=== PATIENT | male | born 1955 | race Caucasian/White ===

== ENCOUNTER → 2024-01-11 11:54 | Outpatient (REF) | payer BC, SELFPAY | LOC: HWRAD 11:54 | PROVIDERS: ATTENDING PHYSICIAN Nurse Practitioner Family; FAMILY PHYSICIAN Internal Medicine | DX: Z87.891 Personal history of nicotine dependence (principal) | CPT/HCPCS: 71271 ==

== ENCOUNTER 2024-01-25 06:27 | Day surgery (SDC) | payer BC, SELFPAY ==
[2024-01-15 06:39] VITALS: BMI 33.8
[2024-01-15 09:01] LABS: Hematocrit 40.8 % (39.0-52.0); Hemoglobin 13.8 g/dL (13.0-18.0); Mean Corp Hgb Conc. 33.8 g/dL (33.0-37.0); Mean Corpuscular Hgb 32.1 pg (27.0-31.0); Mean Corpuscular Volume 94.9 fL (80.0-94.0); Mean Platelet Volume 9.6 fL (7.4-10.4); Platelet Count 156 10^3/uL (130-400); Red Cell Dist. Width 12.1 % (11.5-14.5); White Blood Cell Count 7.7 10^3/uL (4.8-10.8)
[2024-01-15 09:09] LABS: INR 1.01; PT 13.1 Sec (11.4-14.6)
[2024-01-15 09:10] LABS: APTT 28.1 Sec (23.4-35.0)
[2024-01-15 10:02] LABS: ALT (SGPT) 38 U/L (0-50); AST (SGOT) 29 U/L (17-59); Albumin 4.3 g/dl (3.5-5.0); Alkaline Phosphatase 70 U/L (38-126); Blood Urea Nitrogen 31 mg/dl (9-20); Calcium 9.3 mg/dl (8.4-10.2); Carbon Dioxide 23 mmol/L (22-30); Chloride 104 mmol/L (98-107); Estimated Creatinine Clearance 46 ml/min; Glucose 124 mg/dl (70-99); HDL Cholesterol 41 mg/dl; Potassium 4.5 mmol/L (3.5-5.1); Sodium 136 mmol/L (135-145); Total Bilirubin 0.5 mg/dl (0.2-1.3); Total Cholesterol 183 mg/dl (50-199); Total Protein 6.7 g/dl (6.3-8.2); eGFR 40.75
[2024-01-15 10:06] LABS: Triglyceride 424 mg/dl (10-149)
[2024-01-15 10:28] LABS: LDL Cholesterol, Direct 85 mg/dl
[2024-01-15 10:32] LABS: TSH 2.46 uIU/ml (0.47-4.68)
--- NOTE | 2024-01-18 08:54 | PTCARENOTE ---
Creatinine 1.8 and eGFR 40.75 collected on 01/15/24; Pool at 's office were notified.
[2024-01-25] VITALS (8 sets, daily range): BP systolic 125–145; BP diastolic 62–81; BMI 33.3
--- NOTE | 2024-01-25 11:17 | PTCARENOTE ---
ok with pt. going to SDS with sat decreasing to 88-89%, pt. denies SOB. deep breathing encouarged .
== END 2024-01-25 12:15 | disposition home or self-care (01) ==
LOC: GI 06:27
PROVIDERS: ATTENDING PHYSICIAN Internal Medicine Critical Care Medicine; FAMILY PHYSICIAN Internal Medicine
DX: C34.01 Malignant neoplasm of right main bronchus (principal); C77.1 Secondary and unspecified malignant neoplasm of intrathoracic lymph nodes; R91.8 Other nonspecific abnormal finding of lung field; R59.0 Localized enlarged lymph nodes; J96.10 Chronic respiratory failure, unspecified whether with hypoxia or hypercapnia; I42.9 Cardiomyopathy, unspecified; J44.9 Chronic obstructive pulmonary disease, unspecified; I10 Essential (primary) hypertension; Z87.891 Personal history of nicotine dependence
CPT/HCPCS: 31629; 31653; 31624; 31625; 31654; 31899; 88172; 88173; 88305; 36415; 71045; 80053; 80061; 83721; 84439; 84443; 85027; 85610; 85730; 87015; 87070; 87077; 87102; 87116; 87185; 87205; 88112; 88341; 88342

== ENCOUNTER 2024-01-29 07:51 | Emergency (ER) | payer BC, SELFPAY ==
[2024-01-29 07:57] VITALS: BP 127/69
[2024-01-29] MEDS: NORCO 5/325 1 TABLET PO (09:23)
--- NOTE | 2024-01-29 09:38 | ED.GENMED ---
History of Present Illness
General
Chief Complaint: Musculo-Skeletal Complaint
Source: patient
Exam Limitations: none
Time Seen by Provider: 01/29/24 08:49
Nursing documentation reviewed up to this point in time: agreed with
Travel History
Have you had any contact with someone who has COVID-19?: No
Do you have any symptoms of coronavirus? Fever > 100 degrees, chills, cough, shortness of breath, sore throat, loss of taste or smell, muscle aches, or headache?: No
History of Present Illness
History of Present Illness:
68 y/o M with h/o COPD, cardiomypathy, htn, hld
recent diagnosed Lung cancer last week, had bronchoscopy
unknown staging
here with painful posterior heel/achilles region x 2 days
says he did remember vaccuuming the day before it started but denies injury
has had pain, swelling, posterior tenderness to the back of the ankle/foot
no heel pain plantar
mild swelling foot
concerned for blood clot in setting of new cancer diagnosis
pain is worse with movement of the ankle but mostly worse with palpitaiton
no calf swelling
took tyenol without relief
Past History
Past History
ED Past Medical History: Cancer (lung cancer), CHF, HTN and Hypercholesterolemia
Social History
Tobacco: Smoker
Alcohol: Occasional
Drug: None
Personal:
Living: with family
Review of Systems
Review of Systems
Allergies reviewed?: Yes
All Other Systems: Not applicable
Phy Exam
Physical Exam
Physical Exam:
GENERAL: Alert , in no apparent distress
CARDIAC: Regular rate and rhythm .normal pulse dp
LUNGS: Clear breath sounds bilaterally, no acute respiratory distress, no wheezes/rales/rhonchi
ABDOMEN: Soft, without focal tenderness, no r/g, no cvat, normal bowel sounds
NEUROLOGICAL: Alert and oriented, no focal neuro deficits
SKIN: Warm and dry, skin intact.
slight redness posterior heel/achilles region with point tenderness, STS
MUSCULOSKELETAL: mild L foot swelling diffusely
tenderness to achilles posteriorly
no plantar fascia tendneress at insertion point on foot
achilles intact
PSYCH: Normal and appropriate interaction.
Course
Orders/Labs/Results
Orders:
Orders
01/29/24 08:00
CR Foot - Left Min 3 Views Urgent
Comment:
Reason For Exam: heel pain
01/29/24 09:16
Hydrocodone 5/APAP 325 [[place] 5/325] 1 tablet PO NOW STA
Venous Doppler Lwr Ext Left [US Periph Venous LOWER Ext LT] Urgent
Comment:
Reason For Exam: left foot swelling, dx lung cancer
Vital Signs
Initial and Last Documented VS:
Initial Vital Signs
Temp Pulse Resp BP Pulse Ox
97.8 F 82 18 127/69 94
01/29/24 07:57 01/29/24 07:57 01/29/24 07:57 01/29/24 07:57 01/29/24 07:57
Last Documented Vital Signs
Temp Pulse Resp BP Pulse Ox
97.8 F 82 18 127/69 94
01/29/24 07:57 01/29/24 07:57 01/29/24 07:57 01/29/24 07:57 01/29/24 07:57
MDM/Problems Addressed
Differential Diagnosis Includes:
plantar fasciitis, achilles tendinitis, dvt
MDM/Problems Addressed:
68 y/o M with newly diagnosed lung ca
here with atraumatic left posterior ankle/heel pain x 2 days
doesn't recall injury
no plantar heel pain
some soft tissue swelling and point tenderness to back of heel and achilles region with normal ford test
normal senstaion and strength
painful weight bearing
xray indep reviewed, appreciate the calcaneal spur
could be plantar fasciitis vs. achilles tendinitis
pt generally avoids NSAIDS
concerned about dvt due to recent cancer diagnosis
US neg
will d/c with round of steorids, tylenol, walking boot, walker
pt didn't tolerate boot with putting pressure on his heel
*Critical Care Note
Total Time (30-74mins, 75-104mins- exclusive of procedures): Not Applicable
ED Attending Note
-
Portions of this chart may have been created with voice recognition software.� Occasional wrong word or��sound alike� substitutions may have occurred due to the inherent limitations of voice recognition software.
Discharge Plan
Departure
Patient Disposition: Home (Routine Discharge)
Date of Disposition: 01/29/24
Time of Disposition: 11:08
Patient with high blood pressure during this ER visit?: No
Condition: Fair
Covid-19: Not Applicable
Discharge Problem:
Tendinitis
Instructions: Achilles Tendinopathy (DC), Heel Spurs (DC)
Prescriptions:
New
prednisone 50 mg tablet
50 mg PO DAILY Qty: 5 0RF
hydrocodone-acetaminophen 5-325 mg tablet
1 tab PO BID PRN (Reason: Pain) Qty: 7 0RF
No Action
albuterol sulfate 1 PUFF HFA aerosol inhaler
2 puff inhalation Q4HPRN PRN (Reason: sob)
Patient Comments:
patient stated he last took this greater than 2weeks ago
carvedilol [Coreg] 25 MG tablet
25 mg PO BID
trazodone 100 MG tablet
200 mg PO HS
pravastatin 20 MG tablet
20 mg PO HS
icosapent ethyl [Vascepa] 1 GM capsule
2 gm PO BID
guaifenesin [Mucus Relief ER] 600 MG tablet extended release 12hr
600 mg PO BID-TID
furosemide [Lasix] 40 MG tablet
40 mg PO DAILY Qty: 0 0RF
Rx Instructions:
Hold if systolic blood pressure <130 while taking Oxycodone
multivitamin Tablet
1 tab PO DAILY
Trelegy Ellipta 100-62.5-25 mcg Blister With Device
1 inh INHALATION DAILY
aspirin 81 mg Capsule
81 mg PO DAILY
lisinopril 10 MG tablet
10 mg PO DAILY
Rx Instructions:
Hold if systolic blood pressure <130 while on Oxycodone
Healthy Feet And Nerves
2 tab PO DAILY
Referrals:
Darrius Carter MD [Family Provider] -
Stand Alone Forms: Return to Work
Activity Restrictions/Additional Instructions:
YOUR XRAY SHOWS A HEEL SPUR WHICH CAN PREDISPOSE TO PLANTAR FASCIITIS, INFLAMMATION OF THE TISSUE THAT ATTACHES THE BACK OF THE ANKLE TO THE FOOT
YOU ALSO COULD HAVE INFAMMATION OF THE ACHILLES TENDON
USE YOUR WALKER WELL
FOLLOW UP WITH ORTHOPEDICS
TRY PREDNISONE 50 MG ONCE A DAY FOR 5 DAYS
TYLENOL 2 times a day NEEDED FOR PAIN WELL
AT NIGHT YOU CAN TRY VICODIN BEFORE BED TO HELP WITH PAIN AND SLEEP
RETURN FOR ANY CONCERNS LIKE REDNESS, WORSE SWELLING, NUMBNESS, WARMTH, INABILITY TO WALK OR ANY CONCERNS.
Interventions
Interventions:
*Risk Screen - Suicide Last Done: 01/29/24 07:54
*General Assessment Last Done: 01/29/24 07:54
*Neglect/Abuse Screening Last Done: 01/29/24 11:40
ED- Fall Risk Assessment Last Done: 01/29/24 11:40
*ED COVID-19 Vaccine History Last Done: 01/29/24 07:54
*Nursing Disposition Last Done: 01/29/24 11:43
ED-Musculoskeletal Assessment Last Done: 01/29/24 11:39
Discharge Date and Time
Discharge Date/Time: 01/29/24 11:44
Print Language: GREENLANDIC
== END 2024-01-29 11:44 | disposition home or self-care (01) ==
LOC: EMR 07:51
PROVIDERS: EMERGENCY PHYSICIAN Emergency Medicine; FAMILY PHYSICIAN Internal Medicine
DX: M76.62 Achilles tendinitis, left leg (principal); F17.200 Nicotine dependence, unspecified, uncomplicated; I11.0 Hypertensive heart disease with heart failure; I50.9 Heart failure, unspecified; E78.00 Pure hypercholesterolemia, unspecified
CPT/HCPCS: 99284; 73630; 93971

== ENCOUNTER → 2024-02-03 10:27 | Outpatient (REF) | payer BC, SELFPAY | LOC: PAVMRI 10:27 | PROVIDERS: ATTENDING PHYSICIAN Physician Assistant Surgical; FAMILY PHYSICIAN Internal Medicine | DX: M76.62 Achilles tendinitis, left leg (principal) | CPT/HCPCS: 73721 ==

== ENCOUNTER → 2024-02-10 08:41 | Outpatient (REF) | payer BC, SELFPAY | LOC: PET 08:41 | PROVIDERS: ATTENDING PHYSICIAN Nurse Practitioner Family | DX: C34.11 Malignant neoplasm of upper lobe, right bronchus or lung (principal) | CPT/HCPCS: 78815; A9552 ==

== ENCOUNTER → 2024-02-22 11:06 | Outpatient (REF) | payer BC, SELFPAY ==
[2024-02-22 12:49] LABS: % Basophils 0.7 % (0-2); % Eosinophils 1.9 % (0-6); % Immature Granulocytes 0.6 % (0-0.5); % Lymphocytes 15.8 % (20.5-51.1); % Monocytes 12.1 % (1.7-9.3); % Neutrophils 68.9 % (42.2-75.2); Absolute Basophils 0.1 10^3/uL (0-0.2); Absolute Eosinophils 0.2 10^3/uL (0-0.7); Absolute Immature Granulocytes 0.1 10^3/uL (0-0.05); Absolute Lymphocytes 1.6 10^3/uL (1.2-3.4); Absolute Monocytes 1.2 10^3/uL (0.1-0.6); Absolute Neutrophils 7.1 10^3/uL (1.4-6.5); Hematocrit 35.9 % (39.0-52.0); Hemoglobin 12.5 g/dL (13.0-18.0); Mean Corp Hgb Conc. 34.8 g/dL (33.0-37.0); Mean Corpuscular Hgb 32.1 pg (27.0-31.0); Mean Corpuscular Volume 92.1 fL (80.0-94.0); Mean Platelet Volume 8.7 fL (7.4-10.4); Nucleated Red Blood Cells % 0 % (-); Platelet Count 229 10^3/uL (130-400); Red Cell Dist. Width 12.1 % (11.5-14.5); White Blood Cell Count 10.2 10^3/uL (4.8-10.8)
[2024-02-22 13:19] LABS: ALT (SGPT) 22 U/L (0-50); AST (SGOT) 22 U/L (17-59); Albumin 4.3 g/dl (3.5-5.0); Alkaline Phosphatase 70 U/L (38-126); Blood Urea Nitrogen 29 mg/dl (9-20); Calcium 9.8 mg/dl (8.4-10.2); Carbon Dioxide 25 mmol/L (22-30); Chloride 103 mmol/L (98-107); Glucose 109 mg/dl (70-99); Potassium 5.6 mmol/L (3.5-5.1); Sodium 137 mmol/L (135-145); Total Bilirubin 0.7 mg/dl (0.2-1.3); eGFR 46.93
[2024-02-22 13:35] LABS: Free T4 0.63 ng/dl (0.78-2.19)
[2024-02-22 13:50] LABS: TSH 1.64 uIU/ml (0.47-4.68)
[2024-02-24 10:59] LABS: Total T3 (Sendout) 91 ng/dL (80-200)
== END ==
LOC: REG 11:06
PROVIDERS: ATTENDING PHYSICIAN Internal Medicine Hematology & Oncology; FAMILY PHYSICIAN Internal Medicine
DX: C34.31 Malignant neoplasm of lower lobe, right bronchus or lung (principal)
CPT/HCPCS: 36415; 80053; 84439; 84443; 84480; 85025

== ENCOUNTER → 2024-02-25 17:45 | Outpatient (REF) | payer BC, SELFPAY | LOC: MRI 3T 17:45 | PROVIDERS: ATTENDING PHYSICIAN Internal Medicine Hematology & Oncology; FAMILY PHYSICIAN Internal Medicine; REFERRING PHYSICIAN Internal Medicine Critical Care Medicine | DX: C34.31 Malignant neoplasm of lower lobe, right bronchus or lung (principal) | CPT/HCPCS: 70553; A9575 ==

== ENCOUNTER → 2024-02-29 09:20 | Outpatient (REF) | payer BC, SELFPAY ==
[2024-02-29 09:49] VITALS: BP 148/68; BP_SYST 78
[2024-02-29] MEDS: ANCEF 10 IV (10:06)
[2024-02-29 11:22] VITALS: BP 152/78; BP_SYST 84
[2024-02-29 11:37] VITALS: BP 143/78; BP_SYST 77
== END ==
LOC: RADI 09:20
PROVIDERS: ATTENDING PHYSICIAN Internal Medicine Hematology & Oncology; FAMILY PHYSICIAN Internal Medicine
DX: C34.31 Malignant neoplasm of lower lobe, right bronchus or lung (principal)
CPT/HCPCS: 36561; 76937; 77001; 99152; 99153; C1788

== ENCOUNTER 2024-03-02 12:57 | Outpatient (RCR) | payer BC, SELFPAY ==
[2024-02-25 15:35] VITALS: BP 143/60
[2024-02-25] MEDS: CYANOCOBALAMIN 1000 MCG IM (15:43)
[2024-03-01 08:19] LABS: % Immature Granulocytes 0.9 % (0-0.5); % Lymphocytes 6.8 % (20.5-51.1); % Monocytes 5.6 % (1.7-9.3); % Neutrophils 86.7 % (42.2-75.2); Absolute Immature Granulocytes 0.1 10^3/uL (0-0.05); Absolute Monocytes 0.8 10^3/uL (0.1-0.6); Absolute Neutrophils 12.2 10^3/uL (1.4-6.5); Hemoglobin 11.6 g/dL (13.0-18.0); Mean Corp Hgb Conc. 35.2 g/dL (33.0-37.0); Mean Corpuscular Hgb 32.7 pg (27.0-31.0); Mean Platelet Volume 8.3 fL (7.4-10.4); Platelet Count 196 10^3/uL (130-400); Red Blood Cell Count 3.55 10^6/uL (4.70-6.10); Red Cell Dist. Width 12.1 % (11.5-14.5)
[2024-03-01 08:27] VITALS: BP 146/61
[2024-03-01 09:05] LABS: ALT (SGPT) 20 U/L (0-50); AST (SGOT) 20 U/L (17-59); Albumin 4.4 g/dl (3.5-5.0); Alkaline Phosphatase 64 U/L (38-126); Blood Urea Nitrogen 22 mg/dl (9-20); Calcium 9.4 mg/dl (8.4-10.2); Carbon Dioxide 22 mmol/L (22-30); Chloride 105 mmol/L (98-107); Glucose 146 mg/dl (70-99); Sodium 139 mmol/L (135-145); Total Bilirubin 0.6 mg/dl (0.2-1.3); Total Protein 6.9 g/dl (6.3-8.2); eGFR > 60.00
[2024-03-01 09:33] LABS: TSH Reflex To Free T4 0.33 uIU/ml (0.47-4.68)
[2024-03-01 10:06] LABS: Free T4 0.73 ng/dl (0.78-2.19)
[2024-03-01] MEDS: OPDIVO 136 MG IV ×2 (10:18)
[2024-03-01] MEDS: YERVOY 69.7800000000000011 MG IV (11:17)
[2024-03-01] MEDS: EMEND 150 MG IV (12:04)
[2024-03-01] MEDS: ALOXI 5 MG IV (12:42)
[2024-03-01] MEDS: DECADRON 51 MG IV (12:42)
[2024-03-01] MEDS: ALIMTA/PEMETREXED 100 MG IV (13:29)
[2024-03-01] MEDS: PARAPLATIN 287.800000000000011 MG IV (13:47)
[2024-03-02 13:00] VITALS: BP 141/84
[2024-03-02] MEDS: NYVEPRIA 6 MG SC (13:31)
== END 2024-03-03 10:02 | disposition home or self-care (01) ==
LOC: OID 12:57
PROVIDERS: ATTENDING PHYSICIAN Internal Medicine Hematology & Oncology; FAMILY PHYSICIAN Internal Medicine
DX: C34.31 Malignant neoplasm of lower lobe, right bronchus or lung (principal)
CPT/HCPCS: 70553; 80053; 84439; 84443; 85025; 96367; 96372; 96375; 96411; 96413; 96417; A9575; J1453; J2469; J9045; J9228; J9299; J9305; Q5122

== ENCOUNTER 2024-04-05 09:27 | Outpatient (RCR) | payer BC, SELFPAY ==
[2024-03-08 10:23] LABS: % Basophils 0.2 % (0-2); % Eosinophils 1.1 % (0-6); % Immature Granulocytes 0.9 % (0-0.5); % Lymphocytes 10.2 % (20.5-51.1); % Monocytes 8.3 % (1.7-9.3); % Neutrophils 79.3 % (42.2-75.2); Absolute Eosinophils 0.1 10^3/uL (0-0.7); Absolute Immature Granulocytes 0.1 10^3/uL (0-0.05); Absolute Lymphocytes 1.1 10^3/uL (1.2-3.4); Absolute Monocytes 0.9 10^3/uL (0.1-0.6); Absolute Neutrophils 8.2 10^3/uL (1.4-6.5); Hematocrit 35.6 % (39.0-52.0); Hemoglobin 12.2 g/dL (13.0-18.0); Mean Corp Hgb Conc. 34.3 g/dL (33.0-37.0); Mean Corpuscular Hgb 32.4 pg (27.0-31.0); Mean Corpuscular Volume 94.4 fL (80.0-94.0); Mean Platelet Volume 8.1 fL (7.4-10.4); Platelet Count 102 10^3/uL (130-400); Red Blood Cell Count 3.77 10^6/uL (4.70-6.10); Red Cell Dist. Width 12.4 % (11.5-14.5); White Blood Cell Count 10.3 10^3/uL (4.8-10.8)
[2024-03-08 11:21] LABS: ALT (SGPT) 30 U/L (0-50); AST (SGOT) 32 U/L (17-59); Albumin 4.4 g/dl (3.5-5.0); Alkaline Phosphatase 93 U/L (38-126); Blood Urea Nitrogen 32 mg/dl (9-20); Calcium 9.3 mg/dl (8.4-10.2); Carbon Dioxide 25 mmol/L (22-30); Chloride 101 mmol/L (98-107); Glucose 107 mg/dl (70-99); Potassium 4.7 mmol/L (3.5-5.1); Sodium 137 mmol/L (135-145); Total Bilirubin 1.1 mg/dl (0.2-1.3); Total Protein 6.9 g/dl (6.3-8.2); eGFR 55.09
[2024-03-08 11:51] LABS: TSH 1.97 uIU/ml (0.47-4.68); TSH Reflex To Free T4 1.97 uIU/ml (0.47-4.68)
[2024-03-15 10:49] LABS: % Basophils 0.1 % (0-2); % Eosinophils 1.5 % (0-6); % Immature Granulocytes 17.3 % (0-0.5); % Lymphocytes 12.5 % (20.5-51.1); % Monocytes 11.8 % (1.7-9.3); % Neutrophils 56.8 % (42.2-75.2); Absolute Eosinophils 0.2 10^3/uL (0-0.7); Absolute Immature Granulocytes 2.4 10^3/uL (0-0.05); Absolute Lymphocytes 1.7 10^3/uL (1.2-3.4); Absolute Monocytes 1.6 10^3/uL (0.1-0.6); Absolute Neutrophils 7.8 10^3/uL (1.4-6.5); Hematocrit 29.8 % (39.0-52.0); Mean Corp Hgb Conc. 33.6 g/dL (33.0-37.0); Mean Corpuscular Hgb 31.7 pg (27.0-31.0); Mean Corpuscular Volume 94.6 fL (80.0-94.0); Mean Platelet Volume 8.4 fL (7.4-10.4); Platelet Count 215 10^3/uL (130-400); Red Blood Cell Count 3.15 10^6/uL (4.70-6.10); Red Cell Dist. Width 13.2 % (11.5-14.5); White Blood Cell Count 13.7 10^3/uL (4.8-10.8)
[2024-03-15 11:59] LABS: ALT (SGPT) 64 U/L (0-50); AST (SGOT) 43 U/L (17-59); Albumin 3.9 g/dl (3.5-5.0); Alkaline Phosphatase 82 U/L (38-126); Blood Urea Nitrogen 22 mg/dl (9-20); Calcium 9.5 mg/dl (8.4-10.2); Carbon Dioxide 23 mmol/L (22-30); Chloride 103 mmol/L (98-107); Glucose 99 mg/dl (70-99); Potassium 4.5 mmol/L (3.5-5.1); Sodium 137 mmol/L (135-145); Total Bilirubin 0.7 mg/dl (0.2-1.3); Total Protein 6.4 g/dl (6.3-8.2); eGFR 50.71
[2024-03-21 10:26] LABS: ALT (SGPT) 35 U/L (0-50); AST (SGOT) 29 U/L (17-59); Albumin 4.2 g/dl (3.5-5.0); Alkaline Phosphatase 91 U/L (38-126); Blood Urea Nitrogen 15 mg/dl (9-20); Calcium 10.1 mg/dl (8.4-10.2); Carbon Dioxide 25 mmol/L (22-30); Chloride 103 mmol/L (98-107); Glucose 123 mg/dl (70-99); Sodium 140 mmol/L (135-145); Total Bilirubin 0.6 mg/dl (0.2-1.3); Total Protein 7.1 g/dl (6.3-8.2); eGFR 50.71
[2024-03-21 10:48] LABS: TSH Reflex To Free T4 1.64 uIU/ml (0.47-4.68)
[2024-03-21 11:11] LABS: % Eosinophils 0.6 % (0-6); % Immature Granulocytes 4.3 % (0-0.5); % Lymphocytes 8.1 % (20.5-51.1); % Monocytes 6.2 % (1.7-9.3); % Neutrophils 79.8 % (42.2-75.2); Absolute Basophils 0.2 10^3/uL (0-0.2); Absolute Eosinophils 0.1 10^3/uL (0-0.7); Absolute Immature Granulocytes 0.8 10^3/uL (0-0.05); Absolute Lymphocytes 1.4 10^3/uL (1.2-3.4); Absolute Monocytes 1.1 10^3/uL (0.1-0.6); Absolute Neutrophils 13.8 10^3/uL (1.4-6.5); Hematocrit 31.3 % (39.0-52.0); Hemoglobin 10.6 g/dL (13.0-18.0); Mean Corp Hgb Conc. 33.9 g/dL (33.0-37.0); Mean Corpuscular Hgb 31.5 pg (27.0-31.0); Mean Corpuscular Volume 92.9 fL (80.0-94.0); Mean Platelet Volume 8.5 fL (7.4-10.4); Nucleated Red Blood Cells % 0.2 % (-); Platelet Count 460 10^3/uL (130-400); Red Blood Cell Count 3.37 10^6/uL (4.70-6.10); Red Cell Dist. Width 14.1 % (11.5-14.5); White Blood Cell Count 17.4 10^3/uL (4.8-10.8)
[2024-03-21 12:14] LABS: Uric Acid 9.3 mg/dl (3.5-8.5)
[2024-03-22] MEDS: OPDIVO 136 MG IV ×2 (09:01)
[2024-03-22] MEDS: EMEND 150 MG IV (09:46)
[2024-03-22 10:02] VITALS: BP 146/74; BMI 32.5
[2024-03-22] MEDS: ALOXI 5 MG IV (10:27)
[2024-03-22] MEDS: DECADRON 51 MG IV (10:29)
[2024-03-22] MEDS: ALIMTA/PEMETREXED 100 MG IV (11:06)
[2024-03-22] MEDS: PARAPLATIN 287.8 MG IV (11:20)
[2024-03-22 12:30] VITALS: BP 154/81
[2024-03-23 14:26] VITALS: BP 142/68
[2024-03-23] MEDS: NYVEPRIA 6 MG SC (14:35)
[2024-03-29 10:04] LABS: % Immature Granulocytes 0.7 % (0-0.5); % Lymphocytes 4.3 % (20.5-51.1); % Monocytes 5.9 % (1.7-9.3); % Neutrophils 89.1 % (42.2-75.2); Absolute Immature Granulocytes 0.1 10^3/uL (0-0.05); Absolute Lymphocytes 0.5 10^3/uL (1.2-3.4); Absolute Monocytes 0.7 10^3/uL (0.1-0.6); Absolute Neutrophils 10.3 10^3/uL (1.4-6.5); Hematocrit 29.6 % (39.0-52.0); Hemoglobin 9.9 g/dL (13.0-18.0); Mean Corp Hgb Conc. 33.4 g/dL (33.0-37.0); Mean Corpuscular Hgb 32.2 pg (27.0-31.0); Mean Corpuscular Volume 96.4 fL (80.0-94.0); Mean Platelet Volume 8.7 fL (7.4-10.4); Platelet Count 142 10^3/uL (130-400); Red Blood Cell Count 3.07 10^6/uL (4.70-6.10); Red Cell Dist. Width 13.8 % (11.5-14.5); White Blood Cell Count 11.6 10^3/uL (4.8-10.8)
[2024-04-05 09:57] LABS: % Basophils 0.1 % (0-2); % Eosinophils 0.1 % (0-6); % Immature Granulocytes 20.6 % (0-0.5); % Lymphocytes 8.6 % (20.5-51.1); % Monocytes 4.5 % (1.7-9.3); % Neutrophils 66.1 % (42.2-75.2); Absolute Immature Granulocytes 6.4 10^3/uL (0-0.05); Absolute Lymphocytes 2.7 10^3/uL (1.2-3.4); Absolute Monocytes 1.4 10^3/uL (0.1-0.6); Absolute Neutrophils 20.6 10^3/uL (1.4-6.5); Hematocrit 33.1 % (39.0-52.0); Hemoglobin 10.8 g/dL (13.0-18.0); Mean Corp Hgb Conc. 32.6 g/dL (33.0-37.0); Mean Corpuscular Hgb 32.6 pg (27.0-31.0); Mean Platelet Volume 9.1 fL (7.4-10.4); Platelet Count 75 10^3/uL (130-400); Red Blood Cell Count 3.31 10^6/uL (4.70-6.10); Red Cell Dist. Width 16.1 % (11.5-14.5); White Blood Cell Count 31.2 10^3/uL (4.8-10.8)
[2024-04-05 12:11] LABS: ALT (SGPT) 57 U/L (0-50); AST (SGOT) 38 U/L (17-59); Albumin 4.3 g/dl (3.5-5.0); Alkaline Phosphatase 136 U/L (38-126); Blood Urea Nitrogen 29 mg/dl (9-20); Calcium 9.7 mg/dl (8.4-10.2); Carbon Dioxide 25 mmol/L (22-30); Chloride 103 mmol/L (98-107); Estimated Creatinine Clearance 54 ml/min; Glucose 112 mg/dl (70-99); Potassium 4.7 mmol/L (3.5-5.1); Sodium 138 mmol/L (135-145); Total Bilirubin 0.4 mg/dl (0.2-1.3); Total Protein 6.5 g/dl (6.3-8.2); Uric Acid 8.7 mg/dl (3.5-8.5); eGFR 50.71
[2024-04-05 12:42] LABS: TSH Reflex To Free T4 1.89 uIU/ml (0.47-4.68)
== END 2024-04-06 14:53 | disposition home or self-care (01) ==
LOC: OID 09:27
PROVIDERS: ATTENDING PHYSICIAN Internal Medicine Hematology & Oncology; FAMILY PHYSICIAN Internal Medicine
DX: Z51.11 Encounter for antineoplastic chemotherapy (principal); C34.31 Malignant neoplasm of lower lobe, right bronchus or lung (principal); J45.909 Unspecified asthma, uncomplicated; Z87.891 Personal history of nicotine dependence
CPT/HCPCS: 36415; 71046; 80053; 84443; 84550; 85025; 96367; 96372; 96375; 96411; 96413; 96417; J1453; J2469; J9045; J9299; J9305; Q5122

== ENCOUNTER 2024-05-04 14:13 | Outpatient (RCR) | payer BC, SELFPAY ==
[2024-04-11 09:15] LABS: % Basophils 0.4 % (0-2); % Eosinophils 0.3 % (0-6); % Immature Granulocytes 1.8 % (0-0.5); % Lymphocytes 6.3 % (20.5-51.1); % Monocytes 6.8 % (1.7-9.3); % Neutrophils 84.4 % (42.2-75.2); ALT (SGPT) 32 U/L (0-50); AST (SGOT) 29 U/L (17-59); Absolute Basophils 0.1 10^3/uL (0-0.2); Absolute Eosinophils 0.1 10^3/uL (0-0.7); Absolute Immature Granulocytes 0.3 10^3/uL (0-0.05); Absolute Monocytes 1.1 10^3/uL (0.1-0.6); Absolute Neutrophils 13.5 10^3/uL (1.4-6.5); Albumin 4.1 g/dl (3.5-5.0); Alkaline Phosphatase 85 U/L (38-126); Blood Urea Nitrogen 26 mg/dl (9-20); Calcium 9.2 mg/dl (8.4-10.2); Carbon Dioxide 21 mmol/L (22-30); Chloride 104 mmol/L (98-107); Glucose 137 mg/dl (70-99); Hemoglobin 9.8 g/dL (13.0-18.0); Mean Corp Hgb Conc. 33.8 g/dL (33.0-37.0); Mean Corpuscular Hgb 32.8 pg (27.0-31.0); Mean Platelet Volume 9.3 fL (7.4-10.4); Nucleated Red Blood Cells % 0 % (-); Platelet Count 191 10^3/uL (130-400); Potassium 4.4 mmol/L (3.5-5.1); Red Blood Cell Count 2.99 10^6/uL (4.70-6.10); Red Cell Dist. Width 17.3 % (11.5-14.5); Sodium 136 mmol/L (135-145); Total Bilirubin 1.2 mg/dl (0.2-1.3); Total Protein 6.5 g/dl (6.3-8.2); eGFR 43.64
[2024-04-11 09:43] LABS: TSH Reflex To Free T4 1.36 uIU/ml (0.47-4.68)
[2024-04-12 09:15] VITALS: BP 145/84
[2024-04-12] MEDS: OPDIVO 136 MG IV ×2 (09:58)
[2024-04-12] MEDS: YERVOY 69.78 MG IV (10:34)
[2024-04-12] MEDS: EMEND 150 MG IV (11:25)
[2024-04-12] MEDS: ALOXI 5 MG IV (12:03)
[2024-04-12] MEDS: DECADRON 51 MG IV (12:04)
[2024-04-12] MEDS: ALIMTA/PEMETREXED 100 MG IV (12:51)
[2024-04-12] MEDS: PARAPLATIN 282.5 MG IV (13:26)
[2024-04-12 14:22] LABS: Uric Acid 7.2 mg/dl (3.5-8.5)
[2024-04-13 14:35] VITALS: BP 153/78
[2024-04-13] MEDS: NYVEPRIA 6 MG SC (15:35)
[2024-04-19 09:29] LABS: % Basophils 0.4 % (0-2); % Eosinophils 0.8 % (0-6); % Immature Granulocytes 0.7 % (0-0.5); % Lymphocytes 13.7 % (20.5-51.1); % Monocytes 7.4 % (1.7-9.3); Absolute Eosinophils 0.1 10^3/uL (0-0.7); Absolute Immature Granulocytes 0.1 10^3/uL (0-0.05); Absolute Lymphocytes 1.2 10^3/uL (1.2-3.4); Absolute Monocytes 0.6 10^3/uL (0.1-0.6); Absolute Neutrophils 6.6 10^3/uL (1.4-6.5); Hematocrit 30.2 % (39.0-52.0); Hemoglobin 10.1 g/dL (13.0-18.0); Mean Corp Hgb Conc. 33.4 g/dL (33.0-37.0); Mean Corpuscular Hgb 33.1 pg (27.0-31.0); Mean Platelet Volume 8.6 fL (7.4-10.4); Platelet Count 118 10^3/uL (130-400); Red Blood Cell Count 3.05 10^6/uL (4.70-6.10); Red Cell Dist. Width 16.3 % (11.5-14.5); White Blood Cell Count 8.5 10^3/uL (4.8-10.8)
[2024-04-19 10:32] LABS: ALT (SGPT) 62 U/L (0-50); AST (SGOT) 54 U/L (17-59); Albumin 4.2 g/dl (3.5-5.0); Alkaline Phosphatase 102 U/L (38-126); Blood Urea Nitrogen 26 mg/dl (9-20); Calcium 9.5 mg/dl (8.4-10.2); Carbon Dioxide 29 mmol/L (22-30); Chloride 101 mmol/L (98-107); Glucose 122 mg/dl (70-99); Potassium 4.6 mmol/L (3.5-5.1); Sodium 138 mmol/L (135-145); Total Bilirubin 1.1 mg/dl (0.2-1.3); Total Protein 6.5 g/dl (6.3-8.2); eGFR 55.09
[2024-04-19 11:40] LABS: TSH Reflex To Free T4 2.46 uIU/ml (0.47-4.68)
[2024-04-26 10:03] LABS: % Basophils 0.2 % (0-2); % Eosinophils 0.2 % (0-6); % Immature Granulocytes 12.9 % (0-0.5); % Lymphocytes 8.6 % (20.5-51.1); % Neutrophils 72.1 % (42.2-75.2); Absolute Immature Granulocytes 2.6 10^3/uL (0-0.05); Absolute Lymphocytes 1.8 10^3/uL (1.2-3.4); Absolute Monocytes 1.2 10^3/uL (0.1-0.6); Absolute Neutrophils 14.7 10^3/uL (1.4-6.5); Hematocrit 30.1 % (39.0-52.0); Hemoglobin 9.9 g/dL (13.0-18.0); Mean Corp Hgb Conc. 32.9 g/dL (33.0-37.0); Mean Corpuscular Hgb 33.7 pg (27.0-31.0); Mean Corpuscular Volume 102.4 fL (80.0-94.0); Mean Platelet Volume 8.9 fL (7.4-10.4); Platelet Count 117 10^3/uL (130-400); Red Blood Cell Count 2.94 10^6/uL (4.70-6.10); White Blood Cell Count 20.4 10^3/uL (4.8-10.8)
[2024-04-26 12:16] LABS: ALT (SGPT) 56 U/L (0-50); AST (SGOT) 42 U/L (17-59); Albumin 4.2 g/dl (3.5-5.0); Alkaline Phosphatase 108 U/L (38-126); Blood Urea Nitrogen 22 mg/dl (9-20); Calcium 9.6 mg/dl (8.4-10.2); Carbon Dioxide 26 mmol/L (22-30); Chloride 103 mmol/L (98-107); Glucose 129 mg/dl (70-99); Potassium 4.5 mmol/L (3.5-5.1); Sodium 138 mmol/L (135-145); Total Bilirubin 0.4 mg/dl (0.2-1.3); Total Protein 6.4 g/dl (6.3-8.2); Uric Acid 6.7 mg/dl (3.5-8.5); eGFR 55.09
[2024-04-26 12:31] LABS: NT-proBNP 279 pg/ml
[2024-05-02 08:02] VITALS: BP 145/82
[2024-05-02 08:17] LABS: % Basophils 0.7 % (0-2); % Eosinophils 0.2 % (0-6); % Immature Granulocytes 4.4 % (0-0.5); % Lymphocytes 10.4 % (20.5-51.1); % Monocytes 6.3 % (1.7-9.3); Absolute Basophils 0.1 10^3/uL (0-0.2); Absolute Immature Granulocytes 0.7 10^3/uL (0-0.05); Absolute Lymphocytes 1.7 10^3/uL (1.2-3.4); Absolute Neutrophils 12.9 10^3/uL (1.4-6.5); Hematocrit 30.3 % (39.0-52.0); Hemoglobin 10.3 g/dL (13.0-18.0); Mean Corpuscular Hgb 33.8 pg (27.0-31.0); Mean Corpuscular Volume 99.3 fL (80.0-94.0); Mean Platelet Volume 8.7 fL (7.4-10.4); Nucleated Red Blood Cells % 0 % (-); Platelet Count 259 10^3/uL (130-400); Red Blood Cell Count 3.05 10^6/uL (4.70-6.10); Red Cell Dist. Width 19.4 % (11.5-14.5); White Blood Cell Count 16.5 10^3/uL (4.8-10.8)
[2024-05-02 08:31] LABS: ALT (SGPT) 34 U/L (0-50); AST (SGOT) 30 U/L (17-59); Albumin 4.2 g/dl (3.5-5.0); Alkaline Phosphatase 95 U/L (38-126); Blood Urea Nitrogen 23 mg/dl (9-20); Calcium 9.8 mg/dl (8.4-10.2); Carbon Dioxide 27 mmol/L (22-30); Chloride 101 mmol/L (98-107); Glucose 143 mg/dl (70-99); Potassium 4.5 mmol/L (3.5-5.1); Sodium 140 mmol/L (135-145); Total Bilirubin 0.5 mg/dl (0.2-1.3); Total Protein 6.5 g/dl (6.3-8.2); eGFR 55.09
[2024-05-02 09:01] LABS: TSH Reflex To Free T4 2.33 uIU/ml (0.47-4.68)
[2024-05-03] MEDS: OPDIVO 136 MG IV ×2 (09:10)
[2024-05-03 09:20] VITALS: BP 170/82; BMI 33.1
[2024-05-03] MEDS: EMEND 150 MG IV (10:10)
[2024-05-03] MEDS: DECADRON 51 MG IV (10:51)
[2024-05-03] MEDS: ALOXI 5 MG IV (10:51)
[2024-05-03] MEDS: ALIMTA/PEMETREXED 100 MG IV (11:26)
[2024-05-03] MEDS: PARAPLATIN 290 MG IV (11:42)
[2024-05-03 13:00] VITALS: BP 162/73
[2024-05-03] MEDS: CYANOCOBALAMIN 1000 MCG IM (13:05)
[2024-05-04] MEDS: NYVEPRIA 6 MG SC (14:27)
[2024-05-04 15:54] VITALS: BP 174/83
== END 2024-05-05 10:18 | disposition home or self-care (01) ==
LOC: OID 14:13
PROVIDERS: Internal Medicine Cardiovascular Disease; ATTENDING PHYSICIAN Internal Medicine Hematology & Oncology; FAMILY PHYSICIAN Internal Medicine
DX: C34.31 Malignant neoplasm of lower lobe, right bronchus or lung (principal); J45.909 Unspecified asthma, uncomplicated; Z87.891 Personal history of nicotine dependence; Z51.11 Encounter for antineoplastic chemotherapy
CPT/HCPCS: 36415; 80053; 83880; 84443; 84550; 85025; 96367; 96372; 96375; 96411; 96413; 96417; J1453; J2469; J9045; J9228; J9299; J9305; Q5122

== ENCOUNTER → 2024-05-19 07:49 | Outpatient (REF) | payer BC, SELFPAY | LOC: PET 07:49 | PROVIDERS: ATTENDING PHYSICIAN Nurse Practitioner Adult Health | DX: C34.31 Malignant neoplasm of lower lobe, right bronchus or lung (principal) | CPT/HCPCS: 78815; A9552 ==

== ENCOUNTER → 2024-05-23 15:25 | Outpatient (REF) | payer BC, SELFPAY | LOC: RAD 15:25 | PROVIDERS: ATTENDING PHYSICIAN Internal Medicine Hematology & Oncology; FAMILY PHYSICIAN Internal Medicine; OTHER PHYSICIAN Internal Medicine Critical Care Medicine | DX: C34.31 Malignant neoplasm of lower lobe, right bronchus or lung (principal) | CPT/HCPCS: 93970 ==

== ENCOUNTER 2024-05-31 09:15 | Outpatient (RCR) | payer BC, SELFPAY ==
[2024-05-10 09:27] LABS: % Basophils 0.5 % (0-2); % Eosinophils 0.9 % (0-6); % Immature Granulocytes 0.9 % (0-0.5); % Lymphocytes 10.6 % (20.5-51.1); % Monocytes 8.6 % (1.7-9.3); % Neutrophils 78.5 % (42.2-75.2); Absolute Eosinophils 0.1 10^3/uL (0-0.7); Absolute Immature Granulocytes 0.1 10^3/uL (0-0.05); Absolute Lymphocytes 0.9 10^3/uL (1.2-3.4); Absolute Monocytes 0.7 10^3/uL (0.1-0.6); Absolute Neutrophils 6.8 10^3/uL (1.4-6.5); Hematocrit 28.3 % (39.0-52.0); Hemoglobin 9.5 g/dL (13.0-18.0); Mean Corp Hgb Conc. 33.6 g/dL (33.0-37.0); Mean Corpuscular Hgb 34.5 pg (27.0-31.0); Mean Corpuscular Volume 102.9 fL (80.0-94.0); Platelet Count 90 10^3/uL (130-400); Red Blood Cell Count 2.75 10^6/uL (4.70-6.10); Red Cell Dist. Width 17.6 % (11.5-14.5); White Blood Cell Count 8.6 10^3/uL (4.8-10.8)
[2024-05-17 09:26] LABS: % Basophils 0.2 % (0-2); % Eosinophils 0.4 % (0-6); % Immature Granulocytes 13.9 % (0-0.5); % Lymphocytes 8.8 % (20.5-51.1); % Monocytes 5.4 % (1.7-9.3); % Neutrophils 71.3 % (42.2-75.2); Absolute Eosinophils 0.1 10^3/uL (0-0.7); Absolute Immature Granulocytes 3.2 10^3/uL (0-0.05); Absolute Monocytes 1.2 10^3/uL (0.1-0.6); Absolute Neutrophils 16.3 10^3/uL (1.4-6.5); Hematocrit 30.8 % (39.0-52.0); Hemoglobin 10.3 g/dL (13.0-18.0); Mean Corp Hgb Conc. 33.4 g/dL (33.0-37.0); Mean Corpuscular Volume 104.8 fL (80.0-94.0); Mean Platelet Volume 9.6 fL (7.4-10.4); Platelet Count 103 10^3/uL (130-400); Red Blood Cell Count 2.94 10^6/uL (4.70-6.10); Red Cell Dist. Width 18.6 % (11.5-14.5); White Blood Cell Count 22.9 10^3/uL (4.8-10.8)
[2024-05-17 11:11] LABS: ALT (SGPT) 38 U/L (0-50); AST (SGOT) 37 U/L (17-59); Albumin 4.3 g/dl (3.5-5.0); Alkaline Phosphatase 126 U/L (38-126); Blood Urea Nitrogen 21 mg/dl (9-20); Carbon Dioxide 25 mmol/L (22-30); Chloride 102 mmol/L (98-107); Glucose 162 mg/dl (70-99); Potassium 4.4 mmol/L (3.5-5.1); Sodium 141 mmol/L (135-145); Total Bilirubin 0.5 mg/dl (0.2-1.3); Total Protein 6.6 g/dl (6.3-8.2); eGFR 50.71
[2024-05-23 14:39] LABS: % Basophils 0.6 % (0-2); % Eosinophils 1.3 % (0-6); % Immature Granulocytes 2.2 % (0-0.5); % Monocytes 8.6 % (1.7-9.3); % Neutrophils 73.3 % (42.2-75.2); Absolute Basophils 0.1 10^3/uL (0-0.2); Absolute Eosinophils 0.2 10^3/uL (0-0.7); Absolute Immature Granulocytes 0.3 10^3/uL (0-0.05); Absolute Lymphocytes 2.1 10^3/uL (1.2-3.4); Absolute Monocytes 1.3 10^3/uL (0.1-0.6); Hematocrit 31.1 % (39.0-52.0); Mean Corp Hgb Conc. 35.4 g/dL (33.0-37.0); Mean Corpuscular Hgb 35.4 pg (27.0-31.0); Nucleated Red Blood Cells % 0 % (-); Platelet Count 301 10^3/uL (130-400); Red Blood Cell Count 3.11 10^6/uL (4.70-6.10); Red Cell Dist. Width 17.9 % (11.5-14.5)
[2024-05-23 14:45] LABS: ALT (SGPT) 48 U/L (0-50); AST (SGOT) 50 U/L (17-59); Albumin 4.4 g/dl (3.5-5.0); Alkaline Phosphatase 88 U/L (38-126); Blood Urea Nitrogen 23 mg/dl (9-20); Carbon Dioxide 23 mmol/L (22-30); Chloride 101 mmol/L (98-107); Glucose 143 mg/dl (70-99); Potassium 4.5 mmol/L (3.5-5.1); Sodium 140 mmol/L (135-145); Total Bilirubin 0.5 mg/dl (0.2-1.3); Total Protein 6.8 g/dl (6.3-8.2); Uric Acid 7.4 mg/dl (3.5-8.5); eGFR 50.71
[2024-05-23 15:20] LABS: TSH Reflex To Free T4 2.42 uIU/ml (0.47-4.68)
[2024-05-24 09:15] VITALS: BP 160/83
[2024-05-24] MEDS: OPDIVO 136 MG IV ×2 (10:28)
[2024-05-24] MEDS: YERVOY 69.78 MG IV (11:02)
[2024-05-24] MEDS: EMEND 150 MG IV (11:51)
[2024-05-24] MEDS: ALOXI 5 MG IV (12:24)
[2024-05-24] MEDS: DECADRON 51 MG IV (12:25)
[2024-05-24] MEDS: ALIMTA/PEMETREXED 100 MG IV (12:59)
[2024-05-24] MEDS: PARAPLATIN 288.1 MG IV (13:19)
[2024-05-24] MEDS: XGEVA 120 MG SC (14:26)
[2024-05-24 14:45] VITALS: BP 152/80
[2024-05-25 14:37] VITALS: BP 147/72
[2024-05-25] MEDS: NYVEPRIA 6 MG SC (14:50)
[2024-05-31 09:25] LABS: % Basophils 0.5 % (0-2); % Eosinophils 2.3 % (0-6); % Immature Granulocytes 0.9 % (0-0.5); % Lymphocytes 18.7 % (20.5-51.1); % Monocytes 9.6 % (1.7-9.3); Absolute Eosinophils 0.1 10^3/uL (0-0.7); Absolute Lymphocytes 0.8 10^3/uL (1.2-3.4); Absolute Monocytes 0.4 10^3/uL (0.1-0.6); Absolute Neutrophils 2.9 10^3/uL (1.4-6.5); Hematocrit 28.6 % (39.0-52.0); Hemoglobin 9.8 g/dL (13.0-18.0); Mean Corp Hgb Conc. 34.3 g/dL (33.0-37.0); Mean Corpuscular Hgb 35.8 pg (27.0-31.0); Mean Corpuscular Volume 104.4 fL (80.0-94.0); Mean Platelet Volume 8.7 fL (7.4-10.4); Platelet Count 95 10^3/uL (130-400); Red Blood Cell Count 2.74 10^6/uL (4.70-6.10); Red Cell Dist. Width 16.2 % (11.5-14.5); White Blood Cell Count 4.3 10^3/uL (4.8-10.8)
[2024-05-31 10:36] LABS: ALT (SGPT) 33 U/L (0-50); AST (SGOT) 35 U/L (17-59); Albumin 4.1 g/dl (3.5-5.0); Alkaline Phosphatase 104 U/L (38-126); Blood Urea Nitrogen 24 mg/dl (9-20); Calcium 8.3 mg/dl (8.4-10.2); Carbon Dioxide 25 mmol/L (22-30); Chloride 103 mmol/L (98-107); Glucose 141 mg/dl (70-99); Potassium 4.6 mmol/L (3.5-5.1); Sodium 139 mmol/L (135-145); Total Bilirubin 0.8 mg/dl (0.2-1.3); Total Protein 6.1 g/dl (6.3-8.2); Uric Acid 6.3 mg/dl (3.5-8.5); eGFR > 60.00
[2024-05-31 11:05] LABS: TSH 3.04 uIU/ml (0.47-4.68); TSH Reflex To Free T4 3.04 uIU/ml (0.47-4.68)
== END 2024-06-02 13:30 | disposition home or self-care (01) ==
LOC: OID 09:15
PROVIDERS: ATTENDING PHYSICIAN Internal Medicine Hematology & Oncology; FAMILY PHYSICIAN Internal Medicine
DX: C34.31 Malignant neoplasm of lower lobe, right bronchus or lung (principal); J44.9 Chronic obstructive pulmonary disease, unspecified; Z51.11 Encounter for antineoplastic chemotherapy; Z87.891 Personal history of nicotine dependence; J45.909 Unspecified asthma, uncomplicated
CPT/HCPCS: 36415; 36591; 80053; 84443; 84550; 85025; 96366; 96367; 96372; 96375; 96401; 96411; 96413; 96415; J0897; J1453; J2469; J9045; J9228; J9299; J9305; Q5122

== ENCOUNTER → 2024-06-01 13:44 | Outpatient (REF) | payer BC, SELFPAY | LOC: RCS 13:44 | PROVIDERS: ATTENDING PHYSICIAN Internal Medicine Cardiovascular Disease; FAMILY PHYSICIAN Internal Medicine | DX: C34.90 Malignant neoplasm of unspecified part of unspecified bronchus or lung (principal); R06.00 Dyspnea, unspecified | CPT/HCPCS: 93306 ==

== ENCOUNTER → 2024-06-27 11:08 | Outpatient (REF) | payer BC, SELFPAY | LOC: RAD 11:08 | PROVIDERS: ATTENDING PHYSICIAN Internal Medicine; OTHER PHYSICIAN Internal Medicine Cardiovascular Disease; OTHER PHYSICIAN Internal Medicine Critical Care Medicine; REFERRING PHYSICIAN Internal Medicine Hematology & Oncology | DX: R51.9 Headache, unspecified (principal) | CPT/HCPCS: 70450 ==

== ENCOUNTER 2024-07-05 07:38 | Outpatient (RCR) | payer BC, SELFPAY ==
[2024-06-07 10:15] LABS: Hematocrit 27.9 % (39.0-52.0); Hemoglobin 9.4 g/dL (13.0-18.0); Mean Corp Hgb Conc. 33.7 g/dL (33.0-37.0); Mean Corpuscular Hgb 34.3 pg (27.0-31.0); Mean Corpuscular Volume 101.8 fL (80.0-94.0); Mean Platelet Volume 9.8 fL (7.4-10.4); Platelet Count 67 10^3/uL (130-400); Red Blood Cell Count 2.74 10^6/uL (4.70-6.10); Red Cell Dist. Width 17.3 % (11.5-14.5); White Blood Cell Count 22.7 10^3/uL (4.8-10.8)
[2024-06-07 10:49] LABS: Blood Urea Nitrogen 16 mg/dl (9-20); Calcium 9.6 mg/dl (8.4-10.2); Carbon Dioxide 25 mmol/L (22-30); Chloride 101 mmol/L (98-107); Glucose 130 mg/dl (70-99); Potassium 4.2 mmol/L (3.5-5.1); Sodium 140 mmol/L (135-145); Uric Acid 6.9 mg/dl (3.5-8.5); eGFR 46.93
[2024-06-07 11:23] LABS: Absolute Neutrophils -Man Diff 18.6 10^3/uL (1.4-6.5); Band Neutrophils 11 % (0-3); Eosinophils 1 % (0-6); Lymphocytes 8 % (20-51); Metamyelocytes 2 % (-); Monocytes 7 % (2-9); Segmented Neutrophils 71 % (42-75)
[2024-06-07 11:24] LABS: Platelets Checked Yes
[2024-06-07 11:25] LABS: Hypochromasia Slight; Polychromasia Slight; Total Cells Counted 100
[2024-06-07 11:36] LABS: Normal RBC Morphology No
[2024-06-13 11:18] LABS: % Basophils 0.5 % (0-2); % Eosinophils 1.2 % (0-6); % Immature Granulocytes 1.7 % (0-0.5); % Lymphocytes 8.2 % (20.5-51.1); % Monocytes 5.1 % (1.7-9.3); % Neutrophils 83.3 % (42.2-75.2); Absolute Basophils 0.1 10^3/uL (0-0.2); Absolute Eosinophils 0.2 10^3/uL (0-0.7); Absolute Immature Granulocytes 0.2 10^3/uL (0-0.05); Absolute Monocytes 0.6 10^3/uL (0.1-0.6); Absolute Neutrophils 10.5 10^3/uL (1.4-6.5); Hematocrit 27.2 % (39.0-52.0); Hemoglobin 9.2 g/dL (13.0-18.0); Mean Corp Hgb Conc. 33.8 g/dL (33.0-37.0); Mean Corpuscular Hgb 34.6 pg (27.0-31.0); Mean Corpuscular Volume 102.3 fL (80.0-94.0); Mean Platelet Volume 8.6 fL (7.4-10.4); Nucleated Red Blood Cells % 0.2 % (-); Platelet Count 268 10^3/uL (130-400); Red Blood Cell Count 2.66 10^6/uL (4.70-6.10); Red Cell Dist. Width 17.1 % (11.5-14.5); White Blood Cell Count 12.6 10^3/uL (4.8-10.8)
[2024-06-13 11:33] LABS: ALT (SGPT) 29 U/L (0-50); AST (SGOT) 35 U/L (17-59); Albumin 2.6 g/dl (3.5-5.0); Alkaline Phosphatase 94 U/L (38-126); Blood Urea Nitrogen 15 mg/dl (9-20); Calcium 9.1 mg/dl (8.4-10.2); Carbon Dioxide 24 mmol/L (22-30); Chloride 106 mmol/L (98-107); Glucose 145 mg/dl (70-99); Potassium 4.7 mmol/L (3.5-5.1); Sodium 143 mmol/L (135-145); Total Bilirubin 0.4 mg/dl (0.2-1.3); Total Protein 6.4 g/dl (6.3-8.2); Uric Acid 7.2 mg/dl (3.5-8.5); eGFR 46.93
[2024-06-13 11:49] LABS: Free T4 0.92 ng/dl (0.78-2.19)
[2024-06-13 12:03] LABS: TSH 1.48 uIU/ml (0.47-4.68)
[2024-06-14] MEDS: OPDIVO 136 MG IV ×2 (08:08)
[2024-06-14 08:16] VITALS: BP 148/76
[2024-06-14] MEDS: EMEND 150 MG IV (08:56)
[2024-06-14] MEDS: DECADRON 51 MG IV (09:38)
[2024-06-14] MEDS: ALOXI 5 MG IV (09:38)
[2024-06-14] MEDS: ALIMTA/PEMETREXED 100 MG IV (10:16)
[2024-06-14] MEDS: PARAPLATIN 286.3 MG IV (10:29)
[2024-06-15 14:00] VITALS: BP 156/82
[2024-06-15] MEDS: NYVEPRIA 6 MG SC (14:18)
[2024-06-21 11:15] LABS: % Basophils 0.1 % (0-2); % Eosinophils 0.4 % (0-6); % Immature Granulocytes 1.2 % (0-0.5); % Lymphocytes 11.5 % (20.5-51.1); % Monocytes 4.3 % (1.7-9.3); % Neutrophils 82.5 % (42.2-75.2); Absolute Immature Granulocytes 0.1 10^3/uL (0-0.05); Absolute Lymphocytes 0.8 10^3/uL (1.2-3.4); Absolute Monocytes 0.3 10^3/uL (0.1-0.6); Absolute Neutrophils 5.5 10^3/uL (1.4-6.5); Hematocrit 28.1 % (39.0-52.0); Hemoglobin 9.5 g/dL (13.0-18.0); Mean Corp Hgb Conc. 33.8 g/dL (33.0-37.0); Mean Corpuscular Hgb 35.4 pg (27.0-31.0); Mean Corpuscular Volume 104.9 fL (80.0-94.0); Mean Platelet Volume 8.3 fL (7.4-10.4); Platelet Count 99 10^3/uL (130-400); Red Blood Cell Count 2.68 10^6/uL (4.70-6.10); Red Cell Dist. Width 15.3 % (11.5-14.5); White Blood Cell Count 6.7 10^3/uL (4.8-10.8)
[2024-06-21 11:23] VITALS: BP 154/49
[2024-06-21 11:27] VITALS: BP 103/55
[2024-06-21] MEDS: XGEVA 120 MG SC (11:47)
[2024-06-21 12:15] LABS: ALT (SGPT) 38 U/L (0-50); AST (SGOT) 37 U/L (17-59); Albumin 4.5 g/dl (3.5-5.0); Alkaline Phosphatase 91 U/L (38-126); Blood Urea Nitrogen 31 mg/dl (9-20); Calcium 9.8 mg/dl (8.4-10.2); Carbon Dioxide 26 mmol/L (22-30); Chloride 99 mmol/L (98-107); Glucose 162 mg/dl (70-99); Potassium 4.8 mmol/L (3.5-5.1); Sodium 140 mmol/L (135-145); Total Bilirubin 1.2 mg/dl (0.2-1.3); Total Protein 6.8 g/dl (6.3-8.2); Uric Acid 6.5 mg/dl (3.5-8.5); eGFR 50.71
[2024-06-27 09:45] VITALS: BP 119/54
[2024-06-27 09:55] VITALS: BP 106/50
[2024-06-27 11:23] LABS: % Basophils 0.6 % (0-2); % Eosinophils 0.6 % (0-6); % Immature Granulocytes 7.4 % (0-0.5); % Lymphocytes 11.6 % (20.5-51.1); % Monocytes 11.3 % (1.7-9.3); % Neutrophils 68.5 % (42.2-75.2); Absolute Basophils 0.1 10^3/uL (0-0.2); Absolute Eosinophils 0.1 10^3/uL (0-0.7); Absolute Immature Granulocytes 0.8 10^3/uL (0-0.05); Absolute Lymphocytes 1.3 10^3/uL (1.2-3.4); Absolute Monocytes 1.2 10^3/uL (0.1-0.6); Absolute Neutrophils 7.4 10^3/uL (1.4-6.5); Hemoglobin 7.9 g/dL (13.0-18.0); Mean Corp Hgb Conc. 34.3 g/dL (33.0-37.0); Mean Corpuscular Hgb 35.9 pg (27.0-31.0); Mean Corpuscular Volume 104.5 fL (80.0-94.0); Nucleated Red Blood Cells % 0.7 % (-); Platelet Count 57 10^3/uL (130-400); Red Cell Dist. Width 15.2 % (11.5-14.5); White Blood Cell Count 10.8 10^3/uL (4.8-10.8)
[2024-06-27 11:45] LABS: Uric Acid 5.7 mg/dl (3.5-8.5)
[2024-06-27 11:47] LABS: ALT (SGPT) 31 U/L (0-50); AST (SGOT) 33 U/L (17-59); Albumin 4.1 g/dl (3.5-5.0); Alkaline Phosphatase 96 U/L (38-126); Blood Urea Nitrogen 14 mg/dl (9-20); Calcium 8.4 mg/dl (8.4-10.2); Carbon Dioxide 23 mmol/L (22-30); Chloride 100 mmol/L (98-107); Glucose 136 mg/dl (70-99); Potassium 4.1 mmol/L (3.5-5.1); Sodium 139 mmol/L (135-145); Total Bilirubin 0.8 mg/dl (0.2-1.3); Total Protein 6.4 g/dl (6.3-8.2); eGFR 46.93
[2024-06-27 11:59] LABS: TSH Reflex To Free T4 3.69 uIU/ml (0.47-4.68)
[2024-07-01 11:11] VITALS: BP 139/71
[2024-07-01 11:29] VITALS: BP 137/66
[2024-07-01 13:21] VITALS: BP 149/81
[2024-07-04 10:35] LABS: % Basophils 0.5 % (0-2); % Eosinophils 0.7 % (0-6); % Immature Granulocytes 2.3 % (0-0.5); % Lymphocytes 8.9 % (20.5-51.1); % Monocytes 8.8 % (1.7-9.3); % Neutrophils 78.8 % (42.2-75.2); Absolute Basophils 0.1 10^3/uL (0-0.2); Absolute Eosinophils 0.1 10^3/uL (0-0.7); Absolute Immature Granulocytes 0.4 10^3/uL (0-0.05); Absolute Lymphocytes 1.5 10^3/uL (1.2-3.4); Absolute Monocytes 1.5 10^3/uL (0.1-0.6); Absolute Neutrophils 13.2 10^3/uL (1.4-6.5); Hematocrit 27.4 % (39.0-52.0); Hemoglobin 9.3 g/dL (13.0-18.0); Mean Corp Hgb Conc. 33.9 g/dL (33.0-37.0); Mean Corpuscular Hgb 33.9 pg (27.0-31.0); Mean Platelet Volume 8.6 fL (7.4-10.4); Nucleated Red Blood Cells % 0 % (-); Platelet Count 351 10^3/uL (130-400); Red Blood Cell Count 2.74 10^6/uL (4.70-6.10); White Blood Cell Count 16.8 10^3/uL (4.8-10.8)
[2024-07-04 10:52] LABS: ALT (SGPT) 28 U/L (0-50); AST (SGOT) 36 U/L (17-59); Albumin 4.1 g/dl (3.5-5.0); Alkaline Phosphatase 76 U/L (38-126); Blood Urea Nitrogen 16 mg/dl (9-20); Calcium 10.5 mg/dl (8.4-10.2); Carbon Dioxide 25 mmol/L (22-30); Chloride 102 mmol/L (98-107); Glucose 117 mg/dl (70-99); Potassium 4.3 mmol/L (3.5-5.1); Sodium 142 mmol/L (135-145); Total Bilirubin 0.5 mg/dl (0.2-1.3); Total Protein 6.6 g/dl (6.3-8.2); Uric Acid 5.5 mg/dl (3.5-8.5); eGFR 55.09
[2024-07-04 22:39] LABS: TSH Reflex To Free T4 2.09 uIU/ml (0.47-4.68)
[2024-07-05] MEDS: OPDIVO 136 MG IV ×2 (08:25)
[2024-07-05 08:31] VITALS: BP 140/67
[2024-07-05] MEDS: YERVOY 69.78 MG IV (09:10)
== END 2024-07-06 08:53 | disposition home or self-care (01) ==
LOC: OID 07:38
PROVIDERS: ATTENDING PHYSICIAN Internal Medicine Hematology & Oncology; FAMILY PHYSICIAN Internal Medicine
DX: C34.31 Malignant neoplasm of lower lobe, right bronchus or lung (principal); J44.9 Chronic obstructive pulmonary disease, unspecified; Z87.891 Personal history of nicotine dependence; Z51.11 Encounter for antineoplastic chemotherapy; J45.909 Unspecified asthma, uncomplicated
CPT/HCPCS: 36415; 36430; 80048; 80053; 84439; 84443; 84550; 85025; 86850; 86900; 86901; 86920; 96367; 96372; 96375; 96411; 96413; 96417; J0897; J1453; J2469; J9045; J9228; J9299; J9305; P9016; Q5122

== ENCOUNTER 2024-07-26 08:21 | Outpatient (RCR) | payer BC, SELFPAY ==
[2024-07-12 10:45] LABS: % Basophils 0.7 % (0-2); % Eosinophils 1.5 % (0-6); % Immature Granulocytes 0.3 % (0-0.5); % Lymphocytes 15.9 % (20.5-51.1); % Neutrophils 68.6 % (42.2-75.2); Absolute Basophils 0.1 10^3/uL (0-0.2); Absolute Eosinophils 0.2 10^3/uL (0-0.7); Absolute Monocytes 1.6 10^3/uL (0.1-0.6); Absolute Neutrophils 8.4 10^3/uL (1.4-6.5); Hematocrit 30.1 % (39.0-52.0); Hemoglobin 9.9 g/dL (13.0-18.0); Mean Corp Hgb Conc. 32.9 g/dL (33.0-37.0); Mean Corpuscular Hgb 34.4 pg (27.0-31.0); Mean Corpuscular Volume 104.5 fL (80.0-94.0); Mean Platelet Volume 8.5 fL (7.4-10.4); Platelet Count 241 10^3/uL (130-400); Red Blood Cell Count 2.88 10^6/uL (4.70-6.10); Red Cell Dist. Width 16.1 % (11.5-14.5); White Blood Cell Count 12.2 10^3/uL (4.8-10.8)
[2024-07-25 09:59] LABS: % Basophils 0.8 % (0-2); % Eosinophils 4.2 % (0-6); % Immature Granulocytes 0.2 % (0-0.5); % Lymphocytes 14.8 % (20.5-51.1); % Monocytes 12.4 % (1.7-9.3); % Neutrophils 67.6 % (42.2-75.2); Absolute Basophils 0.1 10^3/uL (0-0.2); Absolute Eosinophils 0.4 10^3/uL (0-0.7); Absolute Lymphocytes 1.2 10^3/uL (1.2-3.4); Absolute Neutrophils 5.6 10^3/uL (1.4-6.5); Hematocrit 30.9 % (39.0-52.0); Hemoglobin 10.6 g/dL (13.0-18.0); Mean Corp Hgb Conc. 34.3 g/dL (33.0-37.0); Mean Corpuscular Hgb 35.1 pg (27.0-31.0); Mean Corpuscular Volume 102.3 fL (80.0-94.0); Mean Platelet Volume 8.8 fL (7.4-10.4); Nucleated Red Blood Cells % 0 % (-); Platelet Count 146 10^3/uL (130-400); Red Blood Cell Count 3.02 10^6/uL (4.70-6.10); Red Cell Dist. Width 14.6 % (11.5-14.5); White Blood Cell Count 8.3 10^3/uL (4.8-10.8)
[2024-07-25 10:09] LABS: ALT (SGPT) 38 U/L (0-50); AST (SGOT) 51 U/L (17-59); Albumin 4.3 g/dl (3.5-5.0); Alkaline Phosphatase 72 U/L (38-126); Blood Urea Nitrogen 23 mg/dl (9-20); Calcium 9.6 mg/dl (8.4-10.2); Carbon Dioxide 25 mmol/L (22-30); Chloride 102 mmol/L (98-107); Glucose 138 mg/dl (70-99); LDH 304 U/L (120-246); Potassium 4.3 mmol/L (3.5-5.1); Sodium 143 mmol/L (135-145); Total Bilirubin 0.7 mg/dl (0.2-1.3); Total Protein 6.9 g/dl (6.3-8.2); eGFR 43.37
[2024-07-25 10:45] LABS: TSH Reflex To Free T4 1.48 uIU/ml (0.47-4.68)
[2024-07-26] MEDS: OPDIVO 136 MG IV ×2 (08:54)
[2024-07-26] MEDS: XGEVA 120 MG SC (08:55)
[2024-07-26 09:10] VITALS: BP 153/85
== END 2024-08-06 23:59 | disposition home or self-care (01) ==
LOC: OID 08:21
PROVIDERS: ATTENDING PHYSICIAN Internal Medicine Hematology & Oncology; FAMILY PHYSICIAN Internal Medicine
DX: C34.31 Malignant neoplasm of lower lobe, right bronchus or lung (principal); Z51.11 Encounter for antineoplastic chemotherapy; J44.9 Chronic obstructive pulmonary disease, unspecified; Z87.891 Personal history of nicotine dependence; J45.909 Unspecified asthma, uncomplicated
CPT/HCPCS: 36415; 80053; 83615; 84443; 85025; 96372; 96413; J0897; J9299

== ENCOUNTER → 2024-08-03 09:41 | Outpatient (REF) | payer BC, SELFPAY | LOC: REG 09:41 | PROVIDERS: ATTENDING PHYSICIAN Internal Medicine Critical Care Medicine; OTHER PHYSICIAN Internal Medicine Cardiovascular Disease; REFERRING PHYSICIAN Internal Medicine Hematology & Oncology | DX: J42 Unspecified chronic bronchitis (principal) | CPT/HCPCS: 87070; 87205 ==

== ENCOUNTER → 2024-08-12 07:48 | Outpatient (REF) | payer BC, SELFPAY | LOC: PET 07:48 | PROVIDERS: ATTENDING PHYSICIAN Internal Medicine Hematology & Oncology | DX: C34.31 Malignant neoplasm of lower lobe, right bronchus or lung (principal) | CPT/HCPCS: 78815; A9552 ==

== ENCOUNTER → 2024-08-19 12:19 | Outpatient (REF) | payer BC, SELFPAY | LOC: RAD 12:19 | PROVIDERS: ATTENDING PHYSICIAN Internal Medicine Critical Care Medicine; FAMILY PHYSICIAN Internal Medicine | DX: J44.9 Chronic obstructive pulmonary disease, unspecified (principal) | CPT/HCPCS: 71046 ==

== ENCOUNTER 2024-09-06 08:42 | Outpatient (RCR) | payer BC, SELFPAY ==
[2024-08-15 10:05] LABS: ALT (SGPT) 46 U/L (0-50); AST (SGOT) 55 U/L (17-59); Albumin 4.3 g/dl (3.5-5.0); Alkaline Phosphatase 72 U/L (38-126); Blood Urea Nitrogen 19 mg/dl (9-20); Calcium 9.3 mg/dl (8.4-10.2); Carbon Dioxide 27 mmol/L (22-30); Chloride 105 mmol/L (98-107); Glucose 136 mg/dl (70-99); Potassium 4.1 mmol/L (3.5-5.1); Sodium 142 mmol/L (135-145); Total Bilirubin 0.6 mg/dl (0.2-1.3); Total Protein 6.7 g/dl (6.3-8.2); eGFR 43.37
[2024-08-15 10:09] LABS: % Basophils 0.7 % (0-2); % Eosinophils 2.6 % (0-6); % Immature Granulocytes 0.3 % (0-0.5); % Lymphocytes 17.3 % (20.5-51.1); % Monocytes 16.2 % (1.7-9.3); % Neutrophils 62.9 % (42.2-75.2); Absolute Basophils 0.1 10^3/uL (0-0.2); Absolute Eosinophils 0.2 10^3/uL (0-0.7); Absolute Lymphocytes 1.3 10^3/uL (1.2-3.4); Absolute Monocytes 1.2 10^3/uL (0.1-0.6); Absolute Neutrophils 4.6 10^3/uL (1.4-6.5); Hematocrit 32.9 % (39.0-52.0); Hemoglobin 10.9 g/dL (13.0-18.0); Mean Corp Hgb Conc. 33.1 g/dL (33.0-37.0); Mean Corpuscular Hgb 33.7 pg (27.0-31.0); Mean Corpuscular Volume 101.9 fL (80.0-94.0); Mean Platelet Volume 8.5 fL (7.4-10.4); Nucleated Red Blood Cells % 0 % (-); Platelet Count 158 10^3/uL (130-400); Red Blood Cell Count 3.23 10^6/uL (4.70-6.10); Red Cell Dist. Width 13.5 % (11.5-14.5); White Blood Cell Count 7.3 10^3/uL (4.8-10.8)
[2024-08-15 10:33] LABS: TSH Reflex To Free T4 2.73 uIU/ml (0.47-4.68)
[2024-08-16] MEDS: OPDIVO 136 MG IV ×2 (10:05)
[2024-08-16 10:17] VITALS: BP 147/82
[2024-08-16] MEDS: YERVOY 69.78 MG IV (10:53)
[2024-08-16 12:13] LABS: Cortisol, Random 10.8 ug/dl
[2024-09-05 09:23] LABS: % Basophils 0.7 % (0-2); % Eosinophils 3.6 % (0-6); % Immature Granulocytes 0.2 % (0-0.5); % Lymphocytes 25.2 % (20.5-51.1); % Monocytes 15.4 % (1.7-9.3); % Neutrophils 54.9 % (42.2-75.2); Absolute Eosinophils 0.2 10^3/uL (0-0.7); Absolute Lymphocytes 1.4 10^3/uL (1.2-3.4); Absolute Monocytes 0.9 10^3/uL (0.1-0.6); Absolute Neutrophils 3.1 10^3/uL (1.4-6.5); Hematocrit 33.5 % (39.0-52.0); Hemoglobin 11.5 g/dL (13.0-18.0); Mean Corp Hgb Conc. 34.3 g/dL (33.0-37.0); Mean Corpuscular Hgb 33.8 pg (27.0-31.0); Mean Corpuscular Volume 98.5 fL (80.0-94.0); Mean Platelet Volume 8.2 fL (7.4-10.4); Platelet Count 113 10^3/uL (130-400); Red Cell Dist. Width 13.3 % (11.5-14.5); White Blood Cell Count 5.6 10^3/uL (4.8-10.8)
[2024-09-05 10:45] LABS: ALT (SGPT) 48 U/L (0-50); AST (SGOT) 53 U/L (17-59); Albumin 4.2 g/dl (3.5-5.0); Alkaline Phosphatase 69 U/L (38-126); Blood Urea Nitrogen 14 mg/dl (9-20); Calcium 9.3 mg/dl (8.4-10.2); Carbon Dioxide 20 mmol/L (22-30); Chloride 106 mmol/L (98-107); Glucose 117 mg/dl (70-99); Potassium 4.3 mmol/L (3.5-5.1); Sodium 139 mmol/L (135-145); Total Bilirubin 0.5 mg/dl (0.2-1.3); Total Protein 6.3 g/dl (6.3-8.2); eGFR 54.75
[2024-09-05 10:50] LABS: TSH Reflex To Free T4 3.23 uIU/ml (0.47-4.68)
[2024-09-06] MEDS: OPDIVO 136 MG IV ×2 (09:15)
[2024-09-06] MEDS: XGEVA 120 MG SC (09:18)
== END 2024-09-06 23:59 | disposition home or self-care (01) ==
LOC: OID 08:42
PROVIDERS: ATTENDING PHYSICIAN Internal Medicine Hematology & Oncology; FAMILY PHYSICIAN Internal Medicine
DX: C34.31 Malignant neoplasm of lower lobe, right bronchus or lung (principal); C79.51 Secondary malignant neoplasm of bone; J44.9 Chronic obstructive pulmonary disease, unspecified; Z87.891 Personal history of nicotine dependence; Z51.11 Encounter for antineoplastic chemotherapy; J45.909 Unspecified asthma, uncomplicated
CPT/HCPCS: 36415; 80053; 82533; 84443; 85025; 96401; 96413; 96417; J0897; J9228; J9299

== ENCOUNTER 2024-09-27 09:57 | Outpatient (RCR) | payer BC, SELFPAY ==
[2024-09-26 10:06] LABS: % Basophils 0.6 % (0-2); % Eosinophils 5.5 % (0-6); % Immature Granulocytes 0.1 % (0-0.5); % Lymphocytes 26.1 % (20.5-51.1); % Neutrophils 53.7 % (42.2-75.2); Absolute Eosinophils 0.4 10^3/uL (0-0.7); Absolute Lymphocytes 1.9 10^3/uL (1.2-3.4); Absolute Neutrophils 3.9 10^3/uL (1.4-6.5); Hemoglobin 13.5 g/dL (13.0-18.0); Mean Corp Hgb Conc. 35.5 g/dL (33.0-37.0); Mean Corpuscular Hgb 33.4 pg (27.0-31.0); Mean Corpuscular Volume 94.1 fL (80.0-94.0); Mean Platelet Volume 8.4 fL (7.4-10.4); Platelet Count 162 10^3/uL (130-400); Red Blood Cell Count 4.04 10^6/uL (4.70-6.10); Red Cell Dist. Width 12.3 % (11.5-14.5); White Blood Cell Count 7.2 10^3/uL (4.8-10.8)
[2024-09-26 12:47] LABS: ALT (SGPT) 77 U/L (0-50); AST (SGOT) 78 U/L (17-59); Albumin 4.5 g/dl (3.5-5.0); Alkaline Phosphatase 76 U/L (38-126); Blood Urea Nitrogen 16 mg/dl (9-20); Calcium 9.3 mg/dl (8.4-10.2); Carbon Dioxide 22 mmol/L (22-30); Chloride 106 mmol/L (98-107); Glucose 109 mg/dl (70-99); Potassium 4.4 mmol/L (3.5-5.1); Sodium 139 mmol/L (135-145); Total Bilirubin 0.5 mg/dl (0.2-1.3); Total Protein 6.6 g/dl (6.3-8.2); Uric Acid 4.7 mg/dl (3.5-8.5)
[2024-09-26 13:00] LABS: Free T4 0.76 ng/dl (0.78-2.19)
[2024-09-26 13:13] LABS: TSH 4.26 uIU/ml (0.47-4.68); TSH Reflex To Free T4 4.26 uIU/ml (0.47-4.68)
[2024-09-27 10:05] VITALS: BP 147/77
[2024-09-27] MEDS: OPDIVO 136 MG IV ×2 (10:34)
[2024-09-27] MEDS: YERVOY 69.78 MG IV (11:20)
== END 2024-10-07 23:59 | disposition home or self-care (01) ==
LOC: OID 09:57
PROVIDERS: ATTENDING PHYSICIAN Internal Medicine Hematology & Oncology; FAMILY PHYSICIAN Internal Medicine
DX: C34.31 Malignant neoplasm of lower lobe, right bronchus or lung (principal); C79.51 Secondary malignant neoplasm of bone; J44.9 Chronic obstructive pulmonary disease, unspecified; J45.909 Unspecified asthma, uncomplicated; Z87.891 Personal history of nicotine dependence; Z51.11 Encounter for antineoplastic chemotherapy
CPT/HCPCS: 36415; 80053; 84439; 84443; 84550; 85025; 96413; 96417; J9228; J9299

== ENCOUNTER 2024-10-18 09:04 | Outpatient (RCR) | payer MEDICARE, OTHER, SELFPAY ==
[2024-10-17 08:37] LABS: % Basophils 0.7 % (0-2); % Eosinophils 6.3 % (0-6); % Immature Granulocytes 0.1 % (0-0.5); % Lymphocytes 23.1 % (20.5-51.1); % Monocytes 15.8 % (1.7-9.3); Absolute Basophils 0.1 10^3/uL (0-0.2); Absolute Eosinophils 0.4 10^3/uL (0-0.7); Absolute Lymphocytes 1.6 10^3/uL (1.2-3.4); Absolute Monocytes 1.1 10^3/uL (0.1-0.6); Absolute Neutrophils 3.8 10^3/uL (1.4-6.5); Hematocrit 39.8 % (39.0-52.0); Mean Corp Hgb Conc. 35.2 g/dL (33.0-37.0); Mean Corpuscular Hgb 33.2 pg (27.0-31.0); Mean Corpuscular Volume 94.3 fL (80.0-94.0); Mean Platelet Volume 8.5 fL (7.4-10.4); Platelet Count 145 10^3/uL (130-400); Red Blood Cell Count 4.22 10^6/uL (4.70-6.10); Red Cell Dist. Width 12.2 % (11.5-14.5)
[2024-10-17 09:14] LABS: ALT (SGPT) 82 U/L (0-50); AST (SGOT) 74 U/L (17-59); Albumin 4.1 g/dl (3.5-5.0); Alkaline Phosphatase 78 U/L (38-126); Blood Urea Nitrogen 19 mg/dl (9-20); Calcium 9.5 mg/dl (8.4-10.2); Carbon Dioxide 27 mmol/L (22-30); Chloride 105 mmol/L (98-107); Glucose 129 mg/dl (70-99); Potassium 4.8 mmol/L (3.5-5.1); Sodium 139 mmol/L (135-145); Total Bilirubin 0.4 mg/dl (0.2-1.3); Total Protein 6.6 g/dl (6.3-8.2); eGFR 43.37
[2024-10-17 09:46] LABS: TSH Reflex To Free T4 2.29 uIU/ml (0.47-4.68)
[2024-10-18 09:15] VITALS: BP 152/84
[2024-10-18] MEDS: OPDIVO 136 MG IV ×2 (09:43)
[2024-10-18] MEDS: XGEVA 120 MG SC (10:26)
== END 2024-11-03 15:51 | disposition home or self-care (01) ==
LOC: OID 09:04
PROVIDERS: ATTENDING PHYSICIAN Internal Medicine Hematology & Oncology; FAMILY PHYSICIAN Internal Medicine
DX: Z51.11 Encounter for antineoplastic chemotherapy (principal); C34.31 Malignant neoplasm of lower lobe, right bronchus or lung; Z87.891 Personal history of nicotine dependence; C79.51 Secondary malignant neoplasm of bone; J44.9 Chronic obstructive pulmonary disease, unspecified; J45.909 Unspecified asthma, uncomplicated
CPT/HCPCS: 36415; 80053; 84443; 85025; 96401; 96413; J0897; J9299

== ENCOUNTER → 2024-11-09 13:40 | Outpatient (REF) | payer MEDICARE, OTHER, SELFPAY ==
[2024-11-09 14:54] LABS: Urine Albumin 3+ (Neg - Trace); Urine Bilirubin Negative (Negative); Urine Character Clear (Clear); Urine Color Yellow; Urine Glucose Negative (Negative); Urine Ketone Negative (Negative); Urine Leukocyte Negative (Negative); Urine Nitrite Negative (Negative); Urine Occult Blood 1+ (Negative); Urine Specific Gravity 1.025 (<1.030); Urine Urobilinogen Negative (Neg - 1+)
[2024-11-09 15:11] LABS: Urine Granular Cast 0-2 /LPF (0)
[2024-11-09 15:12] LABS: Urine Mucus Many
[2024-11-09 15:13] LABS: Urine Amorphous Seen
[2024-11-09 15:15] LABS: Urine White Cell 0-2 /HPF (0-5)
== END ==
LOC: HWRAD 13:40
PROVIDERS: ATTENDING PHYSICIAN Internal Medicine Hematology & Oncology; FAMILY PHYSICIAN Internal Medicine; OTHER PHYSICIAN Nurse Practitioner Adult Health; REFERRING PHYSICIAN Internal Medicine Critical Care Medicine
DX: C34.31 Malignant neoplasm of lower lobe, right bronchus or lung (principal); I82.402 Acute embolism and thrombosis of unspecified deep veins of left lower extremity; N40.0 Benign prostatic hyperplasia without lower urinary tract symptoms
CPT/HCPCS: 72100; 81003; 81015; 87086

== ENCOUNTER → 2024-11-17 11:32 | Outpatient (REF) | payer MEDICARE, OTHER, SELFPAY | LOC: HWRAD 11:32 | PROVIDERS: ATTENDING PHYSICIAN Nurse Practitioner Adult Health; FAMILY PHYSICIAN Internal Medicine; OTHER PHYSICIAN Internal Medicine Critical Care Medicine; REFERRING PHYSICIAN Internal Medicine Cardiovascular Disease | DX: C34.31 Malignant neoplasm of lower lobe, right bronchus or lung (principal) | CPT/HCPCS: 74176 ==

== ENCOUNTER 2024-11-29 09:04 | Outpatient (RCR) | payer MEDICARE, OTHER, SELFPAY ==
[2024-11-07 10:02] LABS: % Basophils 0.6 % (0-2); % Eosinophils 7.2 % (0-6); % Immature Granulocytes 0.5 % (0-0.5); % Monocytes 12.6 % (1.7-9.3); % Neutrophils 59.1 % (42.2-75.2); Absolute Basophils 0.1 10^3/uL (0-0.2); Absolute Eosinophils 0.6 10^3/uL (0-0.7); Absolute Lymphocytes 1.6 10^3/uL (1.2-3.4); Absolute Neutrophils 4.8 10^3/uL (1.4-6.5); Hematocrit 40.3 % (39.0-52.0); Hemoglobin 14.3 g/dL (13.0-18.0); Mean Corp Hgb Conc. 35.5 g/dL (33.0-37.0); Mean Corpuscular Hgb 32.8 pg (27.0-31.0); Mean Corpuscular Volume 92.4 fL (80.0-94.0); Mean Platelet Volume 8.3 fL (7.4-10.4); Platelet Count 140 10^3/uL (130-400); Red Blood Cell Count 4.36 10^6/uL (4.70-6.10); Red Cell Dist. Width 12.4 % (11.5-14.5); White Blood Cell Count 8.2 10^3/uL (4.8-10.8)
[2024-11-07 11:17] LABS: ALT (SGPT) 104 U/L (0-50); AST (SGOT) 99 U/L (17-59); Albumin 4.1 g/dl (3.5-5.0); Alkaline Phosphatase 60 U/L (38-126); Blood Urea Nitrogen 17 mg/dl (9-20); Calcium 9.6 mg/dl (8.4-10.2); Carbon Dioxide 26 mmol/L (22-30); Chloride 104 mmol/L (98-107); Glucose 131 mg/dl (70-99); Potassium 4.9 mmol/L (3.5-5.1); Sodium 137 mmol/L (135-145); Total Bilirubin 0.7 mg/dl (0.2-1.3); Total Protein 6.5 g/dl (6.3-8.2)
[2024-11-07 11:51] LABS: TSH Reflex To Free T4 3.71 uIU/ml (0.47-4.68)
[2024-11-08 09:20] VITALS: BP 155/75
[2024-11-08] MEDS: OPDIVO 136 MG IV ×2 (10:07)
[2024-11-08] MEDS: YERVOY 69.78 MG IV (10:52)
[2024-11-08 11:45] VITALS: BP 155/74
--- NOTE | 2024-11-08 12:59 | PTCARENOTE ---
0930- [place] text sent to Howie Dang HYDROPULPER pat complying of right lower back pain. Pt states' feels like kidney pain' Pt denies burning with urination, blood in urine and is afebrile. Made HYDROPULPER aware of increasing liver enzymes. Pt denies taking
Tylenol or medications that include Tylenol.
[address] Nya Hotter from [facility] called patients while with patient receiving infusion to review labs and back pain. Reinforced limiting use of Tylenol. Pt given script to have x-ray of Lumbar Spine (AP & Lat) as follow up of
back pain.
[2024-11-15 10:37] LABS: % Eosinophils 7.4 % (0-6); % Immature Granulocytes 0.3 % (0-0.5); % Lymphocytes 20.9 % (20.5-51.1); % Monocytes 14.1 % (1.7-9.3); % Neutrophils 56.3 % (42.2-75.2); Absolute Basophils 0.1 10^3/uL (0-0.2); Absolute Eosinophils 0.5 10^3/uL (0-0.7); Absolute Lymphocytes 1.5 10^3/uL (1.2-3.4); Hematocrit 39.6 % (39.0-52.0); Hemoglobin 14.2 g/dL (13.0-18.0); Mean Corp Hgb Conc. 35.9 g/dL (33.0-37.0); Mean Corpuscular Hgb 32.9 pg (27.0-31.0); Mean Corpuscular Volume 91.7 fL (80.0-94.0); Mean Platelet Volume 8.2 fL (7.4-10.4); Platelet Count 138 10^3/uL (130-400); Red Blood Cell Count 4.32 10^6/uL (4.70-6.10); Red Cell Dist. Width 12.5 % (11.5-14.5); White Blood Cell Count 7.1 10^3/uL (4.8-10.8)
[2024-11-15 11:54] LABS: ALT (SGPT) 79 U/L (0-50); AST (SGOT) 61 U/L (17-59); Albumin 4.6 g/dl (3.5-5.0); Alkaline Phosphatase 59 U/L (38-126); Blood Urea Nitrogen 17 mg/dl (9-20); Carbon Dioxide 27 mmol/L (22-30); Chloride 100 mmol/L (98-107); Glucose 133 mg/dl (70-99); Potassium 5.1 mmol/L (3.5-5.1); Sodium 137 mmol/L (135-145); Total Bilirubin 1.1 mg/dl (0.2-1.3); Total Protein 6.6 g/dl (6.3-8.2)
[2024-11-15 12:05] LABS: TSH Reflex To Free T4 3.99 uIU/ml (0.47-4.68)
[2024-11-28 11:02] LABS: % Basophils 0.5 % (0-2); % Eosinophils 2.1 % (0-6); % Immature Granulocytes 0.8 % (0-0.5); % Lymphocytes 18.6 % (20.5-51.1); % Monocytes 19.7 % (1.7-9.3); % Neutrophils 58.3 % (42.2-75.2); Absolute Eosinophils 0.2 10^3/uL (0-0.7); Absolute Immature Granulocytes 0.1 10^3/uL (0-0.05); Absolute Lymphocytes 1.5 10^3/uL (1.2-3.4); Absolute Monocytes 1.6 10^3/uL (0.1-0.6); Absolute Neutrophils 4.8 10^3/uL (1.4-6.5); Hematocrit 41.2 % (39.0-52.0); Hemoglobin 14.4 g/dL (13.0-18.0); Mean Corpuscular Hgb 32.4 pg (27.0-31.0); Mean Corpuscular Volume 92.8 fL (80.0-94.0); Mean Platelet Volume 8.3 fL (7.4-10.4); Platelet Count 145 10^3/uL (130-400); Red Blood Cell Count 4.44 10^6/uL (4.70-6.10); Red Cell Dist. Width 12.7 % (11.5-14.5); White Blood Cell Count 8.2 10^3/uL (4.8-10.8)
[2024-11-28 12:44] LABS: ALT (SGPT) 66 U/L (0-50); AST (SGOT) 48 U/L (17-59); Albumin 4.5 g/dl (3.5-5.0); Alkaline Phosphatase 61 U/L (38-126); Blood Urea Nitrogen 27 mg/dl (9-20); Calcium 10.2 mg/dl (8.4-10.2); Carbon Dioxide 26 mmol/L (22-30); Chloride 103 mmol/L (98-107); Glucose 114 mg/dl (70-99); Potassium 4.6 mmol/L (3.5-5.1); Sodium 141 mmol/L (135-145); Total Bilirubin 0.8 mg/dl (0.2-1.3); Total Protein 6.6 g/dl (6.3-8.2)
[2024-11-28 12:58] LABS: TSH Reflex To Free T4 3.91 uIU/ml (0.47-4.68)
[2024-11-29] MEDS: OPDIVO 136 MG IV ×2 (09:33)
[2024-11-29 09:49] VITALS: BP 123/69
[2024-11-29] MEDS: XGEVA 120 MG SC (10:19)
== END 2024-12-05 23:59 | disposition home or self-care (01) ==
LOC: OID 09:04
PROVIDERS: ATTENDING PHYSICIAN Internal Medicine Hematology & Oncology; FAMILY PHYSICIAN Internal Medicine
DX: C34.31 Malignant neoplasm of lower lobe, right bronchus or lung (principal); Z51.11 Encounter for antineoplastic chemotherapy; Z87.891 Personal history of nicotine dependence; C79.51 Secondary malignant neoplasm of bone; J44.9 Chronic obstructive pulmonary disease, unspecified; J45.909 Unspecified asthma, uncomplicated
CPT/HCPCS: 36415; 80053; 84443; 85025; 96401; 96413; 96417; J0897; J9228; J9299

== ENCOUNTER 2024-12-03 18:12 | Inpatient (IN) | payer MEDICARE, OTHER, SELFPAY ==
[2024-12-03] VITALS (8 sets, daily range): BP systolic 76–141; BP diastolic 43–76; PULSE 117–127; BMI 30.4; BMI 32.4
--- NOTE | 2024-12-03 13:27 | EDRN ---
Pt attempting stool spec in BR at this time. IV VAT called to access R ACW port at this time for ordered blood work.
--- NOTE | 2024-12-03 13:55 | EDRN ---
Pt states he arrives for very bad diarrhea w/ lots of blood in it since Thursday as well as mucous. Pt is presently on immunotherapy for his lung cancer in lungs (? lower R), lymph nodes and ribs. Pt has lost 12 lbs since Thursday. Pt not sleeping as
moving bowels every 30 minutes. Pt also weak and tired w/ intermittent dizzy spells. Pt also having R lower back pain that he has had for about a month. Pt had a CT about 2 weeks ago for this and is to get MRI that was scheduled yesterday and had to
be canceled. Pt's oncologist thinking more musculo skeletal this lower back pain.
--- NOTE | 2024-12-03 14:18 | EDRN ---
IV VAT RN in room w/ pt at this time accessing R ACW port and drawing bloods for ordered labs.
[2024-12-03 14:46] LABS: Hematocrit 39.7 % (39.0-52.0); Hemoglobin 14.1 g/dL (13.0-18.0); Mean Corp Hgb Conc. 35.5 g/dL (33.0-37.0); Mean Corpuscular Hgb 32.2 pg (27.0-31.0); Mean Corpuscular Volume 90.6 fL (80.0-94.0); Mean Platelet Volume 8.9 fL (7.4-10.4); Platelet Count 137 10^3/uL (130-400); Red Blood Cell Count 4.38 10^6/uL (4.70-6.10); Red Cell Dist. Width 12.8 % (11.5-14.5); White Blood Cell Count 9.9 10^3/uL (4.8-10.8)
[2024-12-03 14:57] LABS: Lactic Acid 1.1 mmol/L (0.7-2.0)
[2024-12-03 15:03] LABS: Absolute Neutrophils -Man Diff 4.9 10^3/uL (1.4-6.5); Band Neutrophils 18 % (0-3); Eosinophils 5 % (0-6); Lymphocytes 18 % (20-51); Metamyelocytes 1 % (-); Monocytes 26 % (2-9); Segmented Neutrophils 32 % (42-75)
[2024-12-03 15:04] LABS: Normal RBC Morphology Yes; Platelets Checked Yes
[2024-12-03 15:05] LABS: Total Cells Counted 100
--- NOTE | 2024-12-03 15:18 | ED.GENMED ---
History of Present Illness
General
Chief Complaint: Abdominal Symptoms
Source: patient
Exam Limitations: none
Time Seen by Provider: 12/03/24 15:08
History of Present Illness
History of Present Illness:
See MDM
Past History
Past History
ED Past Medical History: Cancer (lung cancer), CHF, HTN and Hypercholesterolemia
Social History
Tobacco: Smoker
Alcohol: Occasional
Drug: None
Personal:
Living: with family
Phy Exam
Physical Exam
Physical Exam:
See MDM
Course
Orders/Labs/Results
Orders:
Orders
12/03/24 13:28
Electrocardiogram (*1) Urgent
Reason for Study: Chest Pain
Cardiac Monitoring- Treatment ONCE
12/03/24 13:29
EKG- Treatment ONCE
12/03/24 14:12
C DIFF [C difficile Antigen & Toxins] Urgent
RIZWAN Source: Feces/Stool
Specimen Description:
Date Specimen was Collected: 12/03/24
Time Specimen was Collected: 14:05
Stool Culture Urgent
RIZWAN Source: Feces/Stool
Specimen Description:
Date Specimen was Collected: 12/03/24
Time Specimen was Collected: 14:05
12/03/24 14:28
Type And Crossmatch [Type+Screen] Urgent
Complete Blood Count/With Diff Urgent
Comprehensive Metabolic Panel Urgent
Manual Differential Urgent
12/03/24 14:29
Lactic Acid Urgent
12/03/24 15:17
0.9% Sodium Chloride 1000 ml [Nss] 1,000 ml IV BOLUS
12/03/24 17:17
LevoFLOXacin 500 mg IVPB NOW LevoFLOXacin 500 MG/100 ML [Levaquin] 500 mg in 100 ml IV NOW
MetroNIDAZOLE IVPB 500 mg IVPB NOW MetroNIDAZOLE 500 MG/100 ML [Flagyl 500 mg] 100 ml IV NOW
Abnormal Lab Results
12/03/24
14:28
RBC 4.38 L 10^6/uL
(4.70-6.10)
MCH 32.2 H pg
(27.0-31.0)
Segmented Neutrophils 32 L %
(42-75)
Band Neutrophils 18 H %
(0-3)
Lymphocytes (Manual) 18 L %
(20-51)
Monocytes (Manual) 26 H %
(2-9)
BUN 36 H mg/dl
(9-20)
Creatinine 2.1 H mg/dL
(0.7-1.3)
Glucose 118 H mg/dl
(70-99)
Total Protein 6.0 L g/dl
(6.3-8.2)
12/03/24 14:28
12/03/24 14:28
Vital Signs
Initial and Last Documented VS:
Initial Vital Signs
Temp Pulse Resp BP Pulse Ox
98.3 F 90 18 105/76 93
12/03/24 13:12 12/03/24 13:12 12/03/24 13:12 12/03/24 13:12 12/03/24 13:12
Last Documented Vital Signs
Temp Pulse Resp BP Pulse Ox
98.3 F 94 18 116/65 90
12/03/24 13:12 12/03/24 15:15 12/03/24 15:27 12/03/24 15:00 12/03/24 15:15
MDM/Problems Addressed
Differential Diagnosis Includes:
HPI and MDM Narrative:
69-year-old male presenting for evaluation of 1 week of diarrhea. This has progressed to bloody diarrhea over the past 3 days. No sick contacts. No fevers. at bedside is concerned because he lost 12 pounds due to the persistent diarrhea.
He is on Eliquis. He has active lung cancer and currently on immunotherapy. He has been on immunotherapy for several months and has not had any side effects with it.
On exam, there is no significant abdominal tenderness. Will send for C. difficile and stool culture and obtain CT abdomen/pelvis.
Physical exam
General: Well appearing and non-toxic
HEENT: protecting airway. Dry mucous membranes
Neck: appears supple
CV: No evidence of cyanosis
Resp: No accessory muscle use
Abd: Non-distended. No significant tenderness
Extremities: No deformities
Neuro: alert
Psych: Normal affect
Skin: Intact
Problems Addressed including Acute and Chronic Conditions affecting care:
1. Bloody diarrhea
Acuity: acute
Prognosis: stable
Details: Will obtain CT looking for any evidence of colitis versus diverticulosis. Will obtain stool cultures
2. Dehydration
Acuity: acute
Prognosis: stable
Details: Will start IV fluids
Updates
Prior records show recent abdomen/pelvis CT a few weeks ago showing significant sigmoid diverticulosis. Given no significant abdominal pain, doubt diverticulitis. GFR is borderline whether or not he should get IV contrast. Will admit for IV
fluids and further workup
Given the bandemia, will start IV antibiotics
Differential Diagnosis (but not limited to): Colitis, diverticulosis
Testing considered: Urinalysis
Drug therapy (if applicable): OTC meds, please see d/c instruction regarding Rx drugs
Amount and/or Complexity of Data Reviewed
Clinical info obtained from: Patient
External data reviewed: N/A
Labs I independently reviewed (but not limited to): Hemoglobin stable, GFR low
Radiology: N/A
Pulse Ox: not hypoxic
EKG independently reviewed: N/A
Telegraph Operator: N/A
Critical Care: N/A
Risk of Complication:
Social Determinants of health: Good social support
Discussed with other providers: N/A
Escalation of Care includes Admit/Obs: After being observed in the Emergency Department, pt stable for discharge.
Occasional wrong word or 'sound a like' substitutions may have occurred due to the inherent limitations of voice recognition software. Read the chart carefully and recognize, using context, where substitutions have occurred.
*Critical Care Note
Total Time (30-74mins, 75-104mins- exclusive of procedures): Not Applicable
ED Attending Note
-
Portions of this chart may have been created with voice recognition software.� Occasional wrong word or��sound alike� substitutions may have occurred due to the inherent limitations of voice recognition software.
Discharge Plan
Departure
Patient Disposition: Admit
Date of Disposition: 12/03/24
Time of Disposition: 16:59
Admit to: Med/Surg
Presentation/result/management discussed w/ accepting MD/DO: Hospitalist
Discharge Problem:
Bloody diarrhea
Prescriptions:
No Action
albuterol sulfate 1 PUFF HFA aerosol inhaler
2 puff inhalation R Q4HPRN PRN (Reason: sob)
Patient Comments:
patient stated he last took this greater than 2weeks ago
carvedilol [Coreg] 25 MG tablet
25 mg PO BID
trazodone 100 MG tablet
200 mg PO HS
pravastatin 20 MG tablet
20 mg PO HS
icosapent ethyl [Vascepa] 1 GM capsule
2 gm PO BID
guaifenesin [Mucus Relief ER] 600 MG tablet extended release 12hr
600 mg PO BID
multivitamin Tablet
1 tab PO DAILY
Trelegy Ellipta 100-62.5-25 mcg Blister With Device
1 inh INHALATION R DAILY
Healthy Feet And Nerves
1 tab PO BID
Yervoy 50 mg/10 mL (5 mg/mL) Solution
98.9 mg IV Q6W
Opdivo 40 mg/4 mL Solution
360 mg IV Q3W
polyethylene glycol 3350 [Miralax] 17 gram Powder In Packet
17 g PO DAILYPRN PRN (Reason: constipation)
allopurinol 100 mg Tablet
200 mg PO DAILY
calcium carbonate [Calcium 600] 600 mg calcium (1,500 mg) Tablet
600 mg PO DAILY
Eliquis 5 mg Tablet
5 mg PO BID
Xgeva 120 mg/1.7 mL (70 mg/mL) Solution
120 mg SC Q6W
ZzzQuil 50 mg/30 mL Liquid
50 mg PO HSPRN PRN (Reason: sleep)
ipratropium-albuterol [DuoNeb] 0.5 mg-3 mg(2.5 mg base)/3 mL Solution For Nebulization
3 ml INHALATION R Q6HPRN PRN (Reason: sob)
loperamide 2 mg Tablet
2 mg PO BIDPRN PRN (Reason: diarrhea)
aspirin 81 mg Tablet,Delayed Release (Dr/Ec)
81 mg PO DAILY
benzonatate 100 mg Capsule
100 mg PO DAILY
Referrals:
Darrius Carter MD [Family Provider] -
Interventions
Interventions:
*Risk Screen - Suicide Last Done: 12/03/24 13:12
*General Assessment Last Done: 12/03/24 13:59
*Neglect/Abuse Screening Last Done: 12/03/24 13:12
*ED- Fall Risk Assessment Last Done: 12/03/24 13:59
*ED COVID-19 Vaccine History Last Done: 12/03/24 13:59
[facility]-[place]-Vycsbghwwp Assessment Last Done: 12/03/24 14:28
Discharge Date and Time
Print Language: IRANIAN
[2024-12-03 15:20] LABS: ALT (SGPT) 36 U/L (0-50); AST (SGOT) 25 U/L (17-59); Albumin 3.7 g/dl (3.5-5.0); Alkaline Phosphatase 53 U/L (38-126); Blood Urea Nitrogen 36 mg/dl (9-20); Calcium 9.5 mg/dl (8.4-10.2); Carbon Dioxide 24 mmol/L (22-30); Chloride 101 mmol/L (98-107); Estimated Creatinine Clearance 36 ml/min; Glucose 118 mg/dl (70-99); Sodium 136 mmol/L (135-145); Total Bilirubin 1.1 mg/dl (0.2-1.3); eGFR 33.66
[2024-12-03] MEDS: NSS 1000 IV ×2 (15:24→17:29)
--- NOTE | 2024-12-03 17:13 | HPS.HSE ---
Family Physician
-
Family Physician: Darrius Carter
Chief Complaint
-
Bloody diarrhea, weight loss
History of Present Illness
69 y/o M with PMHx:
Lung CA
COPD
HLD
Essential HTN
Migraine headaches
Chronic HFpEF
CKD3a
LLE DVT
who p/w 1 week of diarrhea. He has more recently had bloody diarrhea (over the past 3 days). He is lost over 10 pounds due to the diarrhea. Denies any fevers or sick contacts. Denies chest pain, shortness of breath, chills, diaphoresis, vomiting.
Currently on immunotherapy for lung cancer.
Medical History
Past Medical History
Past Medical History: Reports Other (Lung CA COPD HLD Essential HTN Migraine headaches Chronic HFpEF, CKD3a)
Past Surgical History: Reports Other (N/A)
Social History
Tobacco: Non-smoker
Alcohol: Occasional
Drug: None
Family History
Family History: Not pertinent
Allergies / Home Medications
Allergies reflects when Allergies were last updated in [facility].
Home Medications with original date entered in [facility]
Allergy/Medication List:
Allergies
Allergy/AdvReac Type Severity Reaction Status Date / Time
No Known Allergies Allergy Verified 12/03/24 13:11
Home Medications
albuterol sulfate 90 mcg/actuation aerosol inhaler 2 puff inhalation R Q4HPRN PRN sob 10/06/11
carvedilol 25 mg tablet (Coreg) 25 mg PO BID Heart disease/condition 02/23/19
trazodone 100 mg tablet 200 mg PO HS Mental Health/Anxiety 02/23/19
guaifenesin 600 mg tablet, extended release 12 hr (Mucus Relief ER) 600 mg PO BID 06/21/20
icosapent ethyl 1 gram capsule (Vascepa) 2 gm PO BID High cholesterol 06/21/20
pravastatin 20 mg tablet 20 mg PO HS Gastrointestinal issue 06/21/20
fluticasone fur. 100 mcg-umeclid 62.5 mcg-vilant 25 mcg inhalat.powder (Trelegy Ellipta) 1 inh inhalation R DAILY 01/14/24
multivitamin 1 tab PO DAILY 01/14/24
Healthy Feet And Nerves 1 tab PO BID 01/25/24
ipilimumab 50 mg/10 mL (5 mg/mL) intravenous solution (Yervoy) 98.9 mg IV Q6W 03/22/24
nivolumab 40 mg/4 mL intravenous solution (Opdivo) 360 mg IV Q3W 03/22/24
allopurinol 100 mg tablet 200 mg PO DAILY 04/12/24
polyethylene glycol 3350 17 gram oral powder packet (Miralax) 17 g PO DAILYPRN PRN constipation 04/12/24
apixaban 5 mg tablet (Eliquis) 5 mg PO BID 05/24/24
calcium carbonate (Calcium 600) 600 mg PO DAILY 05/24/24
denosumab 120 mg/1.7 mL (70 mg/mL) subcutaneous solution (Xgeva) 120 mg SC Q6W 06/21/24
diphenhydramine HCl 50 mg/30 mL oral liquid (ZzzQuil) 50 mg PO HSPRN PRN sleep 10/18/24
aspirin 81 mg tablet,delayed release 81 mg PO DAILY 12/03/24
benzonatate 100 mg capsule 100 mg PO DAILY 12/03/24
ipratropium 0.5 mg-albuterol 3 mg (2.5 mg base)/3 mL nebulization soln 3 ml inhalation R Q6HPRN PRN sob 12/03/24
loperamide 2 mg tablet 2 mg PO BIDPRN PRN diarrhea 12/03/24
Review of Systems
-
History Source: Patient
A 12 point ROS was completed and negative except as noted: Yes
Physical Exam
Vital Signs
Vital Signs
Temp Pulse Resp BP Pulse Ox
98.3 F 94 18 116/65 90
12/03/24 13:12 12/03/24 15:15 12/03/24 15:27 12/03/24 15:00 12/03/24 15:15
Physical Exam
General: Other (.)
Laboratory Results
-
12/03/24 14:28
12/03/24 14:28
Laboratory Results
Lactic Acid 1.1 mmol/L (0.7-2.0) 12/03/24 14:29
Total Bilirubin 1.1 mg/dl (0.2-1.3) 12/03/24 14:28
AST 25 U/L (17-59) 12/03/24 14:
ALT 36 U/L (0-50) 12/03/24 14:
Alkaline Phosphatase 53 U/L (38-126) 12/03/24 14:28
Impression/Plan
-
Gen: NAD, AAOx3.
Eyes: EOMI, PERRLA, no scleral icterus.
Neck: supple.
CV: RRR, +S1/S2, no m/r/g.
Resp: CTAB, no rales, wheezes, or rhonchi.
Abd: +BS, soft, NT, ND
Skin: No rashes.
Neuro: CN 2-12 intact, non-focal.
Psych: Normal mood and affect.
CT A/P 11/17/24:
1. No acute findings within the abdomen or pelvis. No evidence for hydronephrosis or objective uropathy. Linear calcification within the midpole of the right kidney measuring 7 mm favored to represent a vascular calcification. No definitive
nephroliths identified.
2. Interval improvement/resolution of pleural-based area of consolidation within the posterior left lower lobe which showed FDG body on prior PET scan. Partially imaged mass within the central right lower lobe/infrahilar region as well as several
satellite nodules within the right lower lobe. Questionable increase in size of a nodule within the medial right lower lobe measuring 16 mm.
3. No evidence for metastatic disease within the abdomen or pelvis.
4. Extensive sigmoid diverticulosis. Unremarkable appendix.
5. Heavily calcified, normal caliber abdominal aorta.
BRBPR/bloody diarrhea:
-GEORGINA on CKD3a due to volume loss from diarrhea
-Hematochezia exacerbated by Eliquis (takes for LLE DVT may 2024), hold Eliquis. Hb currently 14.
-with significant L-shift with bandemia
-IVFs (note most recent EF 52%)
-C diff NEG
-follow stool Cx
-empiric abx started in the ER, cont Levaquin/Flagyl
-NPO for now
Other problems:
Lung CA: see's Dr. Zaldivar, states lung CA is stage 4, on immunotherapy
COPD, not in acute exac: cont Trelegy equivalent
HLD: cont statin
Essential HTN: Cont Coreg
Migraine headaches
Chronic HFpEF: cont Coreg
CKD3a
DNR - confirmed with the pt in the ER, and PRESS OPERATOR MEAT witnessed
SCDs with hematochezia
[2024-12-03] MEDS: LEVAQUIN 100 IV (17:27)
[2024-12-03] MEDS: FLAGYL 500 MG 100 IV (18:31)
[2024-12-03 22:14] LABS: Hematocrit 35.3 % (39.0-52.0); Hemoglobin 12.7 g/dL (13.0-18.0)
[2024-12-03] MEDS: D5/0.45%NACL 1000 IV (22:31)
[2024-12-03] MEDS: COREG 25 MG PO (22:31)
[2024-12-03] MEDS: MUCINEX 600 MG PO (22:31)
[2024-12-03] MEDS: PRAVACHOL 20 MG PO (22:31)
[2024-12-03] MEDS: DESYREL 200 MG PO (22:32)
[2024-12-04] VITALS (11 sets, daily range): BP systolic 91–127; BP diastolic 49–68; PULSE 84–104; O2SAT 94; BMI 31.0
[2024-12-04 03:37] LABS: Hematocrit 33.1 % (39.0-52.0); Hemoglobin 11.9 g/dL (13.0-18.0); Mean Corpuscular Hgb 32.6 pg (27.0-31.0); Mean Corpuscular Volume 90.7 fL (80.0-94.0); Mean Platelet Volume 8.8 fL (7.4-10.4); Platelet Count 120 10^3/uL (130-400); Red Blood Cell Count 3.65 10^6/uL (4.70-6.10); White Blood Cell Count 7.5 10^3/uL (4.8-10.8)
[2024-12-04 04:36] LABS: Blood Urea Nitrogen 34 mg/dl (9-20); Calcium 7.7 mg/dl (8.4-10.2); Carbon Dioxide 19 mmol/L (22-30); Chloride 110 mmol/L (98-107); Estimated Creatinine Clearance 37 ml/min; Glucose 156 mg/dl (70-99); Potassium 3.5 mmol/L (3.5-5.1); Sodium 137 mmol/L (135-145); eGFR 33.66
[2024-12-04] MEDS: FLAGYL 500 MG 100 IV ×2 (06:29→17:53)
[2024-12-04] MEDS: D5/0.45%NACL 1000 IV (06:37)
[2024-12-04] MEDS: SPIRIVA RESPIMAT 2.5 MCG 2 PUFF INH (07:50)
[2024-12-04] MEDS: SYMBICORT 160/4.5 MCG INHALER 2 PUFF INH ×2 (07:50→18:13)
--- NOTE | 2024-12-04 08:15 | W.PN.HOSP.TC ---
Today's Communication/Plan
-
see bold
Assessment / Plan
Assessment / Plan
Gen: remains NAD, AAOx3.
Eyes: EOMI, PERRLA, no scleral icterus.
Neck: supple.
CV: remains RRR, +S1/S2, no m/r/g.
Resp: remains CTAB, no rales, wheezes, or rhonchi.
Abd: +BS, soft, NT, ND
Skin: No rashes.
Neuro: CN 2-12 intact, non-focal.
Psych: Normal mood and affect.
CT A/P 11/17/24:
1. No acute findings within the abdomen or pelvis. No evidence for hydronephrosis or objective uropathy. Linear calcification within the midpole of the right kidney measuring 7 mm favored to represent a vascular calcification. No definitive
nephroliths identified.
2. Interval improvement/resolution of pleural-based area of consolidation within the posterior left lower lobe which showed FDG body on prior PET scan. Partially imaged mass within the central right lower lobe/infrahilar region as well as several
satellite nodules within the right lower lobe. Questionable increase in size of a nodule within the medial right lower lobe measuring 16 mm.
3. No evidence for metastatic disease within the abdomen or pelvis.
4. Extensive sigmoid diverticulosis. Unremarkable appendix.
5. Heavily calcified, normal caliber abdominal aorta.
BRBPR/bloody diarrhea:
-likely due to infectious colitis (significant L-shift with bandemia)
-no imaging done on admission due to GEORGINA
-GEORGINA on CKD3a due to volume loss from diarrhea
-Hematochezia/acute blood loss anemia exacerbated by Eliquis (takes for LLE DVT may 2024), holding Eliquis.
-IVFs (note most recent EF 52%)
-C diff NEG
-follow stool Cx
-empiric abx started in the ER, cont Levaquin/Flagyl
-with non-AG met acidosis, and K 3.5, change IVFs to 1/2NS with 75meq NaHCO3 and 20meq KCl
-NPO for now, likely clears later today
Other problems:
Lung CA: see's Dr. Zaldivar, states lung CA is stage 4, on immunotherapy
COPD, not in acute exac: cont Trelegy equivalent
HLD: cont statin
Essential HTN: Cont Coreg
Migraine headaches
Chronic HFpEF: cont Coreg
DNR - confirmed with the pt in the ER, and ICER HAND witnessed
SCDs with hematochezia
Anticipated Discharge: 24 - 48 hours
Subjective/Interval History
-
Date of Service: December 04, 2024
Denies abdominal pain. Reports bloody diarrhea around midnight. None since.
Objective Data
-
Labs:
Laboratory Results
12/03/24 12/04/24 12/04/24
22:06 03:20 03:20
WBC 7.5
Hgb 12.7 L Cancelled 11.9 L
Hct 35.3 L Cancelled
Plt Count
Sodium
Potassium
Chloride
Carbon Dioxide
BUN
Creatinine
Glucose
Calcium
12/04/24 12/04/24 12/04/24
03:20 08:07 15:10
WBC
Hgb Pending Pending
Hct 33.1 L Pending Pending
Plt Count 120 L
Sodium 137
Potassium 3.5
Chloride 110 H
Carbon Dioxide 19 L
BUN 34 H
Creatinine 2.1 H
Glucose 156 H
Calcium 7.7 L D
Vital Signs:
Vital Signs
Temp Pulse Resp BP Pulse Ox
97.9 F 93 16 126/66 96
12/04/24 07:42 12/04/24 08:01 12/04/24 08:01 12/04/24 07:42 12/04/24 08:01
I&O
12/03/24 12/04/24 12/05/24
06:59 06:59 06:59
Intake Total 1125 / 1125
Balance 1125 / 1125
[2024-12-04 08:17] LABS: Hematocrit 32.9 % (39.0-52.0); Hemoglobin 11.8 g/dL (13.0-18.0)
[2024-12-04] MEDS: ZYLOPRIM 200 MG PO (09:01)
[2024-12-04] MEDS: MUCINEX 600 MG PO ×2 (09:01→21:18)
[2024-12-04] MEDS: COREG 25 MG PO ×2 (09:02→21:18)
[2024-12-04] MEDS: TESSALON PERLES 100 MG PO (09:02)
[2024-12-04] MEDS: SODIUM BICARBONATE 1085 MEQ IV ×4 (10:16→20:19)
--- NOTE | 2024-12-04 12:55 | CM ---
Patient with Hx lung CA currently on immunotherapy witih Dx BRBPR/bloody diarrhea likely due to infectious colitis. Room air. Receiving IVF w Bicarb, IV Abx. Per nurse assessment; weak gait/transferring. PT Eval pending.
Met with patient and ;
the patient resides with his in a 1 story house with 5 steps at entrance.
The patient was independent in ADLs and ambulation without using an assistive device.
The patient has no DME, prior VN or SNF.
PCP - Darrius Carter
Pharmacy - [facility] [address], [place]
Patient volunteers that he has stage 4 lung cancer, is seen at [facility], has completed chemo and is currently doing immunotherapy.
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
Plan follow up after seen by PT.
--- NOTE | 2024-12-04 13:23 | CM ---
Patient with Hx lung CA currently on immunotherapy witih Dx BRBPR/bloody diarrhea likely due to infectious colitis. Room air. Receiving IVF w Bicarb, IV Abx. Per nurse assessment; weak gait/transferring. PT Eval pending.
Met with patient and ;
the patient resides with his in a 1 story house with 5 steps at entrance.
The patient was independent in ADLs and ambulation without using an assistive device.
DME - home O2 4L prn
No prior VN or SNF.
PCP - Darrius Carter
Pharmacy - [facility] [address], [place]
Patient volunteers that he has stage 4 lung cancer, is seen at [facility], has completed chemo and is currently doing immunotherapy.
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
Plan follow up after seen by PT.
[2024-12-04 19:25] LABS: Hematocrit 30.8 % (39.0-52.0); Hemoglobin 11.1 g/dL (13.0-18.0)
[2024-12-04] MEDS: PRAVACHOL 20 MG PO (21:18)
[2024-12-04] MEDS: DESYREL 200 MG PO (21:18)
--- NOTE | 2024-12-05 04:25 | PTCARENOTE ---
Patient remained stable throughout shift, still multiple trips to the BR with diarrhea, stating blood had gone but now starting to come back again, he is tolerating liquids w/o difficulty. no pain no N/V call call with in reach.
[2024-12-05] MEDS: FLAGYL 500 MG 100 IV ×2 (05:13→16:54)
[2024-12-05] MEDS: SODIUM BICARBONATE 1085 MEQ IV ×4 (05:14→16:54)
[2024-12-05 06:00] VITALS: BMI 33.0
[2024-12-05 06:37] LABS: Hematocrit 30.8 % (39.0-52.0); Hemoglobin 10.9 g/dL (13.0-18.0); Mean Corp Hgb Conc. 35.4 g/dL (33.0-37.0); Mean Corpuscular Volume 90.3 fL (80.0-94.0); Platelet Count 121 10^3/uL (130-400); Red Blood Cell Count 3.41 10^6/uL (4.70-6.10); White Blood Cell Count 6.7 10^3/uL (4.8-10.8)
[2024-12-05 06:50] LABS: Blood Urea Nitrogen 32 mg/dl (9-20); Calcium 7.7 mg/dl (8.4-10.2); Carbon Dioxide 22 mmol/L (22-30); Chloride 104 mmol/L (98-107); Estimated Creatinine Clearance 53 ml/min; Glucose 86 mg/dl (70-99); Potassium 3.5 mmol/L (3.5-5.1); Sodium 136 mmol/L (135-145)
[2024-12-05] MEDS: SYMBICORT 160/4.5 MCG INHALER 2 PUFF INH ×2 (07:17→20:15)
[2024-12-05] MEDS: SPIRIVA RESPIMAT 2.5 MCG 2 PUFF INH (07:17)
[2024-12-05 07:20] LABS: Absolute Neutrophils -Man Diff 3.4 10^3/uL (1.4-6.5); Band Neutrophils 6 % (0-3); Eosinophils 5 % (0-6); Lymphocytes 28 % (20-51); Monocytes 15 % (2-9); Normal RBC Morphology Yes; Platelets Checked Yes; Segmented Neutrophils 46 % (42-75); Total Cells Counted 100
[2024-12-05 08:00] VITALS: BP 127/61
[2024-12-05] MEDS: COREG 25 MG PO ×2 (08:16→20:57)
[2024-12-05] MEDS: TESSALON PERLES 100 MG PO (08:17)
[2024-12-05] MEDS: ZYLOPRIM 200 MG PO (08:17)
[2024-12-05] MEDS: MUCINEX 600 MG PO ×2 (08:17→20:57)
[2024-12-05] MEDS: LEVAQUIN 150 IV (08:19)
--- NOTE | 2024-12-05 09:48 | W.PN.HOSP.TC ---
Today's Communication/Plan
-
See bold
Assessment / Plan
Assessment / Plan
Gen: continues to remain NAD, AAOx3.
Eyes: EOMI, PERRLA, no scleral icterus.
Neck: supple.
CV: continues to remain RRR, +S1/S2, no m/r/g.
Resp: continues to remain CTAB, no rales, wheezes, or rhonchi.
Abd: +BS, soft, NT, ND
Skin: No rashes.
Neuro: CN 2-12 intact, non-focal.
Psych: Normal mood and affect.
12/03/24 14:12 Feces/Stool Salmonella/Shigella Culture - Final
No Salmonella, Shigella, Aeromonas or Plesiomonas species
isolated.
12/03/24 14:12 Feces/Stool Campylobacter Culture - Final
No Campylobacter species isolated.
12/03/24 14:12 Feces/Stool Shiga Toxin Test - Final
No E. coli Shiga Toxin 1 or 2 detected.
12/03/24 14:12 Feces/Stool C. difficile GDH Antigen & Toxins - Final
Negative for toxigenic C.difficile
CT A/P 11/17/24:
1. No acute findings within the abdomen or pelvis. No evidence for hydronephrosis or objective uropathy. Linear calcification within the midpole of the right kidney measuring 7 mm favored to represent a vascular calcification. No definitive
nephroliths identified.
2. Interval improvement/resolution of pleural-based area of consolidation within the posterior left lower lobe which showed FDG body on prior PET scan. Partially imaged mass within the central right lower lobe/infrahilar region as well as several
satellite nodules within the right lower lobe. Questionable increase in size of a nodule within the medial right lower lobe measuring 16 mm.
3. No evidence for metastatic disease within the abdomen or pelvis.
4. Extensive sigmoid diverticulosis. Unremarkable appendix.
5. Heavily calcified, normal caliber abdominal aorta.
BRBPR/bloody diarrhea:
-likely due to infectious colitis (significant L-shift with bandemia, now improving)
-no imaging done on admission due to GEORGINA
-GEORGINA on CKD3a due to volume loss from diarrhea
-Hematochezia/acute blood loss anemia exacerbated by Eliquis (takes for LLE DVT may 2024), holding Eliquis.
-C diff/stool Cx NEG
-empiric abx started in the ER, cont Levaquin/Flagyl
-non-AG met acidosis now resolved after 1/2NS with 75meq NaHCO3 and 20meq KCl
-advanced to clears
-c/s GI with persistent bloody diarrhea
Other problems:
Lung CA: see's Dr. Zaldivar, states lung CA is stage 4, on immunotherapy
COPD, not in acute exac: cont Trelegy equivalent
HLD: cont statin
Essential HTN: Cont Coreg
Migraine headaches
Chronic HFpEF: cont Coreg
Patient's updated at bedside.
DNR - confirmed with the pt in the ER, and CIRCULAR TANK COOPER witnessed
SCDs with hematochezia
Anticipated Discharge: 24 - 48 hours
Subjective/Interval History
-
Date of Service: December 05, 2024
Still with bloody diarrhea.
Objective Data
-
Labs:
Laboratory Results
12/05/24
05:51
WBC 6.7
Hgb 10.9 L
Hct 30.8 L
Plt Count 121 L
Sodium 136
Potassium 3.5
Chloride 104
Carbon Dioxide 22
BUN 32 H
Creatinine 1.5 H
Glucose 86
Calcium 7.7 L
Vital Signs:
Vital Signs
Temp Pulse Resp BP Pulse Ox
97.9 F 93 18 127/61 97
12/05/24 08:00 12/05/24 08:00 12/05/24 08:00 12/05/24 08:00 12/05/24 08:00
I&O
12/04/24 12/05/24 12/06/24
06:59 06:59 06:59
Intake Total 1125 / 1125 2320 / 2320
Balance 1125 / 1125 2320 / 2320
--- NOTE | 2024-12-05 12:05 | CON.GI ---
Addendum entered and electronically signed by Sagar Orta MD 12/05/24 12:38:
Seen and examined, agree with nurse practitioner note. Patient is a 69-year-old male with past medical history as noted who presents with acute onset of bloody diarrhea. He had been on Eliquis for DVT, as well as combined immunotherapy since last
March for metastatic lung cancer. He had acute onset of profuse diarrhea, initially nonbloody then became bloody. Stool studies have been negative, though he still been having significant diarrhea. Bleeding has decreased after stopping Eliquis,
frequency was doing better though yesterday had recurrent frequent green stool with some specks of blood, with increased urgency. He denies any significant abdominal pain, fever. His last colonoscopy did have multiple polyps in 2009, though did
not follow-up for repeat colonoscopy after that. He current denies any shortness of breath. On exam he has no significant tenderness.
1. Diarrhea: Acute, still likely infectious, in the setting of combined immunotherapy and Eliquis, with bloody diarrhea. His bleeding has improved off of Eliquis, and while his diarrhea was starting to improve is now significant again. Immune
mediated colitis seems less likely given the acuity, though still not completely excluded, and given his symptoms including urgency, tenesmus and bloody diarrhea we will plan flexible sigmoidoscopy tomorrow to evaluate for immune mediated colitis.
Otherwise, we will continue supportive care for now.
Original Note:
Consultation
-
Date/Time Consultation Requested: 12/05/24 1130
Date/Time Consultation Performed: 12/05/24 1145
Requesting Provider: Dr. Wright
Performing Provider: Dr. Orta/CONCEPCION Golden
Reason for Consultation: bloody diarrhea
Medical History
Chief Complaint / HPI
Chief Complaint: bloody diarrhea
History of Present Illness:
69-year-old male with past medical history of metastatic lung CA currently on Opdivo and Yervoy, left lower extremity DVT on Eliquis (currently on hold), COPD, hyperlipidemia, hypertension, migraines, chronic heart failure, CKD, colon polyps
(colonoscopy 2009) who presents to the emergency room with 1 week history of profuse diarrhea, that progressed onto bloody diarrhea. Came to the hospital for the same. We are asked to evaluate for the same. The patient states that prior to his
onset of symptoms he had muscle spasms and was placed on a Medrol Dosepak. He does not recall eating anything spoiled, recent travel or antibiotics. No sick contacts. He states that he had acute onset of brown diarrhea multiple episodes either
every 1/2 hour or on the hour. Associated with urgency only. This progressed to bloody diarrhea. The patient came to the hospital on the afternoon 12/03/24 he was placed on Levaquin and Flagyl. Stool was negative for C. difficile, negative for
Salmonella, Shigella, Campylobacter and E. coli. He did have elevated bands, was recently on steroids. He was afebrile hemoglobin was 14.1 however his baseline is in the 9-11 range. Eliquis was held. He was started on clear liquid diet. His
stools are now brown/green. There is some small scant amount of blood seen as well. Patient denies any fevers, chills, nausea, vomiting, melena, dysphagia or odynophagia. No early satiety. He did lose approximately 10 pounds during this episode
of illness.
Past Medical History
Past Medical History: Other (Metastatic lung cancer left lower extremity DVT, COPD, hyperlipidemia, hypertension, migraines, chronic heart failure with preserved EF, CKD, colon polyps, third-degree castro on abdomen as a child)
Past Surgical History: Other (bronchoscopy)
Social History
Tobacco: Former Smoker
Alcohol: Occasional (Proximately 1 to 4 ounces alcohol a week)
Drug: None
Personal:
Living: With Family
Employment: Retired
Family History
Family History: Other (Brother with history of throat cancer, sister with history of liver cancer, no other family of gastrointestinal malignancies or IBD)
Allergies / Home Medications
Allergy/AdvReac Type Severity Reaction Status Date / Time
No Known Allergies Allergy Verified 12/03/24 13:11
�Medication �Instructions �Recorded
albuterol sulfate 90 mcg/actuation 2 puff inhalation R Q4HPRN PRN sob 10/06/11
aerosol inhaler
carvedilol 25 mg tablet (Coreg) 25 mg PO BID Heart 02/23/19
disease/condition
trazodone 100 mg tablet 200 mg PO HS Mental Health/Anxiety 02/23/19
guaifenesin 600 mg tablet, 600 mg PO BID 06/21/20
extended release 12 hr (Mucus
Relief ER)
icosapent ethyl 1 gram capsule 2 gm PO BID High cholesterol 06/21/20
(Vascepa)
pravastatin 20 mg tablet 20 mg PO HS Gastrointestinal issue 06/21/20
fluticasone fur. 100 mcg-umeclid 1 inh inhalation R DAILY 01/14/24
62.5 mcg-vilant 25 mcg
inhalat.powder (Trelegy Ellipta)
multivitamin 1 tab PO DAILY 01/14/24
Healthy Feet And Nerves 1 tab PO BID 01/25/24
ipilimumab 50 mg/10 mL (5 mg/mL) 98.9 mg IV Q6W 03/22/24
intravenous solution (Yervoy)
nivolumab 40 mg/4 mL intravenous 360 mg IV Q3W 03/22/24
solution (Opdivo)
allopurinol 100 mg tablet 200 mg PO DAILY 04/12/24
polyethylene glycol 3350 17 gram 17 g PO DAILYPRN PRN constipation 04/12/24
oral powder packet (Miralax)
apixaban 5 mg tablet (Eliquis) 5 mg PO BID 05/24/24
calcium carbonate (Calcium 600) 600 mg PO DAILY 05/24/24
denosumab 120 mg/1.7 mL (70 mg/mL) 120 mg SC Q6W 06/21/24
subcutaneous solution (Xgeva)
diphenhydramine HCl 50 mg/30 mL 50 mg PO HSPRN PRN sleep 10/18/24
oral liquid (ZzzQuil)
aspirin 81 mg tablet,delayed 81 mg PO DAILY 12/03/24
release
benzonatate 100 mg capsule 100 mg PO DAILY 12/03/24
ipratropium 0.5 mg-albuterol 3 mg 3 ml inhalation R Q6HPRN PRN sob 12/03/24
(2.5 mg base)/3 mL nebulization
soln
loperamide 2 mg tablet 2 mg PO BIDPRN PRN diarrhea 12/03/24
Review of Systems
-
All other systems: A 12 pt ROS was Negative except as stated above in HPI
Vital Signs
Temp Pulse Resp BP Pulse Ox
97.9 F 93 18 127/61 97
12/05/24 08:00 12/05/24 08:00 12/05/24 08:00 12/05/24 08:00 12/05/24 08:00
Physical Exam
Exam
General: No Apparent Distress
HEENT: Anicteric
Respiratory: Clear (anterior)
Cardiac: Regular Rhythm
GI: Soft, Non Tender, Non Distended, Normal Bowel Sounds and Other (Scar tissue to abdomen from prior third-degree castro)
Musculoskeletal: No Edema
Skin: Warm and Dry
Neuro: AO x 3
Psych: Calm
Results
WBC 6.7 10^3/uL (4.8-10.8) 12/05/24 05:51
Hgb 10.9 g/dL (13.0-18.0) L 12/05/24 05:51
Hct 30.8 % (39.0-52.0) L 12/05/24 05:51
MCV 90.3 fL (80.0-94.0) 12/05/24 05:51
Plt Count 121 10^3/uL (130-400) L 12/05/24 05:51
Sodium 136 mmol/L (135-145) 12/05/24 05:51
Potassium 3.5 mmol/L (3.5-5.1) 12/05/24 05:51
Chloride 104 mmol/L (98-107) 12/05/24 05:51
Carbon Dioxide 22 mmol/L (22-30) 12/05/24 05:51
BUN 32 mg/dl (9-20) H 12/05/24 05:51
Creatinine 1.5 mg/dL (0.7-1.3) H 12/05/24 05:51
Calcium 7.7 mg/dl (8.4-10.2) L 12/05/24 05:51
Total Bilirubin 1.1 mg/dl (0.2-1.3) 12/03/24 14:28
AST 25 U/L (17-59) 12/03/24 14:28
ALT 36 U/L (0-50) 12/03/24 14:28
Alkaline Phosphatase 53 U/L (38-126) 12/03/24 14:28
Diagnostic Image Results:
CT abdomen pelvis with IV contrast:
1. No acute findings within the abdomen or pelvis. No evidence for hydronephrosis or objective uropathy. Linear calcification within the midpole of the right kidney measuring 7 mm favored to represent a vascular calcification. No definitive
nephroliths identified.
2. Interval improvement/resolution of pleural-based area of consolidation within the posterior left lower lobe which showed FDG body on prior PET scan. Partially imaged mass within the central right lower lobe/infrahilar region as well as several
satellite nodules within the right lower lobe. Questionable increase in size of a nodule within the medial right lower lobe measuring 16 mm.
3. No evidence for metastatic disease within the abdomen or pelvis.
4. Extensive sigmoid diverticulosis. Unremarkable appendix.
5. Heavily calcified, normal caliber abdominal aorta.
6. Additional findings above.
Prior GI Procedures:
EGD: Never
Colonoscopy: 2009 (Dr. Dorman) - The examined portion of the ileum was normal.
- One 4 mm polyp in the proximal ascending colon.
Resected and retrieved.
- One 5 mm polyp in the proximal transverse colon.
Resected and retrieved.
- One 4 mm polyp in the mid transverse colon. Resected
and retrieved.
- One 6 mm polyp in the distal transverse colon.
Resected and retrieved.
- Two 3 to 6 mm polyps at 40 cm proximal to the anus.
Resected and retrieved.
- One 4 mm polyp at 25 cm proximal to the anus. Resected
and retrieved.
- Diverticulosis descending colon, transverse colon and
ascending colon.
- Diverticulosis sigmoid colon.
- Non-bleeding external hemorrhoids.
- Rectal exam revealed enlarged prostate
Assessment / Plan
-
69-year-old male with past medical history of metastatic lung CA currently on Opdivo and Yervoy, left lower extremity DVT on Eliquis (currently on hold), COPD, hyperlipidemia, hypertension, migraines, chronic heart failure, CKD, colon polyps
(colonoscopy 2009) who presents to the emergency room with 1 week history of profuse diarrhea, that progressed onto bloody diarrhea. Came to the hospital for the same. We are asked to evaluate for the same. The patient states that prior to his
onset of symptoms he had muscle spasms and was placed on a Medrol Dosepak. He does not recall eating anything spoiled, recent travel or antibiotics. No sick contacts. He states that he had acute onset of brown diarrhea multiple episodes either
every 1/2 hour or on the hour. Associated with urgency only. This progressed to bloody diarrhea.
Impression
Bloody diarrhea-> stool negative for C. difficile, Salmonella, Shigella, E. coli and Campylobacter
Chronic anemia, baseline between 9 and 11, hemoglobin currently stable
Metastatic Lung Ca on therapy (Yervoy and Opdivo)
Recent Medrol Dosepak use prior to onset of symptoms
Left lower extremity DVT on Eliquis, (held since admission 12/03/2024)
History of colon polyps (colonoscopy performed 2009 none since)
Plan:
-Check stool for ova parasite and norovirus
-On flex sig tomorrow with biopsies
-Trend labs
-The recommendations to be forthcoming
-
-
Thank you for consultation and allowing me to participate in the patient's care. Please call the aeronautical engineering professor GI physician during the after hours with any questions or concerns.
--- NOTE | 2024-12-05 13:37 | CM ---
Reviewed the chart notes and spoke with the patient at the bedside. Patient anticipates having a flexible sigmoidoscopy procedure tomorrow. CM continues to be available to patient/family and is monitoring medical plan for needs at discharge.
Plan: Discharge to home when medically stable. No needs identified at this time.
[2024-12-05 15:47] VITALS: BP 149/71
[2024-12-05] MEDS: DESYREL 200 MG PO (20:57)
[2024-12-05] MEDS: PRAVACHOL 20 MG PO (20:58)
[2024-12-05] MEDS: NON-FORMULARY ITEM 2 GM PO (20:58)
[2024-12-05 23:10] VITALS: BP 124/51
[2024-12-06] MEDS: FLAGYL 500 MG 100 IV ×2 (05:19→18:17)
[2024-12-06 05:28] VITALS: BMI 32.6
[2024-12-06 06:31] LABS: Hematocrit 33.2 % (39.0-52.0); Hemoglobin 11.8 g/dL (13.0-18.0); Mean Corp Hgb Conc. 35.5 g/dL (33.0-37.0); Mean Corpuscular Hgb 32.4 pg (27.0-31.0); Mean Corpuscular Volume 91.2 fL (80.0-94.0); Mean Platelet Volume 8.9 fL (7.4-10.4); Platelet Count 148 10^3/uL (130-400); Red Blood Cell Count 3.64 10^6/uL (4.70-6.10); Red Cell Dist. Width 13.1 % (11.5-14.5); White Blood Cell Count 7.6 10^3/uL (4.8-10.8)
[2024-12-06 06:47] LABS: Blood Urea Nitrogen 22 mg/dl (9-20); Calcium 7.6 mg/dl (8.4-10.2); Carbon Dioxide 25 mmol/L (22-30); Chloride 103 mmol/L (98-107); Estimated Creatinine Clearance 56 ml/min; Glucose 85 mg/dl (70-99); Potassium 3.4 mmol/L (3.5-5.1); Sodium 138 mmol/L (135-145); eGFR 54.75
[2024-12-06] MEDS: SPIRIVA RESPIMAT 2.5 MCG 2 PUFF INH (07:38)
[2024-12-06] MEDS: SYMBICORT 160/4.5 MCG INHALER 2 PUFF INH ×2 (07:38→19:30)
[2024-12-06 07:40] VITALS: BP 136/68
--- NOTE | 2024-12-06 07:46 | W.PN.HOSP.TC ---
Today's Communication/Plan
-
see bold
Assessment / Plan
Assessment / Plan
Gen: NAD, AAOx3.
Eyes: EOMI, PERRLA, no scleral icterus.
Neck: supple.
CV: RRR, +S1/S2, no m/r/g.
Resp: CTAB, no rales, wheezes, or rhonchi.
Abd: remains +BS, soft, NT, ND
Skin: No rashes.
Neuro: CN 2-12 intact, non-focal.
Psych: Normal mood and affect.
12/05/24 12:52 Feces/Stool - Final
Negative for Norovirus GI and GII.
12/05/24 12:52 Feces/Stool Cryptosporidium/Giardia - Final
Negative for Cryptosporidium and/or Giardia Lamblia
antigens.
12/03/24 14:12 Feces/Stool Salmonella/Shigella Culture - Final
No Salmonella, Shigella, Aeromonas or Plesiomonas species
isolated.
12/03/24 14:12 Feces/Stool Campylobacter Culture - Final
No Campylobacter species isolated.
12/03/24 14:12 Feces/Stool Shiga Toxin Test - Final
No E. coli Shiga Toxin 1 or 2 detected.
12/03/24 14:12 Feces/Stool C. difficile GDH Antigen & Toxins - Final
Negative for toxigenic C.difficile
CT A/P 11/17/24:
1. No acute findings within the abdomen or pelvis. No evidence for hydronephrosis or objective uropathy. Linear calcification within the midpole of the right kidney measuring 7 mm favored to represent a vascular calcification. No definitive
nephroliths identified.
2. Interval improvement/resolution of pleural-based area of consolidation within the posterior left lower lobe which showed FDG body on prior PET scan. Partially imaged mass within the central right lower lobe/infrahilar region as well as several
satellite nodules within the right lower lobe. Questionable increase in size of a nodule within the medial right lower lobe measuring 16 mm.
3. No evidence for metastatic disease within the abdomen or pelvis.
4. Extensive sigmoid diverticulosis. Unremarkable appendix.
5. Heavily calcified, normal caliber abdominal aorta.
BRBPR/bloody diarrhea:
-likely due to infectious colitis (significant L-shift with bandemia, now improving)
-no imaging done on admission due to GEORGINA
-GEORGINA on CKD3a due to volume loss from diarrhea
-Hematochezia/acute blood loss anemia exacerbated by Eliquis (takes for LLE DVT may 2024), holding Eliquis.
-C diff/stool Cx NEG
-empiric abx started in the ER, cont Levaquin/Flagyl
-non-AG met acidosis now resolved after 1/2NS with 75meq NaHCO3 and 20meq KCl, change IVFs to NS
-was advanced to clears
-GI following
-flex-sig today to assess for immune mediated colitis
Other problems:
Hypokalemia: IV K
Lung CA: see's Dr. Zaldivar, states lung CA is stage 4, on immunotherapy
COPD, not in acute exac: cont Trelegy equivalent
HLD: cont statin
Essential HTN: Cont Coreg
Migraine headaches
Chronic HFpEF: cont Coreg
DNR - confirmed with the pt in the ER, and ECONOMIST RESEARCH ASSISTANT witnessed
SCDs with hematochezia
Anticipated Discharge: > 48 hours
Subjective/Interval History
-
Date of Service: December 06, 2024
Patient states that since I saw him yesterday he has not had bloody diarrhea. Denies abdominal pain.
Objective Data
-
Labs:
Laboratory Results
12/06/24
05:20
WBC 7.6
Hgb 11.8 L
Hct 33.2 L
Plt Count 148 D
Sodium 138
Potassium 3.4 L
Chloride 103
Carbon Dioxide 25
BUN 22 H
Creatinine 1.4 H
Glucose 85
Calcium 7.6 L
Vital Signs:
Vital Signs
Temp Pulse Resp BP Pulse Ox
100.2 F 92 16 124/51 93
12/05/24 23:10 12/06/24 07:41 12/06/24 07:41 12/05/24 23:10 12/06/24 07:41
I&O
12/05/24 12/06/24 12/07/24
06:59 06:59 06:59
Intake Total 2320 / 2320 1300 / 1300
Balance 2320 / 2320 1300 / 1300
[2024-12-06] MEDS: COREG 25 MG PO ×2 (07:54→20:40)
[2024-12-06] MEDS: ZYLOPRIM 200 MG PO (07:54)
[2024-12-06] MEDS: NON-FORMULARY ITEM 2 GM PO ×2 (07:54→20:41)
[2024-12-06] MEDS: MUCINEX 600 MG PO ×2 (07:54→20:40)
[2024-12-06] MEDS: TESSALON PERLES 100 MG PO (07:55)
[2024-12-06] MEDS: KCL 270 MEQ IV (08:08)
[2024-12-06] MEDS: NSS 1000 IV (08:08)
[2024-12-06 11:38] LABS: Absolute Neutrophils -Man Diff 5.3 10^3/uL (1.4-6.5); Band Neutrophils 15 % (0-3); Eosinophils 3 % (0-6); Lymphocytes 12 % (20-51); Monocytes 14 % (2-9); Segmented Neutrophils 56 % (42-75)
[2024-12-06 11:39] LABS: Normal RBC Morphology Yes; Platelets Checked Yes; Total Cells Counted 100
[2024-12-06 12:35] VITALS: BP 148/72
[2024-12-06 12:45] VITALS: BP 141/76
[2024-12-06 12:54] VITALS: BP 148/74
--- NOTE | 2024-12-06 14:20 | CM ---
Reviewed the chart notes. Patient had colonoscopy today. Full liquid diet ordered. CM continues to be available to patient/family and is monitoring medical plan for needs at discharge.
Plan: Discharge to home when medically stable. No additional need identified at this time.
[2024-12-06 15:40] VITALS: BP 136/69
[2024-12-06] MEDS: LEVAQUIN 150 IV (16:19)
[2024-12-06] MEDS: DESYREL 200 MG PO (22:24)
[2024-12-06] MEDS: PRAVACHOL 20 MG PO (22:25)
[2024-12-06 23:45] VITALS: BP 134/69
[2024-12-07 00:45] VITALS: BP 137/69
[2024-12-07] MEDS: FLAGYL 500 MG 100 IV ×2 (05:18→17:19)
[2024-12-07 05:38] LABS: Hematocrit 31.5 % (39.0-52.0); Hemoglobin 11.3 g/dL (13.0-18.0); Mean Corp Hgb Conc. 35.9 g/dL (33.0-37.0); Mean Corpuscular Hgb 32.7 pg (27.0-31.0); Mean Platelet Volume 8.6 fL (7.4-10.4); Platelet Count 145 10^3/uL (130-400); Red Blood Cell Count 3.46 10^6/uL (4.70-6.10); White Blood Cell Count 6.7 10^3/uL (4.8-10.8)
[2024-12-07 06:00] VITALS: BMI 32.6
[2024-12-07 06:00] LABS: Blood Urea Nitrogen 17 mg/dl (9-20); Calcium 7.6 mg/dl (8.4-10.2); Carbon Dioxide 23 mmol/L (22-30); Chloride 106 mmol/L (98-107); Estimated Creatinine Clearance 66 ml/min; Glucose 97 mg/dl (70-99); Potassium 3.2 mmol/L (3.5-5.1); Sodium 139 mmol/L (135-145); eGFR > 60.00
[2024-12-07 07:40] VITALS: BP 146/68
[2024-12-07] MEDS: SYMBICORT 160/4.5 MCG INHALER 2 PUFF INH ×2 (07:44→19:36)
[2024-12-07] MEDS: SPIRIVA RESPIMAT 2.5 MCG 2 PUFF INH (07:44)
--- NOTE | 2024-12-07 08:13 | W.PN.GI.CBS2 ---
Today's Communication / Plan
-
Start steroids and monitor for clinical improvement. F/u path
Assessment / Plan
-
69-year-old male with past medical history of metastatic lung CA currently on Opdivo and Yervoy, left lower extremity DVT on Eliquis, COPD, hyperlipidemia, hypertension, migraines, chronic heart failure, CKD, colon polyps (colonoscopy 2009) admitted
with acute bloody diarrhea. Given the severity of symptoms without improvement, colonoscopy performed on 12/06/24 with concerns for immune-mediated colitis and possible enteritis. Infectious stool studies negative.
Findings of endoscopic evaluation due appear mild, however, based on symptoms, he meets criteria for initiation of steroids. Given no improvement, recommend starting steroids-- 1mg/kg and monitor for symptomatic improvement while we await pathology
results. If confirmed on pathology, recommend heme/onc consultation. I reached out to Dr. Zaldivar to notify him of findings on colonoscopy.
Subjective
Subjective
Date of Service: December 07, 2024
Patient seen in follow-up this morning. He underwent colonoscopy yesterday with findings of colitis and also possible ileitis, biopsies taken. Etiology likely immune-mediated colitis, although, atypical presentation, given he has been on
immunotherapy since last March. He initially told me he was having 2-3 episodes of bloody diarrhea over a 24 hour period, however, on repeat evaluation today, he states that was incorrect, he has been having approximately 1-2 episodes per hour. He
does not feel he has had any improvement since arrival.
Objective
Data Reviewed
Laboratory Data:
Laboratory Results
12/07/24 04:48
12/07/24 04:48
Laboratory Results
Total Bilirubin 1.1 mg/dl (0.2-1.3) 12/03/24 14:28
AST 25 U/L (17-59) 12/03/24 14:28
ALT 36 U/L (0-50) 12/03/24 14:28
Alkaline Phosphatase 53 U/L (38-126) 12/03/24 14:28
Vital Signs and I&O:
Vital Signs
Temp Pulse Resp BP Pulse Ox
97.8 F 89 16 146/68 97
12/07/24 07:40 12/07/24 07:47 12/07/24 07:47 12/07/24 07:40 12/07/24 07:47
I&O
12/06/24 12/07/24 12/08/24
06:59 06:59 06:59
Intake Total 1300 / 1300 1140 / 1140
Balance 1300 / 1300 1140 / 1140
Physical Exam
Physical Exam
HEENT: Anicteric and Moist mucous membranes
GI: Soft, Non Distended, Non Tender and Normal Bowel Sounds
[2024-12-07] MEDS: PEPCID 40 MG PO (09:17)
[2024-12-07] MEDS: SOLU-MEDROL PF 40 MG IV ×2 (09:17→22:08)
[2024-12-07] MEDS: MUCINEX 600 MG PO ×2 (09:17→22:08)
[2024-12-07] MEDS: TESSALON PERLES 100 MG PO (09:18)
[2024-12-07] MEDS: NON-FORMULARY ITEM 2 GM PO ×2 (09:18→22:10)
[2024-12-07] MEDS: COREG 25 MG PO ×2 (09:18→22:08)
[2024-12-07] MEDS: ZYLOPRIM 200 MG PO (09:18)
[2024-12-07] MEDS: NSS 1000 IV (09:21)
--- NOTE | 2024-12-07 09:42 | W.PN.HOSP.TC ---
Today's Communication/Plan
-
see plan
Assessment / Plan
Assessment / Plan
Gen: NAD, AAOx3.
Eyes: EOMI, PERRLA, no scleral icterus.
Neck: supple.
CV: remains RRR, +S1/S2, no m/r/g.
Resp: CTAB anteriorly, no rales, wheezes, or rhonchi.
Abd: continues to remain +BS, soft, NT, ND
Skin: No rashes.
Neuro: CN 2-12 intact, non-focal.
Psych: Normal mood and affect.
12/05/24 12:52 Feces/Stool - Final
Negative for Norovirus GI and GII.
12/05/24 12:52 Feces/Stool Cryptosporidium/Giardia - Final
Negative for Cryptosporidium and/or Giardia Lamblia
antigens.
12/03/24 14:12 Feces/Stool Salmonella/Shigella Culture - Final
No Salmonella, Shigella, Aeromonas or Plesiomonas species
isolated.
12/03/24 14:12 Feces/Stool Campylobacter Culture - Final
No Campylobacter species isolated.
12/03/24 14:12 Feces/Stool Shiga Toxin Test - Final
No E. coli Shiga Toxin 1 or 2 detected.
12/03/24 14:12 Feces/Stool C. difficile GDH Antigen & Toxins - Final
Negative for toxigenic C.difficile
CT A/P 11/17/24:
1. No acute findings within the abdomen or pelvis. No evidence for hydronephrosis or objective uropathy. Linear calcification within the midpole of the right kidney measuring 7 mm favored to represent a vascular calcification. No definitive
nephroliths identified.
2. Interval improvement/resolution of pleural-based area of consolidation within the posterior left lower lobe which showed FDG body on prior PET scan. Partially imaged mass within the central right lower lobe/infrahilar region as well as several
satellite nodules within the right lower lobe. Questionable increase in size of a nodule within the medial right lower lobe measuring 16 mm.
3. No evidence for metastatic disease within the abdomen or pelvis.
4. Extensive sigmoid diverticulosis. Unremarkable appendix.
5. Heavily calcified, normal caliber abdominal aorta.
Colonoscopy 12/06/24: Decreased mucosa vascular pattern in the terminal ileum. Biopsied. Diffuse mild mucosal changes were found in the entire examined colon secondary to colitis. Biopsied. Diverticulosis in the sigmoid colon.
BRBPR/bloody diarrhea:
-likely due to infectious colitis and immune mediated colitis (significant L-shift with bandemia)
-no imaging done on admission due to GEORGINA
-GEORGINA on CKD3a due to volume loss from diarrhea, improving with IVFs
-Hematochezia/acute blood loss anemia exacerbated by Eliquis (takes for LLE DVT may 2024), holding Eliquis.
-C diff/stool Cx NEG
-empiric abx started in the ER, cont Levaquin/Flagyl. c/s ID.
-non-AG met acidosis now resolved after 1/2NS with 75meq NaHCO3 and 20meq KCl, IVFs changed to NS, cont
-was advanced to clears
-GI following
-colonoscopy above, findings concerning for immune mediated colitis. Follow path.
-cont solumedrol
Other problems:
Hypokalemia: IV K, check Mg
Lung CA: see's Dr. Zaldivar, states lung CA is stage 4, on immunotherapy
COPD, not in acute exac: cont Trelegy equivalent
HLD: cont statin
Essential HTN: Cont Coreg
Migraine headaches
Chronic HFpEF: cont Coreg
DNR - confirmed with the pt in the ER, and C[employer] CR[employer] witnessed
SCDs with hematochezia
Anticipated Discharge: 24 - 48 hours
Subjective/Interval History
-
Date of Service: December 07, 2024
Denies hematochezia since I rounded on the pt yesterday.
Objective Data
-
Labs:
Laboratory Results
12/07/24
04:48
WBC 6.7
Hgb 11.3 L
Hct 31.5 L
Plt Count 145
Sodium 139
Potassium 3.2 L
Chloride 106
Carbon Dioxide 23
BUN 17
Creatinine 1.2
Glucose 97
Calcium 7.6 L
Vital Signs:
Vital Signs
Temp Pulse Resp BP Pulse Ox
97.8 F 89 16 146/68 97
12/07/24 07:40 12/07/24 09:18 12/07/24 07:47 12/07/24 09:18 12/07/24 07:47
I&O
12/06/24 12/07/24 12/08/24
06:59 06:59 06:59
Intake Total 1300 / 1300 1140 / 1140
Balance 1300 / 1300 1140 / 1140
[2024-12-07] MEDS: KCL 40 MEQ PO (10:10)
[2024-12-07] MEDS: KCL 270 MEQ IV (10:11)
[2024-12-07] MEDS: IMODIUM 2 MG PO ×2 (13:31→22:12)
--- NOTE | 2024-12-07 14:24 | CM ---
Reviewed the chart notes. Continues on full liquid diet. CM continues to be available to patient/family and is monitoring medical plan for needs at discharge.
Plan: Discharge to home when medically stable. No additional need identified at this time.
[2024-12-07] MEDS: LEVAQUIN 150 IV (15:04)
[2024-12-07 15:35] VITALS: BP 108/58
--- NOTE | 2024-12-07 16:08 | PTCARENOTE ---
Patient continuing with frequent loose/liquid diarrhea, denies any abd pain and is tolerating a full liquid diet, states he is hungry and inquiring on diet advancement. This RN communicated with MD and GI, PRN PO immodium ordered per MD and
administered by this RN - see MAR. Patient states partial relief after administration. Per GI, continue full liquid diet until f/u in AM. Patient and spouse made aware.
--- NOTE | 2024-12-07 17:40 | CON.ID ---
Consultation
-
Date/Time Consultation Requested: 12/07/2024 0948
Date/Time Consultation Performed: 12/07/2024 1720
Requesting Provider: Dr. Wright
Performing Provider: Dr. Khan
Reason for Consultation: Colitis; infection versus autoimmune
Chief Complaint / Past History
History of Present Illness
Gaudencio Avila is a 69-year-old man being evaluated at the request of Dr. Wright in regards to bloody diarrhea. History is obtained from chart review, along with patient interview.
Patient has an underlying history of lung cancer diagnosed in January 2024. After diagnosis he was initially on chemotherapy, up to 2 to 3 months ago. Currently he remains on Opdivo administered every 3 weeks and Yervoy administered every 6 weeks.
Additionally, he is on Xgeva, also administered every 6 weeks. His most recent admission was last Thursday. According to the patient's who was at the bedside this past Thursday he had developed several episodes of loose stool, which were not
uncommon. On Thursday he did receive his infusion, and late in the day and into the next day he had an increase in overall diarrhea. Stooling was occurring every 30 to 60 minutes and noted to be watery. Initially there was no blood but he
developed this approximately 3 days prior to admission. He has not had any fevers or chills. He has had a proximately 12 pound weight loss since the initiation of diarrhea. He denied any abdominal pain. No history of sick contacts. No history
of travel. He denies tendency to eat out at restaurants quite frequently, though.
Past History
Additional Past Medical History:
Lungs CA; on Opdivo and Yervoy
COPD
Dyslipidemia
HTN
Migraines
CHF
CKD 3A
Additional Past Surgical History:
Right ACW Port-A-Cath (02/2024)
Right TKR
STSG to the abdomen (as a child secondary to castro)
Allergy History:
No Known Allergies Allergy (Verified 12/03/24 13:11)
Medications Reviewed: Yes
Current Antibiotics:
Levofloxacin (day #5)
Flagyl (day #5)
Social History
Tobacco: Non-Smoker
Alcohol: Occasional
Drug: None
Personal:
Living: With Family
Employment: Retired
Family History
Family History: Not Pertinent
Review of Systems
Vital Signs
Temp Pulse Resp BP Pulse Ox
97.7 F 92 16 108/58 94
12/07/24 15:35 12/07/24 15:35 12/07/24 15:35 12/07/24 15:35 12/07/24 15:35
Physical Exam
Physical Exam
Constitutional: No Acute Distress, Comfortable and Non-toxic
Head: Normocephalic
Eyes: Pupils Equal, Pupils Round, No Conjunctival Hemorrhage and Sclera Anicteric
Oral: No Thrush and No Ulcers
Cardiovascular: S1/S2; Negative S3/S4
Pulmonary: Clear and Non Labored
Gastrointestinal: Soft, Non Tender and Non Distended
Skin: Warm and Dry; Negative Rash or Jaundice
Neurological: Awake and Alert
Psychological: Calm
Lab / Diagnostic Study Results
12/07/24 04:48
12/07/24 04:48
Total Counted 100 12/06/24 05:20
Abs Neuts (Manual) 5.3 10^3/uL (1.4-6.5) 12/06/24 05:20
Segmented Neutrophils 56 % (42-75) 12/06/24 05:20
Band Neutrophils 15 % (0-3) H D 12/06/24 05:20
Lymphocytes (Manual) 12 % (20-51) L 12/06/24 05:20
Eosinophils (Manual) 3 % (0-6) 12/06/24 05:20
Lactic Acid 1.1 mmol/L (0.7-2.0) 12/03/24 14:29
Microbiology Results
Micro:
12/05/24 12:52 - Final
Feces/Stool Negative for Norovirus GI and GII.
12/05/24 12:52 Cryptosporidium/Giardia - Final
Feces/Stool Negative for Cryptosporidium and/or Giardia Lamblia
antigens.
12/03/24 14:12 Salmonella/Shigella Culture - Final
Feces/Stool No Salmonella, Shigella, Aeromonas or Plesiomonas species
isolated.
Campylobacter Culture - Final
No Campylobacter species isolated.
Shiga Toxin Test - Final
No E. coli Shiga Toxin 1 or 2 detected.
12/03/24 14:12 C. difficile GDH Antigen & Toxins - Final
Feces/Stool Negative for toxigenic C.difficile
11/17/2024 CT abdomen/pelvis without contrast: No acute findings within the abdomen or pelvis. No evidence for hydronephrosis or obstructive uropathy. There is interval improvement/resolution of pleural based area of consolidation within the
posterior left lower lobe. Please see full dictation for additional detail.
Assessment / Plan
Bloody diarrhea
Weight loss
Suspected inflammatory colitis
Lungs CA; on Opdivo and Yervoy
COPD
Dyslipidemia
HTN
Migraines
CHF
CKD 3A
Recommendations:
Extensive infectious workup of the stool has not revealed any infectious process.
The patient is currently status post colonoscopy, with biopsies obtained. Findings at the time of colonoscopy suggested diffuse mild mucosal changes throughout the colon.
At present, would discontinue further antibiotics and await biopsies (CMV remains a possibility).
Monitor stool frequency and consistency now that the patient is on steroids.
Further recommendations as additional data is returned.
Will continue to follow along with you.
[2024-12-07] MEDS: NSS IV (19:37)
[2024-12-07] MEDS: PRAVACHOL 20 MG PO (22:07)
[2024-12-07] MEDS: DESYREL 200 MG PO (22:08)
[2024-12-07 23:30] VITALS: BP 137/69
[2024-12-08 05:31] LABS: Hematocrit 29.7 % (39.0-52.0); Hemoglobin 10.8 g/dL (13.0-18.0); Mean Corp Hgb Conc. 36.4 g/dL (33.0-37.0); Mean Corpuscular Hgb 33.2 pg (27.0-31.0); Mean Corpuscular Volume 91.4 fL (80.0-94.0); Mean Platelet Volume 8.8 fL (7.4-10.4); Platelet Count 121 10^3/uL (130-400); Red Blood Cell Count 3.25 10^6/uL (4.70-6.10); Red Cell Dist. Width 13.1 % (11.5-14.5); White Blood Cell Count 4.2 10^3/uL (4.8-10.8)
[2024-12-08 05:46] LABS: Blood Urea Nitrogen 18 mg/dl (9-20); Calcium 7.6 mg/dl (8.4-10.2); Carbon Dioxide 20 mmol/L (22-30); Chloride 109 mmol/L (98-107); Estimated Creatinine Clearance 66 ml/min; Glucose 249 mg/dl (70-99); Sodium 138 mmol/L (135-145); eGFR > 60.00
[2024-12-08 05:49] VITALS: BMI 32.9
[2024-12-08] MEDS: SYMBICORT 160/4.5 MCG INHALER 2 PUFF INH ×2 (07:22→19:43)
[2024-12-08] MEDS: SPIRIVA RESPIMAT 2.5 MCG 2 PUFF INH (07:22)
--- NOTE | 2024-12-08 08:34 | W.PN.HOSP.TC ---
Today's Communication/Plan
-
See bold
Assessment / Plan
Assessment / Plan
Gen: remains NAD, AAOx3.
Eyes: EOMI, PERRLA, no scleral icterus.
Neck: supple.
CV: continues to remain RRR, +S1/S2, no m/r/g.
Resp: remains CTAB anteriorly, no rales, wheezes, or rhonchi.
Abd: +BS, soft, NT, ND
Skin: No rashes.
Neuro: CN 2-12 intact, non-focal.
Psych: Normal mood and affect.
12/05/24 12:52 Feces/Stool - Final
Negative for Norovirus GI and GII.
12/05/24 12:52 Feces/Stool Cryptosporidium/Giardia - Final
Negative for Cryptosporidium and/or Giardia Lamblia
antigens.
12/03/24 14:12 Feces/Stool Salmonella/Shigella Culture - Final
No Salmonella, Shigella, Aeromonas or Plesiomonas species
isolated.
12/03/24 14:12 Feces/Stool Campylobacter Culture - Final
No Campylobacter species isolated.
12/03/24 14:12 Feces/Stool Shiga Toxin Test - Final
No E. coli Shiga Toxin 1 or 2 detected.
12/03/24 14:12 Feces/Stool C. difficile GDH Antigen & Toxins - Final
Negative for toxigenic C.difficile
CT A/P 11/17/24:
1. No acute findings within the abdomen or pelvis. No evidence for hydronephrosis or objective uropathy. Linear calcification within the midpole of the right kidney measuring 7 mm favored to represent a vascular calcification. No definitive
nephroliths identified.
2. Interval improvement/resolution of pleural-based area of consolidation within the posterior left lower lobe which showed FDG body on prior PET scan. Partially imaged mass within the central right lower lobe/infrahilar region as well as several
satellite nodules within the right lower lobe. Questionable increase in size of a nodule within the medial right lower lobe measuring 16 mm.
3. No evidence for metastatic disease within the abdomen or pelvis.
4. Extensive sigmoid diverticulosis. Unremarkable appendix.
5. Heavily calcified, normal caliber abdominal aorta.
Colonoscopy 12/06/24: Decreased mucosa vascular pattern in the terminal ileum. Biopsied. Diffuse mild mucosal changes were found in the entire examined colon secondary to colitis. Biopsied. Diverticulosis in the sigmoid colon.
BRBPR/bloody diarrhea:
-likely due to immune mediated colitis
-pt had significant L-shift with bandemia on admission and was on Levaquin/Flagyl which was started on admission. Infectious workup negative as above (Cx data NEG as above). Patient was seen in consultation by infectious disease and antibiotics
are not indicated at this time. Levaquin/Flagyl were stopped on 12/07/24.
-no imaging done on admission due to GEORGINA
-GEORGINA on CKD3a due to volume loss from diarrhea, resolved with IVFs
-Hematochezia/acute blood loss anemia was exacerbated by Eliquis (takes for LLE DVT may 2024), Eliquis remains.
-non-AG met acidosis now resolved after 1/2NS with 75meq NaHCO3 and 20meq KCl, IVFs were changed to NS, now off IVFs
-now advanced to full liquids and tolerating diet. Advance to LR diet now.
-GI following
-colonoscopy above, findings concerning for immune mediated colitis. Path showed active ileitis in the terminal ileum, active colitis with crypt abscess formation in the cecum, ascending colon, transverse colon, descending colon, and sigmoid colon,
and active proctitis in the rectum.
-cont solumedrol started 12/07/24
Other problems:
Hypokalemia, resolved
Lung CA: see's Dr. Zaldivar, states lung CA is stage 4, on immunotherapy. ONC following.
COPD, not in acute exac: cont Trelegy equivalent
HLD: cont statin
Essential HTN: Cont Coreg
Migraine headaches
Chronic HFpEF: cont Coreg
Patient's updated at bedside.
DNR - confirmed with the pt in the ER, and [employer]PERATOR witnessed
SCDs with hematochezia
Total time spent on today's encounter was 50 minutes which included time spent in counseling the patient/family regarding diagnosis and treatment plan as listed above, goals of care, and symptom management. Case was discussed with nursing staff,
specialists, and care coordinators/case management. All labs and imaging personally reviewed by me. Remainder the time spent in detailed review of previous records, lab data, imaging, and other medical provider documentation.
Anticipated Discharge: 24 - 48 hours
Subjective/Interval History
-
Date of Service: December 08, 2024
Patient denies melena or hematochezia. Denies abdominal pain.
Objective Data
-
Labs:
Laboratory Results
12/08/24
04:55
WBC 4.2 L
Hgb 10.8 L
Hct 29.7 L
Plt Count 121 L
Sodium 138
Potassium 4.0
Chloride 109 H
Carbon Dioxide 20 L
BUN 18
Creatinine 1.2
Glucose 249 H
Calcium 7.6 L
Vital Signs:
Vital Signs
Temp Pulse Resp BP Pulse Ox
98.0 F 85 14 137/69 94
12/07/24 23:30 12/08/24 07:25 12/08/24 07:25 12/07/24 23:30 12/08/24 07:25
I&O
12/07/24 12/08/24 12/09/24
06:59 06:59 06:59
Intake Total 1140 / 1140 1560 / 1560
Balance 1140 / 1140 1560 / 1560
[2024-12-08 09:02] VITALS: BP 149/76
[2024-12-08] MEDS: COREG 25 MG PO ×2 (09:08→21:04)
[2024-12-08] MEDS: PEPCID 40 MG PO (09:08)
[2024-12-08] MEDS: TESSALON PERLES 100 MG PO (09:08)
[2024-12-08] MEDS: ZYLOPRIM 200 MG PO (09:10)
[2024-12-08] MEDS: MUCINEX 600 MG PO ×2 (09:10→21:04)
[2024-12-08] MEDS: NON-FORMULARY ITEM 2 GM PO ×2 (09:11→21:04)
[2024-12-08] MEDS: SOLU-MEDROL PF 40 MG IV ×3 (09:11→21:06)
--- NOTE | 2024-12-08 09:15 | W.PN.GI.CBS2 ---
Today's Communication / Plan
-
Continue IV Steroids. Oncology Consulted. Advance diet later today
Assessment / Plan
-
69-year-old male with past medical history of metastatic lung CA currently on Opdivo and Yervoy, left lower extremity DVT on Eliquis, COPD, hyperlipidemia, hypertension, migraines, chronic heart failure, CKD, colon polyps (colonoscopy 2009) admitted
with acute bloody diarrhea. Infectious stool studies negative. He underwent colonoscopy on 12/06 with mild pancolitis and mild ileitis seen, pathology showed active ileitis and active colitis throughout the colon, no findings of chronicity seen.
CT A/P 11/17/24:
1. No acute findings within the abdomen or pelvis. No evidence for hydronephrosis or objective uropathy. Linear calcification within the midpole of the right kidney measuring 7 mm favored to represent a vascular calcification. No definitive
nephroliths identified.
2. Interval improvement/resolution of pleural-based area of consolidation within the posterior left lower lobe which showed FDG body on prior PET scan. Partially imaged mass within the central right lower lobe/infrahilar region as well as several
satellite nodules within the right lower lobe. Questionable increase in size of a nodule within the medial right lower lobe measuring 16 mm.
3. No evidence for metastatic disease within the abdomen or pelvis.
4. Extensive sigmoid diverticulosis. Unremarkable appendix.
5. Heavily calcified, normal caliber abdominal aorta.
Colonoscopy 12/06/24: Decreased mucosa vascular pattern in the terminal ileum. Biopsied. Diffuse mild mucosal changes were found in the entire examined colon secondary to colitis. Biopsied. Diverticulosis in the sigmoid colon.
Pathology: CMV negative
-Terminal ileum: marked active ileitis
-Cecum: Active colitis with crypt abscess formation. Definitive features of chronicity are not seen.
-Ascending colon: Active colitis with crypt abscess formation. Definitive features of chronicity are not seen.
-Transverse colon: Active colitis with crypt abscess formation. Definitive features of chronicity are not seen.
-Descending colon:Active colitis. Definitive features of chronicity are not seen.
-Sigmoid colon:Active colitis. Definitive features of chronicity are not seen.
-Rectum: Active proctitis. Definitive features of chronicity are not seen
A/P: Pancolitis, ileitis 2/2 Immune-mediated colitis vs early IBD less likely
-weight-based steroids started on 12/07-- his weight is between 2 doses, started on 80 mg; add famotidine for cytoprotection
-okay to use loperamide prn
-Given the severity of symptoms without improvement, colonoscopy performed on 12/06/24 with concerns for immune-mediated colitis and possible enteritis. Infectious stool studies negative.
-currently on full liquid diet, recommend advancing to low residue/low lactose diet later today
-Oncology consulted
-will obtain prebiologic labs in case he does not respond to steroids
Subjective
Subjective
Date of Service: December 08, 2024
Patient seen in follow-up. Path resulted showing acute colitis and acute ileitis, no chronicity present. Patient contiues to have frequent diarrhea, no abdominal pain. He does note some improvement after steroids were started yesterday, he reports
longer duration of symptom free periods, but still fairly frequent.
Objective
Data Reviewed
Laboratory Data:
Laboratory Results
12/08/24 04:55
12/08/24 04:55
Laboratory Results
Magnesium 2.0 mg/dl (1.6-2.3) 12/07/24 04:48
Total Bilirubin 1.1 mg/dl (0.2-1.3) 12/03/24 14:28
AST 25 U/L (17-59) 12/03/24 14:28
ALT 36 U/L (0-50) 12/03/24 14:28
Alkaline Phosphatase 53 U/L (38-126) 12/03/24 14:28
Vital Signs and I&O:
Vital Signs
Temp Pulse Resp BP Pulse Ox
97.6 F 84 16 149/76 94
12/08/24 09:02 12/08/24 09:02 12/08/24 09:02 12/08/24 09:02 12/08/24 09:02
I&O
12/07/24 12/08/24 12/09/24
06:59 06:59 06:59
Intake Total 1140 / 1140 1560 / 1560
Balance 1140 / 1140 1560 / 1560
Physical Exam
Physical Exam
HEENT: Anicteric and Moist mucous membranes
GI: Soft, Non Distended, Non Tender and Normal Bowel Sounds
[2024-12-08] MEDS: NSS 1000 IV (09:23)
--- NOTE | 2024-12-08 11:48 | CON.ONC ---
Impression
Impression
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
on Opdivo/Yervy, last dose 11/29
on bone ppx with xgeva, last dose 11/29
Plan
Plan
steroids for supsected immune mediated colitis per GI, will need to taper outpatient
OP follow up with Dr. Zaldivar upon discharge to determine if treatment will need to be changed based on toxicity of immunotherapy
Patient History
History of Present Illness
69yo M with IV lung cancer on immunotherapy presented 12/03/2024 with bloody diarrhea. He reports diarrhea onset was 3 days prior to admission and associated with a 10lb weight loss. He denies fever, chills, or sick contacts. His CT abdomen/pelvis
showed no acute findings within the abdomen or pelvis. No evidence for hydronephrosis or obstructive uropathy. There is interval improvement/resolution of pleural based area of consolidation within the posterior left lower lobe. His colonoscopy
revealed diffuse mild mucosal changes in the entire examined colon secondary to colitis. Infectious work up is negative and therefore antibiotics were discontinued.
In brief, he was diagnosed with NSCLC January 2024 which was has been on treatment with carbo, Alimta, Opdivo and Yervoy and now on Opdivo/Yervoy with good tolerance until now. His most recent restaging shows good response to therapy.
Clinically, he continues to move his bowels every 1-2 hours. His bowel movements are no longer bloody. He denies any nausea, vomiting, or abdominal pain.
Past-Medical/Surgical History
PMH COPD, OCA, HTN, migraine, cardiomyopathy, restrictive lung disease, obesity, CKD, LLE DVT
PSH biopsy
Social former smoker, denies ETOH or recreational drugs. Retired, lives with
Patient Medication
�Medication �Instructions �Recorded �Confirmed �Last Taken �Type
albuterol sulfate 90 mcg/actuation 2 puff inhalation R Q4HPRN PRN sob 10/06/11 12/03/24 07/04/24 History
aerosol inhaler
carvedilol 25 mg tablet (Coreg) 25 mg PO BID Heart 02/23/19 12/03/24 12/03/24 History
disease/condition
trazodone 100 mg tablet 200 mg PO HS Mental Health/Anxiety 02/23/19 12/03/24 12/02/24 History
guaifenesin 600 mg tablet, 600 mg PO BID 06/21/20 12/03/24 12/03/24 History
extended release 12 hr (Mucus
Relief ER)
icosapent ethyl 1 gram capsule 2 gm PO BID High cholesterol 06/21/20 12/03/24 12/03/24 History
(Vascepa)
pravastatin 20 mg tablet 20 mg PO HS Gastrointestinal issue 06/21/20 12/03/24 12/02/24 History
fluticasone fur. 100 mcg-umeclid 1 inh inhalation R DAILY 01/14/24 12/03/24 12/03/24 History
62.5 mcg-vilant 25 mcg
inhalat.powder (Trelegy Ellipta)
multivitamin 1 tab PO DAILY 01/14/24 12/03/24 12/03/24 History
Healthy Feet And Nerves 1 tab PO BID 01/25/24 12/03/24 12/03/24 History
ipilimumab 50 mg/10 mL (5 mg/mL) 98.9 mg IV Q6W 03/22/24 12/03/24 11/08/24 History
intravenous solution (Yervoy)
nivolumab 40 mg/4 mL intravenous 360 mg IV Q3W 03/22/24 12/03/24 11/29/24 History
solution (Opdivo)
allopurinol 100 mg tablet 200 mg PO DAILY 04/12/24 12/03/24 12/03/24 History
polyethylene glycol 3350 17 gram 17 g PO DAILYPRN PRN constipation 04/12/24 12/03/24 11/26/24 History
oral powder packet (Miralax)
apixaban 5 mg tablet (Eliquis) 5 mg PO BID 05/24/24 12/03/24 12/03/24 History
calcium carbonate (Calcium 600) 600 mg PO DAILY 05/24/24 12/03/24 12/03/24 History
denosumab 120 mg/1.7 mL (70 mg/mL) 120 mg SC Q6W 06/21/24 12/03/24 11/29/24 History
subcutaneous solution (Xgeva)
diphenhydramine HCl 50 mg/30 mL 50 mg PO HSPRN PRN sleep 10/18/24 12/03/24 12/01/24 History
oral liquid (ZzzQuil)
aspirin 81 mg tablet,delayed 81 mg PO DAILY 12/03/24 12/03/24 12/03/24 History
release
benzonatate 100 mg capsule 100 mg PO DAILY 12/03/24 12/03/24 12/03/24 History
ipratropium 0.5 mg-albuterol 3 mg 3 ml inhalation R Q6HPRN PRN sob 12/03/24 12/03/24 11/26/24 History
(2.5 mg base)/3 mL nebulization
soln
loperamide 2 mg tablet 2 mg PO BIDPRN PRN diarrhea 12/03/24 12/03/24 12/02/24 History
Active Medications
Generic Name Dose Route Start Last Admin
Trade Name Freq PRN Reason Stop Dose Admin
Albuterol/Ipratropium 3 ml 12/03/24 21:10
Ipratropium 0.5/Albuterol 3 Mg (3 Ml Ampul) INH
R Q6HPRN PRN
sob
Protocol
Allopurinol 200 mg 12/04/24 08:00 12/08/24 09:10
Allopurinol 100 Mg Tablet PO 01/01/25 07:59 200 mg
DAILY AMAURI Administration
Benzonatate 100 mg 12/04/24 08:00 12/08/24 09:08
Benzonatate 100 Mg Capsule PO 01/01/25 07:59 100 mg
DAILY AMAURI Administration
Budesonide/Formoterol Fumarate 2 puff 12/04/24 08:00 12/08/24 07:22
Symbicort Inhaler 160/4.5 INH 01/01/25 07:59 2 puff
R BID AMAURI Administration
Carvedilol 25 mg 12/03/24 21:10 12/08/24 09:08
Carvedilol 25 Mg Tablet PO 12/31/24 21:09 25 mg
BID AMAURI Administration
Diphenhydramine HCl 50 mg 12/03/24 21:10
Diphenhydramine Elixir (25 Mg/10 Ml) Cup PO
HSPRN PRN
sleep
Famotidine 40 mg 12/07/24 09:00 12/08/24 09:08
Famotidine 40 Mg Tablet PO 01/04/25 08:59 40 mg
DAILY AMAURI Administration
Famotidine 20 mg 12/08/24 22:00
Famotidine 20 Mg/2 Ml Vial IV 01/05/25 21:59
HS AMAURI
Guaifenesin 600 mg 12/03/24 21:10 12/08/24 09:10
Guaifenesin 600 Mg Extended Release Tablet PO 12/31/24 21:09 600 mg
BID AMAURI Administration
Heparin Sodium (Porcine) 500 unit 12/06/24 04:00 12/06/24 11:21
Heparin Flush Pf (100 Unit/Ml) 5 Ml Syringe IV 01/03/25 03:59 500 unit
PER PROTOCOL AMAURI Administration
Sodium Chloride 1,000 mls @ 60 mls/hr 12/06/24 08:00 12/08/24 09:23
Nss IV 1,000 mls
.[id number] AMAURI Administration
Loperamide HCl 2 mg 12/07/24 13:07 12/07/24 22:12
Loperamide 2 Mg Capsule PO 01/04/25 13:06 2 mg
Q6HPRN PRN Administration
DIARRHEA
Methylprednisolone Sodium Succinate 40 mg 12/07/24 08:00 12/08/24 09:11
Methylprednisolone Pf 40 Mg/Ml Vial IV 01/04/25 07:59 40 mg
Q12H AMAURI Administration
Icosapent Ethyl [ 0 gm 12/05/24 20:00 12/08/24 09:11
Vascepa] 1 Gm PO 01/02/25 19:59 2 gm
Capsule Take 2 Gms ( BID AMAURI Administration
2 X 1 Gm) Po Bid
Pravastatin Sodium 20 mg 12/03/24 22:00 12/07/24 22:07
Pravastatin 20 Mg Tablet PO 12/31/24 21:59 20 mg
HS AMAURI Administration
Sodium Chloride 0 flush 12/03/24 22:00
Sodium Chloride 0.9% (Flush) Syringe IV 12/31/24 21:59
PER PROTOCOL AMAURI
Sodium Chloride 8 ml 12/08/24 22:00
Nss 8 Ml Qhs IV 01/05/25 21:59
HS AMAURI
Tiotropium [place] 2 puff 12/04/24 08:00 12/08/24 07:22
Tiotropium (Spiriva Respimat) 2.5 Mcg Inhaler INH 01/01/25 07:59 2 puff
R DAILY AMAURI Administration
Trazodone HCl 200 mg 12/03/24 22:00 12/07/24 22:08
Trazodone 100 Mg Tablet PO 12/31/24 21:59 200 mg
HS AMAURI Administration
Review of Systems
-
ROS is notable for HPI, otherwise negative
Physical Exam
-
General: Well Developed and No Apparent Distress
HEENT: Moist Mucous Membranes; Negative Jaundice
Cardiology: Normal Sinus Rhythm
Pulmonary: Clear
GI: Soft
Extremities: Pulses Present and Edema (trace ankle edema)
Neurology: Non Focal
Skin: Warm
Psych: Calm
Labs
Lab Results
WBC 4.2 10^3/uL (4.8-10.8) L 12/08/24 04:55
RBC 3.25 10^6/uL (4.70-6.10) L 12/08/24 04:55
Hgb 10.8 g/dL (13.0-18.0) L 12/08/24 04:55
Hct 29.7 % (39.0-52.0) L 12/08/24 04:55
MCV 91.4 fL (80.0-94.0) 12/08/24 04:55
MCH 33.2 pg (27.0-31.0) H 12/08/24 04:55
MCHC 36.4 g/dL (33.0-37.0) 12/08/24 04:55
RDW 13.1 % (11.5-14.5) 12/08/24 04:55
Plt Count 121 10^3/uL (130-400) L 12/08/24 04:55
MPV 8.8 fL (7.4-10.4) 12/08/24 04:55
Creatinine 1.2 mg/dL (0.7-1.3) 12/08/24 04:55
Vital Signs
Vital Signs
Temp Pulse Resp BP Pulse Ox
97.6 F 84 16 149/76 94
12/08/24 09:02 12/08/24 09:08 12/08/24 09:02 12/08/24 09:08 12/08/24 11:23
--- NOTE | 2024-12-08 11:48 | CM ---
Reviewed the chart notes and spoke with the patient at the bedside. Per notes, currently on full liquid diet, recommend advancing to low residue/low lactose diet later today. CM continues to be available to patient/family and is monitoring medical
plan for needs at discharge.
Plan: Discharge to home when medically stable. No anticipated needs identified at this time.
[2024-12-08 12:11] LABS: IgA < 50 mg/dl (70-400)
[2024-12-08 12:37] LABS: Folate > 20.0 ng/ml (2.76-20); Vitamin B12 > 1000 pg/ml (239-931)
[2024-12-08 15:20] VITALS: BP 145/68
--- NOTE | 2024-12-08 15:26 | PTCARENOTE ---
received verbal order to discontinue IV fluids. order in place. plan of care ongoing.
[2024-12-08 15:34] VITALS: BP 145/68; PULSE 85; O2SAT 93
[2024-12-08 19:22] LABS: Hepatitis B Surface Antigen Negative (Negative)
[2024-12-08 19:41] LABS: Hepatitis B Core Ab, Total Negative (Negative); Hepatitis B Surface Antibody Negative; Hepatitis C Antibody Negative (Negative)
[2024-12-08] MEDS: DESYREL 200 MG PO (21:04)
[2024-12-08] MEDS: PRAVACHOL 20 MG PO (21:04)
[2024-12-08] MEDS: PEPCID 20 MG IV (21:05)
[2024-12-08] MEDS: NSS (PRESERVATIVE FREE) 8 ML IV (21:06)
[2024-12-08] MEDS: IMODIUM 2 MG PO (21:12)
[2024-12-08 23:34] VITALS: BP 165/91
[2024-12-09 05:46] LABS: Hemoglobin 10.7 g/dL (13.0-18.0); Mean Corp Hgb Conc. 35.7 g/dL (33.0-37.0); Mean Corpuscular Hgb 32.9 pg (27.0-31.0); Mean Corpuscular Volume 92.3 fL (80.0-94.0); Mean Platelet Volume 8.5 fL (7.4-10.4); Platelet Count 153 10^3/uL (130-400); Red Blood Cell Count 3.25 10^6/uL (4.70-6.10); Red Cell Dist. Width 13.3 % (11.5-14.5); White Blood Cell Count 6.2 10^3/uL (4.8-10.8)
[2024-12-09 05:57] VITALS: BMI 33.0
[2024-12-09 06:04] LABS: Blood Urea Nitrogen 24 mg/dl (9-20); Calcium 8.1 mg/dl (8.4-10.2); Carbon Dioxide 19 mmol/L (22-30); Chloride 110 mmol/L (98-107); Estimated Creatinine Clearance 72 ml/min; Glucose 217 mg/dl (70-99); Potassium 4.2 mmol/L (3.5-5.1); Sodium 140 mmol/L (135-145); eGFR > 60.00
[2024-12-09] MEDS: SPIRIVA RESPIMAT 2.5 MCG 2 PUFF INH (07:29)
[2024-12-09] MEDS: SYMBICORT 160/4.5 MCG INHALER 2 PUFF INH ×2 (07:29→20:00)
[2024-12-09 07:45] VITALS: BP 148/77
[2024-12-09] MEDS: MUCINEX 600 MG PO ×2 (08:08→20:24)
[2024-12-09] MEDS: ZYLOPRIM 200 MG PO (08:08)
[2024-12-09] MEDS: TESSALON PERLES 100 MG PO (08:08)
[2024-12-09] MEDS: COREG 25 MG PO ×2 (08:08→20:23)
[2024-12-09] MEDS: SOLU-MEDROL PF 40 MG IV ×3 (08:09→20:24)
[2024-12-09] MEDS: PEPCID 40 MG PO (08:09)
[2024-12-09] MEDS: NON-FORMULARY ITEM 2 GM PO ×2 (08:10→20:23)
--- NOTE | 2024-12-09 08:21 | W.PN.ONC2 ---
Today's Communication / Plan
-
.
Impression
Impression
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
on Opdivo/Yervy, last dose 11/29
on bone ppx with xgeva, last dose 11/29
immune medicated colitis -steroids started 12/07
Plan
Plan
steroids for suspected immune mediated colitis, currently receiving methylpred 40mg q12 (equivalent to approximately prednisone 100mg daily) if no improvement with steroids then will need to consider infliximab
no bloody stool in 2 days and Hgb stable, consider resumption of anticoagulation, at least dvt ppx since high risk VTE with malignancy and hx VTE discussed with primary service
OP follow up with Dr. Zaldivar upon discharge to determine if treatment will need to be changed based on toxicity of immunotherapy
Subjective/Objective
Subjective
diarrhea frequency and consistency improved
on methylprednisone and using Imodium prn
Vital Signs:
Vital Signs
Temp Pulse Resp BP Pulse Ox
97.7 F 73 17 148/77 94
12/09/24 07:45 12/09/24 08:08 12/09/24 07:45 12/09/24 08:08 12/09/24 07:45
Lab Results:
Laboratory Data
WBC 6.2 10^3/uL (4.8-10.8) 12/09/24 05:20
Hgb 10.7 g/dL (13.0-18.0) L 12/09/24 05:20
Plt Count 153 10^3/uL (130-400) D 12/09/24 05:20
eGFR > 60.00 12/09/24 05:20
--- NOTE | 2024-12-09 08:42 | W.PN.GI.CBS2 ---
Today's Communication / Plan
-
IV steroids today, anticipate transition to PO steroids tomorrow
Assessment / Plan
-
69-year-old male with past medical history of metastatic lung CA currently on Opdivo and Yervoy, left lower extremity DVT on Eliquis, COPD, hyperlipidemia, hypertension, migraines, chronic heart failure, CKD, colon polyps (colonoscopy 2009) admitted
with acute bloody diarrhea. Infectious stool studies negative. He underwent colonoscopy on 12/06 with mild pancolitis and mild ileitis seen, pathology showed active ileitis and active colitis throughout the colon, no findings of chronicity seen.
CT A/P 11/17/24:
1. No acute findings within the abdomen or pelvis. No evidence for hydronephrosis or objective uropathy. Linear calcification within the midpole of the right kidney measuring 7 mm favored to represent a vascular calcification. No definitive
nephroliths identified.
2. Interval improvement/resolution of pleural-based area of consolidation within the posterior left lower lobe which showed FDG body on prior PET scan. Partially imaged mass within the central right lower lobe/infrahilar region as well as several
satellite nodules within the right lower lobe. Questionable increase in size of a nodule within the medial right lower lobe measuring 16 mm.
3. No evidence for metastatic disease within the abdomen or pelvis.
4. Extensive sigmoid diverticulosis. Unremarkable appendix.
5. Heavily calcified, normal caliber abdominal aorta.
Colonoscopy 12/06/24: Decreased mucosa vascular pattern in the terminal ileum. Biopsied. Diffuse mild mucosal changes were found in the entire examined colon secondary to colitis. Biopsied. Diverticulosis in the sigmoid colon.
Pathology: CMV negative
-Terminal ileum: marked active ileitis
-Cecum: Active colitis with crypt abscess formation. Definitive features of chronicity are not seen.
-Ascending colon: Active colitis with crypt abscess formation. Definitive features of chronicity are not seen.
-Transverse colon: Active colitis with crypt abscess formation. Definitive features of chronicity are not seen.
-Descending colon:Active colitis. Definitive features of chronicity are not seen.
-Sigmoid colon:Active colitis. Definitive features of chronicity are not seen.
-Rectum: Active proctitis. Definitive features of chronicity are not seen
A/P: Pancolitis, ileitis 2/2 Immune-mediated (PD-L1 associated) colitis vs early IBD less likely
-weight-based steroids started on 12/07-- his weight is between 2 doses, started on 80 mg, given an extra dose of 40mg on 12/08; add famotidine for cytoprotection
-recommend 120mg dose today, if continues to improve, will attempt to transition to PO steroids tomorrow
-okay to use loperamide prn
-tolerating low residue diet
-seen by Dr. Zaldivar yesterday, will follow-up as outpatient to determine if treatment will need to be changed based on toxicity to immunotherapy
-hepatitis serologies, quant TB pending in the event he fails to respond to steroids/unable to transition to PO
Subjective
Subjective
Date of Service: December 09, 2024
Significant improvement in symptoms over the last 24 hours, about 50% reduction in frequency of bowel movements, starting to become more formed. I did give him an extra dose of 40mg methylpred yesterday as with his weight, he is between 2 doses. He
is tolerating a diet without issue.
Objective
Data Reviewed
Laboratory Data:
Laboratory Results
12/09/24 05:20
12/09/24 05:20
Laboratory Results
Magnesium 2.0 mg/dl (1.6-2.3) 12/07/24 04:48
Total Bilirubin 1.1 mg/dl (0.2-1.3) 12/03/24 14:28
AST 25 U/L (17-59) 12/03/24 14:28
ALT 36 U/L (0-50) 12/03/24 14:28
Alkaline Phosphatase 53 U/L (38-126) 12/03/24 14:28
Vital Signs and I&O:
Vital Signs
Temp Pulse Resp BP Pulse Ox
97.7 F 73 17 148/77 94
12/09/24 07:45 12/09/24 08:08 12/09/24 07:45 12/09/24 08:08 12/09/24 07:45
I&O
12/08/24 12/09/24 12/10/24
06:59 06:59 06:59
Intake Total 1560 / 1560 1560 / 1560
Balance 1560 / 1560 1560 / 1560
Physical Exam
Physical Exam
HEENT: Anicteric and Moist mucous membranes
GI: Soft, Non Distended, Non Tender and Normal Bowel Sounds
--- NOTE | 2024-12-09 10:04 | W.PN.ID1 ---
Date of Service
Date of Service: December 09, 2024
Today's Communication
Sign off.
Assessment / Plan
Bloody diarrhea
Weight loss
Suspected inflammatory colitis
Lungs CA; on Opdivo and Yervoy
COPD
Dyslipidemia
HTN
Migraines
CHF
CKD 3A
Recommendations:
Extensive infectious workup of the stool has not revealed any infectious process.
CMV not seen on biopsy.
Patient has been started on steroids, with some improvement in stool consistency.
No identified infectious process at present.
Little more to offer from a Infectious Diseases standpoint.
Will see again at your request.
Chief Complaint
-: Other (Diarrhea)
Subjective / Review of Systems
Patient seen and examined. Reports improvement in stooling.
Review of Systems: No Fever, No Chills and No Abdominal Pain
Vital Signs / Physical Exam
Vital Signs
Vital Signs
Temp Pulse Resp BP Pulse Ox
97.7 F 73 17 148/77 94
12/09/24 07:45 12/09/24 08:08 12/09/24 07:45 12/09/24 08:08 12/09/24 07:45
Physical Exam
Constitutional: No Acute Distress, Comfortable and Non-toxic
Eyes: Sclera Anicteric
Pulmonary: Non Labored
Gastrointestinal: Non Distended
Neurological: Awake and Alert
Psychological: Calm
Objective Data
Lab Data
Lab Results
12/09/24 05:20
12/09/24 05:20
Estimated Creat Clear 72 ml/min 12/09/24 05:20
Lactic Acid 1.1 mmol/L (0.7-2.0) 12/03/24 14:29
Total Bilirubin 1.1 mg/dl (0.2-1.3) 12/03/24 14:28
AST 25 U/L (17-59) 12/03/24 14:28
ALT 36 U/L (0-50) 12/03/24 14:28
Alkaline Phosphatase 53 U/L (38-126) 12/03/24 14:28
C-Reactive Protein 28.70 mg/L (0.0-10.00) H 12/08/24 10:57
Most recent labs reviewed.
Micro Results:
12/05/24 12:52 - Final
Feces/Stool Negative for Norovirus GI and GII.
12/05/24 12:52 Cryptosporidium/Giardia - Final
Feces/Stool Negative for Cryptosporidium and/or Giardia Lamblia
antigens.
12/03/24 14:12 Salmonella/Shigella Culture - Final
Feces/Stool No Salmonella, Shigella, Aeromonas or Plesiomonas species
isolated.
Campylobacter Culture - Final
No Campylobacter species isolated.
Shiga Toxin Test - Final
No E. coli Shiga Toxin 1 or 2 detected.
12/03/24 14:12 C. difficile GDH Antigen & Toxins - Final
Feces/Stool Negative for toxigenic C.difficile
Imaging:
11/17/2024 CT abdomen/pelvis without contrast: No acute findings within the abdomen or pelvis. No evidence for hydronephrosis or obstructive uropathy. There is interval improvement/resolution of pleural based area of consolidation within the
posterior left lower lobe. Please see full dictation for additional detail.
Pathology:
12/06/2024 Colon Biopsies : No evidence of CMV seen.
--- NOTE | 2024-12-09 10:05 | W.PN.HOSP.TC ---
Today's Communication/Plan
-
see plan
Assessment / Plan
Assessment / Plan
Gen: remains NAD, AAOx3.
Eyes: EOMI, PERRLA, no scleral icterus.
Neck: supple.
CV: continues to remain RRR, +S1/S2, no m/r/g.
Resp: remains CTAB anteriorly, no rales, wheezes, or rhonchi.
Abd: +BS, soft, NT, ND
Skin: No rashes.
Neuro: CN 2-12 intact, non-focal.
Psych: Normal mood and affect.
12/05/24 12:52 Feces/Stool - Final
Negative for Norovirus GI and GII.
12/05/24 12:52 Feces/Stool Cryptosporidium/Giardia - Final
Negative for Cryptosporidium and/or Giardia Lamblia
antigens.
12/03/24 14:12 Feces/Stool Salmonella/Shigella Culture - Final
No Salmonella, Shigella, Aeromonas or Plesiomonas species
isolated.
12/03/24 14:12 Feces/Stool Campylobacter Culture - Final
No Campylobacter species isolated.
12/03/24 14:12 Feces/Stool Shiga Toxin Test - Final
No E. coli Shiga Toxin 1 or 2 detected.
12/03/24 14:12 Feces/Stool C. difficile GDH Antigen & Toxins - Final
Negative for toxigenic C.difficile
CT A/P 11/17/24:
1. No acute findings within the abdomen or pelvis. No evidence for hydronephrosis or objective uropathy. Linear calcification within the midpole of the right kidney measuring 7 mm favored to represent a vascular calcification. No definitive
nephroliths identified.
2. Interval improvement/resolution of pleural-based area of consolidation within the posterior left lower lobe which showed FDG body on prior PET scan. Partially imaged mass within the central right lower lobe/infrahilar region as well as several
satellite nodules within the right lower lobe. Questionable increase in size of a nodule within the medial right lower lobe measuring 16 mm.
3. No evidence for metastatic disease within the abdomen or pelvis.
4. Extensive sigmoid diverticulosis. Unremarkable appendix.
5. Heavily calcified, normal caliber abdominal aorta.
Colonoscopy 12/06/24: Decreased mucosa vascular pattern in the terminal ileum. Biopsied. Diffuse mild mucosal changes were found in the entire examined colon secondary to colitis. Biopsied. Diverticulosis in the sigmoid colon.
BRBPR/bloody diarrhea:
-likely due to immune mediated colitis
-pt had significant L-shift with bandemia on admission and was on Levaquin/Flagyl which was started on admission. Infectious workup negative as above (Cx data NEG as above). Patient was seen in consultation by infectious disease and antibiotics
are not indicated at this time. Levaquin/Flagyl were stopped on 12/07/24.
-no imaging done on admission due to GEORGINA
-GEORGINA on CKD3a due to volume loss from diarrhea, resolved with IVFs
-Hematochezia/acute blood loss anemia was exacerbated by Eliquis (takes for LLE DVT may 2024), Eliquis remains.
-non-AG met acidosis now resolved after 1/2NS with 75meq NaHCO3 and 20meq KCl, IVFs were changed to NS, now off IVFs
-Advanced to LR diet now.
-GI/ONC following
-colonoscopy above, findings concerning for immune mediated colitis. Path showed active ileitis in the terminal ileum, active colitis with crypt abscess formation in the cecum, ascending colon, transverse colon, descending colon, and sigmoid colon,
and active proctitis in the rectum.
-cont solumedrol started 12/07/24, likely transition to PO steroids tomorrow
Other problems:
Hypokalemia, resolved
Lung CA: see's Dr. Zaldivar, states lung CA is stage 4, on immunotherapy. ONC following.
COPD, not in acute exac: cont Trelegy equivalent
HLD: cont statin
Essential HTN: Cont Coreg
Migraine headaches
Chronic HFpEF: cont Coreg
Patient's updated at bedside.
DNR - confirmed with the pt in the ER, and [employer] OFFICER witnessed
SCDs, start Lovenox
Anticipated Discharge: Within 24 hours
Subjective/Interval History
-
Date of Service: December 09, 2024
Denies abdominal pain, melena, hematochezia.
Objective Data
-
Labs:
Laboratory Results
12/09/24
05:20
WBC 6.2
Hgb 10.7 L
Hct 30.0 L
Plt Count 153 D
Sodium 140
Potassium 4.2
Chloride 110 H
Carbon Dioxide 19 L
BUN 24 H
Creatinine 1.1
Glucose 217 H
Calcium 8.1 L
Vital Signs:
Vital Signs
Temp Pulse Resp BP Pulse Ox
97.7 F 73 17 148/77 94
12/09/24 07:45 12/09/24 08:08 12/09/24 07:45 12/09/24 08:08 12/09/24 07:45
I&O
12/08/24 12/09/24 12/10/24
06:59 06:59 06:59
Intake Total 1560 / 1560 1560 / 1560
Balance 1560 / 1560 1560 / 1560
[2024-12-09] MEDS: LOVENOX 40 MG SC (10:32)
--- NOTE | 2024-12-09 11:33 | CM ---
Addendum entered by Nan Alcantara RN 12/09/24 16:16:
IMM reviewed.
Original Note:
Reviewed the chart notes. Patient on low residue diet. CM continues to be available to patient/family and is monitoring medical plan for needs at discharge.
Plan: Discharge to home when medically stable. No needs identified at this time.
--- NOTE | 2024-12-09 14:25 | PTOTSP ---
The patient is independent with ambulation and mobility and denies concerns regarding mobility upon return home. No further PT needs at this time, will sign off.
[2024-12-09 15:35] VITALS: BP 150/83
[2024-12-09 20:22] VITALS: BP 148/72
[2024-12-09] MEDS: PRAVACHOL 20 MG PO (21:06)
[2024-12-09] MEDS: PEPCID 20 MG IV (21:06)
[2024-12-09] MEDS: NSS (PRESERVATIVE FREE) 8 ML IV (21:09)
[2024-12-09] MEDS: DESYREL 200 MG PO (21:10)
[2024-12-09 23:40] VITALS: BP 157/76
[2024-12-10 05:28] LABS: Hemoglobin 10.9 g/dL (13.0-18.0); Mean Corp Hgb Conc. 35.2 g/dL (33.0-37.0); Mean Corpuscular Hgb 32.3 pg (27.0-31.0); Mean Platelet Volume 8.3 fL (7.4-10.4); Platelet Count 152 10^3/uL (130-400); Red Blood Cell Count 3.37 10^6/uL (4.70-6.10); Red Cell Dist. Width 13.5 % (11.5-14.5); White Blood Cell Count 6.3 10^3/uL (4.8-10.8)
[2024-12-10 05:36] VITALS: BMI 32.9
[2024-12-10 05:55] LABS: Blood Urea Nitrogen 29 mg/dl (9-20); Calcium 8.4 mg/dl (8.4-10.2); Carbon Dioxide 21 mmol/L (22-30); Chloride 110 mmol/L (98-107); Estimated Creatinine Clearance 61 ml/min; Glucose 169 mg/dl (70-99); Potassium 4.4 mmol/L (3.5-5.1); Sodium 141 mmol/L (135-145); eGFR 59.84
[2024-12-10 07:40] VITALS: BP 159/75
[2024-12-10] MEDS: SPIRIVA RESPIMAT 2.5 MCG 2 PUFF INH (07:51)
[2024-12-10] MEDS: SOLU-MEDROL PF 40 MG IV ×3 (07:51→20:28)
[2024-12-10] MEDS: SYMBICORT 160/4.5 MCG INHALER 2 PUFF INH ×2 (07:52→20:25)
[2024-12-10] MEDS: ZYLOPRIM 200 MG PO (07:53)
[2024-12-10] MEDS: MUCINEX 600 MG PO ×2 (07:53→20:27)
[2024-12-10] MEDS: COREG 25 MG PO ×2 (07:53→20:26)
[2024-12-10] MEDS: TESSALON PERLES 100 MG PO (07:55)
[2024-12-10] MEDS: NON-FORMULARY ITEM 2 GM PO ×2 (07:55→20:27)
[2024-12-10] MEDS: PEPCID 40 MG PO (07:55)
--- NOTE | 2024-12-10 08:40 | W.PN.HOSP.TC ---
Today's Communication/Plan
-
see plan
Assessment / Plan
Assessment / Plan
Gen: NAD, AAOx3.
Eyes: EOMI, PERRLA, no scleral icterus.
Neck: supple.
CV: RRR, +S1/S2, no m/r/g.
Resp: CTAB anteriorly, no rales, wheezes, or rhonchi.
Abd: +BS, soft, NT, ND
Skin: No rashes.
Neuro: CN 2-12 intact, non-focal.
Psych: Normal mood and affect.
12/05/24 12:52 Feces/Stool - Final
Negative for Norovirus GI and GII.
12/05/24 12:52 Feces/Stool Cryptosporidium/Giardia - Final
Negative for Cryptosporidium and/or Giardia Lamblia
antigens.
12/03/24 14:12 Feces/Stool Salmonella/Shigella Culture - Final
No Salmonella, Shigella, Aeromonas or Plesiomonas species
isolated.
12/03/24 14:12 Feces/Stool Campylobacter Culture - Final
No Campylobacter species isolated.
12/03/24 14:12 Feces/Stool Shiga Toxin Test - Final
No E. coli Shiga Toxin 1 or 2 detected.
12/03/24 14:12 Feces/Stool C. difficile GDH Antigen & Toxins - Final
Negative for toxigenic C.difficile
CT A/P 11/17/24:
1. No acute findings within the abdomen or pelvis. No evidence for hydronephrosis or objective uropathy. Linear calcification within the midpole of the right kidney measuring 7 mm favored to represent a vascular calcification. No definitive
nephroliths identified.
2. Interval improvement/resolution of pleural-based area of consolidation within the posterior left lower lobe which showed FDG body on prior PET scan. Partially imaged mass within the central right lower lobe/infrahilar region as well as several
satellite nodules within the right lower lobe. Questionable increase in size of a nodule within the medial right lower lobe measuring 16 mm.
3. No evidence for metastatic disease within the abdomen or pelvis.
4. Extensive sigmoid diverticulosis. Unremarkable appendix.
5. Heavily calcified, normal caliber abdominal aorta.
Colonoscopy 12/06/24: Decreased mucosa vascular pattern in the terminal ileum. Biopsied. Diffuse mild mucosal changes were found in the entire examined colon secondary to colitis. Biopsied. Diverticulosis in the sigmoid colon.
BRBPR/bloody diarrhea:
-likely due to immune mediated colitis
-pt had significant L-shift with bandemia on admission and was on Levaquin/Flagyl which was started on admission. Infectious workup negative as above (Cx data NEG as above). Patient was seen in consultation by infectious disease and antibiotics
are not indicated at this time. Levaquin/Flagyl were stopped on 12/07/24.
-no imaging done on admission due to GEORGINA
-GEORGINA on CKD3a due to volume loss from diarrhea, resolved with IVFs
-Hematochezia/acute blood loss anemia was exacerbated by Eliquis (takes for LLE DVT may 2024), Eliquis remains on hold. With recurrent GI bleeding IVC filter will be considered. This was discussed with Dr. Zaldivar.
-non-AG met acidosis now resolved after 1/2NS with 75meq NaHCO3 and 20meq KCl, IVFs were changed to NS, now off IVFs
-Advanced to LR diet
-GI/ONC following
-colonoscopy above, findings concerning for immune mediated colitis. Path showed active ileitis in the terminal ileum, active colitis with crypt abscess formation in the cecum, ascending colon, transverse colon, descending colon, and sigmoid colon,
and active proctitis in the rectum.
-cont solumedrol started 12/07/24, likely transition to PO steroids soon
Other problems:
Hypokalemia, resolved
Lung CA: see's Dr. Zaldivar, states lung CA is stage 4, on immunotherapy. ONC following.
COPD, not in acute exac: cont Trelegy equivalent
HLD: cont statin
Essential HTN: Cont Coreg
Migraine headaches
Chronic HFpEF: cont Coreg
Patient's updated at bedside.
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
SCDs, stop Lovenox with blood in the stool
Anticipated Discharge: 24 - 48 hours
Subjective/Interval History
-
Date of Service: December 10, 2024
Patient reports blood in the stool since I saw him yesterday. No other new complaints.
Objective Data
-
Labs:
Laboratory Results
12/10/24
05:10
WBC 6.3
Hgb 10.9 L
Hct 31.0 L
Plt Count 152
Sodium 141
Potassium 4.4
Chloride 110 H
Carbon Dioxide 21 L
BUN 29 H
Creatinine 1.3
Glucose 169 H
Calcium 8.4
Vital Signs:
Vital Signs
Temp Pulse Resp BP Pulse Ox
97.5 F 65 16 159/75 95
12/10/24 07:40 12/10/24 08:01 12/10/24 08:01 12/10/24 07:53 12/10/24 08:01
I&O
12/09/24 12/10/24 12/11/24
06:59 06:59 06:59
Intake Total 1560 / 1560 660 / 660
Balance 1560 / 1560 660 / 660
--- NOTE | 2024-12-10 09:08 | W.PN.GI.CBS2 ---
Today's Communication / Plan
-
Continue IV steroids; Quant TB pending, if no significant improvement, will need to proceed with inpatient infliximab
Assessment / Plan
-
69-year-old male with past medical history of metastatic lung CA currently on Opdivo and Yervoy, left lower extremity DVT on Eliquis, COPD, hyperlipidemia, hypertension, migraines, chronic heart failure, CKD, colon polyps (colonoscopy 2009) admitted
with acute bloody diarrhea. Infectious stool studies negative. He underwent colonoscopy on 12/06 with mild pancolitis and mild ileitis seen, pathology showed active ileitis and active colitis throughout the colon, no findings of chronicity seen.
CT A/P 11/17/24:
1. No acute findings within the abdomen or pelvis. No evidence for hydronephrosis or objective uropathy. Linear calcification within the midpole of the right kidney measuring 7 mm favored to represent a vascular calcification. No definitive
nephroliths identified.
2. Interval improvement/resolution of pleural-based area of consolidation within the posterior left lower lobe which showed FDG body on prior PET scan. Partially imaged mass within the central right lower lobe/infrahilar region as well as several
satellite nodules within the right lower lobe. Questionable increase in size of a nodule within the medial right lower lobe measuring 16 mm.
3. No evidence for metastatic disease within the abdomen or pelvis.
4. Extensive sigmoid diverticulosis. Unremarkable appendix.
5. Heavily calcified, normal caliber abdominal aorta.
Colonoscopy 12/06/24: Decreased mucosa vascular pattern in the terminal ileum. Biopsied. Diffuse mild mucosal changes were found in the entire examined colon secondary to colitis. Biopsied. Diverticulosis in the sigmoid colon.
Pathology: CMV negative
-Terminal ileum: marked active ileitis
-Cecum: Active colitis with crypt abscess formation. Definitive features of chronicity are not seen.
-Ascending colon: Active colitis with crypt abscess formation. Definitive features of chronicity are not seen.
-Transverse colon: Active colitis with crypt abscess formation. Definitive features of chronicity are not seen.
-Descending colon:Active colitis. Definitive features of chronicity are not seen.
-Sigmoid colon:Active colitis. Definitive features of chronicity are not seen.
-Rectum: Active proctitis. Definitive features of chronicity are not seen
A/P: Pancolitis, ileitis 2/2 Immune-mediated (PD-L1 associated) colitis vs early IBD less likely
-weight-based steroids started on 12/07-- his weight is between 2 doses, started on 80 mg; then 120mg 12/08 and 12/09. I do not feel he has had enough improvement to transition to PO steroids. I recommend giving one more day of high dose steroids, if he
is unable to decrease his frequency to 5 or less episodes in 24 hours and see improvement in bloody output, will need to move forward with inpatient infliximab
-Hepatitis serologies negative; Quant TB pending*needs to return negative prior to giving infliximab infusion
-recommend 120mg dose today, if continues to improve, will attempt to transition to PO steroids tomorrow
-okay to use loperamide prn
-tolerating low residue diet
-seen by Dr. Zaldivar, will follow-up as outpatient to determine if treatment will need to be changed based on toxicity to immunotherapy
Subjective
Subjective
Date of Service: December 10, 2024
Patient seen in follow-up, no real change from yesterday. He had been seeing more formed stool, now bloody diarrhea again though he was just restarted on anticoagulation, approx 6-7 episodes in last 24 hours. Denies any abdominal pain.
Objective
Data Reviewed
Laboratory Data:
Laboratory Results
12/10/24 05:10
12/10/24 05:10
Laboratory Results
Magnesium 2.0 mg/dl (1.6-2.3) 12/07/24 04:48
Total Bilirubin 1.1 mg/dl (0.2-1.3) 12/03/24 14:28
AST 25 U/L (17-59) 12/03/24 14:28
ALT 36 U/L (0-50) 12/03/24 14:28
Alkaline Phosphatase 53 U/L (38-126) 12/03/24 14:28
Vital Signs and I&O:
Vital Signs
Temp Pulse Resp BP Pulse Ox
97.5 F 65 16 159/75 95
12/10/24 07:40 12/10/24 08:01 12/10/24 08:01 12/10/24 07:53 12/10/24 08:01
I&O
12/09/24 12/10/24 12/11/24
06:59 06:59 06:59
Intake Total 1560 / 1560 660 / 660
Balance 1560 / 1560 660 / 660
Physical Exam
Physical Exam
HEENT: Anicteric and Moist mucous membranes
GI: Soft, Non Distended, Non Tender and Normal Bowel Sounds
--- NOTE | 2024-12-10 10:39 | W.PN.ONC ---
Today's Communication / Plan
-
Appears to be responding to prednisone as stool frequency is subsiding
GI bleeding bleeding recurred and may continue during recovery phase from colitis
Thrombosis risk remains high underlying malignancy, tendency and stasis
Agree with temporary IVC filter procedure reviewed with patient and his
Monitor his CBC
Impression
Impression
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
Immune associated colitis
History of left lower extremity DVT 05/31
Progressive GI bleeding on apixaban
Subjective/Objective
Subjective/Objective
Significant improvement in the frequency of stool. Unfortunately, heme positive On anticoagulation for previous malignancy associated thrombosis.
Vital Signs:
Vital Signs
Temp Pulse Resp BP Pulse Ox
97.5 F 65 16 159/75 95
12/10/24 07:40 12/10/24 08:01 12/10/24 08:01 12/10/24 07:53 12/10/24 09:39
Physical exam unchanged
Lab Results:
Laboratory Data
WBC 6.3 10^3/uL (4.8-10.8) 12/10/24 05:10
Hgb 10.9 g/dL (13.0-18.0) L 12/10/24 05:10
Plt Count 152 10^3/uL (130-400) 12/10/24 05:10
eGFR 59.84 12/10/24 05:10
[2024-12-10 15:40] VITALS: BP 158/76
[2024-12-10 20:22] VITALS: BP 162/72
[2024-12-10] MEDS: IMODIUM 2 MG PO (20:29)
[2024-12-10 20:41] LABS: Quantiferon Mitogen minus NIL 1.68 IU/mL; Quantiferon NIL 0.02 IU/mL; Quantiferon Plus TB2 minus NIL 0.01 IU/mL (<=0.34); Quantiferon TB Gold Plus Negative (Negative)
[2024-12-10] MEDS: DESYREL 200 MG PO (21:30)
[2024-12-10] MEDS: PRAVACHOL 20 MG PO (21:31)
[2024-12-10] MEDS: NSS (PRESERVATIVE FREE) 8 ML IV (21:32)
[2024-12-10] MEDS: PEPCID 20 MG IV (21:32)
[2024-12-10 23:18] VITALS: BP 147/76
[2024-12-11 00:21] LABS: Endomysial IgA Antibody Titer <1:10 (<1:10)
[2024-12-11 01:19] LABS: tTG IgA Antibody <1.02 FLU (0.00-4.99)
[2024-12-11 06:00] VITALS: BMI 32.7
[2024-12-11 08:05] VITALS: BP 156/89
[2024-12-11] MEDS: IMODIUM 2 MG PO ×3 (08:06→20:12)
[2024-12-11] MEDS: SOLU-MEDROL PF 40 MG IV ×3 (08:07→20:08)
[2024-12-11] MEDS: MUCINEX 600 MG PO ×2 (08:07→20:06)
[2024-12-11] MEDS: PEPCID 40 MG PO (08:07)
[2024-12-11] MEDS: TESSALON PERLES 100 MG PO (08:07)
[2024-12-11] MEDS: ZYLOPRIM 200 MG PO (08:07)
[2024-12-11] MEDS: COREG 25 MG PO ×2 (08:07→20:09)
[2024-12-11] MEDS: NON-FORMULARY ITEM 2 GM PO ×2 (08:11→20:07)
--- NOTE | 2024-12-11 08:20 | W.PN.GI.CBS2 ---
Today's Communication / Plan
-
Continue IV steroids, some clinical improvement in last 12 hours. IVC filter placement tomorrow
Assessment / Plan
-
69-year-old male with past medical history of metastatic lung CA currently on Opdivo and Yervoy, left lower extremity DVT on Eliquis, COPD, hyperlipidemia, hypertension, migraines, chronic heart failure, CKD, colon polyps (colonoscopy 2009) admitted
with acute bloody diarrhea. Infectious stool studies negative. He underwent colonoscopy on 12/06 with mild pancolitis and mild ileitis seen, pathology showed active ileitis and active colitis throughout the colon, no findings of chronicity seen.
CT A/P 11/17/24:
1. No acute findings within the abdomen or pelvis. No evidence for hydronephrosis or objective uropathy. Linear calcification within the midpole of the right kidney measuring 7 mm favored to represent a vascular calcification. No definitive
nephroliths identified.
2. Interval improvement/resolution of pleural-based area of consolidation within the posterior left lower lobe which showed FDG body on prior PET scan. Partially imaged mass within the central right lower lobe/infrahilar region as well as several
satellite nodules within the right lower lobe. Questionable increase in size of a nodule within the medial right lower lobe measuring 16 mm.
3. No evidence for metastatic disease within the abdomen or pelvis.
4. Extensive sigmoid diverticulosis. Unremarkable appendix.
5. Heavily calcified, normal caliber abdominal aorta.
Colonoscopy 12/06/24: Decreased mucosa vascular pattern in the terminal ileum. Biopsied. Diffuse mild mucosal changes were found in the entire examined colon secondary to colitis. Biopsied. Diverticulosis in the sigmoid colon.
Pathology: CMV negative
-Terminal ileum: marked active ileitis
-Cecum: Active colitis with crypt abscess formation. Definitive features of chronicity are not seen.
-Ascending colon: Active colitis with crypt abscess formation. Definitive features of chronicity are not seen.
-Transverse colon: Active colitis with crypt abscess formation. Definitive features of chronicity are not seen.
-Descending colon:Active colitis. Definitive features of chronicity are not seen.
-Sigmoid colon:Active colitis. Definitive features of chronicity are not seen.
-Rectum: Active proctitis. Definitive features of chronicity are not seen
A/P: Pancolitis, ileitis 2/2 Immune-mediated (PD-L1 associated) colitis vs early IBD less likely
-weight-based steroids started on 12/07-- his weight is between 2 doses, started on 80 mg; then 120mg 12/08, 12/09, 12/10. He seems to have turned a corner in last 12 hours. Will give one more day of IV steroids, but would recommend starting infliximab
tomorrow if >5 bloody BMs in next 24 hours. Ultimately, will need to transition to PO prednisone 80 mg with taper over 4-6 weeks.
-Hepatitis serologies negative; Quant TB pending neg.
-if continues to improve, will attempt to transition to PO steroids tomorrow
-okay to use loperamide prn* he feels this helps him significnatly
-tolerating low residue diet
-seen by Dr. Zaldivar, will follow-up as outpatient to determine if treatment will need to be changed based on toxicity to immunotherapy
-plan for IVC filter tomorrow
Subjective
Subjective
Date of Service: December 11, 2024
Patient seen in follow-up, reports having a pretty good night. Frequency of BMs decreasing in last 12 hours, does have some blood which seems intermittent, he feels it is related to PO intake. Plans for IVC filter tomorrow.
Objective
Data Reviewed
Laboratory Data:
Laboratory Results
12/10/24 05:10
12/10/24 05:10
Laboratory Results
Magnesium 2.0 mg/dl (1.6-2.3) 12/07/24 04:48
Total Bilirubin 1.1 mg/dl (0.2-1.3) 12/03/24 14:28
AST 25 U/L (17-59) 12/03/24 14:28
ALT 36 U/L (0-50) 12/03/24 14:28
Alkaline Phosphatase 53 U/L (38-126) 12/03/24 14:28
Vital Signs and I&O:
Vital Signs
Temp Pulse Resp BP Pulse Ox
97.5 F 79 18 156/89 93
12/11/24 08:05 12/11/24 08:07 12/11/24 08:05 12/11/24 08:07 12/11/24 08:05
I&O
12/10/24 12/11/24 12/12/24
06:59 06:59 06:59
Intake Total 660 / 660 1320 / 1320 960 / 960
Balance 660 / 660 1320 / 1320 960 / 960
Physical Exam
Physical Exam
HEENT: Anicteric and Moist mucous membranes
GI: Soft, Non Distended, Non Tender and Normal Bowel Sounds
--- NOTE | 2024-12-11 08:24 | W.PN.HOSP.TC ---
Today's Communication/Plan
-
see plan
Assessment / Plan
Assessment / Plan
Gen: NAD, AAOx3.
Eyes: EOMI, PERRLA, no scleral icterus.
Neck: supple.
CV: remains RRR, +S1/S2, no m/r/g.
Resp: remains CTAB anteriorly, no rales, wheezes, or rhonchi.
Abd: +BS, soft, NT, ND
Skin: No rashes.
Neuro: remains CN 2-12 intact, non-focal.
Psych: Normal mood and affect.
12/05/24 12:52 Feces/Stool - Final
Negative for Norovirus GI and GII.
12/05/24 12:52 Feces/Stool Cryptosporidium/Giardia - Final
Negative for Cryptosporidium and/or Giardia Lamblia
antigens.
12/03/24 14:12 Feces/Stool Salmonella/Shigella Culture - Final
No Salmonella, Shigella, Aeromonas or Plesiomonas species
isolated.
12/03/24 14:12 Feces/Stool Campylobacter Culture - Final
No Campylobacter species isolated.
12/03/24 14:12 Feces/Stool Shiga Toxin Test - Final
No E. coli Shiga Toxin 1 or 2 detected.
12/03/24 14:12 Feces/Stool C. difficile GDH Antigen & Toxins - Final
Negative for toxigenic C.difficile
CT A/P 11/17/24:
1. No acute findings within the abdomen or pelvis. No evidence for hydronephrosis or objective uropathy. Linear calcification within the midpole of the right kidney measuring 7 mm favored to represent a vascular calcification. No definitive
nephroliths identified.
2. Interval improvement/resolution of pleural-based area of consolidation within the posterior left lower lobe which showed FDG body on prior PET scan. Partially imaged mass within the central right lower lobe/infrahilar region as well as several
satellite nodules within the right lower lobe. Questionable increase in size of a nodule within the medial right lower lobe measuring 16 mm.
3. No evidence for metastatic disease within the abdomen or pelvis.
4. Extensive sigmoid diverticulosis. Unremarkable appendix.
5. Heavily calcified, normal caliber abdominal aorta.
Colonoscopy 12/06/24: Decreased mucosa vascular pattern in the terminal ileum. Biopsied. Diffuse mild mucosal changes were found in the entire examined colon secondary to colitis. Biopsied. Diverticulosis in the sigmoid colon.
BRBPR/bloody diarrhea:
-likely due to immune mediated colitis
-pt had significant L-shift with bandemia on admission and was on Levaquin/Flagyl which was started on admission. Infectious workup negative as above (Cx data NEG as above). Patient was seen in consultation by infectious disease and antibiotics
are not indicated at this time. Levaquin/Flagyl were stopped on 12/07/24.
-no imaging done on admission due to GEORGINA
-GEORGINA on CKD3a due to volume loss from diarrhea, resolved with IVFs
-Hematochezia/acute blood loss anemia was exacerbated by Eliquis (takes for LLE DVT may 2024), Eliquis remains on hold. With recurrent GI bleeding when Lovenox was started for DVT proph, IVC filter has been ordered.
-non-AG met acidosis now resolved after 1/2NS with 75meq NaHCO3 and 20meq KCl, IVFs were changed to NS, now off IVFs
-GI/ONC following
-colonoscopy above, findings concerning for immune mediated colitis. Path showed active ileitis in the terminal ileum, active colitis with crypt abscess formation in the cecum, ascending colon, transverse colon, descending colon, and sigmoid colon,
and active proctitis in the rectum.
-Advanced to LR diet
-cont solumedrol started 12/07/24
Other problems:
Hypokalemia, resolved
Lung CA: see's Dr. Zaldivar, states lung CA is stage 4, on immunotherapy. ONC following.
COPD, not in acute exac: cont Trelegy equivalent
HLD: cont statin
Essential HTN: Cont Coreg
Migraine headaches
Chronic HFpEF: cont Coreg
Patient's updated at bedside.
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
SCDs, (Lovenox stopped with blood in the stool)
Anticipated Discharge: 24 - 48 hours
Subjective/Interval History
-
Date of Service: December 11, 2024
Still with BRBPR but improving.
Objective Data
-
Vital Signs:
Vital Signs
Temp Pulse Resp BP Pulse Ox
97.5 F 79 18 156/89 93
12/11/24 08:05 12/11/24 08:07 12/11/24 08:05 12/11/24 08:07 12/11/24 08:05
I&O
12/10/24 12/11/24 12/12/24
06:59 06:59 06:59
Intake Total 660 / 660 1320 / 1320 960 / 960
Balance 660 / 660 1320 / 1320 960 / 960
[2024-12-11] MEDS: SYMBICORT 160/4.5 MCG INHALER 2 PUFF INH ×2 (08:50→19:18)
[2024-12-11] MEDS: SPIRIVA RESPIMAT 2.5 MCG 2 PUFF INH (08:50)
[2024-12-11 15:40] VITALS: BP 169/76
[2024-12-11 16:30] VITALS: BP 164/81
--- NOTE | 2024-12-11 17:45 | PTCARENOTE ---
Patient with 4 small loose BMs this shift, states one bloody BM and the rest brown. Patient medicated with PRN PO immodium throughout shift for diarrhea, patient states mild improvement in symptoms with medication administration. Patient to IR for
IVC filter placement in AM, patient does not need to be NPO for procedure per MD. Patient ambulatory in room and cardona PRN, denies any abdominal pain throughout shift, tolerating diet.
[2024-12-11] MEDS: DESYREL 200 MG PO (22:19)
[2024-12-11] MEDS: NSS (PRESERVATIVE FREE) 8 ML IV (22:20)
[2024-12-11] MEDS: PRAVACHOL 20 MG PO (22:20)
[2024-12-11] MEDS: PEPCID 20 MG IV (22:20)
[2024-12-11 23:01] VITALS: BP 156/74
[2024-12-12 05:13] LABS: PT 13.5 Sec (11.4-14.6)
[2024-12-12 05:19] VITALS: BMI 32.5
--- NOTE | 2024-12-12 07:18 | W.PN.GI.CBS2 ---
Today's Communication / Plan
-
IVC filter today. Patient to discuss starting infliximab with Dr. Zaldivar and before moving forward with infusion
Assessment / Plan
-
69-year-old male with past medical history of metastatic lung CA currently on Opdivo and Yervoy, left lower extremity DVT on Eliquis, COPD, hyperlipidemia, hypertension, migraines, chronic heart failure, CKD, colon polyps (colonoscopy 2009) admitted
with acute bloody diarrhea. Infectious stool studies negative. He underwent colonoscopy on 12/06 with mild pancolitis and mild ileitis seen, pathology showed active ileitis and active colitis throughout the colon, no findings of chronicity seen.
CT A/P 11/17/24:
1. No acute findings within the abdomen or pelvis. No evidence for hydronephrosis or objective uropathy. Linear calcification within the midpole of the right kidney measuring 7 mm favored to represent a vascular calcification. No definitive
nephroliths identified.
2. Interval improvement/resolution of pleural-based area of consolidation within the posterior left lower lobe which showed FDG body on prior PET scan. Partially imaged mass within the central right lower lobe/infrahilar region as well as several
satellite nodules within the right lower lobe. Questionable increase in size of a nodule within the medial right lower lobe measuring 16 mm.
3. No evidence for metastatic disease within the abdomen or pelvis.
4. Extensive sigmoid diverticulosis. Unremarkable appendix.
5. Heavily calcified, normal caliber abdominal aorta.
Colonoscopy 12/06/24: Decreased mucosa vascular pattern in the terminal ileum. Biopsied. Diffuse mild mucosal changes were found in the entire examined colon secondary to colitis. Biopsied. Diverticulosis in the sigmoid colon.
Pathology: CMV negative
-Terminal ileum: marked active ileitis
-Cecum: Active colitis with crypt abscess formation. Definitive features of chronicity are not seen.
-Ascending colon: Active colitis with crypt abscess formation. Definitive features of chronicity are not seen.
-Transverse colon: Active colitis with crypt abscess formation. Definitive features of chronicity are not seen.
-Descending colon:Active colitis. Definitive features of chronicity are not seen.
-Sigmoid colon:Active colitis. Definitive features of chronicity are not seen.
-Rectum: Active proctitis. Definitive features of chronicity are not seen
A/P: Pancolitis, ileitis 2/2 Immune-mediated (PD-L1 associated) colitis vs early IBD less likely
-weight-based steroids started on 12/07-- his weight is between 2 doses, started on 80 mg; then 120mg 12/08, 12/09, 12/10, 12/11. At this point, he is having approx 8 episodes of bloody and nonbloody diarrhea over the course of a 24 hour period, and while I
do feel he had a partial response to high-dose steroids, he has not responded well enough to transition to PO. Additionally, his PO dose would be less than his current IV dose (currently getting 120 mg IV daily and I would d/c him on maximum 80 mg
PO daily with plans to taper over 6 weeks).
-Hepatitis serologies negative; Quant TB neg.
-Recommend giving IV Infliximab today. I discussed the potential risks of Remicade (infliximab) therapy were discussed with the patient including risks of infection including tuberculosis, fungal infections like histoplasmosis, and others.We
additionally reviewed the risks of infusion reactions including immediate ones that might include shortness of breath and hives, and that these are usually treated with slowing down the rate of infusion and giving more IV fluid; sometimes,
antihistamines are used, and rarely, corticosteroids are needed. Delayed infusion reactions with fevers and joint aches, and/or rashes were also discussed occurring 1-10 days after an infusion.
Additionally, the potential risk for changes in blood counts and liver chemistries were mentioned, as were the uncommon multiple sclerosis-like reactions, approximately 90% of which resolve after cessation of the drug.
Finally, the risk of blood cancers including lymphoma and rare lymphomas such as hepatosplenic T-cell lymphomas were discussed. After reviewing these, he would like to take today to discuss with Dr. Zaldivar, his as well as do some reading
regarding the medication prior to moving forward.
-Will check back with patient later today to see how he would like to proceed, I am not sure we have any other options as I do not have access to Entyvio in the hospital, nor do I think his clinical response is appropriate to transition to PO
steroids
-okay to use loperamide prn* he feels this helps him significantly
-tolerating low residue diet
-seen by Dr. Zaldivar, will follow-up as outpatient to determine if treatment will need to be changed based on toxicity to immunotherapy
-plan for IVC filter today
Subjective
Subjective
Date of Service: December 12, 2024
Patient seen in follow-up. He reports 8 episodes of diarrhea over the last 24 hours, some more formed then others, some with blood, others nonbloody. Continues to deny any fever/chills, abdominal pain.
Objective
Data Reviewed
Laboratory Data:
Laboratory Results
12/10/24 05:10
12/10/24 05:10
Laboratory Results
PT 13.5 Sec (11.4-14.6) 12/12/24 04:44
INR 1.00 12/12/24 04:44
Magnesium 2.0 mg/dl (1.6-2.3) 12/07/24 04:48
Total Bilirubin 1.1 mg/dl (0.2-1.3) 12/03/24 14:28
AST 25 U/L (17-59) 12/03/24 14:28
ALT 36 U/L (0-50) 12/03/24 14:28
Alkaline Phosphatase 53 U/L (38-126) 12/03/24 14:28
Vital Signs and I&O:
Vital Signs
Temp Pulse Resp BP Pulse Ox
97.9 F 79 16 156/74 96
12/11/24 23:01 12/11/24 23:01 12/11/24 23:01 12/11/24 23:01 12/11/24 19:19
I&O
04/06/25 04/07/25 04/08/25
06:59 06:59 06:59
Intake Total 1320 / 1320 2700 / 2700
Balance 1320 / 1320 2700 / 2700
Physical Exam
Physical Exam
HEENT: Anicteric and Moist mucous membranes
GI: Soft, Non Distended, Non Tender and Normal Bowel Sounds
[2024-12-12 07:30] VITALS: BP 145/68
--- NOTE | 2024-12-12 07:46 | W.PN.HOSP.TC ---
Today's Communication/Plan
-
d/c after IVC filter
Assessment / Plan
Assessment / Plan
Gen: remains NAD, AAOx3.
Eyes: remains EOMI, PERRLA, no scleral icterus.
Neck: supple.
CV: RRR, +S1/S2, no m/r/g.
Resp: CTAB anteriorly, no rales, wheezes, or rhonchi.
Abd: remains +BS, soft, NT, ND
Skin: No rashes.
Neuro: CN 2-12 intact, non-focal.
Psych: Normal mood and affect.
12/05/24 12:52 Feces/Stool - Final
Negative for Norovirus GI and GII.
12/05/24 12:52 Feces/Stool Cryptosporidium/Giardia - Final
Negative for Cryptosporidium and/or Giardia Lamblia
antigens.
12/03/24 14:12 Feces/Stool Salmonella/Shigella Culture - Final
No Salmonella, Shigella, Aeromonas or Plesiomonas species
isolated.
12/03/24 14:12 Feces/Stool Campylobacter Culture - Final
No Campylobacter species isolated.
12/03/24 14:12 Feces/Stool Shiga Toxin Test - Final
No E. coli Shiga Toxin 1 or 2 detected.
12/03/24 14:12 Feces/Stool C. difficile GDH Antigen & Toxins - Final
Negative for toxigenic C.difficile
CT A/P 11/17/24:
1. No acute findings within the abdomen or pelvis. No evidence for hydronephrosis or objective uropathy. Linear calcification within the midpole of the right kidney measuring 7 mm favored to represent a vascular calcification. No definitive
nephroliths identified.
2. Interval improvement/resolution of pleural-based area of consolidation within the posterior left lower lobe which showed FDG body on prior PET scan. Partially imaged mass within the central right lower lobe/infrahilar region as well as several
satellite nodules within the right lower lobe. Questionable increase in size of a nodule within the medial right lower lobe measuring 16 mm.
3. No evidence for metastatic disease within the abdomen or pelvis.
4. Extensive sigmoid diverticulosis. Unremarkable appendix.
5. Heavily calcified, normal caliber abdominal aorta.
Colonoscopy 12/06/24: Decreased mucosa vascular pattern in the terminal ileum. Biopsied. Diffuse mild mucosal changes were found in the entire examined colon secondary to colitis. Biopsied. Diverticulosis in the sigmoid colon.
BRBPR/bloody diarrhea:
-likely due to immune mediated colitis
-pt had significant L-shift with bandemia on admission and was on Levaquin/Flagyl which was started on admission. Infectious workup negative as above (Cx data NEG as above). Patient was seen in consultation by infectious disease and antibiotics
are not indicated at this time. Levaquin/Flagyl were stopped on 12/07/24.
-no imaging done on admission due to GEORGINA
-GEORGINA on CKD3a due to volume loss from diarrhea, resolved with IVFs
-Hematochezia/acute blood loss anemia was exacerbated by Eliquis (takes for LLE DVT may 2024), Eliquis remains on hold. With recurrent GI bleeding when Lovenox was started for DVT proph, IVC filter has been ordered and will be placed today.
-non-AG met acidosis now resolved after 1/2NS with 75meq NaHCO3 and 20meq KCl, IVFs were changed to NS, now off IVFs
-GI/ONC following
-colonoscopy above, findings concerning for immune mediated colitis. Path showed active ileitis in the terminal ileum, active colitis with crypt abscess formation in the cecum, ascending colon, transverse colon, descending colon, and sigmoid colon,
and active proctitis in the rectum.
-Advanced to LR diet
-cont solumedrol started 12/07/24
Other problems:
Hypokalemia, resolved
Lung CA: see's Dr. Zaldivar, states lung CA is stage 4, on immunotherapy. ONC following.
COPD, not in acute exac: cont Trelegy equivalent
HLD: cont statin
Essential HTN: Cont Coreg
Migraine headaches
Chronic HFpEF: cont Coreg
Patient's updated at bedside.
DNR - confirmed with the pt in the ER, and [employer] witnessed
SCDs, (Lovenox stopped with blood in the stool)
Anticipated Discharge: Today
Subjective/Interval History
-
Date of Service: December 12, 2024
Denies chest pain, shortness of breath, abdominal pain. No melena or hematochezia since I saw the patient yesterday.
Objective Data
-
Labs:
Laboratory Results
12/12/24
04:44
PT 13.5
INR 1.00
Vital Signs:
Vital Signs
Temp Pulse Resp BP Pulse Ox
97.9 F 79 16 156/74 96
12/11/24 23:01 12/11/24 23:01 12/11/24 23:01 12/11/24 23:01 12/11/24 19:19
I&O
12/11/24 12/12/24 12/13/24
06:59 06:59 06:59
Intake Total 1320 / 1320 2700 / 2700
Balance 1320 / 1320 2700 / 2700
[2024-12-12] MEDS: SYMBICORT 160/4.5 MCG INHALER 2 PUFF INH ×2 (07:47→20:51)
[2024-12-12] MEDS: SPIRIVA RESPIMAT 2.5 MCG 2 PUFF INH (07:47)
[2024-12-12] MEDS: TESSALON PERLES 100 MG PO (07:55)
[2024-12-12] MEDS: COREG 25 MG PO ×2 (07:56→20:23)
[2024-12-12] MEDS: MUCINEX 600 MG PO ×2 (07:56→20:25)
[2024-12-12] MEDS: ZYLOPRIM 200 MG PO (07:56)
[2024-12-12] MEDS: PEPCID 40 MG PO (07:56)
[2024-12-12] MEDS: FLUSH (NSS) 2 FLUSH IV ×2 (07:57→16:48)
[2024-12-12] MEDS: SOLU-MEDROL PF 40 MG IV ×3 (07:57→22:12)
[2024-12-12] MEDS: NON-FORMULARY ITEM 2 GM PO ×2 (08:00→20:24)
--- NOTE | 2024-12-12 12:53 | CM ---
Addendum entered by Nan Alcantara RN 12/12/24 14:44:
IMM reviewed.
Original Note:
Reviewed the chart notes and spoke with the patient at the bedside. Patient anticipates going to IR for IVC filter placement. CM continues to be available to patient/family and is monitoring medical plan for needs at discharge.
Plan: Discharge to home when medically stable. No needs anticipated.
--- NOTE | 2024-12-12 13:02 | W.PN.ONC ---
Addendum entered and electronically signed by Mian Wesley MD 12/12/24 15:41:
On further discussion with the patient's , his diarrhea seems a little worse than I had originally thought. I have no objections to proceeding with infliximab. Discussed with GI. However, for today, we have decided to see how he does tonight
and make a final decision in the morning.
Original Note:
Today's Communication / Plan
-
IVC filter to be placed today. Probable discharge thereafter. As he has had no further blood since yesterday, no objections to discharge. I would recommend that he take 80 mg of prednisone daily. He will follow-up with Dr. Zaldivar short-term, most
likely this coming week, for consideration of prednisone taper. Unclear whether further immunotherapy can be given.
I did instruct him that should any bleeding recur, or if the diarrhea significantly worsens, that he should come to the emergency room.
Impression
Impression
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
Immune associated colitis
History of left lower extremity DVT 05/31
Progressive GI bleeding on apixaban
Plan
Plan
steroids for suspected immune mediated colitis, currently receiving methylpred 40mg q12 (equivalent to approximately prednisone 100mg daily) if no improvement with steroids then will need to consider infliximab
no bloody stool in 2 days and Hgb stable, consider resumption of anticoagulation, at least dvt ppx since high risk VTE with malignancy and hx VTE discussed with primary service
OP follow up with Dr. Zaldivar upon discharge to determine if treatment will need to be changed based on toxicity of immunotherapy
Subjective/Objective
Subjective/Objective
He is feeling reasonably well. He has had no further bloody diarrhea since yesterday. Examination is unchanged.
Vital Signs:
Vital Signs
Temp Pulse Resp BP Pulse Ox
97.4 F 79 16 145/68 95
12/12/24 07:30 12/12/24 07:56 12/12/24 07:48 12/12/24 07:56 12/12/24 12:38
Lab Results:
Laboratory Data
WBC 6.3 10^3/uL (4.8-10.8) 12/10/24 05:10
Hgb 10.9 g/dL (13.0-18.0) L 12/10/24 05:10
Plt Count 152 10^3/uL (130-400) 12/10/24 05:10
PT 13.5 Sec (11.4-14.6) 12/12/24 04:44
INR 1.00 12/12/24 04:44
eGFR 59.84 12/10/24 05:10
[2024-12-12 14:00] VITALS: BP 182/78; BP_SYST 78
[2024-12-12 16:14] VITALS: BP 177/77
[2024-12-12 16:50] VITALS: BP 165/85
--- NOTE | 2024-12-12 17:01 | PTCARENOTE ---
Received pt back from [facility], pt stable, no pain at site, [facility] RN sent message to primary MD of BPs running high post procedure. No new orders at this time.
--- NOTE | 2024-12-12 17:40 | W.PN.UPDATE ---
Update Note
Progress Note Update
Spoke to this afternoon. Patient reluctant to move forward with Infliximab. Discussed with oncology as well. Will make a decision tomorrow, depending on how he does overnight, can consider d/c on PO prednisone and outpatient Entyvio, but would
need to demonstrate response to PO prednisone prior to d/c.
[2024-12-12] MEDS: PEPCID 20 MG IV (22:13)
[2024-12-12] MEDS: NSS (PRESERVATIVE FREE) 8 ML IV (22:13)
[2024-12-12] MEDS: DESYREL 200 MG PO (22:15)
[2024-12-12] MEDS: PRAVACHOL 20 MG PO (22:34)
[2024-12-12 23:30] VITALS: BP 172/96
[2024-12-13] VITALS (16 sets, daily range): BP systolic 126–187; BP diastolic 67–93; PULSE 78–90; BMI 32.0
[2024-12-13] MEDS: SYMBICORT 160/4.5 MCG INHALER 2 PUFF INH ×2 (07:51→19:41)
[2024-12-13] MEDS: SPIRIVA RESPIMAT 2.5 MCG 2 PUFF INH (07:51)
[2024-12-13] MEDS: ZYLOPRIM 200 MG PO (08:47)
[2024-12-13] MEDS: PEPCID 40 MG PO (08:47)
[2024-12-13] MEDS: MUCINEX 600 MG PO ×2 (08:47→21:18)
[2024-12-13] MEDS: TESSALON PERLES 100 MG PO (08:47)
[2024-12-13] MEDS: SOLU-MEDROL PF 40 MG IV ×2 (08:48→21:19)
[2024-12-13] MEDS: NON-FORMULARY ITEM 2 GM PO (08:48)
[2024-12-13] MEDS: COREG 25 MG PO ×2 (08:48→21:16)
--- NOTE | 2024-12-13 09:32 | W.PN.ONC2 ---
Today's Communication / Plan
-
.
Impression
Impression
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
History of left lower extremity DVT 05/31, DOAC on hold for GIB, IVC placed 12/12
Plan
Plan
GI planning for infliximab
will consider resumption of DOAC and removal of IVC outpatient once risk of recurrent bleeding with colitis resolves
OP follow up with Dr. Zaldivar upon discharge to determine if treatment will need to be changed based on toxicity of immunotherapy
Subjective/Objective
Subjective
small improvements in stool output
denies any bleeding
Vital Signs:
Vital Signs
Temp Pulse Resp BP Pulse Ox
97.3 F 86 16 148/74 96
12/13/24 07:50 12/13/24 08:48 12/13/24 07:57 12/13/24 08:48 12/13/24 07:57
Lab Results:
Laboratory Data
WBC 6.3 10^3/uL (4.8-10.8) 12/10/24 05:10
Hgb 10.9 g/dL (13.0-18.0) L 12/10/24 05:10
Plt Count 152 10^3/uL (130-400) 12/10/24 05:10
PT 13.5 Sec (11.4-14.6) 12/12/24 04:44
INR 1.00 12/12/24 04:44
eGFR 59.84 12/10/24 05:10
--- NOTE | 2024-12-13 10:06 | W.PN.HOSP.TC ---
Today's Communication/Plan
-
see bold
Assessment / Plan
Assessment / Plan
Gen: remains NAD, AAOx3.
Eyes: remains EOMI, PERRLA, no scleral icterus.
Neck: supple.
CV: RRR, +S1/S2, no m/r/g.
Resp: CTAB anteriorly, no rales, wheezes, or rhonchi.
Abd: remains +BS, soft, NT, ND
Skin: No rashes.
Neuro: CN 2-12 intact, non-focal.
Psych: Normal mood and affect.
12/05/24 12:52 Feces/Stool - Final
Negative for Norovirus GI and GII.
12/05/24 12:52 Feces/Stool Cryptosporidium/Giardia - Final
Negative for Cryptosporidium and/or Giardia Lamblia
antigens.
12/03/24 14:12 Feces/Stool Salmonella/Shigella Culture - Final
No Salmonella, Shigella, Aeromonas or Plesiomonas species
isolated.
12/03/24 14:12 Feces/Stool Campylobacter Culture - Final
No Campylobacter species isolated.
12/03/24 14:12 Feces/Stool Shiga Toxin Test - Final
No E. coli Shiga Toxin 1 or 2 detected.
12/03/24 14:12 Feces/Stool C. difficile GDH Antigen & Toxins - Final
Negative for toxigenic C.difficile
CT A/P 11/17/24:
1. No acute findings within the abdomen or pelvis. No evidence for hydronephrosis or objective uropathy. Linear calcification within the midpole of the right kidney measuring 7 mm favored to represent a vascular calcification. No definitive
nephroliths identified.
2. Interval improvement/resolution of pleural-based area of consolidation within the posterior left lower lobe which showed FDG body on prior PET scan. Partially imaged mass within the central right lower lobe/infrahilar region as well as several
satellite nodules within the right lower lobe. Questionable increase in size of a nodule within the medial right lower lobe measuring 16 mm.
3. No evidence for metastatic disease within the abdomen or pelvis.
4. Extensive sigmoid diverticulosis. Unremarkable appendix.
5. Heavily calcified, normal caliber abdominal aorta.
Colonoscopy 12/06/24: Decreased mucosa vascular pattern in the terminal ileum. Biopsied. Diffuse mild mucosal changes were found in the entire examined colon secondary to colitis. Biopsied. Diverticulosis in the sigmoid colon.
BRBPR/bloody diarrhea:
-likely due to immune mediated colitis
-pt had significant L-shift with bandemia on admission and was on Levaquin/Flagyl which was started on admission. Infectious workup negative as above (Cx data NEG as above). Patient was seen in consultation by infectious disease and antibiotics
are not indicated at this time. Levaquin/Flagyl were stopped on 12/07/24.
-no imaging done on admission due to GEORGINA
-GEORGINA on CKD3a due to volume loss from diarrhea, resolved with IVFs
-Hematochezia/acute blood loss anemia was exacerbated by Eliquis (takes for LLE DVT may 2024), Eliquis remains on hold. With recurrent GI bleeding when Lovenox was started for DVT proph, IVC filter was placed 12/12/24.
-non-AG met acidosis now resolved after 1/2NS with 75meq NaHCO3 and 20meq KCl, IVFs were changed to NS, now off IVFs
-GI/ONC following
-colonoscopy above, findings concerning for immune mediated colitis. Path showed active ileitis in the terminal ileum, active colitis with crypt abscess formation in the cecum, ascending colon, transverse colon, descending colon, and sigmoid colon,
and active proctitis in the rectum.
-Advanced to LR diet
-cont solumedrol started 12/07/24
-will receive Infliximab today as per discussion with GI
Other problems:
Hypokalemia, resolved
Lung CA: see's Dr. Zaldivar, states lung CA is stage 4, on immunotherapy. ONC following.
COPD, not in acute exac: cont Trelegy equivalent
HLD: cont statin
Essential HTN: Cont Coreg
Migraine headaches
Chronic HFpEF: cont Coreg
Patient's updated at bedside.
DNR - confirmed with the pt in the ER, and [employer] witnessed
SCDs, (Lovenox stopped with blood in the stool)
Anticipated Discharge: 24 - 48 hours
Subjective/Interval History
-
Date of Service: December 13, 2024
Pt reports > 9 BMs in the last 24 hours. No melena or hematochezia.
Objective Data
-
Vital Signs:
Vital Signs
Temp Pulse Resp BP Pulse Ox
97.3 F 86 16 148/74 96
12/13/24 07:50 12/13/24 08:48 12/13/24 07:57 12/13/24 08:48 12/13/24 07:57
I&O
12/12/24 12/13/24 12/14/24
06:59 06:59 06:59
Intake Total 2700 / 2700 1040 / 1040
Balance 2700 / 2700 1040 / 1040
[2024-12-13 12:33] LABS: AST (SGOT) 46 U/L (17-59); Albumin 3.1 g/dl (3.5-5.0); Alkaline Phosphatase 62 U/L (38-126); Direct Bilirubin 0.2 mg/dl (0.0-0.4); Total Bilirubin 0.5 mg/dl (0.2-1.3); Total Protein 5.1 g/dl (6.3-8.2)
[2024-12-13 12:59] LABS: ALT (SGPT) 79 U/L (0-50)
--- NOTE | 2024-12-13 14:23 | W.PN.GI.CBS2 ---
Today's Communication / Plan
-
-- Patient and are agreeable to start Remicade today x 1
-- Continue to track and monitor number of stools per day
-- Premedicate with Tylenol and Benadryl
-- Discussed with primary team via [facility] text
Assessment / Plan
-
69-year-old male with past medical history of metastatic lung CA currently on Opdivo and Yervoy, left lower extremity DVT on Eliquis, COPD, hyperlipidemia, hypertension, migraines, chronic heart failure, CKD, colon polyps (colonoscopy 2009) admitted
with acute bloody diarrhea. Infectious stool studies negative. He underwent colonoscopy on 12/06 with mild pancolitis and mild ileitis seen, pathology showed active ileitis and active colitis throughout the colon, no findings of chronicity seen.
CT A/P 11/17/24:
1. No acute findings within the abdomen or pelvis. No evidence for hydronephrosis or objective uropathy. Linear calcification within the midpole of the right kidney measuring 7 mm favored to represent a vascular calcification. No definitive
nephroliths identified.
2. Interval improvement/resolution of pleural-based area of consolidation within the posterior left lower lobe which showed FDG body on prior PET scan. Partially imaged mass within the central right lower lobe/infrahilar region as well as several
satellite nodules within the right lower lobe. Questionable increase in size of a nodule within the medial right lower lobe measuring 16 mm.
3. No evidence for metastatic disease within the abdomen or pelvis.
4. Extensive sigmoid diverticulosis. Unremarkable appendix.
5. Heavily calcified, normal caliber abdominal aorta.
Colonoscopy 12/06/24: Decreased mucosa vascular pattern in the terminal ileum. Biopsied. Diffuse mild mucosal changes were found in the entire examined colon secondary to colitis. Biopsied. Diverticulosis in the sigmoid colon.
Pathology: CMV negative
-Terminal ileum: marked active ileitis
-Cecum: Active colitis with crypt abscess formation. Definitive features of chronicity are not seen.
-Ascending colon: Active colitis with crypt abscess formation. Definitive features of chronicity are not seen.
-Transverse colon: Active colitis with crypt abscess formation. Definitive features of chronicity are not seen.
-Descending colon:Active colitis. Definitive features of chronicity are not seen.
-Sigmoid colon:Active colitis. Definitive features of chronicity are not seen.
-Rectum: Active proctitis. Definitive features of chronicity are not seen
A/P: Pancolitis, ileitis 2/2 Immune-mediated (PD-L1 associated) colitis vs early IBD less likely
-weight-based steroids started on 12/07-- his weight is between 2 doses, started on 80 mg; then 120mg 12/08, 12/09, 12/10, 12/11. At this point, he is having approx 8 episodes of bloody and nonbloody diarrhea over the course of a 24 hour period, and while I
do feel he had a partial response to high-dose steroids, he has not responded well enough to transition to PO. Additionally, his PO dose would be less than his current IV dose (currently getting 120 mg IV daily and I would d/c him on maximum 80 mg
PO daily with plans to taper over 6 weeks).
-Hepatitis serologies negative; Quant TB neg. stool studies negative
- Patient is in agreement for IV infliximab at 10 mg/kg x 1
--Will premedicate with Tylenol, Benadryl
--Goal for giving him Remicade is to get him out of the hospital quicker and a quicker steroid taper. Currently he is on a very high dose of steroids at 120 mg increasing his risk for multiple complications
--Most patients are able to improved after 1 infusion however some need up to 3
--Will give 10 mg/kg based on his low albumin
-okay to use loperamide prn* he feels this helps him significantly
-tolerating low residue diet
-seen by Dr. Zaldivar, will follow-up as outpatient to determine if treatment will need to be changed based on toxicity to immunotherapy
Subjective
Subjective
Date of Service: December 13, 2024
Patient continues to have diarrhea well over 5 in a 24-hour period and today had blood. No abdominal pain. No nausea or vomiting and is tolerated his diet well. Currently on 120 mg of IV Solu-Medrol daily and is not improving.
Objective
Data Reviewed
Laboratory Data:
Laboratory Results
12/10/24 05:10
12/10/24 05:10
Laboratory Results
PT 13.5 Sec (11.4-14.6) 12/12/24 04:44
INR 1.00 12/12/24 04:44
Magnesium 2.0 mg/dl (1.6-2.3) 12/07/24 04:48
Total Bilirubin 0.5 mg/dl (0.2-1.3) 12/13/24 11:11
AST 46 U/L (17-59) 12/13/24 11:11
ALT 79 U/L (0-50) H 12/13/24 11:11
Alkaline Phosphatase 62 U/L (38-126) 12/13/24 11:11
Vital Signs and I&O:
Vital Signs
Temp Pulse Resp BP Pulse Ox
97.3 F 86 16 148/74 94
12/13/24 07:50 12/13/24 08:48 12/13/24 07:57 12/13/24 08:48 12/13/24 10:36
I&O
12/12/24 12/13/24 12/14/24
06:59 06:59 06:59
Intake Total 2700 / 2700 1040 / 1040
Balance 2700 / 2700 1040 / 1040
Physical Exam
Physical Exam
HEENT: Anicteric
Cardiology: Normal Sinus Rhythm
GI: Soft, Non Distended and Non Tender
Extremities: No Edema (Trace edema)
Neuro: Non Focal
[2024-12-13] MEDS: SOLU-MEDROL PF IV ×2 (14:54→21:22)
[2024-12-13] MEDS: BENADRYL 50 MG PO (16:23)
[2024-12-13] MEDS: TYLENOL 500 MG PO (16:23)
--- NOTE | 2024-12-13 16:40 | CM ---
Remicade infusion today.
Plan: home no needs.
[2024-12-13] MEDS: REMICADE 250 MG IV (17:14)
--- NOTE | 2024-12-13 18:30 | PTCARENOTE ---
Patient tolerating Remicade infusion well. Protocol followed. vs documented. No s/s of distress noted. call call within reach. Plan of care ongoing.
--- NOTE | 2024-12-13 19:30 | PTCARENOTE ---
Remicade infusion complete. VSS documented Q15 per protocol. Pt w/elevated BPs, states this is somewhat normal, denies headache, dizziness, blurred vision. Requires Q15 VS for next hour.
[2024-12-13] MEDS: NON-FORMULARY ITEM 1 GM PO (21:17)
[2024-12-13] MEDS: DESYREL 200 MG PO (21:19)
[2024-12-13] MEDS: NSS (PRESERVATIVE FREE) 8 ML IV (21:19)
[2024-12-13] MEDS: PEPCID 20 MG IV (21:20)
[2024-12-13] MEDS: PRAVACHOL 20 MG PO (21:20)
[2024-12-13 22:49] LABS: Calprotectin, Fecal 925 ug/g (<=49)
[2024-12-14] MEDS: SOLU-MEDROL PF 40 MG IV ×2 (01:59→08:17)
[2024-12-14 03:29] VITALS: BP 165/73
[2024-12-14 06:00] VITALS: BMI 31.5
[2024-12-14] MEDS: SPIRIVA RESPIMAT 2.5 MCG 2 PUFF INH (07:47)
[2024-12-14] MEDS: SYMBICORT 160/4.5 MCG INHALER 2 PUFF INH ×2 (07:49→19:14)
[2024-12-14 07:56] VITALS: BP 144/66
--- NOTE | 2024-12-14 08:05 | W.PN.ONC2 ---
Today's Communication / Plan
-
Improved s/p infliximab.
Impression
Impression
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
History of left lower extremity DVT 05/31, DOAC on hold for GIB, IVC placed 12/12
Plan
Plan
S/P infliximab with improvement
will consider resumption of DOAC and removal of IVC outpatient once risk of recurrent bleeding with colitis resolves
OP follow up with Dr. Zaldivar upon discharge to determine if treatment will need to be changed based on toxicity of immunotherapy
Subjective/Objective
Chief Complaint
ACS Heme Onc
Subjective
Diarrhea improved. No BM this AM s/p infliximab yesterday.
Vital Signs:
Vital Signs
Temp Pulse Resp BP Pulse Ox
97.6 F 68 18 144/66 99
12/14/24 07:56 12/14/24 07:56 12/14/24 07:56 12/14/24 07:56 12/14/24 07:56
Lab Results:
Laboratory Data
WBC 6.3 10^3/uL (4.8-10.8) 12/10/24 05:10
Hgb 10.9 g/dL (13.0-18.0) L 12/10/24 05:10
Plt Count 152 10^3/uL (130-400) 12/10/24 05:10
PT 13.5 Sec (11.4-14.6) 12/12/24 04:44
INR 1.00 12/12/24 04:44
eGFR 59.84 12/10/24 05:10
Physical Exam
Cardiology: S1 and S2
Pulmonary: Clear
GI: Soft
[2024-12-14] MEDS: ZYLOPRIM 200 MG PO (08:17)
[2024-12-14] MEDS: TESSALON PERLES 100 MG PO (08:17)
[2024-12-14] MEDS: COREG 25 MG PO ×2 (08:17→20:22)
[2024-12-14] MEDS: MUCINEX 600 MG PO ×2 (08:17→20:20)
[2024-12-14] MEDS: NON-FORMULARY ITEM 2 GM PO ×2 (08:18→20:21)
[2024-12-14] MEDS: PEPCID 40 MG PO (08:18)
--- NOTE | 2024-12-14 08:38 | W.PN.HOSP.TC ---
Today's Communication/Plan
-
Will discuss timing of discharge with GI.
Assessment / Plan
Assessment / Plan
Gen: continues to remain NAD, AAOx3.
Eyes: continues to remain EOMI, PERRLA, no scleral icterus.
Neck: supple.
CV: RRR, +S1/S2, no m/r/g.
Resp: CTAB anteriorly, no rales, wheezes, or rhonchi.
Abd: continues to remain +BS, soft, NT, ND
Skin: No rashes.
Neuro: CN 2-12 intact, non-focal.
Psych: Normal mood and affect.
12/05/24 12:52 Feces/Stool - Final
Negative for Norovirus GI and GII.
12/05/24 12:52 Feces/Stool Cryptosporidium/Giardia - Final
Negative for Cryptosporidium and/or Giardia Lamblia
antigens.
12/03/24 14:12 Feces/Stool Salmonella/Shigella Culture - Final
No Salmonella, Shigella, Aeromonas or Plesiomonas species
isolated.
12/03/24 14:12 Feces/Stool Campylobacter Culture - Final
No Campylobacter species isolated.
12/03/24 14:12 Feces/Stool Shiga Toxin Test - Final
No E. coli Shiga Toxin 1 or 2 detected.
12/03/24 14:12 Feces/Stool C. difficile GDH Antigen & Toxins - Final
Negative for toxigenic C.difficile
CT A/P 11/17/24:
1. No acute findings within the abdomen or pelvis. No evidence for hydronephrosis or objective uropathy. Linear calcification within the midpole of the right kidney measuring 7 mm favored to represent a vascular calcification. No definitive
nephroliths identified.
2. Interval improvement/resolution of pleural-based area of consolidation within the posterior left lower lobe which showed FDG body on prior PET scan. Partially imaged mass within the central right lower lobe/infrahilar region as well as several
satellite nodules within the right lower lobe. Questionable increase in size of a nodule within the medial right lower lobe measuring 16 mm.
3. No evidence for metastatic disease within the abdomen or pelvis.
4. Extensive sigmoid diverticulosis. Unremarkable appendix.
5. Heavily calcified, normal caliber abdominal aorta.
Colonoscopy 12/06/24: Decreased mucosa vascular pattern in the terminal ileum. Biopsied. Diffuse mild mucosal changes were found in the entire examined colon secondary to colitis. Biopsied. Diverticulosis in the sigmoid colon.
BRBPR/bloody diarrhea:
-likely due to immune mediated colitis
-pt had significant L-shift with bandemia on admission and was on Levaquin/Flagyl which was started on admission. Infectious workup negative as above (Cx data NEG as above). Patient was seen in consultation by infectious disease and antibiotics
are not indicated at this time. Levaquin/Flagyl were stopped on 12/07/24.
-no imaging done on admission due to GEORGINA
-GEORGINA on CKD3a due to volume loss from diarrhea, resolved with IVFs
-Hematochezia/acute blood loss anemia was exacerbated by Eliquis (takes for LLE DVT may 2024), Eliquis remains on hold. With recurrent GI bleeding when Lovenox was started for DVT proph, IVC filter was placed 12/12/24.
-non-AG met acidosis now resolved after 1/2NS with 75meq NaHCO3 and 20meq KCl, IVFs were changed to NS, now off IVFs
-GI/ONC following
-colonoscopy above, findings concerning for immune mediated colitis. Path showed active ileitis in the terminal ileum, active colitis with crypt abscess formation in the cecum, ascending colon, transverse colon, descending colon, and sigmoid colon,
and active proctitis in the rectum.
-Advanced to LR diet
-cont solumedrol started 12/07/24
-received Infliximab 12/13/24
Other problems:
Hypokalemia, resolved
Lung CA: see's Dr. Zaldivar, states lung CA is stage 4, on immunotherapy. ONC following.
COPD, not in acute exac: cont Trelegy equivalent
HLD: cont statin
Essential HTN: Cont Coreg
Migraine headaches
Chronic HFpEF: cont Coreg
DNR - confirmed with the pt in the ER, and ASSOCIATE DOCTOR witnessed
SCDs, (Lovenox stopped with blood in the stool)
Anticipated Discharge: Within 24 hours
Subjective/Interval History
-
Date of Service: December 14, 2024
Patient reports since yesterday he has had 1 bowel movement. No melena or hematochezia. No new complaints.
Objective Data
-
Vital Signs:
Vital Signs
Temp Pulse Resp BP Pulse Ox
97.6 F 68 18 144/66 99
12/14/24 07:56 12/14/24 08:17 12/14/24 07:56 12/14/24 08:17 12/14/24 07:56
I&O
12/13/24 12/14/24 12/15/24
06:59 06:59 06:59
Intake Total 1040 / 1040 1140 / 1140
Balance 1040 / 1040 1140 / 1140
--- NOTE | 2024-12-14 10:01 | W.PN.GI.CBS2 ---
Today's Communication / Plan
-
-- Will transition to oral steroids today currently on 120 mg IV Solu-Medrol daily --> will drop to 80 mg p.o. once daily x 5 days then drop to 60 mg x 5 days then drop by 20 mg every 5 days until off
-- The Remicade should help for a quicker steroid taper otherwise it would need to be over about 6 weeks
-- If continues to maintain few bowel movements okay for discharge tomorrow with follow-up with Dr. Zaldivar
Assessment / Plan
-
69-year-old male with past medical history of metastatic lung CA currently on Opdivo and Yervoy, left lower extremity DVT on Eliquis, COPD, hyperlipidemia, hypertension, migraines, chronic heart failure, CKD, colon polyps (colonoscopy 2009) admitted
with acute bloody diarrhea. Infectious stool studies negative. He underwent colonoscopy on 12/06 with mild pancolitis and mild ileitis seen, pathology showed active ileitis and active colitis throughout the colon, no findings of chronicity seen.
CT A/P 11/17/24:
1. No acute findings within the abdomen or pelvis. No evidence for hydronephrosis or objective uropathy. Linear calcification within the midpole of the right kidney measuring 7 mm favored to represent a vascular calcification. No definitive
nephroliths identified.
2. Interval improvement/resolution of pleural-based area of consolidation within the posterior left lower lobe which showed FDG body on prior PET scan. Partially imaged mass within the central right lower lobe/infrahilar region as well as several
satellite nodules within the right lower lobe. Questionable increase in size of a nodule within the medial right lower lobe measuring 16 mm.
3. No evidence for metastatic disease within the abdomen or pelvis.
4. Extensive sigmoid diverticulosis. Unremarkable appendix.
5. Heavily calcified, normal caliber abdominal aorta.
Colonoscopy 12/06/24: Decreased mucosa vascular pattern in the terminal ileum. Biopsied. Diffuse mild mucosal changes were found in the entire examined colon secondary to colitis. Biopsied. Diverticulosis in the sigmoid colon.
Pathology: CMV negative
-Terminal ileum: marked active ileitis
-Cecum: Active colitis with crypt abscess formation. Definitive features of chronicity are not seen.
-Ascending colon: Active colitis with crypt abscess formation. Definitive features of chronicity are not seen.
-Transverse colon: Active colitis with crypt abscess formation. Definitive features of chronicity are not seen.
-Descending colon:Active colitis. Definitive features of chronicity are not seen.
-Sigmoid colon:Active colitis. Definitive features of chronicity are not seen.
-Rectum: Active proctitis. Definitive features of chronicity are not seen
A/P: Pancolitis, ileitis 2/2 Immune-mediated (PD-L1 associated) colitis vs early IBD less likely
-weight-based steroids started on 12/07
-Hepatitis serologies negative; Quant TB neg. stool studies negative
- Patient had IIV infliximab at 10 mg/kg x 1 -received on 12/13/2024
--Goal for giving him Remicade is to get him out of the hospital quicker and a quicker steroid taper. Currently he is on a very high dose of steroids at 120 mg increasing his risk for multiple complications
--Most patients are able to improved after 1 infusion however some need up to 3
-- Will transition to oral steroids today currently on 120 mg IV Solu-Medrol daily --> will drop to 80 mg p.o. once daily x 5 days then drop to 60 mg x 5 days then drop by 20 mg every 5 days until off
-- The Remicade should help for a quicker steroid taper otherwise it would need to be over about 6 weeks
-- If continues to maintain few bowel movements okay for discharge tomorrow with follow-up with Dr. Zaldivar
-okay to use loperamide prn* he feels this helps him significantly
-tolerating diet
-seen by Dr. Zaldivar, will follow-up as outpatient to determine if treatment will need to be changed based on toxicity to immunotherapy
Subjective
Subjective
Date of Service: December 14, 2024
Patient much improving has not had any bowel movements today. Inquiring about disposition
Objective
Data Reviewed
Laboratory Data:
Laboratory Results
12/10/24 05:10
12/10/24 05:10
Laboratory Results
PT 13.5 Sec (11.4-14.6) 12/12/24 04:44
INR 1.00 12/12/24 04:44
Magnesium 2.0 mg/dl (1.6-2.3) 12/07/24 04:48
Total Bilirubin 0.5 mg/dl (0.2-1.3) 12/13/24 11:11
AST 46 U/L (17-59) 12/13/24 11:11
ALT 79 U/L (0-50) H 12/13/24 11:11
Alkaline Phosphatase 62 U/L (38-126) 12/13/24 11:11
Vital Signs and I&O:
Vital Signs
Temp Pulse Resp BP Pulse Ox
97.6 F 68 18 144/66 99
12/14/24 07:56 12/14/24 08:17 12/14/24 07:56 12/14/24 08:17 12/14/24 07:56
I&O
12/13/24 12/14/24 12/15/24
06:59 06:59 06:59
Intake Total 1040 / 1040 1140 / 1140
Balance 1040 / 1040 1140 / 1140
Physical Exam
Physical Exam
HEENT: Anicteric
Cardiology: Normal Sinus Rhythm
Pulmonary: Clear
GI: Soft, Non Distended and Non Tender
Extremities: No Edema
Neuro: Non Focal
--- NOTE | 2024-12-14 15:46 | CM ---
Reviewed the chart notes and spoke with the patient and his spouse at the bedside. IMM reviewed. CM continues to be available to patient/family and is monitoring medical plan for needs at discharge.
Plan: Discharge to home when medically stable. No additional needs identified at this time.
[2024-12-14 15:53] VITALS: BP 172/78
[2024-12-14] MEDS: DELTASONE 40 MG PO (20:20)
[2024-12-14] MEDS: PEPCID 20 MG IV (21:28)
[2024-12-14] MEDS: NSS (PRESERVATIVE FREE) 8 ML IV (21:28)
[2024-12-14] MEDS: PRAVACHOL 20 MG PO (21:29)
[2024-12-14] MEDS: DESYREL 200 MG PO (21:29)
[2024-12-14 23:13] VITALS: BP 143/80
[2024-12-15 05:53] VITALS: BMI 31.3
[2024-12-15] MEDS: SYMBICORT 160/4.5 MCG INHALER 2 PUFF INH (07:08)
[2024-12-15] MEDS: SPIRIVA RESPIMAT 2.5 MCG 2 PUFF INH (07:08)
[2024-12-15 07:46] VITALS: BP 159/70
[2024-12-15] MEDS: PEPCID 40 MG PO (07:49)
[2024-12-15] MEDS: NON-FORMULARY ITEM 2 GM PO (07:49)
[2024-12-15] MEDS: DELTASONE 40 MG PO (07:49)
[2024-12-15] MEDS: MUCINEX 600 MG PO (07:50)
[2024-12-15] MEDS: COREG 25 MG PO (07:50)
[2024-12-15] MEDS: ZYLOPRIM 200 MG PO (07:50)
[2024-12-15] MEDS: TESSALON PERLES 100 MG PO (07:50)
--- NOTE | 2024-12-15 08:12 | W.PN.ONC2 ---
Today's Communication / Plan
-
.
Impression
Impression
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
History of left lower extremity DVT 05/31, DOAC on hold for GIB, IVC placed 12/12
Plan
Plan
s/p infliximab, continues predinosone 40mg daily -appreciate GI input
will consider resumption of DOAC and removal of IVC outpatient once risk of recurrent bleeding with colitis resolves
PET scheduled 12/28
OP follow up with Dr. Zaldivar after PET to determine next steps in treatment discussed with pt and today
Subjective/Objective
Subjective
Vital Signs:
Vital Signs
Temp Pulse Resp BP Pulse Ox
97.5 F 65 16 159/70 95
12/15/24 07:46 12/15/24 07:50 12/15/24 07:46 12/15/24 07:50 12/15/24 07:46
Lab Results:
Laboratory Data
WBC 6.3 10^3/uL (4.8-10.8) 12/10/24 05:10
Hgb 10.9 g/dL (13.0-18.0) L 12/10/24 05:10
Plt Count 152 10^3/uL (130-400) 12/10/24 05:10
PT 13.5 Sec (11.4-14.6) 12/12/24 04:44
INR 1.00 12/12/24 04:44
eGFR 59.84 12/10/24 05:10
--- NOTE | 2024-12-15 08:34 | W.PN.HOSP.TC ---
Today's Communication/Plan
-
Medically cleared for discharge on prednisone taper.
Total time spent on d/c = 35 min. This included today's physical exam, progress note, review of laboratory and diagnostic data, preparation of discharge documents and prescriptions, and discussions about the pt's hospital course and discharge plan
with the patient and other biomedical engineering internship involved in the patient's care.
Assessment / Plan
Assessment / Plan
Gen: NAD, AAOx3.
Eyes: EOMI, PERRLA, no scleral icterus.
Neck: supple.
CV: remains RRR, +S1/S2, no m/r/g.
Resp: remains CTAB anteriorly, no rales, wheezes, or rhonchi.
Abd: +BS, soft, NT, ND
Skin: No rashes.
Neuro: CN 2-12 intact, non-focal.
Psych: Normal mood and affect.
12/05/24 12:52 Feces/Stool - Final
Negative for Norovirus GI and GII.
12/05/24 12:52 Feces/Stool Cryptosporidium/Giardia - Final
Negative for Cryptosporidium and/or Giardia Lamblia
antigens.
12/03/24 14:12 Feces/Stool Salmonella/Shigella Culture - Final
No Salmonella, Shigella, Aeromonas or Plesiomonas species
isolated.
12/03/24 14:12 Feces/Stool Campylobacter Culture - Final
No Campylobacter species isolated.
12/03/24 14:12 Feces/Stool Shiga Toxin Test - Final
No E. coli Shiga Toxin 1 or 2 detected.
12/03/24 14:12 Feces/Stool C. difficile GDH Antigen & Toxins - Final
Negative for toxigenic C.difficile
CT A/P 11/17/24:
1. No acute findings within the abdomen or pelvis. No evidence for hydronephrosis or objective uropathy. Linear calcification within the midpole of the right kidney measuring 7 mm favored to represent a vascular calcification. No definitive
nephroliths identified.
2. Interval improvement/resolution of pleural-based area of consolidation within the posterior left lower lobe which showed FDG body on prior PET scan. Partially imaged mass within the central right lower lobe/infrahilar region as well as several
satellite nodules within the right lower lobe. Questionable increase in size of a nodule within the medial right lower lobe measuring 16 mm.
3. No evidence for metastatic disease within the abdomen or pelvis.
4. Extensive sigmoid diverticulosis. Unremarkable appendix.
5. Heavily calcified, normal caliber abdominal aorta.
Colonoscopy 12/06/24: Decreased mucosa vascular pattern in the terminal ileum. Biopsied. Diffuse mild mucosal changes were found in the entire examined colon secondary to colitis. Biopsied. Diverticulosis in the sigmoid colon.
BRBPR/bloody diarrhea:
-likely due to immune mediated colitis
-pt had significant L-shift with bandemia on admission and was on Levaquin/Flagyl which was started on admission. Infectious workup negative as above (Cx data NEG as above). Patient was seen in consultation by infectious disease and antibiotics
are not indicated at this time. Levaquin/Flagyl were stopped on 12/07/24.
-no imaging done on admission due to GEORGINA
-GEORGINA on CKD3a due to volume loss from diarrhea, resolved with IVFs
-Hematochezia/acute blood loss anemia was exacerbated by Eliquis (takes for LLE DVT may 2024), Eliquis remains on hold. With recurrent GI bleeding when Lovenox was started for DVT proph, IVC filter was placed 12/12/24.
-non-AG met acidosis now resolved after 1/2NS with 75meq NaHCO3 and 20meq KCl, IVFs were changed to NS, now off IVFs
-GI/ONC following
-colonoscopy above, findings concerning for immune mediated colitis. Path showed active ileitis in the terminal ileum, active colitis with crypt abscess formation in the cecum, ascending colon, transverse colon, descending colon, and sigmoid colon,
and active proctitis in the rectum.
-Advanced to LR diet
-was on IV solumedrol (started 12/07/24), transitioned to PO Prednisone on 12/14/24, taper on d/c
-received Infliximab 12/13/24
Other problems:
Hypokalemia, resolved
Lung CA: see's Dr. Zaldivar, states lung CA is stage 4, on immunotherapy. ONC following.
COPD, not in acute exac: cont Trelegy equivalent
HLD: cont statin
Essential HTN: Cont Coreg
Migraine headaches
Chronic HFpEF: cont Coreg
DNR - confirmed with the pt in the ER, and MAGNETIC RESONANCE IMAGING COORDINATOR witnessed
SCDs, (Lovenox stopped with blood in the stool)
Anticipated Discharge: Today
Subjective/Interval History
-
Date of Service: December 15, 2024
No new complaints.
Objective Data
-
Vital Signs:
Vital Signs
Temp Pulse Resp BP Pulse Ox
97.5 F 65 16 159/70 95
12/15/24 07:46 12/15/24 07:50 12/15/24 07:46 12/15/24 07:50 12/15/24 07:46
I&O
12/14/24 12/15/24 12/16/24
06:59 06:59 06:59
Intake Total 1140 / 1140 1380 / 1380 240 / 240
Balance 1140 / 1140 1380 / 1380 240 / 240
--- NOTE | 2024-12-15 10:23 | CM ---
Reviewed the chart notes. Patient is being discharged to home today. Patient's spouse will provide transportation. CM continues to be available to patient/family and is monitoring medical plan for needs at discharge.
Plan: Discharge to home today. No additional needs identified at this time.
[2024-12-15 11:43] VITALS: BP 144/67
--- NOTE | 2024-12-15 11:59 | PTCARENOTE ---
Patient discharged home, transported by spouse. Discharge instructions reviewed with patient and spouse at bedside, both verbalized understanding. Patient okay for regular diet per GI. R subq port de-accessed by IV nurse. Vitals taken by this RN
stable. Patient dressed and gathered belongings at bedside independently, taken down to spouse's car at main lobby via staff escort and wheelchair.
--- NOTE | 2024-12-15 12:29 | W.DCSUMMARY ---
Discharge Summary
Discharge Data
Date of Admission: 12/03/24
Date of Discharge: 12/15/24
-
Pending Results: No
Hospital Course
Primary diagnoses:
Immune mediated colitis
Acute kidney disease on chronic kidney disease stage 3a
Secondary diagnoses:
None anion gap metabolic acidosis
Hypokalemia
Lung cancer
Chronic obstructive pulmonary disease
Hyperlipidemia
Essential hypertension
Migraine headaches
Chronic heart failure with preserved ejection fraction
h/o left lower extremity DVT in May 2024
Consultants:
Gastroenterology
Oncology
Infectious disease
Imaging:
CT A/P 11/17/24:
1. No acute findings within the abdomen or pelvis. No evidence for hydronephrosis or objective uropathy. Linear calcification within the midpole of the right kidney measuring 7 mm favored to represent a vascular calcification. No definitive
nephroliths identified.
2. Interval improvement/resolution of pleural-based area of consolidation within the posterior left lower lobe which showed FDG body on prior PET scan. Partially imaged mass within the central right lower lobe/infrahilar region as well as several
satellite nodules within the right lower lobe. Questionable increase in size of a nodule within the medial right lower lobe measuring 16 mm.
3. No evidence for metastatic disease within the abdomen or pelvis.
4. Extensive sigmoid diverticulosis. Unremarkable appendix.
5. Heavily calcified, normal caliber abdominal aorta.
Colonoscopy 12/06/24: Decreased mucosa vascular pattern in the terminal ileum. Biopsied. Diffuse mild mucosal changes were found in the entire examined colon secondary to colitis. Biopsied. Diverticulosis in the sigmoid colon.
Hospital course: 69-year-old male who presented with chief complaints of bloody diarrhea and weight loss as outlined in the H&P done on admission. Patient's home Eliquis was held. The patient L-shift with bandemia on admission and was on
Levaquin/Flagyl which was started on admission. Infectious workup was negative. He was seen in consultation by infectious disease and antibiotics were stopped on 12/07/24. The patient had a nonanion gap metabolic acidosis that resolved after 1/2NS
with 75meq NaHCO3. With persistent hematochezia the patient had a colonoscopy as above, findings concerning for immune mediated colitis. Pathology showed active ileitis in the terminal ileum, active colitis with crypt abscess formation in the
cecum, ascending colon, transverse colon, descending colon, and sigmoid colon, and active proctitis in the rectum. Patient was started on IV Solu-Medrol. Due to the inability to resume Eliquis as the risk far exceeded the benefit with persistent GI
bleeding the patient had an IVC filter placed on 12/12/24. Patient's hematochezia resolved. He was transitioned to oral prednisone on 12/14/24 and is being sent home on a prednisone taper. He received infliximab on 12/13/24. The patient was discharged
in medically stable condition.
Discharge Plan
-
Patient Disposition: Home (Routine Discharge)
Discharge Diagnosis/Procedures: Immune mediated colitis
Condition: Good
Diet: Low Residue
Activity: As tolerated
Blood Work: CMP and CBC in 1 week
Referrals:
Darrius Carter MD [Family Provider] - in less than 1 week
Prescriptions:
New
famotidine 40 mg Tablet
40 mg PO DAILY Qty: 30 0RF
prednisone 20 mg tablet
20 mg PO DAILY Qty: 50 0RF
Rx Instructions:
Taper: 80mg daily x 5 day, 60mg daily x 5 days, 40mg daily x 5 days, 20mg daily x 5 days
Continued
albuterol sulfate 1 PUFF HFA aerosol inhaler
2 puff inhalation R Q4HPRN PRN (Reason: sob)
Patient Comments:
patient stated he last took this greater than 2weeks ago
carvedilol [Coreg] 25 MG tablet
25 mg PO BID
trazodone 100 MG tablet
200 mg PO HS
pravastatin 20 MG tablet
20 mg PO HS
icosapent ethyl [Vascepa] 1 GM capsule
2 gm PO BID
guaifenesin [Mucus Relief ER] 600 MG tablet extended release 12hr
600 mg PO BID
multivitamin Tablet
1 tab PO DAILY
Trelegy Ellipta 100-62.5-25 mcg Blister With Device
1 inh INHALATION R DAILY
Healthy Feet And Nerves
1 tab PO BID
Yervoy 50 mg/10 mL (5 mg/mL) Solution
98.9 mg IV Q6W
Opdivo 40 mg/4 mL Solution
360 mg IV Q3W
polyethylene glycol 3350 [Miralax] 17 gram Powder In Packet
17 g PO DAILYPRN PRN (Reason: constipation)
allopurinol 100 mg Tablet
200 mg PO DAILY
calcium carbonate [Calcium 600] 600 mg calcium (1,500 mg) Tablet
600 mg PO DAILY
ZzzQuil 50 mg/30 mL Liquid
50 mg PO HSPRN PRN (Reason: sleep)
ipratropium-albuterol 0.5 mg-3 mg(2.5 mg base)/3 mL Solution For Nebulization
3 ml INHALATION R Q6HPRN PRN (Reason: sob)
loperamide 2 mg Tablet
2 mg PO BIDPRN PRN (Reason: diarrhea)
benzonatate 100 mg Capsule
100 mg PO DAILY
Discontinued
Eliquis 5 mg Tablet
5 mg PO BID
Xgeva 120 mg/1.7 mL (70 mg/mL) Solution
120 mg SC Q6W
aspirin 81 mg Tablet,Delayed Release (Dr/Ec)
81 mg PO DAILY
Discharge Orders:
Discharge Patient (As Directed); Ordered 12/15/24
Ordered By: Hayden Wright
Discharge Date and Time
Discharge Date/Time: 12/15/24 12:13
Print Language: HUNGARIAN
== END 2024-12-15 12:13 | disposition home or self-care (01) | DRG 378 ==
LOC: 2 NORTH 18:12
PROVIDERS: Internal Medicine; Radiology Vascular & Interventional Radiology; ADMITTING PHYSICIAN Internal Medicine; CONSULT PHYSICIAN Internal Medicine Gastroenterology; CONSULT PHYSICIAN Internal Medicine Hematology & Oncology; EMERGENCY PHYSICIAN Student in an Organized Health Care Education/Training Program; FAMILY PHYSICIAN Internal Medicine; OTHER PHYSICIAN Internal Medicine Infectious Disease
PROC: 0DBE8ZX Excision of Large Intestine, Via Natural or Artificial Opening Endoscopic, Diagnostic (ICD-10-PCS; 2024-12-06)
PROC: 0DBB8ZX Excision of Ileum, Via Natural or Artificial Opening Endoscopic, Diagnostic (ICD-10-PCS; 2024-12-06)
PROC: 06H03DZ Insertion of Intraluminal Device into Inferior Vena Cava, Percutaneous Approach (ICD-10-PCS; 2024-12-12)
DX: K92.1 Melena (principal); C34.90 Malignant neoplasm of unspecified part of unspecified bronchus or lung; I50.32 Chronic diastolic (congestive) heart failure; I13.0 Hypertensive heart and chronic kidney disease with heart failure and stage 1 through stage 4 chronic kidney disease, or unspecified chronic kidney disease; N17.9 Acute kidney failure, unspecified; D62 Acute posthemorrhagic anemia; D68.32 Hemorrhagic disorder due to extrinsic circulating anticoagulants; K63.0 Abscess of intestine; E87.20 Acidosis, unspecified; K52.9 Noninfective gastroenteritis and colitis, unspecified; K63.89 Other specified diseases of intestine; F17.200 Nicotine dependence, unspecified, uncomplicated; E78.00 Pure hypercholesterolemia, unspecified; N18.31 Chronic kidney disease, stage 3a; E86.0 Dehydration; K57.30 Diverticulosis of large intestine without perforation or abscess without bleeding; J44.9 Chronic obstructive pulmonary disease, unspecified; D72.825 Bandemia; E87.6 Hypokalemia; G43.909 Migraine, unspecified, not intractable, without status migrainosus; R63.4 Abnormal weight loss; Z66 Do not resuscitate; Z68.31 Body mass index [BMI] 31.0-31.9, adult; Z86.718 Personal history of other venous thrombosis and embolism; Z79.01 Long term (current) use of anticoagulants; Z79.82 Long term (current) use of aspirin; Z79.51 Long term (current) use of inhaled steroids; Z80.8 Family history of malignant neoplasm of other organs or systems; Z80.0 Family history of malignant neoplasm of digestive organs; Z86.0100 Personal history of colon polyps, unspecified
CPT/HCPCS: 88305; 37191; 80048; 80053; 80076; 82607; 82746; 82784; 83516; 83605; 83735; 83993; 85014; 85018; 85025; 85027; 85610; 86140; 86231; 86480; 86704; 86706; 86803; 86850; 86900; 86901; 87045; 87046; 87324; 87328; 87329; 87340; 87427; 87449; 87798; 88342; 93005; 94640; 96361; 96365; 96366; 97116; 97162; 99285; C1769; C1880; J1745; J7030

== ENCOUNTER 2024-12-21 09:06 | Outpatient (RCR) | payer MEDICARE, OTHER, SELFPAY ==
[2024-12-21 09:27] LABS: % Basophils 0.1 % (0-2); % Eosinophils 0.1 % (0-6); % Immature Granulocytes 2.4 % (0-0.5); % Neutrophils 81.4 % (42.2-75.2); Absolute Immature Granulocytes 0.3 10^3/uL (0-0.05); Absolute Lymphocytes 1.3 10^3/uL (1.2-3.4); Absolute Monocytes 0.8 10^3/uL (0.1-0.6); Absolute Neutrophils 10.2 10^3/uL (1.4-6.5); Hematocrit 37.1 % (39.0-52.0); Hemoglobin 12.8 g/dL (13.0-18.0); Mean Corp Hgb Conc. 34.5 g/dL (33.0-37.0); Mean Corpuscular Hgb 33.4 pg (27.0-31.0); Mean Corpuscular Volume 96.9 fL (80.0-94.0); Mean Platelet Volume 8.6 fL (7.4-10.4); Platelet Count 121 10^3/uL (130-400); Red Blood Cell Count 3.83 10^6/uL (4.70-6.10); Red Cell Dist. Width 13.9 % (11.5-14.5); White Blood Cell Count 12.5 10^3/uL (4.8-10.8)
[2024-12-21 10:53] LABS: ALT (SGPT) 79 U/L (0-50); AST (SGOT) 42 U/L (17-59); Albumin 3.3 g/dl (3.5-5.0); Alkaline Phosphatase 105 U/L (38-126); Blood Urea Nitrogen 30 mg/dl (9-20); Calcium 9.3 mg/dl (8.4-10.2); Carbon Dioxide 27 mmol/L (22-30); Chloride 104 mmol/L (98-107); Glucose 134 mg/dl (70-99); Potassium 4.8 mmol/L (3.5-5.1); Sodium 137 mmol/L (135-145); Total Bilirubin 0.8 mg/dl (0.2-1.3); Total Protein 5.3 g/dl (6.3-8.2); Uric Acid 4.6 mg/dl (3.5-8.5); eGFR 59.84
[2024-12-21 16:45] LABS: TSH 1.08 uIU/ml (0.47-4.68)
== END 2025-01-04 23:59 | disposition home or self-care (01) ==
LOC: OID 09:06
PROVIDERS: ATTENDING PHYSICIAN Internal Medicine Hematology & Oncology; FAMILY PHYSICIAN Internal Medicine
DX: C34.31 Malignant neoplasm of lower lobe, right bronchus or lung (principal); I82.402 Acute embolism and thrombosis of unspecified deep veins of left lower extremity; Z51.11 Encounter for antineoplastic chemotherapy; Z87.891 Personal history of nicotine dependence; C79.51 Secondary malignant neoplasm of bone; J44.9 Chronic obstructive pulmonary disease, unspecified; J45.909 Unspecified asthma, uncomplicated
CPT/HCPCS: 36415; 80053; 84439; 84443; 84550; 85025

== ENCOUNTER 2025-01-01 19:39 | Inpatient (IN) | payer MEDICARE, OTHER, SELFPAY ==
[2025-01-01] VITALS (15 sets, daily range): BP systolic 101–202; BP diastolic 57–109; BMI 31.0; BMI 31.4
--- NOTE | 2025-01-01 15:23 | ED.GENMED ---
History of Present Illness
General
Chief Complaint: Abdominal Symptoms
Source: patient and spouse
Exam Limitations: none
Time Seen by Provider: 01/01/25 15:11
Nursing documentation reviewed up to this point in time: agreed with
History of Present Illness
History of Present Illness:
Patient to ED with complaint of SOB, BURCH with minimal activity, fever/chills, diarrhea, dizziness, weakness. He states he developed a cough with green secretions on thursday. He was placed on Augmentin on Thursday by PCP and has been feeling worse
since. He was recently inpatient here (discharged 12/15) for immune mediated colitis (bloody diarrhea, weight loss), metabolic acidosis. Discharged home on steroid taper. He is currently taking 30mg prednisone daily. Has been feeling well until
Thursday. He is currently receiving immunotherappy for lung CA. PMH DVT approx 4 mos ago. Eliquis was stopped during this past hospitalization due to GI bleeding. IVC filter was placed. COPD - on 4L NC at home continuous. Pulse ox at rest in ED
92% on 4L.
Past History
Past History
ED Past Medical History: Cancer (lung cancer), CHF, COPD, HTN, Hypercholesterolemia, Renal failure (CKD stage III) and Other (DVT)
Social History
Tobacco: Smoker
Alcohol: Occasional
Drug: None
Personal:
Living: with family
Review of Systems
Review of Systems
Allergies reviewed?: Yes
All Other Systems: ROS reviewed and negative except as documented in HPI and ROS
Constitutional: Reports fever, fatigue and chills
EENT: Reports no symptoms
Respiratory: Reports cough and trouble breathing
Cardiac: Reports no symptoms
ABD/GI: Reports diarrhea (no reports of bleeding)
: Reports no symptoms
Musculoskeletal: Reports no symptoms
Skin: Reports no symptoms
Neurological: Reports weakness
Psychiatric: Reports no symptoms
Phy Exam
General Physical Exam
General Presentation: moderate distress
General age: appears stated age
General Skin: warm and dry
General Habitus: normal
General Mental: alert
Cardiovascular Exam
Cardiovascular Exam: tachycardia
Pulmonary Exam
Pulmonary Exam: decreased breath sounds
Gastrointestinal Exam
Gastrointestinal Exam: normal bowel sounds, non tender, soft, no organomegaly, no pulsatile mass, non distended and no cva tenderness
Musculoskeletal Exam
Musculoskeletal Exam: full ROM and neuro vasc intact
Skin Exam
Skin Exam: normal color, warm/dry and no rash
Psychiatric Exam
Psychiatric Exam: normal mood/affect
Sepsis
Sepsis Screening
Sepsis Assessment: Sepsis Ruled Out
Sepsis Screen
Sepsis Screen: Sepsis Ruled Out
Date: 01/01/25
Time: 22:59
Course
Orders/Labs/Results
Orders:
Orders
01/01/25 14:27
Electrocardiogram (*1) Urgent
Reason for Study: Shortness of Breath
01/01/25 14:28
EKG- Treatment ONCE
01/01/25 14:43
Electrocardiogram (*1) Urgent
Reason for Study: Other
Other Reason for Exam: Possible Sepsis
Cardiac Monitoring- Treatment ONCE
EKG- Treatment ONCE
IV Insert/Care/Rem.- Treatment PRN
O2 Therapy [RESP] Urgent
Titrate/Wean O2 to maintain O2 sat greater than (%): 93
Special Instructions: TO MAINTAIN CONTINUOUS O2 SATS > OR = 93%
Pulse Ox/cont/shift [RESP] Urgent
Quantity: 1
Special Instructions: CONTINUOUS
01/01/25 15:31
0.9% Sodium Chloride 1000 ml [Nss] 1,000 ml IV BOLUS
01/01/25 15:39
Complete Blood Count/With Diff Urgent
Comprehensive Metabolic Panel Urgent
Lactic Acid Q4H
Comment: ON ICE, CANCEL 2ND ORDER IF FIRST LACTIC ACID LEVEL <2
Blood Culture Q20M
RIZWAN Source: Blood/Venous
Specimen Description:
Comment: Urgent from separate sites. If patient screens positive for possible sepsis
01/01/25 15:55
CR Chest Portable - 1 View Urgent
Comment:
Reason For Exam: SOB
Reason Study Needs to be Portable: Patient Unstable
01/01/25 16:25
Blood Culture Q20M
RIZWAN Source: Blood/Venous
Specimen Description:
Comment: Urgent from separate sites. If patient screens positive for possible sepsis
01/01/25 16:39
Stool Culture Urgent
RIZWAN Source: Feces/Stool
Specimen Description:
Date Specimen was Collected: 01/01/25
Time Specimen was Collected: 16:37
01/01/25 16:41
CT Chest PE Study Urgent
Comment:
Reason For Exam: SOB
01/01/25 18:17
Cefepime HCl [Maxipime] 2,000 mg IV NOW STA
01/01/25 18:22
Add On- LAB Urgent
Tests Added?: C Diff
01/01/25 18:26
Sterile Water [Sterile Water For Injection] 10 ml .ROUTE .STK-MED ONE
01/01/25 18:27
Sterile Water [Sterile Water For Injection] 20 ml .ROUTE .STK-MED
01/01/25 19:17
Admit/Transfer Patient As Directed
Co-Sign Provider:
Level of Care: Inpatient admission
Assign to:: Telemetry
Physician / Group: [email or web address]
Diagnosis: PNA, sepsis, acute hypoxic RF, LGIB
Reason for Telemetry: Other
Other Reason for Telemetry: acute LGIB, hypoxia
Date to Stop Telemetry: 01/03/25
Time to Stop Telemetry: 11:00
Reason for Hospitalization: PNA, acute hypoxic RF, LGIB
Expected length of stay greater than two midnights?: Yes
ELOS- Estimated Length of Stay in days: 5
I certify the patient meets the requirements for IP care: Yes
01/01/25 19:23
Code Status As Directed
Resuscitation Status: Full Code
01/01/25 19:48
Acetaminophen [Tylenol] 650 mg PO Q6HPRN PRN
01/01/25 20:40
Albuterol [ProAIR HFA INHALER] 2 puff INH R Q4HPRN PRN
Carvedilol [Coreg] 25 mg PO BID
Doxycycline [Vibramycin] 100 mg PO Q12
Guaifenesin [Mucinex] 600 mg PO BID
Heparin 5,000 units SC Q12
Ipratropium/Albuterol Sulfate [Duoneb] 3 ml INH R Q6HPRN PRN
Lactated Ringers [Lr] 1,000 ml IV 80 mls/hr
icosapent ethyl [Vascepa] See Dose Instructions PO BID
01/01/25 20:40
Respiratory Culture/Gram Stain Urgent
RIZWAN Source: Sputum
Specimen Description:
Activity As Directed
Activity Level: Out of Bed-Early Mobility
Intake/ Output As Directed
Frequency: Per unit guidelines
Vital Signs As Directed
Frequency: Per unit guidelines
Weight As Directed
Frequency: Once
Comment: on admission
DX Deep Vein Thrombosis Video Routine
01/01/25 22:00
Pravastatin Sodium [Pravachol] 20 mg PO HS
Trazodone [Desyrel] 200 mg PO HS
01/02/25 06:00
Complete Blood Count/No Diff IN AM
Comprehensive Metabolic Panel IN AM
01/02/25 08:00
Allopurinol [Zyloprim] 200 mg PO DAILY
Benzonatate [Tessalon Perles] 100 mg PO DAILY
Famotidine [Pepcid] 20 mg PO DAILY
Prednisone [Deltasone] 30 mg PO DAILY
Abnormal Lab Results
01/01/25
15:39
RBC 3.49 L 10^6/uL
(4.70-6.10)
Hgb 11.6 L g/dL
(13.0-18.0)
Hct 32.8 L %
(39.0-52.0)
MCH 33.2 H pg
(27.0-31.0)
RDW 14.6 H %
(11.5-14.5)
Abs Immat Gran (auto) 0.1 H 10^3/uL
(0-0.05)
Absolute Neuts (auto) 8.0 H 10^3/uL
(1.4-6.5)
Immature Gran % 1.0 H %
(0-0.5)
Neutrophils % 81.4 H %
(42.2-75.2)
Lymphocytes % 12.2 L %
(20.5-51.1)
Sodium 131 L mmol/L
(135-145)
Chloride 96 L mmol/L
(98-107)
BUN 25 H mg/dl
(9-20)
Creatinine 1.6 H mg/dL
(0.7-1.3)
Glucose 182 H mg/dl
(70-99)
Total Protein 5.6 L g/dl
(6.3-8.2)
Albumin 3.1 L g/dl
(3.5-5.0)
01/01/25 15:39
01/01/25 15:39
Vital Signs
Initial and Last Documented VS:
Initial Vital Signs
Temp Pulse Resp BP Pulse Ox
99.5 F 144 22 148/93 88
01/01/25 14:38 01/01/25 14:38 01/01/25 14:38 01/01/25 14:38 01/01/25 14:38
Last Documented Vital Signs
Temp Pulse Resp BP Pulse Ox
98.2 F 127 19 118/71 93
01/01/25 21:02 01/01/25 21:02 01/01/25 21:02 01/01/25 21:02 01/01/25 21:02
*Radiology
Radiology exam reviewed: radiology read reviewed
*Pulse Oximetry
Patient hypoxic: no
*Critical Care Note
Total Time (30-74mins, 75-104mins- exclusive of procedures): Not Applicable
Update Note
Update Note:
Patient to ED wt complaint of SOB, weakness, fever/chills. He was placed on augmentin on Thursday for report of cough with green secretions. No improvment in his symptom. He started with diarrhea over the next day. Increasingly weak. Labs, xray,
CT reviewed. RIght middle and lower lobe pneumonia identified. He had 1 episode of diarrhea in ED, brown stool, heme +. Cultures sent. He will be admitted to hospitalist service.
ED Attending Note
-
Portions of this chart may have been created with voice recognition software.� Occasional wrong word or��sound alike� substitutions may have occurred due to the inherent limitations of voice recognition software.
Discharge Plan
Departure
Patient Disposition: Admit
Date of Disposition: 01/01/25
Time of Disposition: 18:20
Presentation/result/management discussed w/ accepting MD/DO: Hospitalist
Condition: Fair
Covid-19: Not Applicable
Discharge Problem:
Pneumonia
Interventions
Interventions:
*Risk Screen - Suicide Last Done: 01/01/25 14:38
*General Assessment Last Done: 01/01/25 14:38
*Neglect/Abuse Screening Last Done: 01/01/25 14:38
*ED- Fall Risk Assessment Last Done: 01/01/25 15:24
*ED COVID-19 Vaccine History Last Done: 01/01/25 15:24
*Nursing Disposition Last Done: 01/01/25 20:52
AP-Xpsyqz-Ysvrwlxgvw Assessment Last Done: 01/01/25 15:24
Discharge Date and Time
Discharge Date/Time: 01/01/25 20:53
[2025-01-01] MEDS: NSS 1000 IV (15:41)
[2025-01-01 15:59] LABS: Lactic Acid 1.3 mmol/L (0.7-2.0)
[2025-01-01 16:17] LABS: ALT (SGPT) 40 U/L (0-50); AST (SGOT) 46 U/L (17-59); Albumin 3.1 g/dl (3.5-5.0); Alkaline Phosphatase 92 U/L (38-126); Blood Urea Nitrogen 25 mg/dl (9-20); Calcium 8.5 mg/dl (8.4-10.2); Carbon Dioxide 24 mmol/L (22-30); Chloride 96 mmol/L (98-107); Estimated Creatinine Clearance 48 ml/min; Glucose 182 mg/dl (70-99); Potassium 4.2 mmol/L (3.5-5.1); Sodium 131 mmol/L (135-145); Total Protein 5.6 g/dl (6.3-8.2); eGFR 46.64
[2025-01-01 16:23] LABS: % Basophils 0.4 % (0-2); % Eosinophils 0.3 % (0-6); % Lymphocytes 12.2 % (20.5-51.1); % Monocytes 4.7 % (1.7-9.3); % Neutrophils 81.4 % (42.2-75.2); Absolute Immature Granulocytes 0.1 10^3/uL (0-0.05); Absolute Lymphocytes 1.2 10^3/uL (1.2-3.4); Absolute Monocytes 0.5 10^3/uL (0.1-0.6); Hematocrit 32.8 % (39.0-52.0); Hemoglobin 11.6 g/dL (13.0-18.0); Mean Corp Hgb Conc. 35.4 g/dL (33.0-37.0); Mean Corpuscular Hgb 33.2 pg (27.0-31.0); Mean Platelet Volume 8.7 fL (7.4-10.4); Nucleated Red Blood Cells % 0 % (-); Platelet Count 130 10^3/uL (130-400); Red Blood Cell Count 3.49 10^6/uL (4.70-6.10); Red Cell Dist. Width 14.6 % (11.5-14.5); White Blood Cell Count 9.9 10^3/uL (4.8-10.8)
--- NOTE | 2025-01-01 18:19 | PTCARENOTE ---
Pt had a bright red bloody BM in Bathroom. 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 Will continue to monitor.
[2025-01-01] MEDS: MAXIPIME 2000 MG IV (18:28)
--- NOTE | 2025-01-01 18:55 | HPS.HSE ---
Family Physician
-
Family Physician: Darrius Carter
Chief Complaint
-
SOB, BURCH with minimal activity, fever/chills, diarrhea, dizziness, weakness.
History of Present Illness
HPI
69M Stage IV Ca Lung, on immunotherapy, home 4 L O2 depedent COPD, chr HFpEF, HTN, HX DVT 4months ago but due to GIB on last admission, Eliquis was stopped, IVCF placed seen at ER
- pw SOB, BURCH with minimal activity, fever/chills, diarrhea, dizziness, weakness.
- he developed a cough with green secretions on thursday
- was placed on Augmentin on Thursday by PCP, not improved and feeling progressively worse since.
- was recently inpatient here (discharged 12/15) for immune mediated colitis (bloody diarrhea, weight loss), metabolic acidosis. - - Discharged home on steroid taper. He is currently taking 30mg prednisone daily.
- He is currently receiving immunotherappy for lung CA.
HX DVT approx 4 mos ago. Eliquis was stopped during this past hospitalization due to GI bleeding. IVC filter was placed.
COPD - on home 4L NC - Pulse ox at rest in ED 92% on 4L.
Medical History
Past Medical History
Past Medical History: Reports Other (Lung CA COPD HLD Essential HTN Migraine headaches Chronic HFpEF, CKD3a)
Past Surgical History: Reports Other (N/A)
Social History
Tobacco: Non-smoker
Alcohol: Occasional
Drug: None
Family History
Family History: Not pertinent
Allergies / Home Medications
Allergies reflects when Allergies were last updated in [facility].
Home Medications with original date entered in [facility]
Allergy/Medication List:
Allergies
Allergy/AdvReac Type Severity Reaction Status Date / Time
No Known Allergies Allergy Verified 12/03/24 13:11
Home Medications
albuterol sulfate 90 mcg/actuation aerosol inhaler 2 puff inhalation R Q4HPRN PRN sob 10/06/11
carvedilol 25 mg tablet (Coreg) 25 mg PO BID Heart disease/condition 02/23/19
trazodone 100 mg tablet 200 mg PO HS Mental Health/Anxiety 02/23/19
guaifenesin 600 mg tablet, extended release 12 hr (Mucus Relief ER) 600 mg PO BID 06/21/20
icosapent ethyl 1 gram capsule (Vascepa) 2 gm PO BID High cholesterol 06/21/20
pravastatin 20 mg tablet 20 mg PO HS Gastrointestinal issue 06/21/20
fluticasone fur. 100 mcg-umeclid 62.5 mcg-vilant 25 mcg inhalat.powder (Trelegy Ellipta) 1 inh inhalation R DAILY 01/14/24
multivitamin 1 tab PO DAILY 01/14/24
Healthy Feet And Nerves 1 tab PO BID 01/25/24
ipilimumab 50 mg/10 mL (5 mg/mL) intravenous solution (Yervoy) 98.9 mg IV Q6W 03/22/24
nivolumab 40 mg/4 mL intravenous solution (Opdivo) 360 mg IV Q3W 03/22/24
allopurinol 100 mg tablet 200 mg PO DAILY 04/12/24
polyethylene glycol 3350 17 gram oral powder packet (Miralax) 17 g PO DAILYPRN PRN constipation 04/12/24
apixaban 5 mg tablet (Eliquis) 5 mg PO BID 05/24/24
calcium carbonate (Calcium 600) 600 mg PO DAILY 05/24/24
denosumab 120 mg/1.7 mL (70 mg/mL) subcutaneous solution (Xgeva) 120 mg SC Q6W 06/21/24
diphenhydramine HCl 50 mg/30 mL oral liquid (ZzzQuil) 50 mg PO HSPRN PRN sleep 10/18/24
aspirin 81 mg tablet,delayed release 81 mg PO DAILY 12/03/24
benzonatate 100 mg capsule 100 mg PO DAILY 12/03/24
ipratropium 0.5 mg-albuterol 3 mg (2.5 mg base)/3 mL nebulization soln 3 ml inhalation R Q6HPRN PRN sob 12/03/24
loperamide 2 mg tablet 2 mg PO BIDPRN PRN diarrhea 12/03/24
Review of Systems
-
Constitutional: Reports No Symptoms
EENT: Reports No Symptoms
Respiratory: Reports See HPI
Cardiac: Reports No Symptoms
Abdomen/GI: Reports No Symptoms
: Reports See HPI
Musculoskeletal: Reports No Symptoms
Skin: Reports No Symptoms
Neurological: Reports No Symptoms
Endocrine: Reports No Symptoms
Hematologic/Lymphatic: Reports No Symptoms
Psych: Reports No Symptoms
Physical Exam
Vital Signs
Vital Signs
Temp Pulse Resp BP Pulse Ox
99.5 F 139 22 145/89 90
01/01/25 14:38 01/01/25 18:45 01/01/25 18:45 01/01/25 18:30 01/01/25 18:45
Physical Exam
General: Well Developed, Well Nourished, Conversant and Other (SoB with speech , wearing NC O2 )
HEENT: NormoCephalic, Moist mucous membranes and Atraumatic
Respiratory: Clear
Cardiac: S1/S2 and Regular Rhythm; No Murmur or Rub
GI: Soft, Non Tender, Non Distended and Normal Bowel Sounds; No Organomegaly
Rectal: Deferred by Provider
Musculoskeletal: No Clubbing, No Cyanosis and No Edema
Skin: No Rash
Neuro: Nonfocal/grossly intact
Psych: Calm and Intact Judgment/Insight; No Confused or Agitated
Laboratory Results
-
01/01/25 15:39
01/01/25 15:39
Laboratory Results
Lactic Acid Cancelled 01/01/25 18:45
Total Bilirubin 1.0 mg/dl (0.2-1.3) 01/01/25 15:39
AST 46 U/L (17-59) 01/01/25 15:39
ALT 40 U/L (0-50) 01/01/25 15:39
Alkaline Phosphatase 92 U/L (38-126) 01/01/25 15:39
Data Reviewed
-
Diagnostic Radiology: Report Reviewed by me
CT Scan: Report Reviewed by me
Lab Data: Labs Reviewed by me
Impression/Plan
-
Selected Entries
01/01/25
14:38 01/01/25
15:30
Temp 99.5 F
Pulse 144
Resp Rate 22
Blood pressure 148/93
SaO2 88 92
Oxygen Mode of Delivery Room air
Labs
12/21/24 01/01/25
09:23 15:39
WBC 12.5 H 9.9
Hgb 12.8 L 11.6 L
Plt Count 121 L 130
Sodium 131 L
Chloride 96 L
BUN 30 H 25 H
Creatinine 1.3 1.6 H
eGFR 59.84 46.64
Albumin 3.3 L 3.1 L
BCx sent
CXR
1. Large dense airspace consolidation in the peripheral right midlung and moderate airspace opacity in the infrahilar right lung (probably right lower and middle lobes). Given the presence of intermittent fevers and inferiorly rapid interval
development of the opacity since August 2024, SEVERE RIGHT LUNG PNEUMONIA is considered most likely.
2. Mild cardiomegaly.
3. Right IJ chemotherapy Mediport in place.
CT Chest PE Study
1. Large airspace consolidations in the RIGHT UPPER and MIDDLE LOBES with dense peripheral airspace consolidation surrounded by a large amount of ground-glass opacity. Diagnostic possibilities are (1) SEVERE PNEUMONIA, (2) less likely metastatic
disease given the rapid interval development, or (3) less likely radiation pneumonitis.
2. Moderate bronchitis in the right middle and lower lobes.
3. METASTATIC MEDIASTINAL and RIGHT HILAR LYMPHADENOPATHY demonstrating mild interval enlargement since 08/12/2024.
4. Small peripheral band of scarring in the lingula.
5. 5 mm left upper lobe pulmonary nodule (either metastatic or infectious in etiology).
6. Severe calcific atherosclerotic plaque in the coronary arteries and thoracic aorta.
7. Mild splenomegaly.
8. Right IJ chemotherapy Mediport in place.
Last hospitalist admission: Date of Admission: 12/03/24 - Date of Discharge: 12/15/24
Primary diagnoses: Immune mediated colitis/ Acute kidney disease on chronic kidney disease stage 3a
Secondary diagnoses:
None anion gap metabolic acidosis
Hypokalemia
Lung cancer
Chronic obstructive pulmonary disease
Hyperlipidemia
Essential hypertension
Migraine headaches
Chronic heart failure with preserved ejection fraction
h/o left lower extremity DVT in May 2024
ASSESSMENT & PLAN
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
Severe Rt lung PNA presumed HAP
Associated sepsis ( HR 130s, RR> 20 )
Associated with acute on chronic hypoxic RF on NCO2
Afebrile probably due to current PO Prednisone treatmnent
Underlying IV Lung CA
- agree with IV CFP and will add PO Doxycycline in place of PO Augmentin
- f/u BC
- f/u T and WCC
- IV LR @ 80/H
Recurrent passage of rectal bleed
Recent Immune mediated colitis
- on tapering PO Prednisone 40mg daily x 5 days, 20mg daily x 5 days
- T & S
- Clear diet
- GI consult
HX Home 4L NC O2 dependent COPD
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
- BRANCH LENDING MANAGER DuoNeb q6h prn
Lung CA: see's Dr. Zaldivar, states lung CA is stage 4, on immunotherapy
- OP ONC following.
Recent DVT
Eliquis was stopped due to GIB due to colitis
- S/p IVCF placement
HLD:
- cont statin
Essential HTN
- Cont Coreg
Chronic HFpEF
- cont Coreg
Migraine headaches
DVT Px: SQH
DNR per patient in the presence of sposue at bed side
IP TLM
--- NOTE | 2025-01-01 19:00 | EDRN ---
Report received, patient resting with at bedside, waiting on admission orders at this time.
[2025-01-01] MEDS: TYLENOL 650 MG PO (19:54)
--- NOTE | 2025-01-01 19:55 | EDRN ---
Patient into the restroom having an episode of diarrhea, once back in bed hooked back up to the monitor, HR elevated in the 140s, re-checked patients temp 101.0, medicated for fever as ordered and gave cool wash rags for neck and forehead, patient
ambulates without difficulty. Patient and aware he has a bed and will go upstairs shortly
[2025-01-01] MEDS: COREG 25 MG PO (20:58)
[2025-01-01] MEDS: LR 1000 IV (21:40)
[2025-01-01] MEDS: VIBRAMYCIN 100 MG PO (21:41)
[2025-01-01] MEDS: MUCINEX 600 MG PO (21:41)
[2025-01-01] MEDS: HEPARIN 5000 UNITS SC (22:40)
[2025-01-01] MEDS: PRAVACHOL 20 MG PO (22:41)
[2025-01-01] MEDS: DESYREL 200 MG PO (22:41)
[2025-01-02 03:31] VITALS: BP 128/58
[2025-01-02] MEDS: STERILE WATER FOR INJECTION 10 ML IV ×2 (05:34→17:18)
[2025-01-02] MEDS: MAXIPIME 2000 MG IV ×2 (05:35→17:18)
[2025-01-02 06:43] LABS: Hematocrit 28.8 % (39.0-52.0); Hemoglobin 9.7 g/dL (13.0-18.0); Mean Corp Hgb Conc. 33.7 g/dL (33.0-37.0); Mean Corpuscular Hgb 32.6 pg (27.0-31.0); Mean Corpuscular Volume 96.6 fL (80.0-94.0); Mean Platelet Volume 9.1 fL (7.4-10.4); Platelet Count 116 10^3/uL (130-400); Red Blood Cell Count 2.98 10^6/uL (4.70-6.10); Red Cell Dist. Width 14.8 % (11.5-14.5)
[2025-01-02 07:07] VITALS: BP 120/61
[2025-01-02 07:08] LABS: ALT (SGPT) 31 U/L (0-50); AST (SGOT) 31 U/L (17-59); Albumin 2.6 g/dl (3.5-5.0); Alkaline Phosphatase 72 U/L (38-126); Blood Urea Nitrogen 31 mg/dl (9-20); Calcium 7.6 mg/dl (8.4-10.2); Carbon Dioxide 24 mmol/L (22-30); Chloride 101 mmol/L (98-107); Estimated Creatinine Clearance 45 ml/min; Glucose 129 mg/dl (70-99); Potassium 3.9 mmol/L (3.5-5.1); Sodium 134 mmol/L (135-145); Total Bilirubin 0.9 mg/dl (0.2-1.3); Total Protein 5.1 g/dl (6.3-8.2); eGFR 43.37
[2025-01-02] MEDS: SYMBICORT 80/4.5 MCG INHALER 2 PUFF INH ×2 (07:24→19:45)
[2025-01-02] MEDS: SPIRIVA RESPIMAT 2.5 MCG 2 PUFF INH (07:24)
[2025-01-02] MEDS: TYLENOL 650 MG PO (08:20)
[2025-01-02] MEDS: PEPCID 20 MG PO (08:21)
[2025-01-02] MEDS: VIBRAMYCIN 100 MG PO ×2 (08:21→21:14)
[2025-01-02] MEDS: COREG 25 MG PO ×2 (08:22→21:15)
[2025-01-02] MEDS: DELTASONE 30 MG PO (08:23)
[2025-01-02] MEDS: MUCINEX 600 MG PO ×2 (08:23→21:14)
[2025-01-02] MEDS: ZYLOPRIM 200 MG PO (08:23)
[2025-01-02] MEDS: TESSALON PERLES 100 MG PO (08:23)
[2025-01-02] MEDS: HEPARIN 5000 UNITS SC ×2 (08:23→21:18)
[2025-01-02] MEDS: LR 1000 IV (09:16)
--- NOTE | 2025-01-02 09:34 | W.PN.HOSP.TC ---
Today's Communication/Plan
-
see A/P
Assessment / Plan
Assessment / Plan
HPI: 69 yo M Stage IV Lung ca on immunotherapy, COPD with chronic hypoxic resp failure (4L NC at home), chronic HFpEF, HTN, HX DVT 4months ago but due to GIB on last admission Eliquis was stopped, s/p IVC Filter placement; p/w SOB, BURCH with minimal
activity, fever/chills, diarrhea, dizziness, and weakness.
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
Of note, he was recently admitted (discharged 12/15) for immune mediated colitis (bloody diarrhea, weight loss), metabolic acidosis. He was discharged home with steroid taper. He is currently taking prednisone 30 mg daily.
He is currently on immunotherappy for lung CA.
A/P:
# sepsis POA likely 2/2 Rt lung HAP
# Lung cancer stage 4, on immunotherapy
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
Pt was started with Cefepime and doxycycline
Follow blood Cx, check MRSA screen, check COVID/Flu, sputum Cx if able to collect
ID CS due to immune compromised state
# Recurrent rectal bleed with watery diarrhea
# Recent Immune mediated colitis
on tapering PO Prednisone 30mg daily x 5 days, 20 mg x5 days then stop (per )
C diff negative,
Follow stool Cx, Check Norovirus
Clear diet for now
GI consult
# GEORGINA on CKD stage 3
SCr 1.7 today from 1.3 baseline
Cont to monitor SCr
# COPD
# Chronic hypoxic respiratory failure
currently on 4L NC, he is on 4L NC at home
CASE RESOURCE MANAGER Trelegy Ellipta daily
CASE RESOURCE MANAGER DuoNeb q6h prn
# Recent DVT
Eliquis was stopped due to GIB due to colitis
s/p IVC Filter placement
# HLD, on statin
# Essential HTN
# Chronic HFpEF
Cont Coreg with holding parameter
# Migraine headaches
DVT Px: HSQ
DNR per patient in the presence of spouse at bed side
DW at bedside
total time spent 51 min
Anticipated Discharge: > 48 hours
Subjective/Interval History
-
Date of Service: January 02, 2025
Objective Data
-
Labs:
Laboratory Results
01/02/25
06:17
WBC 8.0
Hgb 9.7 L
Hct 28.8 L
Plt Count 116 L
Sodium 134 L
Potassium 3.9
Chloride 101
Carbon Dioxide 24
BUN 31 H
Creatinine 1.7 H
Glucose 129 H
Calcium 7.6 L
Total Bilirubin 0.9
AST 31
ALT 31
Alkaline Phosphatase 72
Vital Signs:
Vital Signs
Temp Pulse Resp BP Pulse Ox
38.4 C H 106 18 120/61 96
01/02/25 07:07 01/02/25 08:22 01/02/25 07:28 01/02/25 08:22 01/02/25 07:28
I&O
01/01/25 01/02/25 01/03/25
06:59 06:59 06:59
Intake Total 480 / 480
Balance 480 / 480
Review of Systems
-
All other systems: Reviewed and negative
Respiratory: Reports Cough
Physical Exam
-
General: Well Developed, Well Nourished, Comfortable, Respiratory Distress (chronic) and Conversant
HEENT: Normocephalic, Atraumatic, Nose Appears Normal, Ears Appear Normal and Oxygen (4L NC)
Respiratory: Crackles (R lung base) and Non Labored Respirations; Negative Accessory Resp Muscle Use
Cardiac: Regular Rhythm and S1/S2
GI: Soft, Nontender, Nondistended and Normal Bowel Sounds
Skin: Warm and Dry
Neuro: Awake, Alert, Oriented and AO x 3
Psych: Calm and Intact Judgement/Insight
Data Reviewed
-
CT Scan: Report Reviewed by me
Labs: Labs Reviewed by me
--- NOTE | 2025-01-02 11:54 | CON.GI ---
Addendum entered and electronically signed by Licha Beach MD 01/02/25 18:41:
The patient was seen and examined by me independently in collaboration with the nurse practitioner.
Past medical history/social history/medications/allergies/family history reviewed.
Lab data and imaging data reviewed.
69-year-old male past medical history of metastatic lung cancer on immunotherapy, DVT on prior Eliquis on hold with filter placed presenting with pneumonia. He had a recent admission December 05 to December 15 with immune mediated colitis requiring
steroids and 1 dose of Remicade. Plan was to follow-up with oncology Dr. Zaldivar outpatient regarding repeat dosing of Remicade if necessary.
Last Thursday he went to his primary care doctor and was having a lot of green mucus and was started on Augmentin. 2 days ago, his bowel movements increased with 10 bowel movements a day that were not liquid at that time. The next day, he had 5
loose bowel movements 1 with blood. Today, he is only had 2 small bowel movements. He is currently titrated down to 30 mg of prednisone. He also was having confusion and high fevers with pneumonia.
Given his pneumonia and his improvement in his diarrhea, I would be hesitant to increase his steroids or give another dose of infliximab as these are both immunosuppressants. We will continue to monitor him.
He has a PET scan scheduled January 05 and appointment January [address] Zaldivar to discuss next steps. I appreciate oncology's input. Discussing with the GI doctor who took care of him last admission and reviewing his notes, the plan was for oncology to
follow him for his immune mediated colitis outpatient.
Original Note:
Consultation
-
Date/Time Consultation Requested: 01/01/25 2250
Date/Time Consultation Performed: 01/02/25 1150
Requesting Provider: CONCEPCION Nielsen
Performing Provider: CONCEPCION Valles, Sheryl Beach MD
Reason for Consultation: diarrhea, weakness, shortness of breath
Medical History
Chief Complaint / HPI
Chief Complaint: bloody diarrhea
History of Present Illness:
69-year-old male with past medical history of metastatic lung CA on prior Opdivo and Yervoy, left lower extremity DVT on prior Eliquis but has been on hold with GI issues and filter place 12/12 , COPD, hyperlipidemia, hypertension, migraines, chronic
heart failure, CKD, colon polyps (colonoscopy 2009) with recent admission 12/03- 12/15 with blood diarrhea and wt loss and neg stool studies with concern for immune mediated colitis with GEORGINA, metabolic acidosis. During that admission pt completed
colonoscopy 12/06/[address] Dubose with noted Decreased mucosa vascular pattern in the terminal ileum. Biopsied. Diffuse mild mucosal changes were found in the entire examined colon secondary to colitis. Biopsied. Diverticulosis in the
sigmoid colon. path noted neg CMV, active ileitis, colitis and proctitis with concern for infection vs drug induced vs early IBD. Pt was started on high dose steroids then given dose of 900mg of Remicade on 12/13 with taper of steroids after
discharge. He admits after Remicade stool function improved with form. He initially did not feel well with high dose steroids and drop with plan to go to 30mg daily. He was doing well then about 1 week ago developed cough with green mucous with
fever and weakness. He was placed on Augmentin course. He noted over the week increased stool frequency and on admission return of loose liquid stool with blood. He admits to some wt gain on discharge then loss last few days. he denies issues
with odynophagia, nausea, vomiting, abdominal pain, constipation or black stools. On admission noted with hbg 11.6 then drop to 9.7, platelets 116, Na 134, BUN 31, creat 1.7, glucose 129. Pt is due follow up 01/09 with oncology to discuss further
therapy.
Past Medical History
Past Medical History: Other (Metastatic lung cancer with immune therapy and immune mediated colitis, left lower extremity DVT with IVC filter, COPD, hyperlipidemia, hypertension, migraines, chronic heart failure with preserved EF, CKD, colon
polyps, third-degree castro on abdomen as a child)
Past Surgical History: Other (bronchoscopy)
Social History
Tobacco: Former Smoker
Alcohol: Occasional (Proximately 1 to 4 ounces alcohol a week)
Drug: None
Personal:
Living: With Family
Employment: Retired
Family History
Family History: Other (Brother with history of throat cancer, sister with history of liver cancer, no other family of gastrointestinal malignancies or IBD)
Allergies / Home Medications
Allergy/AdvReac Type Severity Reaction Status Date / Time
No Known Allergies Allergy Verified 12/03/24 13:11
�Medication �Instructions �Recorded
albuterol sulfate 90 mcg/actuation 2 puff inhalation R Q4HPRN PRN sob 10/06/11
aerosol inhaler
carvedilol 25 mg tablet (Coreg) 25 mg PO BID Heart 02/23/19
disease/condition
trazodone 100 mg tablet 200 mg PO HS Mental Health/Anxiety 02/23/19
guaifenesin 600 mg tablet, 600 mg PO BID Cough 06/21/20
extended release 12 hr (Mucus
Relief ER)
icosapent ethyl 1 gram capsule 2 gm PO BID High cholesterol 06/21/20
(Vascepa)
pravastatin 20 mg tablet 20 mg PO HS Gastrointestinal issue 06/21/20
fluticasone fur. 100 mcg-umeclid 1 inh inhalation R DAILY 01/14/24
62.5 mcg-vilant 25 mcg Lung/Breathing Issues
inhalat.powder (Trelegy Ellipta)
multivitamin 1 tab PO DAILY Supplement 01/14/24
Healthy Feet And Nerves 1 tab PO BID 01/25/24
allopurinol 100 mg tablet 200 mg PO DAILY Gout 04/12/24
calcium carbonate (Calcium 600) 600 mg PO DAILY Supplement 05/24/24
benzonatate 100 mg capsule 100 mg PO DAILY Cough 12/03/24
ipratropium 0.5 mg-albuterol 3 mg 3 ml inhalation R Q6HPRN PRN sob 12/03/24
(2.5 mg base)/3 mL nebulization
soln
famotidine 40 mg tablet 40 mg PO DAILY #30 tabs 12/15/24
acetaminophen 325 mg tablet 650 mg PO Q6HPRN PRN fever 01/01/25
(Tylenol)
amoxicillin 500 mg-potassium 1 tab PO BID Infection 01/01/25
clavulanate 125 mg tablet
(Augmentin)
prednisone 20 mg tablet 80 mg PO DIRECTED 01/01/25
Anti-Inflammatory
Review of Systems
-
History Source: Patient and Family
Constitutional: Reports Fever and Weight Loss (wt loss last admission then gain at home and further loss last few days )
EENT: Reports No Symptoms
Respiratory: Reports No Symptoms
Cardiac: Reports No Symptoms
Abdomen/GI: Reports Diarrhea and Bloody Stools
: Reports No Symptoms
Neurological: Reports Weakness
Vital Signs
Temp Pulse Resp BP Pulse Ox
101.1 F H 106 18 120/61 96
01/02/25 07:07 01/02/25 08:22 01/02/25 07:28 01/02/25 08:22 01/02/25 09:47
Physical Exam
Exam
General: Well Developed, Well Nourished and Other (pale but conversant )
HEENT: Normocephalic and Anicteric
Respiratory: Other (decreased bases on 4 liters O2 )
Cardiac: Other (tachy)
GI: Soft, Non Distended and Distended
Rectal: Other (liquid bloody stools per staff )
Musculoskeletal: No Clubbing and No Cyanosis
Skin: Warm and Dry
Neuro: Awake, Alert and AO x 3
Psych: Calm
Results
WBC 8.0 10^3/uL (4.8-10.8) 01/02/25 06:17
Hgb 9.7 g/dL (13.0-18.0) L 01/02/25 06:17
Hct 28.8 % (39.0-52.0) L 01/02/25 06:17
MCV 96.6 fL (80.0-94.0) H 01/02/25 06:17
Plt Count 116 10^3/uL (130-400) L 01/02/25 06:17
Absolute Neuts (auto) 8.0 10^3/uL (1.4-6.5) H 01/01/25 15:39
Sodium 134 mmol/L (135-145) L 01/02/25 06:17
Potassium 3.9 mmol/L (3.5-5.1) 01/02/25 06:17
Chloride 101 mmol/L (98-107) 01/02/25 06:17
Carbon Dioxide 24 mmol/L (22-30) 01/02/25 06:17
BUN 31 mg/dl (9-20) H 01/02/25 06:17
Creatinine 1.7 mg/dL (0.7-1.3) H 01/02/25 06:17
Calcium 7.6 mg/dl (8.4-10.2) L 01/02/25 06:17
Total Bilirubin 0.9 mg/dl (0.2-1.3) 01/02/25 06:17
AST 31 U/L (17-59) 01/02/25 06:17
ALT 31 U/L (0-50) 01/02/25 06:17
Alkaline Phosphatase 72 U/L (38-126) 01/02/25 06:17
Diagnostic Image Results:
11/17/24 CT A/p
1. No acute findings within the abdomen or pelvis. No evidence for hydronephrosis or objective uropathy. Linear calcification within the midpole of the right kidney measuring 7 mm favored to represent a vascular calcification. No definitive
nephroliths identified.
2. Interval improvement/resolution of pleural-based area of consolidation within the posterior left lower lobe which showed FDG body on prior PET scan. Partially imaged mass within the central right lower lobe/infrahilar region as well as several
satellite nodules within the right lower lobe. Questionable increase in size of a nodule within the medial right lower lobe measuring 16 mm.
3. No evidence for metastatic disease within the abdomen or pelvis.
4. Extensive sigmoid diverticulosis. Unremarkable appendix.
5. Heavily calcified, normal caliber abdominal aorta.
6. Additional findings above.
Prior GI Procedures:
EGD: Never
Colonoscopy: 2009 (Dr. Dorman) - The examined portion of the ileum was normal.
- One 4 mm polyp in the proximal ascending colon.
Resected and retrieved.
- One 5 mm polyp in the proximal transverse colon.
Resected and retrieved.
- One 4 mm polyp in the mid transverse colon. Resected
and retrieved.
- One 6 mm polyp in the distal transverse colon.
Resected and retrieved.
- Two 3 to 6 mm polyps at 40 cm proximal to the anus.
Resected and retrieved.
- One 4 mm polyp at 25 cm proximal to the anus. Resected
and retrieved.
- Diverticulosis descending colon, transverse colon and
ascending colon.
- Diverticulosis sigmoid colon.
- Non-bleeding external hemorrhoids.
- Rectal exam revealed enlarged prostate
colonoscopy 12/06/[address] Dubose with noted Decreased mucosa vascular pattern in the terminal ileum. Biopsied. Diffuse mild mucosal changes were found in the entire examined colon secondary to colitis. Biopsied. Diverticulosis in the
sigmoid colon. path noted neg CMV, active ileitis, colitis and proctitis with concern for infection vs drug induced vs early IBD.
Assessment / Plan
-
69-year-old male with past medical history of metastatic lung CA on prior Opdivo and Yervoy, left lower extremity DVT on prior Eliquis but has been on hold with GI issues and filter place 12/12 , COPD, hyperlipidemia, hypertension, migraines, chronic
heart failure, CKD, colon polyps (colonoscopy 2009) with recent admission 12/03- 12/15 with blood diarrhea and wt loss and neg stool studies with concern for immune mediated colitis with GEORGINA, metabolic acidosis. During that admission pt completed
colonoscopy 12/06/[address] Dubose with noted Decreased mucosa vascular pattern in the terminal ileum. Biopsied. Diffuse mild mucosal changes were found in the entire examined colon secondary to colitis. Biopsied. Diverticulosis in the
sigmoid colon. path noted neg CMV, active ileitis, colitis and proctitis with concern for infection vs drug induced vs early IBD. Pt was started on high dose steroids then given dose of 900mg of Remicade on 12/13 with taper of steroids after
discharge. He admits after Remicade stool function improved with form. He initially did not feel well with high dose steroids and drop with plan to go to 30mg daily. He was doing well then about 1 week ago developed cough with green mucous with
fever and weakness. He was placed on Augmentin course. He noted over the week increased stool frequency and on admission return of loose liquid stool with blood. He admits to some wt gain on discharge then loss last few days. he denies issues
with odynophagia, nausea, vomiting, abdominal pain, constipation or black stools. On admission noted with hbg 11.6 then drop to 9.7, platelets 116, Na 134, BUN 31, creat 1.7, glucose 129. Pt is due follow up 01/09 with oncology to discuss further
therapy.
--hx metastatic lung CA with recent immunotherapy
-recent admission 12/03- 12/15 with concern pancolitis for immunotherapy related colitis s/p Remicade 12/13 and high dose steroids with taper
-recurrent blood diarrhea
-anemia
-fever
-recent shortness of breath and greenish mucous with Augmentin course
other med problems:
-Lower ext DVT on Eliquis
-COPD- chronic 4 liter O2
-hyperlipidemia
-HTN
-migraines
-chronic heart failure
-CKD
-colon polyps
PLAN:
etiology of diarrhea with bleeding related to continued immuno related colitis vs infectious vs other
c-diff- stool cx, norovirus pending, will add Giardia/crypto
agree with ID consult as still with fever
cont abx per ID cont Maxipime, Doxycycline
if not improving consider repeat CT
remains on Prednisone 30mg daily will review doing with Dr. Beach and may need to consider further Remicade dosing
prior hepatitis and TB negative
cont Pepcid daily with steroids use
cont clear diet
family updated at bedside
-
-
Thank you for consultation and allowing me to participate in the patient's care. Please call the alkylation operator GI physician during the after hours with any questions or concerns.
--- NOTE | 2025-01-02 11:57 | PTCARENOTE ---
Patient on tele.Hr elevated in 150's while pt ambulating. Denies Chest pain, sob and dizziness. Dr. Simms made aware. will order Lopressor prn. Plan of care ongoing. call call within reach. at bedside.
[2025-01-02 12:00] VITALS: BP 114/66
[2025-01-02 13:50] LABS: COVID-19 Antigen Negative (Negative)
--- NOTE | 2025-01-02 13:55 | CM ---
CM following re: discharge planning.
Reviewed pt's chart, met with pt and pt's spouse at bedside.
pt is a 69 year old male, admitted with primary dx of PNA. PMH includes: Stage IV Ca Lung, on immunotherapy, home 4 L O2 depedent COPD, chr HFpEF, HTN, HX DVT
Pt resides with his in a 1 story house with 5 steps at entrance. Pt described himself as independent in all areas [employer], does not use any mobile devices, has home O2
PCP - Darrius Carter
Pharmacy - [address], [place]
D/C plan: home with anticipated no needs. Spouse to transport at discharge.
CM will follow with discharge plan updates as hospitalization progresses
--- NOTE | 2025-01-02 14:53 | CON.ONC ---
Consultation
-
Date Consultation Requested: 01/02/25
Date Consultation Performed: 01/02/25
Requesting Provider: Dr. Hector Campbell
Performing Provider: Dr. Vivas
Reason for Consultation: NSCLC
Impression
Impression
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
History of left lower extremity DVT 05/31, DOAC on hold for GIB, IVC placed 12/12
PNA
GEORGINA
COPD
Plan
Plan
abx per primary service
GI following -f/u stool cultures & C. diff, to consider add'l Remicade
will consider resumption of DOAC and removal of IVC outpatient once risk of recurrent bleeding with colitis resolves
OP follow up with Dr. Zaldivar after PET to determine next steps in treatment, has follow up 01/09/2025
Patient History
History of Present Illness
69yo M with IV lung cancer on immunotherapy presented with SOB, BURCH, fever, chills, diarrhea, and weakness. He was recently hospitalized 12/03/2024 - with ICI colitis for which he was treated with s/p infliximab on 12/13 and has tapered
steroids to prednisone 30mg daily. Due to bloody diarrhea OAC has been held and IVC filter was placed. He developed a cough with green productive sputum last Thursday and started a course of Augmentin for suspected PNA. Since starting Augmentin, he
has noticed increased stool output, now with loose liquid stools with blood. Admission labs were notable for Hgb~ 11.6, platelets 116, BUN 31, creat 1.7. CT chest shows RUL and RML with dense peripheral airspace consolidation surrounded by a large
amount of ground-glass opacity suspicious for severe PNA with moderate bronchitis. He has been admitted, started on IVF, and IV abx.
In brief, he was diagnosed with NSCLC January 2024 which was has been on treatment with carbo, Alimta, Opdivo and Yervoy and now on Opdivo/Yervoy with good tolerance until now November 2024 wheh he developed ICI colitis. His most recent restaging shows
good response to therapy and he is due for restaging this month.
Tmax 101.1F, no hypotension, 4L NC
Past-Medical/Surgical History
PMH COPD, OCA, HTN, migraine, cardiomyopathy, restrictive lung disease, obesity, CKD, LLE DVT
PSH biopsy
Social former smoker, denies ETOH or recreational drugs. Retired, lives with
Patient Medication
�Medication �Instructions �Recorded �Confirmed �Last Taken �Type
albuterol sulfate 90 mcg/actuation 2 puff inhalation R Q4HPRN PRN sob 10/06/11 01/01/25 07/04/24 History
aerosol inhaler
carvedilol 25 mg tablet (Coreg) 25 mg PO BID Heart 02/23/19 01/01/25 12/31/24 History
disease/condition
trazodone 100 mg tablet 200 mg PO HS Mental Health/Anxiety 02/23/19 01/01/25 12/31/24 History
guaifenesin 600 mg tablet, 600 mg PO BID Cough 06/21/20 01/01/25 12/31/24 History
extended release 12 hr (Mucus
Relief ER)
icosapent ethyl 1 gram capsule 2 gm PO BID High cholesterol 06/21/20 01/01/25 12/31/24 History
(Vascepa)
pravastatin 20 mg tablet 20 mg PO HS Gastrointestinal issue 06/21/20 01/01/25 12/31/24 History
fluticasone fur. 100 mcg-umeclid 1 inh inhalation R DAILY 01/14/24 01/01/25 12/31/24 History
62.5 mcg-vilant 25 mcg Lung/Breathing Issues
inhalat.powder (Trelegy Ellipta)
multivitamin 1 tab PO DAILY Supplement 01/14/24 01/01/25 12/31/24 History
Healthy Feet And Nerves 1 tab PO BID 01/25/24 01/01/25 12/31/24 History
allopurinol 100 mg tablet 200 mg PO DAILY Gout 04/12/24 01/01/25 12/31/24 History
calcium carbonate (Calcium 600) 600 mg PO DAILY Supplement 05/24/24 01/01/25 12/31/24 History
benzonatate 100 mg capsule 100 mg PO DAILY Cough 12/03/24 01/01/25 12/31/24 History
ipratropium 0.5 mg-albuterol 3 mg 3 ml inhalation R Q6HPRN PRN sob 12/03/24 01/01/25 11/26/24 History
(2.5 mg base)/3 mL nebulization
soln
famotidine 40 mg tablet 40 mg PO DAILY #30 tabs 12/15/24 01/01/25 12/31/24 Rx
acetaminophen 325 mg tablet 650 mg PO Q6HPRN PRN fever 01/01/25 01/01/25 12/31/24 History
(Tylenol)
amoxicillin 500 mg-potassium 1 tab PO BID Infection 01/01/25 01/01/25 12/31/24 History
clavulanate 125 mg tablet
(Augmentin)
prednisone 20 mg tablet 80 mg PO DIRECTED 01/01/25 01/01/25 12/31/24 History
Anti-Inflammatory 30 mg
Active Medications
Generic Name Dose Route Start Last Admin
Trade Name Freq PRN Reason Stop Dose Admin
Acetaminophen 650 mg 01/01/25 19:48 01/02/25 08:20
Acetaminophen 325 Mg Tablet PO 01/29/25 19:47 650 mg
Q6HPRN PRN Administration
fever
Albuterol 2 puff 01/01/25 20:40
Albuterol Hfa [90 Mcg/Dose] Inhaler INH
R Q4HPRN PRN
sob
Protocol
Albuterol/Ipratropium 3 ml 01/01/25 20:40
Ipratropium 0.5/Albuterol 3 Mg (3 Ml Ampul) INH
R Q6HPRN PRN
sob
Protocol
Allopurinol 200 mg 01/02/25 08:00 01/02/25 08:23
Allopurinol 100 Mg Tablet PO 01/30/25 07:59 200 mg
DAILY AMAURI Administration
Benzonatate 100 mg 01/02/25 08:00 01/02/25 08:23
Benzonatate 100 Mg Capsule PO 01/30/25 07:59 100 mg
DAILY AMAURI Administration
Budesonide/Formoterol Fumarate 2 puff 01/02/25 08:00 01/02/25 07:24
Symbicort Inhaler 80/4.5 INH 01/30/25 07:59 2 puff
R BID AMAURI Administration
Protocol
Carvedilol 25 mg 01/01/25 20:40 01/02/25 08:22
Carvedilol 25 Mg Tablet PO 01/29/25 20:39 25 mg
BID AMAURI Administration
Cefepime HCl 2,000 mg 01/02/25 06:00 01/02/25 05:35
Cefepime Hcl 2,000 Mg/12.5 Ml Vial IV 2,000 mg
Q12H AMAURI Administration
Doxycycline Hyclate 100 mg 01/01/25 20:40 01/02/25 08:21
Doxycycline 100 Mg Capsule PO 100 mg
Q12 AMAURI Administration
Famotidine 20 mg 01/02/25 08:00 01/02/25 08:21
Famotidine 20 Mg Tablet PO 01/30/25 07:59 20 mg
DAILY AMAURI Administration
Guaifenesin 600 mg 01/01/25 20:40 01/02/25 08:23
Guaifenesin 600 Mg Extended Release Tablet PO 01/29/25 20:39 600 mg
BID AMAURI Administration
Heparin Sodium 5,000 units 01/01/25 20:40 01/02/25 08:23
Heparin 5,000 Units/Ml 1 Ml Vial SC 01/29/25 20:39 5,000 units
Q12 AMAURI Administration
Metoprolol Tartrate 5 mg 01/02/25 11:57
Metoprolol 5 Mg/5 Ml Vial IV 01/30/25 11:56
Q4HPRN PRN
HR > 120
Icosapent Ethyl [ 0 gm 01/02/25 17:00
Vascepa] 1 Gm PO 01/30/25 16:59
Capsule: Two Caps ( BID AT 0800,1700 AMAURI
2g) Po Bid
Pravastatin Sodium 20 mg 01/01/25 22:00 01/01/25 22:41
Pravastatin 20 Mg Tablet PO 01/29/25 21:59 20 mg
HS AMAURI Administration
Prednisone 30 mg 01/02/25 10:01
Prednisone 20 Mg Tablet PO 01/09/25 07:59
DAILY AMAURI
Taper
Sodium Chloride 0 flush 01/01/25 21:00
Sodium Chloride 0.9% (Flush) Syringe IV 01/29/25 20:59
PER PROTOCOL AMAURI
Sterile Water 10 ml 01/02/25 06:00 01/02/25 05:34
Sterile Water For Injection 10 Ml Vial IV 01/30/25 05:59 10 ml
Q12H AMAURI Administration
Tiotropium Bluebell 2 puff 01/02/25 08:00 01/02/25 07:24
Tiotropium (Spiriva Respimat) 2.5 Mcg Inhaler INH 01/30/25 07:59 2 puff
R DAILY AMAURI Administration
Protocol
Trazodone HCl 200 mg 01/01/25 22:00 01/01/25 22:41
Trazodone 100 Mg Tablet PO 01/29/25 21:59 200 mg
HS AMAURI Administration
Review of Systems
-
ROS is notable for HPI, otherwise unremarkable
Physical Exam
-
General: Well Developed and No Apparent Distress
HEENT: Moist Mucous Membranes; Negative Jaundice
Cardiology: Normal Sinus Rhythm
Pulmonary: Clear
GI: Soft
Extremities: Pulses Present and Edema (trace ankle edema)
Neurology: Non Focal
Skin: Warm
Psych: Calm
Labs
Lab Results
WBC 8.0 10^3/uL (4.8-10.8) 01/02/25 06:17
RBC 2.98 10^6/uL (4.70-6.10) L 01/02/25 06:17
Hgb 9.7 g/dL (13.0-18.0) L 01/02/25 06:17
Hct 28.8 % (39.0-52.0) L 01/02/25 06:17
MCV 96.6 fL (80.0-94.0) H 01/02/25 06:17
MCH 32.6 pg (27.0-31.0) H 01/02/25 06:17
MCHC 33.7 g/dL (33.0-37.0) 01/02/25 06:17
RDW 14.8 % (11.5-14.5) H 01/02/25 06:17
Plt Count 116 10^3/uL (130-400) L 01/02/25 06:17
MPV 9.1 fL (7.4-10.4) 01/02/25 06:17
Abs Immat Gran (auto) 0.1 10^3/uL (0-0.05) H 01/01/25 15:39
Absolute Neuts (auto) 8.0 10^3/uL (1.4-6.5) H 01/01/25 15:39
Absolute Lymphs (auto) 1.2 10^3/uL (1.2-3.4) 01/01/25 15:39
Absolute Monos (auto) 0.5 10^3/uL (0.1-0.6) 01/01/25 15:39
Absolute Eos (auto) 0.0 10^3/uL (0-0.7) 01/01/25 15:39
Absolute Basos (auto) 0.0 10^3/uL (0-0.2) 01/01/25 15:39
Immature Gran % 1.0 % (0-0.5) H 01/01/25 15:39
Neutrophils % 81.4 % (42.2-75.2) H 01/01/25 15:39
Lymphocytes % 12.2 % (20.5-51.1) L 01/01/25 15:39
Monocytes % 4.7 % (1.7-9.3) 01/01/25 15:39
Eosinophils % 0.3 % (0-6) 01/01/25 15:39
Basophils % 0.4 % (0-2) 01/01/25 15:39
Creatinine 1.7 mg/dL (0.7-1.3) H 01/02/25 06:17
Vital Signs
Vital Signs
Temp Pulse Resp BP Pulse Ox
98.0 F 89 18 114/66 95
01/02/25 12:00 01/02/25 12:00 01/02/25 12:00 01/02/25 12:00 01/02/25 12:00
[2025-01-02 15:33] VITALS: BP 130/75
--- NOTE | 2025-01-02 16:32 | CON.ID ---
Consultation
-
Date/Time Consultation Requested: 01/02/2025 1004
Date/Time Consultation Performed: 01/02/2025 1615
Requesting Provider: Dr. Simms
Performing Provider: Dr. Khan
Reason for Consultation: Fever
Chief Complaint / Past History
History of Present Illness
Gaudencio Avila is a 69-year-old man being evaluated at the request of Dr. Simms in regards to PNA. History is obtained from chart review, along with patient interview. Additional history was obtained from the patient's who was at the
bedside. The patient is known to the Infectious Disease service, having been seen earlier this month for diarrhea. Ultimately, his loose stool was felt to be secondary to immune mediated colitis, and he was placed on a steroid taper.
He presents back to the ER 01/01 secondary to shortness of breath, dyspnea on exertion, along with fevers, chills and loose stool. According to the , the patient had developed a progressive cough with greenish sputum approximately 1 week ago.
He had been evaluated by his physician and placed on a course of Augmentin. notes that the quality of sputum diminished, and it did not appear as yellowish anymore, but he continued to feel unwell and have fevers. Over the last day or so she
reports that he had complained of dizziness and he appeared 'glassy eyed'.
Once here in the ER keerthi notes that he had watery stool, with 1 episode of what appeared to be bloody stool. Since admission, though, the quality of stool has improved. At present, he notes that he feels extremely tired, fatigued and 'worn out'.
At present, he denies any cough or sputum production. He denies any pain.
Since admission, he has had temperatures to 101.1 degrees.
Past History
Additional Past Medical History:
Lungs CA; on Opdivo and Yervoy
COPD
Dyslipidemia
HTN
Migraines
CHF
CKD 3A
Additional Past Surgical History:
Right ACW Port-A-Cath (02/2024)
Right TKR
STSG to the abdomen (as a child secondary to castro)
Allergy History:
No Known Allergies Allergy (Verified 12/03/24 13:11)
Medications Reviewed: Yes
Current Antibiotics:
Cefepime 2 gm IV q 12h
Doxy 100 mg po q 12
Social History
Tobacco: Non-Smoker
Alcohol: Occasional
Drug: None
Personal:
Living: With Family
Employment: Retired
Family History
Family History: Not Pertinent
Review of Systems
Vital Signs
Temp Pulse Resp BP Pulse Ox
98.2 F 87 17 130/75 95
01/02/25 15:33 01/02/25 15:33 01/02/25 15:33 01/02/25 15:33 01/02/25 15:33
Physical Exam
Physical Exam
Constitutional: Comfortable, Chronically Ill and Non-toxic
Head: Normocephalic
Eyes: Pupils Equal, Pupils Round, No Conjunctival Hemorrhage and Sclera Anicteric
Oral: No Thrush and No Ulcers
Cardiovascular: S1/S2; Negative S3/S4
Pulmonary: Non Labored and Other (on 4L O2)
Gastrointestinal: Soft, Non Tender, Non Distended and Normal Bowel Sounds
Extremities: Negative Cyanosis or Erythema
Neurological: Awake and Alert
Psychological: Calm
Lines: Port (Right ACW; no erythema/tenderness)
Lab / Diagnostic Study Results
01/02/25 06:17
01/02/25 06:17
Abs Immat Gran (auto) 0.1 10^3/uL (0-0.05) H 01/01/25 15:39
Absolute Neuts (auto) 8.0 10^3/uL (1.4-6.5) H 01/01/25 15:39
Absolute Lymphs (auto) 1.2 10^3/uL (1.2-3.4) 04/27/25 15:39
Absolute Monos (auto) 0.5 10^3/uL (0.1-0.6) 01/01/25 15:39
Absolute Basos (auto) 0.0 10^3/uL (0-0.2) 01/01/25 15:39
Immature Gran % 1.0 % (0-0.5) H 01/01/25 15:39
Neutrophils % 81.4 % (42.2-75.2) H 01/01/25 15:39
Lymphocytes % 12.2 % (20.5-51.1) L 01/01/25 15:39
Monocytes % 4.7 % (1.7-9.3) 01/01/25 15:39
Eosinophils % 0.3 % (0-6) 01/01/25 15:39
Basophils % 0.4 % (0-2) 01/01/25 15:39
Lactic Acid Cancelled 01/01/25 18:45
Microbiology Results
Micro:
01/01/25 15:39 Blood Culture - Preliminary
Blood/Venous No Growth in 24 hours- Final report to follow
01/01/25 16:39 Cryptosporidium/Giardia - Final
Feces/Stool Negative for Cryptosporidium and/or Giardia Lamblia
antigens.
C. difficile GDH Antigen & Toxins - Final
Negative for toxigenic C.difficile
- Final
Negative for Norovirus GI and GII.
01/02/25 13:20 Influenza Types A & B (JACOB) - Final
Nasal Swab Negative for Influenza A & B, NAAT
Negative results must be combined with clinical observations
and patient history.
Nucleic Acid Amplification test (NAAT)performed on the
[employer] platform.
01/02/25 13:20 MRSA Screen - Pending
Nose
01/01/25 16:39 Salmonella/Shigella Culture - Pending
Feces/Stool Campylobacter Culture - Pending
Shiga Toxin Test - Pending
01/01/25 16:25 Blood Culture - Pending
Blood/Venous
Imaging:
01/01/2025 CT Chest (PE study): Large airspace consolidations in the right upper and middle lobes with dense peripheral airspace consolidation surrounded by a large amount of groundglass opacity. Metastatic medial and right hilar lymphadenopathy
with mild interval enlargement from 08/12/2024. Small peripheral band of scarring in the lingula. Please see full dictation for additional detail.
Assessment / Plan
Fever
Pneumonia
Diarrhea
Fatigue
Lungs CA; on Opdivo and Yervoy
COPD
Dyslipidemia
HTN
Migraines
CHF
CKD 3A
Recommendations:
Continue cefepime for now. Atypical PNA less likely, can therefore discontinue further doxycycline.
Await sputum culture. Order placed, but patient has not produced sample as of yet.
Follow white count and temperature curve.
Follow O2 requirements.
Serial CXR to follow infiltrates
Follow stool output and consistancy. Some of the prior loose stool may have been secondary to Augmentin.
[2025-01-02] MEDS: NON-FORMULARY ITEM 2 GM PO (17:19)
[2025-01-02 19:20] VITALS: BP 138/80
[2025-01-02] MEDS: PRAVACHOL 20 MG PO (21:14)
[2025-01-02] MEDS: DESYREL 200 MG PO (21:14)
[2025-01-02 23:10] VITALS: BP 108/71
[2025-01-03 03:16] VITALS: BP 133/73
[2025-01-03] MEDS: MAXIPIME 2000 MG IV ×2 (05:31→17:11)
[2025-01-03] MEDS: STERILE WATER FOR INJECTION 10 ML IV ×2 (05:31→17:11)
[2025-01-03 06:33] LABS: Hematocrit 26.8 % (39.0-52.0); Hemoglobin 9.1 g/dL (13.0-18.0); Mean Corpuscular Hgb 32.5 pg (27.0-31.0); Mean Corpuscular Volume 95.7 fL (80.0-94.0); Mean Platelet Volume 9.3 fL (7.4-10.4); Platelet Count 123 10^3/uL (130-400); Red Cell Dist. Width 14.4 % (11.5-14.5); White Blood Cell Count 6.5 10^3/uL (4.8-10.8)
[2025-01-03 07:09] LABS: Blood Urea Nitrogen 34 mg/dl (9-20); Calcium 7.7 mg/dl (8.4-10.2); Carbon Dioxide 23 mmol/L (22-30); Chloride 104 mmol/L (98-107); Estimated Creatinine Clearance 55 ml/min; Glucose 124 mg/dl (70-99); Magnesium 2.3 mg/dl (1.6-2.3); Potassium 3.7 mmol/L (3.5-5.1); Sodium 137 mmol/L (135-145); eGFR 54.75
[2025-01-03 07:15] VITALS: BP 125/76
[2025-01-03] MEDS: SYMBICORT 80/4.5 MCG INHALER 2 PUFF INH ×2 (07:39→19:20)
[2025-01-03] MEDS: SPIRIVA RESPIMAT 2.5 MCG 2 PUFF INH (07:40)
[2025-01-03] MEDS: MUCINEX 600 MG PO ×2 (08:43→19:43)
[2025-01-03] MEDS: VIBRAMYCIN PO (08:43)
[2025-01-03] MEDS: HEPARIN 5000 UNITS SC ×2 (08:43→19:44)
[2025-01-03] MEDS: PEPCID 20 MG PO (08:44)
[2025-01-03] MEDS: DELTASONE 30 MG PO (08:44)
[2025-01-03] MEDS: COREG 25 MG PO ×2 (08:44→19:43)
[2025-01-03] MEDS: NON-FORMULARY ITEM 2 GM PO ×2 (08:44→17:11)
[2025-01-03] MEDS: TESSALON PERLES 100 MG PO (08:44)
[2025-01-03] MEDS: ZYLOPRIM 200 MG PO (08:44)
--- NOTE | 2025-01-03 09:25 | W.PN.ONC2 ---
Today's Communication / Plan
-
.
Impression
Impression
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 Stool negative for cryptosporidium/Giardia, C.diff, norovirus
History of left lower extremity DVT 05/31, DOAC on hold for GIB, IVC placed 12/12
PNA
GEORGINA
COPD
Plan
Plan
abx per primary service
GI following - to consider add'l Remicade
will consider resumption of DOAC and removal of IVC outpatient once risk of recurrent bleeding with colitis resolves
OP follow up with Dr. Zaldivar after PET to determine next steps in treatment, has follow up 01/09/2025
at bedside provided updates and questions answered
Subjective/Objective
Subjective
3 loose BM overnight, no bleeding
Vital Signs:
Vital Signs
Temp Pulse Resp BP Pulse Ox
97.5 F 82 15 125/76 97
01/03/25 07:15 01/03/25 08:44 01/03/25 07:44 01/03/25 08:44 01/03/25 07:44
Lab Results:
Laboratory Data
WBC 6.5 10^3/uL (4.8-10.8) 01/03/25 05:25
Hgb 9.1 g/dL (13.0-18.0) L 01/03/25 05:25
Plt Count 123 10^3/uL (130-400) L 01/03/25 05:25
eGFR 54.75 01/03/25 05:25
Physical Exam
HEENT: Moist Mucous Membranes; No Jaundice
Cardiology: Normal Sinus Rhythm
Pulmonary: Clear
GI: Soft
Extremities: Pulses Present; No Edema
Neuro: Non Focal
[2025-01-03 11:10] VITALS: BP 128/72
--- NOTE | 2025-01-03 11:42 | W.PN.HOSP.TC ---
Addendum entered and electronically signed by Dia Simms MD 01/03/25 14:04:
# Hyponatremia, resolved
Original Note:
Today's Communication/Plan
-
see A/P
Assessment / Plan
Assessment / Plan
HPI: 69 yo M Stage IV Lung ca on immunotherapy, COPD with chronic hypoxic resp failure (4L NC at home), chronic HFpEF, HTN, HX DVT 4months ago but due to GIB on last admission Eliquis was stopped, s/p IVC Filter placement; p/w SOB, BURCH with minimal
activity, fever/chills, diarrhea, dizziness, and weakness.
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
Of note, he was recently admitted (discharged 12/15) for immune mediated colitis (bloody diarrhea, weight loss), metabolic acidosis. He was discharged home with steroid taper. He is currently taking prednisone 30 mg daily.
He is currently on immunotherappy for lung CA.
A/P:
# sepsis POA likely 2/2 R lung HAP
# Lung cancer stage 4, on immunotherapy
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
Cont Cefepime per ID, discontinued doxycycline
blood Cx so far negative
Follow MRSA screen,
COVID/Flu tests negative, check sputum Cx if able to collect
Appreciate ID input
# Recurrent rectal bleed with watery diarrhea
# Recent Immune mediated colitis
on tapering PO Prednisone 30mg daily x 5 days, 20 mg x5 days then stop (per ). GI to eval for IV steroid
C diff negative, Norovirus negative
advance clears to low lactose diet
# GEORGINA on CKD stage 3
SCr 1.7 -> 1.4; baseline Scr 1.3
Cont to monitor SCr
# COPD
# Chronic hypoxic respiratory failure
on 4L NC, he is on 4L NC at home
CLOTH STOCK SORTER Trelegy Ellipta daily
CLOTH STOCK SORTER DuoNeb q6h prn
# Recent DVT
Eliquis was stopped due to GIB due to colitis
s/p IVC Filter placement
# HLD, on statin
# Essential HTN
# Chronic HFpEF
Cont Coreg with holding parameter
# Migraine headaches
DVT Px: HSQ
DNR per patient in the presence of spouse at bed side
DW GI
DW at bedside
total time spent 51 min
Anticipated Discharge: > 48 hours
Subjective/Interval History
-
Date of Service: January 03, 2025
Objective Data
-
Labs:
Laboratory Results
01/03/25
05:25
WBC 6.5
Hgb 9.1 L
Hct 26.8 L
Plt Count 123 L
Sodium 137
Potassium 3.7
Chloride 104
Carbon Dioxide 23
BUN 34 H
Creatinine 1.4 H
Glucose 124 H
Calcium 7.7 L
Vital Signs:
Vital Signs
Temp Pulse Resp BP Pulse Ox
36.4 C 81 16 128/72 98
01/03/25 11:10 01/03/25 11:10 01/03/25 11:10 01/03/25 11:10 01/03/25 11:10
I&O
01/02/25 01/03/25 01/04/25
06:59 06:59 06:59
Intake Total 480 / 480
Balance 480 / 480
Review of Systems
-
All other systems: Reviewed and negative
Respiratory: Reports Cough
Abdomen/GI: Reports Bloody Stools
Physical Exam
-
General: Well Developed, Well Nourished, Comfortable, Respiratory Distress (chronic), Conversant and Appears Chronically Ill
HEENT: Normocephalic, Atraumatic, Nose Appears Normal, Ears Appear Normal and Oxygen (4L NC)
Respiratory: Crackles (R lung base) and Non Labored Respirations; Negative Accessory Resp Muscle Use
Cardiac: Regular Rhythm and S1/S2
GI: Soft, Nontender, Nondistended and Normal Bowel Sounds
Skin: Warm and Dry
Neuro: Awake, Alert, Oriented and AO x 3
Psych: Calm and Intact Judgement/Insight
Data Reviewed
-
CT Scan: Report Reviewed by me
Labs: Labs Reviewed by me
--- NOTE | 2025-01-03 13:07 | PN.CDI ---
CDI
- -
CDI:
Physician Documentation Request
Admit Date: 01/01/25 19:39
Dear Doctor Mendez,
Patient admitted with sepsis 2/2 R lung HAP.
Sodium results:
Laboratory Tests
01/01/25 01/02/25 01/03/25
15:39 06:17 05:25
Sodium 131 L 134 L 137
Could you provide a diagnosis that supports the above lab abnormalities and additional evaluation/monitoring:
Hyponatremia
Abnormal lab value clinically insignificant
Other
Use of terms such as suspected, likely, concern for, or probable (associated with a specific diagnosis that is being evaluated, monitored, or treated as if it exists) are acceptable and can be coded in the inpatient setting, when documented at the
time of discharge.
Thank you,
Eun Chacko RN, BSN
CDI Specialist
tiger text
Please use your independent medical judgment in providing your response.
--- NOTE | 2025-01-03 13:15 | W.PN.GI.CBS2 ---
Today's Communication / Plan
-
change to IV steroids
lactose free diet
Assessment / Plan
-
69-year-old male with past medical history of metastatic lung CA on prior Opdivo and Yervoy, left lower extremity DVT on prior Eliquis but has been on hold with GI issues and filter place 12/12 , COPD, hyperlipidemia, hypertension, migraines, chronic
heart failure, CKD, colon polyps (colonoscopy 2009) with recent admission 12/03- 12/15 with blood diarrhea and wt loss and neg stool studies with concern for immune mediated colitis with GEORGINA, metabolic acidosis. During that admission pt completed
colonoscopy 12/06/[address] Dubose with noted Decreased mucosa vascular pattern in the terminal ileum. Biopsied. Diffuse mild mucosal changes were found in the entire examined colon secondary to colitis. Biopsied. Diverticulosis in the
sigmoid colon. path noted neg CMV, active ileitis, colitis and proctitis with concern for infection vs drug induced vs early IBD. Pt was started on high dose steroids then given dose of 900mg of Remicade on 12/13 with taper of steroids after
discharge. He admits after Remicade stool function improved with form. He initially did not feel well with high dose steroids and drop with plan to go to 30mg daily. He was doing well then about 1 week ago developed cough with green mucous with
fever and weakness. He was placed on Augmentin course. He noted over the week increased stool frequency and on admission return of loose liquid stool with blood. He admits to some wt gain on discharge then loss last few days. he denies issues
with odynophagia, nausea, vomiting, abdominal pain, constipation or black stools. On admission noted with hbg 11.6 then drop to 9.7, platelets 116, Na 134, BUN 31, creat 1.7, glucose 129. Pt is due follow up 01/09 with oncology to discuss further
therapy.
--hx metastatic lung CA with recent immunotherapy
-recent admission 12/03- 12/15 with concern pancolitis for immunotherapy related colitis s/p Remicade 12/13 and high dose steroids with taper
-recurrent blood diarrhea
-anemia
-fever
-recent shortness of breath and greenish mucous with Augmentin course
other med problems:
-Lower ext DVT on Eliquis
-COPD- chronic 4 liter O2
-hyperlipidemia
-HTN
-migraines
-chronic heart failure
-CKD
-colon polyps
PLAN:
change management administrator prednisone to IV steroids
lactose free diet
follow hgb
etiology of diarrhea likely immuno related colitis vs infectious vs other
if no improvement will need to consider second dose of infliximab although we are holding due to pneumonia
d/w Dr. Simms
Subjective
Subjective
Date of Service: January 03, 2025
Pt having more diarrhea since yesterday. One with blood. breathing the same
Objective
Data Reviewed
Laboratory Data:
Laboratory Results
01/03/25 05:25
01/03/25 05:25
Laboratory Results
Magnesium 2.3 mg/dl (1.6-2.3) 01/03/25 05:25
Total Bilirubin 0.9 mg/dl (0.2-1.3) 01/02/25 06:17
AST 31 U/L (17-59) 01/02/25 06:17
ALT 31 U/L (0-50) 01/02/25 06:17
Alkaline Phosphatase 72 U/L (38-126) 01/02/25 06:17
Vital Signs and I&O:
Vital Signs
Temp Pulse Resp BP Pulse Ox
97.6 F 81 16 128/72 98
01/03/25 11:10 01/03/25 11:10 01/03/25 11:10 01/03/25 11:10 01/03/25 11:10
I&O
01/02/25 01/03/25 01/04/25
06:59 06:59 06:59
Intake Total 480 / 480
Balance 480 / 480
Physical Exam
Physical Exam
HEENT: Other (some tachypnea)
Cardiology: S1 and S2
GI: Soft and Non Tender
Neuro: Non Focal
[2025-01-03] MEDS: SOLU-MEDROL PF 40 MG IV (14:09)
[2025-01-03 15:10] VITALS: BP 128/72
--- NOTE | 2025-01-03 15:27 | W.PN.ID1 ---
Date of Service
Date of Service: January 03, 2025
Today's Communication
Continue cefepime for today.
Assessment / Plan
Fever
Pneumonia
Diarrhea
Fatigue
Lungs CA; on Opdivo and Yervoy
COPD
Dyslipidemia
HTN
Migraines
CHF
CKD 3A
Recommendations:
Continue cefepime for now.
Await sputum culture. Order placed, but patient has not produced sample as of yet.
Follow white count and temperature curve. Patient afebrile past 24 hours
Follow O2 requirements.
Serial CXR to follow infiltrates
Follow stool output and consistancy. Patient admits to ongoing bloody stooling.
Chief Complaint
-: Fever and Pneumonia
Subjective / Review of Systems
Patient seen and examined. Reports minimal cough. No fevers or chills. Shortness of breath stable.
Vital Signs / Physical Exam
Vital Signs
Vital Signs
Temp Pulse Resp BP Pulse Ox
97.5 F 87 16 128/72 95
01/03/25 15:10 01/03/25 15:10 01/03/25 15:10 01/03/25 15:10 01/03/25 15:10
Physical Exam
Constitutional: Comfortable, Chronically Ill and Non-toxic
Eyes: Sclera Anicteric
Cardiovascular: S1/S2; Negative S3/S4
Pulmonary: Coarse and Non Labored
Gastrointestinal: Soft, Non Tender, Non Distended and Normal Bowel Sounds
Neurological: Awake and Alert
Psychological: Calm
Objective Data
Lab Data
Lab Results
01/03/25 05:25
01/03/25 05:25
Estimated Creat Clear 55 ml/min 01/03/25 05:25
Lactic Acid Cancelled 01/01/25 18:45
Total Bilirubin 0.9 mg/dl (0.2-1.3) 01/02/25 06:17
AST 31 U/L (17-59) 01/02/25 06:17
ALT 31 U/L (0-50) 01/02/25 06:17
Alkaline Phosphatase 72 U/L (38-126) 01/02/25 06:17
Most recent labs reviewed.
Micro Results:
01/02/25 13:20 MRSA Screen - Final
Nose No Methicillin Resistant Staphylococcus aureus isolated.
01/01/25 16:39 Salmonella/Shigella Culture - Preliminary
Feces/Stool Culture in Progress
Campylobacter Culture - Preliminary
Culture in Progress
Shiga Toxin Test - Pending
01/01/25 16:25 Blood Culture - Preliminary
Blood/Venous No Growth in 24 hours- Final report to follow
01/01/25 15:39 Blood Culture - Preliminary
Blood/Venous No Growth in 24 hours- Final report to follow
01/01/25 16:39 Cryptosporidium/Giardia - Final
Feces/Stool Negative for Cryptosporidium and/or Giardia Lamblia
antigens.
C. difficile GDH Antigen & Toxins - Final
Negative for toxigenic C.difficile
- Final
Negative for Norovirus GI and GII.
01/02/25 13:20 Influenza Types A & B (JACOB) - Final
Nasal Swab Negative for Influenza A & B, NAAT
Negative results must be combined with clinical observations
and patient history.
Nucleic Acid Amplification test (NAAT)performed on the
[employer] platform.
Imaging:
01/01/2025 CT Chest (PE study): Large airspace consolidations in the right upper and middle lobes with dense peripheral airspace consolidation surrounded by a large amount of groundglass opacity. Metastatic medial and right hilar lymphadenopathy
with mild interval enlargement from 08/12/2024. Small peripheral band of scarring in the lingula. Please see full dictation for additional detail.
[2025-01-03 19:10] VITALS: BP 136/78
[2025-01-03] MEDS: DESYREL 200 MG PO (21:45)
[2025-01-03] MEDS: PRAVACHOL 20 MG PO (21:45)
[2025-01-03 23:06] VITALS: BP 126/60
[2025-01-04] VITALS (7 sets, daily range): BP systolic 128–144; BP diastolic 62–74; PULSE 84; O2SAT 96; BMI 31.5
[2025-01-04] MEDS: SOLU-MEDROL PF 40 MG IV ×2 (01:18→13:24)
[2025-01-04] MEDS: FLUSH (NSS) 2 FLUSH IV (01:20)
[2025-01-04 05:12] LABS: Hematocrit 28.4 % (39.0-52.0); Hemoglobin 9.5 g/dL (13.0-18.0); Mean Corp Hgb Conc. 33.5 g/dL (33.0-37.0); Mean Corpuscular Hgb 32.1 pg (27.0-31.0); Mean Corpuscular Volume 95.9 fL (80.0-94.0); Mean Platelet Volume 9.4 fL (7.4-10.4); Platelet Count 166 10^3/uL (130-400); Red Blood Cell Count 2.96 10^6/uL (4.70-6.10); White Blood Cell Count 6.2 10^3/uL (4.8-10.8)
[2025-01-04 05:32] LABS: Blood Urea Nitrogen 40 mg/dl (9-20); Calcium 8.1 mg/dl (8.4-10.2); Carbon Dioxide 21 mmol/L (22-30); Chloride 104 mmol/L (98-107); Estimated Creatinine Clearance 52 ml/min; Glucose 201 mg/dl (70-99); Magnesium 2.5 mg/dl (1.6-2.3); Sodium 138 mmol/L (135-145)
[2025-01-04] MEDS: MAXIPIME 2000 MG IV ×2 (05:50→17:16)
[2025-01-04] MEDS: STERILE WATER FOR INJECTION 10 ML IV ×2 (05:51→17:16)
[2025-01-04] MEDS: MUCINEX 600 MG PO ×2 (07:56→19:53)
[2025-01-04] MEDS: COREG 25 MG PO ×2 (07:57→19:53)
[2025-01-04] MEDS: HEPARIN 5000 UNITS SC ×2 (07:57→19:54)
[2025-01-04] MEDS: ZYLOPRIM 200 MG PO (07:57)
[2025-01-04] MEDS: PEPCID 20 MG PO (07:57)
[2025-01-04] MEDS: TESSALON PERLES 100 MG PO (07:57)
[2025-01-04] MEDS: NON-FORMULARY ITEM 2 GM PO ×2 (07:58→17:18)
[2025-01-04] MEDS: SYMBICORT 80/4.5 MCG INHALER 2 PUFF INH ×2 (08:15→20:31)
[2025-01-04] MEDS: SPIRIVA RESPIMAT 2.5 MCG 2 PUFF INH (08:15)
--- NOTE | 2025-01-04 08:43 | W.PN.ONC2 ---
Today's Communication / Plan
-
Diarrhea and CPI colitis improved with IV steroids. Additional infliximab might not be needed but will await GI input.
Further plans regarding NSCLC Tx per Zen upon follow up
Impression
Impression
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 Stool negative for cryptosporidium/Giardia, C.diff, norovirus
History of left lower extremity DVT 05/31, DOAC on hold for GIB, IVC placed 12/12
PNA
GEORGINA
COPD
Plan
Plan
Seems colitis much better today after swtching from oral prednisone to IV Solumederol 40 BID
Etiology of diarrhea likely immuno related colitis
will consider resumption of DOAC and removal of IVC outpatient once risk of recurrent bleeding with colitis resolves
OP follow up with Dr. Zaldivar after PET to determine next steps in treatment, has follow up 01/09/2025
Subjective/Objective
Chief Complaint
ACS Heme Onc
Subjective
Diarrhea a lot better today from yesterday following switch from P Prednisone to IV Solumederol 40 IV BID.
Vital Signs:
Vital Signs
Temp Pulse Resp BP Pulse Ox
97.5 F 86 16 130/74 95
01/04/25 07:15 01/04/25 08:19 01/04/25 08:19 01/04/25 07:57 01/04/25 07:48
Lab Results:
Laboratory Data
WBC 6.2 10^3/uL (4.8-10.8) 01/04/25 04:45
Hgb 9.5 g/dL (13.0-18.0) L 01/04/25 04:45
Plt Count 166 10^3/uL (130-400) D 01/04/25 04:45
eGFR 50.40 01/04/25 04:45
Physical Exam
Sitting in chair
Cardiology: S1 and S2
Pulmonary: Clear
GI: Soft
--- NOTE | 2025-01-04 09:10 | W.PN.GI.CBS2 ---
Addendum entered and electronically signed by Philomena Calderon MD 01/04/25 13:35:
I saw and examined the patient.
The SALES ADMINISTRATOR or PA's note was reviewed and I agree with the note.
Comment:
Pt did well with change to IV steroids. Much decreased stool output
abd: soft, nontender
impression:
immuno related colitis
diarrhea
anemia
plan:
continue IV steroids
lactose free diet
await all stool studies
holding infliximab
Original Note:
Today's Communication / Plan
-
etiology of diarrhea likely immuno related colitis --infectious work up with stools still pending neg so far
improvement with IV steroids on methylprednisolone 40mg Q 12 -cont for today
stool 4 pm then no stool overnight and small stool with no blood in AM
cont lactose free diet
follow hgb 9.5 today
if no improvement will need to consider second dose of infliximab although we are holding due to pneumonia
appreciate heme input
Assessment / Plan
-
69-year-old male with past medical history of metastatic lung CA on prior Opdivo and Yervoy, left lower extremity DVT on prior Eliquis but has been on hold with GI issues and filter place 12/12 , COPD, hyperlipidemia, hypertension, migraines, chronic
heart failure, CKD, colon polyps (colonoscopy 2009) with recent admission 12/03- 12/15 with blood diarrhea and wt loss and neg stool studies with concern for immune mediated colitis with GEORGINA, metabolic acidosis. During that admission pt completed
colonoscopy 12/06/[address] Dubose with noted Decreased mucosa vascular pattern in the terminal ileum. Biopsied. Diffuse mild mucosal changes were found in the entire examined colon secondary to colitis. Biopsied. Diverticulosis in the
sigmoid colon. path noted neg CMV, active ileitis, colitis and proctitis with concern for infection vs drug induced vs early IBD. Pt was started on high dose steroids then given dose of 900mg of Remicade on 12/13 with taper of steroids after
discharge. He admits after Remicade stool function improved with form. He initially did not feel well with high dose steroids and drop with plan to go to 30mg daily. He was doing well then about 1 week ago developed cough with green mucous with
fever and weakness. He was placed on Augmentin course. He noted over the week increased stool frequency and on admission return of loose liquid stool with blood. He admits to some wt gain on discharge then loss last few days. he denies issues
with odynophagia, nausea, vomiting, abdominal pain, constipation or black stools. On admission noted with hbg 11.6 then drop to 9.7, platelets 116, Na 134, BUN 31, creat 1.7, glucose 129. Pt is due follow up 01/09 with oncology to discuss further
therapy.
--hx metastatic lung CA with recent immunotherapy
-PNA
-recent admission 12/03- 12/15 with concern pancolitis for immunotherapy related colitis s/p Remicade 12/13 and high dose steroids with taper
-recurrent blood diarrhea
-anemia
-fever
-recent shortness of breath and greenish mucous with Augmentin course
other med problems:
-Lower ext DVT on Eliquis
-COPD- chronic 4 liter O2
-hyperlipidemia
-HTN
-migraines
-chronic heart failure
-CKD
-colon polyps
PLAN:
etiology of diarrhea likely immuno related colitis --infectious work up with stools still pending neg so far
improvement with IV steroids on methylprednisolone 40mg Q 12 -cont for today
stool 4 pm then no stool overnight and small stool with no blood in AM
cont lactose free diet
follow hgb 9.5 today
if no improvement will need to consider second dose of infliximab although we are holding due to pneumonia
appreciate heme input
Subjective
Subjective
Date of Service: January 04, 2025
some improved diarrhea but still with cough and congestion
Objective
Data Reviewed
Laboratory Data:
Laboratory Results
01/04/25 04:45
01/04/25 04:45
Laboratory Results
Magnesium 2.5 mg/dl (1.6-2.3) H 01/04/25 04:45
Total Bilirubin 0.9 mg/dl (0.2-1.3) 01/02/25 06:17
AST 31 U/L (17-59) 01/02/25 06:17
ALT 31 U/L (0-50) 01/02/25 06:17
Alkaline Phosphatase 72 U/L (38-126) 01/02/25 06:17
Vital Signs and I&O:
Vital Signs
Temp Pulse Resp BP Pulse Ox
97.5 F 86 16 130/74 95
01/04/25 07:15 01/04/25 08:19 01/04/25 08:19 01/04/25 07:57 01/04/25 07:48
I&O
01/03/25 01/04/25 01/05/25
06:59 06:59 06:59
Intake Total 480 / 480 1380 / 1380
Balance 480 / 480 1380 / 1380
Physical Exam
Physical Exam
HEENT: Anicteric and Moist mucous membranes
Cardiology: Normal Sinus Rhythm
Pulmonary: Other (course cough, decreased )
GI: Soft, Non Distended and Non Tender
Neuro: Non Focal
--- NOTE | 2025-01-04 10:19 | PN.CDI ---
CDI
- -
CDI:
Physician Documentation Request
Admit Date: 01/01/25 19:39
Dear Doctor Mendez,
Patient admitted with sepsis 2/2 to pneumonia.
Patient noted to have recurrent rectal bleeding.
Per oncology note states 'Diarrhea and CPI colitis improved with IV steroids'
Patient history included lung cancer on immunotherapy
GI notes anemia.
01/01/25 01/02/25 01/03/25
15:39 06:17 05:25
Hgb 11.6 L 9.7 L 9.1 L
Hct 32.8 L 28.8 L 26.8 L
01/04/25
04:45
Hgb 9.5 L
Hct 28.4 L
Please clarify, in your progress note, which of the following is the most likely type of anemia you are evaluating/ monitoring?
Acute blood loss anemia
Acute blood loss anemia with baseline chronic anemia (Specify type)
Anemia of chronic disease - indicate if neoplastic disease, CKD or other
Chronic iron deficiency anemia due to blood loss
Other
Use of terms such as suspected, likely, concern for, or probable (associated with a specific diagnosis that is being evaluated, monitored, or treated as if it exists) are acceptable and can be coded in the inpatient setting, when documented at the
time of discharge.
Thank you,
Eun Chacko RN, BSN
CDI Specialist
tiger text
Please use your independent medical judgment in providing your response.
--- NOTE | 2025-01-04 11:05 | W.PN.ID1 ---
Date of Service
Date of Service: January 04, 2025
Today's Communication
Continue antibiotics.
Assessment / Plan
Fever
Pneumonia
Diarrhea
Fatigue
Lungs CA; on Opdivo and Yervoy
COPD
Dyslipidemia
HTN
Migraines
CHF
CKD 3A
Recommendations:
Continue cefepime for now.
Sputum culture not obtained.
Follow white count and temperature curve. Patient afebrile.
Follow O2 requirements.
At discharge, can likely transition to oral cefdinir.
Chief Complaint
-: Fever and Pneumonia
Subjective / Review of Systems
Patient seen and examined. Reports breathing comfortable. Minimal to no sputum production. No diarrhea.
Vital Signs / Physical Exam
Vital Signs
Vital Signs
Temp Pulse Resp BP Pulse Ox
97.5 F 86 16 130/74 95
01/04/25 07:15 01/04/25 08:19 01/04/25 08:19 01/04/25 07:57 01/04/25 07:48
Physical Exam
Constitutional: Comfortable, Chronically Ill and Non-toxic
Eyes: Sclera Anicteric
Cardiovascular: S1/S2; Negative S3/S4
Pulmonary: Coarse, Non Labored and Other (Nasal cannula in place; 4 L O2)
Gastrointestinal: Soft, Non Tender, Non Distended and Normal Bowel Sounds
Neurological: Awake and Alert
Psychological: Calm
Objective Data
Lab Data
Lab Results
01/04/25 04:45
01/04/25 04:45
Estimated Creat Clear 52 ml/min 01/04/25 04:45
Lactic Acid Cancelled 01/01/25 18:45
Total Bilirubin 0.9 mg/dl (0.2-1.3) 01/02/25 06:17
AST 31 U/L (17-59) 01/02/25 06:17
ALT 31 U/L (0-50) 01/02/25 06:17
Alkaline Phosphatase 72 U/L (38-126) 01/02/25 06:17
Most recent labs reviewed.
Micro Results:
01/01/25 16:25 Blood Culture - Preliminary
Blood/Venous No Growth in 48 hours- Final report to follow
01/01/25 15:39 Blood Culture - Preliminary
Blood/Venous No Growth in 48 hours- Final report to follow
01/02/25 13:20 MRSA Screen - Final
Nose No Methicillin Resistant Staphylococcus aureus isolated.
01/01/25 16:39 Salmonella/Shigella Culture - Preliminary
Feces/Stool Culture in Progress
Campylobacter Culture - Preliminary
Culture in Progress
Shiga Toxin Test - Pending
01/01/25 16:39 Cryptosporidium/Giardia - Final
Feces/Stool Negative for Cryptosporidium and/or Giardia Lamblia
antigens.
C. difficile GDH Antigen & Toxins - Final
Negative for toxigenic C.difficile
- Final
Negative for Norovirus GI and GII.
01/02/25 13:20 Influenza Types A & B (JACOB) - Final
Nasal Swab Negative for Influenza A & B, NAAT
Negative results must be combined with clinical observations
and patient history.
Nucleic Acid Amplification test (NAAT)performed on the
[employer] platform.
Imaging:
01/01/2025 CT Chest (PE study): Large airspace consolidations in the right upper and middle lobes with dense peripheral airspace consolidation surrounded by a large amount of groundglass opacity. Metastatic medial and right hilar lymphadenopathy
with mild interval enlargement from 08/12/2024. Small peripheral band of scarring in the lingula. Please see full dictation for additional detail.
--- NOTE | 2025-01-04 12:36 | W.PN.HOSP.TC ---
Addendum entered and electronically signed by Dia Simms MD 01/04/25 13:00:
# Acute blood loss anemia
Original Note:
Today's Communication/Plan
-
see A/P
Assessment / Plan
Assessment / Plan
HPI: 69 yo M Stage IV Lung ca on immunotherapy, COPD with chronic hypoxic resp failure (4L NC at home), chronic HFpEF, HTN, HX DVT 4months ago but due to GIB on last admission Eliquis was stopped, s/p IVC Filter placement; p/w SOB, BURCH with minimal
activity, fever/chills, diarrhea, dizziness, and weakness.
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
Of note, he was recently admitted (discharged 12/15) for immune mediated colitis (bloody diarrhea, weight loss), metabolic acidosis. He was discharged home with steroid taper. He is currently taking prednisone 30 mg daily.
He is currently on immunotherappy for lung CA.
A/P:
# sepsis POA likely 2/2 R lung HAP
# Lung cancer stage 4, on immunotherapy
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
Cont Cefepime per ID, discontinued doxycycline
blood Cx negative, MRSA screen negative, COVID/Flu tests negative, check sputum Cx if able to collect
Appreciate ID input
# Recurrent rectal bleed with watery diarrhea
# Recent Immune mediated colitis
BUSINESS DEVELOPMENT REPRESENTATIVE on tapering PO Prednisone 30mg daily x 5 days, 20 mg x5 days then stop (per ).
Replaced with IV Solumedrol 40 BID per GI. GI to direct IV steroid.
C diff negative, Norovirus negative
advanced clears to low lactose diet
# GEORGINA on CKD stage 3
SCr 1.7 -> 1.5 today; baseline Scr 1.3
Cont to monitor SCr
# COPD
# Chronic hypoxic respiratory failure on 4L NC
Cont O2 at 4L NC
BUSINESS DEVELOPMENT REPRESENTATIVE Trelegy Ellipta daily
BUSINESS DEVELOPMENT REPRESENTATIVE DuoNeb q6h prn
# Recent DVT
Eliquis was stopped due to GIB due to colitis
s/p IVC Filter placement
# HLD, on statin
# Essential HTN
# Chronic HFpEF
Cont Coreg with holding parameter
# Migraine headaches
DVT Px: HSQ
DNR per patient in the presence of spouse at bed side
DW GI
DW at bedside
Anticipated Discharge: 24 - 48 hours
Subjective/Interval History
-
Date of Service: January 04, 2025
Objective Data
-
Labs:
Laboratory Results
01/04/25
04:45
WBC 6.2
Hgb 9.5 L
Hct 28.4 L
Plt Count 166 D
Sodium 138
Potassium 4.0
Chloride 104
Carbon Dioxide 21 L
BUN 40 H
Creatinine 1.5 H
Glucose 201 H
Calcium 8.1 L
Vital Signs:
Vital Signs
Temp Pulse Resp BP Pulse Ox
36.4 C 82 16 132/71 97
01/04/25 11:05 01/04/25 11:05 01/04/25 11:05 01/04/25 11:05 01/04/25 11:05
I&O
01/03/25 01/04/25 01/05/25
06:59 06:59 06:59
Intake Total 480 / 480 1380 / 1380
Balance 480 / 480 1380 / 1380
Review of Systems
-
All other systems: Reviewed and negative
Respiratory: Denies Cough
Abdomen/GI: Reports Bloody Stools (improving and possibly resolving )
Physical Exam
-
General: Well Developed, Well Nourished, Comfortable, Respiratory Distress (chronic), Conversant and Appears Chronically Ill
HEENT: Normocephalic, Atraumatic, Nose Appears Normal, Ears Appear Normal and Oxygen (4L NC)
Respiratory: Crackles (R lung base) and Non Labored Respirations; Negative Accessory Resp Muscle Use
Cardiac: Regular Rhythm and S1/S2
GI: Soft, Nontender, Nondistended and Normal Bowel Sounds
Skin: Warm and Dry
Neuro: Awake, Alert, Oriented and AO x 3
Psych: Calm and Intact Judgement/Insight
Data Reviewed
-
CT Scan: Report Reviewed by me
Labs: Labs Reviewed by me
--- NOTE | 2025-01-04 14:19 | CM ---
CM following re: discharge planning.
Reviewed pt's chart, met with pt and pt's spouse at bedside.
Pt has been treating for sepsis POA likely 2/2 R lung HAP, Lung cancer stage 4, on immunotherapy. Immunocompromised state due to immunotherapy for lung CA, continue supportive care.
Pt resides with his in a 1 story house with 5 steps at entrance. 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
PCP - Darrius Carter
Pharmacy - [address], [place]
D/C plan: home with anticipated no needs. Spouse to transport at discharge.
CM will follow with discharge plan updates as hospitalization progresses
--- NOTE | 2025-01-04 15:08 | PTOTSP ---
Pt is ambulating independently in his room without need for any assistive device and is managing his own O2 tubing. He feels he does not need PT and is able to ambulate in his room unassisted. PT will sign off.
[2025-01-04] MEDS: PRAVACHOL 20 MG PO (22:22)
[2025-01-04] MEDS: DESYREL 200 MG PO (22:22)
[2025-01-05] MEDS: SOLU-MEDROL PF 40 MG IV ×2 (01:35→13:52)
[2025-01-05 03:00] VITALS: BP 133/71
[2025-01-05] MEDS: STERILE WATER FOR INJECTION 10 ML IV ×2 (05:25→17:16)
[2025-01-05] MEDS: MAXIPIME 2000 MG IV ×2 (05:25→17:16)
[2025-01-05 06:00] VITALS: BMI 31.5
[2025-01-05 06:24] LABS: Hematocrit 26.6 % (39.0-52.0); Hemoglobin 8.9 g/dL (13.0-18.0); Mean Corp Hgb Conc. 33.5 g/dL (33.0-37.0); Mean Corpuscular Hgb 32.4 pg (27.0-31.0); Mean Corpuscular Volume 96.7 fL (80.0-94.0); Mean Platelet Volume 9.3 fL (7.4-10.4); Platelet Count 163 10^3/uL (130-400); Red Blood Cell Count 2.75 10^6/uL (4.70-6.10); Red Cell Dist. Width 13.9 % (11.5-14.5); White Blood Cell Count 6.3 10^3/uL (4.8-10.8)
[2025-01-05 06:59] LABS: Blood Urea Nitrogen 40 mg/dl (9-20); Calcium 7.8 mg/dl (8.4-10.2); Carbon Dioxide 24 mmol/L (22-30); Chloride 107 mmol/L (98-107); Estimated Creatinine Clearance 55 ml/min; Glucose 250 mg/dl (70-99); Magnesium 2.3 mg/dl (1.6-2.3); Potassium 4.5 mmol/L (3.5-5.1); Sodium 139 mmol/L (135-145); eGFR 54.75
[2025-01-05 07:15] VITALS: BP 154/83
[2025-01-05] MEDS: SPIRIVA RESPIMAT 2.5 MCG 2 PUFF INH (08:06)
[2025-01-05] MEDS: SYMBICORT 80/4.5 MCG INHALER 2 PUFF INH ×2 (08:06→20:20)
--- NOTE | 2025-01-05 08:06 | W.PN.ONC2 ---
Today's Communication / Plan
-
.
Impression
Impression
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 Stool negative for cryptosporidium/Giardia, C.diff, norovirus
History of left lower extremity DVT 05/31, DOAC on hold for GIB, IVC placed 12/12
PNA
GEORGINA
COPD
Plan
Plan
colitis improved after switching from oral prednisone to IV Solumederol -appreciate GI input
will consider resumption of DOAC and removal of IVC outpatient once risk of recurrent bleeding with colitis resolves
OP follow up with Dr. Zaldivar after PET to determine next steps in treatment, has follow up 01/09/2025
Subjective/Objective
Subjective
no new complaints
3 BM, more formed. No blood
Vital Signs:
Vital Signs
Temp Pulse Resp BP Pulse Ox
97.5 F 85 16 133/71 96
01/05/25 03:00 01/05/25 03:00 01/05/25 03:00 01/05/25 03:00 01/05/25 03:00
Lab Results:
Laboratory Data
WBC 6.3 10^3/uL (4.8-10.8) 01/05/25 05:09
Hgb 8.9 g/dL (13.0-18.0) L 01/05/25 05:09
Plt Count 163 10^3/uL (130-400) 01/05/25 05:09
eGFR 54.75 01/05/25 05:09
Physical Exam
HEENT: Moist Mucous Membranes; No Jaundice
Cardiology: Normal Sinus Rhythm
Pulmonary: Clear and Other (diminshed bases)
GI: Soft
Extremities: Pulses Present and Edema (+1 b/l LE)
[2025-01-05] MEDS: TESSALON PERLES 100 MG PO (08:50)
[2025-01-05] MEDS: ZYLOPRIM 200 MG PO (08:50)
[2025-01-05] MEDS: PEPCID 20 MG PO (08:50)
[2025-01-05] MEDS: MUCINEX 600 MG PO ×2 (08:50→20:24)
[2025-01-05] MEDS: NON-FORMULARY ITEM 2 GM PO ×2 (08:51→17:15)
[2025-01-05] MEDS: COREG 25 MG PO ×2 (08:51→20:24)
[2025-01-05] MEDS: HEPARIN 5000 UNITS SC ×2 (08:52→20:25)
--- NOTE | 2025-01-05 09:01 | W.PN.GI.CBS2 ---
Addendum entered and electronically signed by Philomena Calderon MD 01/05/25 09:06:
can stop IV steroids tomorrow
Original Note:
Today's Communication / Plan
-
restart predisone
Assessment / Plan
-
69-year-old male with past medical history of metastatic lung CA on prior Opdivo and Yervoy, left lower extremity DVT on prior Eliquis but has been on hold with GI issues and filter place 12/12 , COPD, hyperlipidemia, hypertension, migraines, chronic
heart failure, CKD, colon polyps (colonoscopy 2009) with recent admission 12/03- 12/15 with blood diarrhea and wt loss and neg stool studies with concern for immune mediated colitis with GEORGINA, metabolic acidosis. During that admission pt completed
colonoscopy 12/06/[address] Dubose with noted Decreased mucosa vascular pattern in the terminal ileum. Biopsied. Diffuse mild mucosal changes were found in the entire examined colon secondary to colitis. Biopsied. Diverticulosis in the
sigmoid colon. path noted neg CMV, active ileitis, colitis and proctitis with concern for infection vs drug induced vs early IBD. Pt was started on high dose steroids then given dose of 900mg of Remicade on 12/13 with taper of steroids after
discharge. He admits after Remicade stool function improved with form. He initially did not feel well with high dose steroids and drop with plan to go to 30mg daily. He was doing well then about 1 week ago developed cough with green mucous with
fever and weakness. He was placed on Augmentin course. He noted over the week increased stool frequency and on admission return of loose liquid stool with blood. He admits to some wt gain on discharge then loss last few days. he denies issues
with odynophagia, nausea, vomiting, abdominal pain, constipation or black stools. On admission noted with hbg 11.6 then drop to 9.7, platelets 116, Na 134, BUN 31, creat 1.7, glucose 129. Pt is due follow up 01/09 with oncology to discuss further
therapy.
--hx metastatic lung CA with recent immunotherapy
-PNA
-recent admission 12/03- 12/15 with concern pancolitis for immunotherapy related colitis s/p Remicade 12/13 and high dose steroids with taper
-recurrent blood diarrhea
-anemia
-fever
-recent shortness of breath and greenish mucous with Augmentin course
other med problems:
-Lower ext DVT on Eliquis
-COPD- chronic 4 liter O2
-hyperlipidemia
-HTN
-migraines
-chronic heart failure
-CKD
-colon polyps
PLAN:
lactose free diet
would convert back to prednisone. he felt he did best on 40mg daily
hold on infliximab
Subjective
Subjective
Date of Service: January 05, 2025
Pt without any diarrhea over night. eating. feels much better on the IV steroids
Objective
Data Reviewed
Laboratory Data:
Laboratory Results
01/05/25 05:09
01/05/25 05:09
Laboratory Results
Magnesium 2.3 mg/dl (1.6-2.3) 01/05/25 05:09
Total Bilirubin 0.9 mg/dl (0.2-1.3) 01/02/25 06:17
AST 31 U/L (17-59) 01/02/25 06:17
ALT 31 U/L (0-50) 01/02/25 06:17
Alkaline Phosphatase 72 U/L (38-126) 01/02/25 06:17
Vital Signs and I&O:
Vital Signs
Temp Pulse Resp BP Pulse Ox
97.1 F 77 16 154/83 97
01/05/25 07:15 01/05/25 08:51 01/05/25 08:08 01/05/25 08:51 01/05/25 08:08
I&O
01/04/25 01/05/25 01/06/25
06:59 06:59 06:59
Intake Total 1380 / 1380 1140 / 1140
Balance 1380 / 1380 1140 / 1140
Physical Exam
Physical Exam
HEENT: Anicteric
GI: Soft and Non Tender
Neuro: Non Focal
--- NOTE | 2025-01-05 10:55 | W.PN.HOSP.TC ---
Today's Communication/Plan
-
see A/P
Assessment / Plan
Assessment / Plan
HPI: 69 yo M Stage IV Lung ca on immunotherapy, COPD with chronic hypoxic resp failure (4L NC at home), chronic HFpEF, HTN, HX DVT 4months ago but due to GIB on last admission Eliquis was stopped, s/p IVC Filter placement; p/w SOB, BURCH with minimal
activity, fever/chills, diarrhea, dizziness, and weakness.
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
Of note, he was recently admitted (discharged 12/15) for immune mediated colitis (bloody diarrhea, weight loss), metabolic acidosis. He was discharged home with steroid taper. He is currently taking prednisone 30 mg daily.
He is currently on immunotherappy for lung CA.
A/P:
# sepsis POA likely 2/2 R lung HAP
# Lung cancer stage 4, on immunotherapy
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
Cont Cefepime per ID, discontinued doxycycline
blood Cx negative, MRSA screen negative, COVID/Flu tests negative, sputum Cx was not acceptable
Appreciate ID input
# Recurrent rectal bleed with watery diarrhea
# Recent Immune mediated colitis
COMPLIANCE INVESTIGATOR on tapering PO Prednisone 30mg daily x 5 days, 20 mg x5 days then stop (per ).
Replaced with IV Solumedrol 40 BID per GI. GI to direct IV steroid.
C diff negative, Norovirus negative
advanced clears to low lactose diet
# GEORGINA on CKD stage 3
SCr 1.7 -> 1.4 today; baseline Scr 1.3
Cont to monitor SCr
# COPD
# Chronic hypoxic respiratory failure on 4L NC
Cont O2 at 4L NC
COMPLIANCE INVESTIGATOR Trelegy Ellipta daily
COMPLIANCE INVESTIGATOR DuoNeb q6h prn
# Recent DVT
Eliquis was stopped due to GIB due to colitis
s/p IVC Filter placement
# HLD, on statin
# Essential HTN
# Chronic HFpEF
Cont Coreg with holding parameter
# Migraine headaches
DVT Px: HSQ
DNR per patient in the presence of spouse at bed side
DW RN
DW at bedside
Anticipated Discharge: 24 - 48 hours
Subjective/Interval History
-
Date of Service: January 05, 2025
Objective Data
-
Labs:
Laboratory Results
01/05/25
05:09
WBC 6.3
Hgb 8.9 L
Hct 26.6 L
Plt Count 163
Sodium 139
Potassium 4.5
Chloride 107
Carbon Dioxide 24
BUN 40 H
Creatinine 1.4 H
Glucose 250 H
Calcium 7.8 L
Vital Signs:
Vital Signs
Temp Pulse Resp BP Pulse Ox
36.2 C 77 16 154/83 97
01/05/25 07:15 01/05/25 08:51 01/05/25 08:08 01/05/25 08:51 01/05/25 08:08
I&O
01/04/25 01/05/25 01/06/25
06:59 06:59 06:59
Intake Total 1380 / 1380 1140 / 1140
Balance 1380 / 1380 1140 / 1140
Review of Systems
-
All other systems: Reviewed and negative
Respiratory: Denies Cough
Abdomen/GI: Denies Bloody Stools (resolved)
Physical Exam
-
General: Well Developed, Well Nourished, Comfortable, Respiratory Distress (chronic), Conversant and Appears Chronically Ill
HEENT: Normocephalic, Atraumatic, Nose Appears Normal, Ears Appear Normal and Oxygen (4L NC)
Respiratory: Non Labored Respirations; Negative Accessory Resp Muscle Use
Cardiac: Regular Rhythm and S1/S2
GI: Soft, Nontender, Nondistended and Normal Bowel Sounds
Skin: Warm and Dry
Neuro: Awake, Alert, Oriented and AO x 3
Psych: Calm and Intact Judgement/Insight
Data Reviewed
-
CT Scan: Report Reviewed by me
Labs: Labs Reviewed by me
[2025-01-05] MEDS: DELTASONE 40 MG PO (10:58)
[2025-01-05 11:10] VITALS: BP 156/81
[2025-01-05 15:04] VITALS: BP 155/78
--- NOTE | 2025-01-05 15:12 | CM ---
CM following re: discharge planning.
Reviewed pt's chart, met with pt.
Pt has been treating for sepsis POA likely 2/2 R lung HAP, Lung cancer stage 4, on immunotherapy. Immunocompromised state due to immunotherapy for lung CA, continue supportive care.
Pt resides with his in a 1 story house with 5 steps at entrance. 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
PT and OT evaluations noted - pt has no skilled PT/OT needs.
D/C plan: home with no needs. Spouse to transport at discharge.
CM will follow with discharge plan updates as hospitalization progresses
--- NOTE | 2025-01-05 15:24 | W.PN.ID1 ---
Date of Service
Date of Service: January 05, 2025
Today's Communication
Continue antibiotics. See below�
Assessment / Plan
Fever
Pneumonia
Diarrhea
Fatigue
Lungs CA; on Opdivo and Yervoy
COPD
Dyslipidemia
HTN
Migraines
CHF
CKD 3A
Recommendations:
Continue cefepime while inpatient. At discharge, transition to oral cefdinir 300 mg twice daily, to continue through 01/09/2025
Follow white count and temperature curve. Patient afebrile.
Follow O2 requirements.
����������������������������������������������������������
Chief Complaint
-: Fever and Pneumonia
Subjective / Review of Systems
Review of Systems: No Fever, No Chills, Cough and No Sputum Production
Vital Signs / Physical Exam
Vital Signs
Vital Signs
Temp Pulse Resp BP Pulse Ox
97.6 F 81 18 155/78 96
01/05/25 15:04 01/05/25 15:04 01/05/25 15:04 01/05/25 15:04 01/05/25 15:04
Physical Exam
Constitutional: Comfortable, Chronically Ill and Non-toxic
Eyes: Sclera Anicteric
Cardiovascular: S1/S2; Negative S3/S4
Pulmonary: Coarse, Non Labored and Other (Nasal cannula in place; 4 L O2)
Gastrointestinal: Soft, Non Tender, Non Distended and Normal Bowel Sounds
Neurological: Awake and Alert
Psychological: Calm
Objective Data
Lab Data
Lab Results
01/05/25 05:09
01/05/25 05:09
Estimated Creat Clear 55 ml/min 01/05/25 05:09
Lactic Acid Cancelled 01/01/25 18:45
Total Bilirubin 0.9 mg/dl (0.2-1.3) 01/02/25 06:17
AST 31 U/L (17-59) 01/02/25 06:17
ALT 31 U/L (0-50) 01/02/25 06:17
Alkaline Phosphatase 72 U/L (38-126) 01/02/25 06:17
Most recent labs reviewed.
Micro Results:
01/01/25 16:39 Salmonella/Shigella Culture - Final
Feces/Stool No Salmonella, Shigella, Aeromonas or Plesiomonas species
isolated.
Campylobacter Culture - Final
No Campylobacter species isolated.
Shiga Toxin Test - Final
No E. coli Shiga Toxin 1 or 2 detected.
01/04/25 17:29 Respiratory Culture - Final
Sputum Gram Stain - Final
01/01/25 16:25 Blood Culture - Preliminary
Blood/Venous No Growth in 72 hours- Final report to follow
01/01/25 15:39 Blood Culture - Preliminary
Blood/Venous No Growth in 72 hours- Final report to follow
01/02/25 13:20 MRSA Screen - Final
Nose No Methicillin Resistant Staphylococcus aureus isolated.
01/01/25 16:39 Cryptosporidium/Giardia - Final
Feces/Stool Negative for Cryptosporidium and/or Giardia Lamblia
antigens.
C. difficile GDH Antigen & Toxins - Final
Negative for toxigenic C.difficile
- Final
Negative for Norovirus GI and GII.
01/02/25 13:20 Influenza Types A & B (JACOB) - Final
Nasal Swab Negative for Influenza A & B, NAAT
Negative results must be combined with clinical observations
and patient history.
Nucleic Acid Amplification test (NAAT)performed on the
[employer] platform.
Imaging:
01/01/2025 CT Chest (PE study): Large airspace consolidations in the right upper and middle lobes with dense peripheral airspace consolidation surrounded by a large amount of groundglass opacity. Metastatic medial and right hilar lymphadenopathy
with mild interval enlargement from 08/12/2024. Small peripheral band of scarring in the lingula. Please see full dictation for additional detail.
[2025-01-05 19:16] VITALS: BP 130/85
[2025-01-05] MEDS: DESYREL 200 MG PO (20:27)
[2025-01-05] MEDS: PRAVACHOL 20 MG PO (20:27)
[2025-01-05 23:08] VITALS: BP 136/58
[2025-01-06 03:16] VITALS: BP 130/78
[2025-01-06] MEDS: MAXIPIME 2000 MG IV ×2 (05:22→17:32)
[2025-01-06] MEDS: STERILE WATER FOR INJECTION 10 ML IV ×2 (05:24→17:32)
[2025-01-06 06:00] VITALS: BMI 31.5
[2025-01-06 06:26] LABS: Hematocrit 26.4 % (39.0-52.0); Hemoglobin 8.8 g/dL (13.0-18.0); Mean Corp Hgb Conc. 33.3 g/dL (33.0-37.0); Mean Corpuscular Hgb 32.6 pg (27.0-31.0); Mean Corpuscular Volume 97.8 fL (80.0-94.0); Mean Platelet Volume 9.1 fL (7.4-10.4); Platelet Count 182 10^3/uL (130-400); White Blood Cell Count 8.2 10^3/uL (4.8-10.8)
[2025-01-06 07:00] VITALS: BP 146/77
[2025-01-06 07:50] LABS: Glucose - Point of Care 278 mg/dl (70-99)
[2025-01-06] MEDS: ZYLOPRIM 200 MG PO (07:50)
[2025-01-06] MEDS: PEPCID 20 MG PO (07:51)
[2025-01-06] MEDS: DELTASONE 40 MG PO (07:51)
[2025-01-06] MEDS: COREG 25 MG PO ×2 (07:51→19:57)
[2025-01-06] MEDS: MUCINEX 600 MG PO ×2 (07:51→19:53)
[2025-01-06] MEDS: TESSALON PERLES 100 MG PO (07:51)
[2025-01-06] MEDS: HEPARIN 5000 UNITS SC ×2 (07:52→19:53)
[2025-01-06] MEDS: NON-FORMULARY ITEM 2 GM PO ×2 (07:55→17:32)
[2025-01-06] MEDS: SYMBICORT 80/4.5 MCG INHALER 2 PUFF INH ×2 (07:56→19:08)
[2025-01-06] MEDS: SPIRIVA RESPIMAT 2.5 MCG 2 PUFF INH (07:56)
--- NOTE | 2025-01-06 08:23 | W.PN.ONC2 ---
Documented by User: CONCEPCION Hooker 01/06/25 12:30
Today's Communication / Plan
-
.
Impression
Impression
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 Stool negative for cryptosporidium/Giardia, C.diff, norovirus
History of left lower extremity DVT 05/31, DOAC on hold for GIB, IVC placed 12/12
PNA
GEORGINA
COPD
Plan
Plan
colitis improved after switching from oral prednisone to IV Solumederol and now transitioning back to oral steroids -appreciate GI input
will consider resumption of DOAC and removal of IVC outpatient once risk of recurrent bleeding with colitis resolves
OP follow up with Dr. Zaldivar after PET on 01/16 to determine next steps in treatment
Subjective/Objective
Subjective
no new compaints
Vital Signs:
Vital Signs
Temp Pulse Resp BP Pulse Ox
97.7 F 83 16 146/77 94
01/06/25 07:00 01/06/25 07:51 01/06/25 08:00 01/06/25 07:51 01/06/25 08:00
Lab Results:
Laboratory Data
WBC 8.2 10^3/uL (4.8-10.8) 01/06/25 06:00
Hgb 8.8 g/dL (13.0-18.0) L 01/06/25 06:00
Plt Count 182 10^3/uL (130-400) 01/06/25 06:00
eGFR 54.75 01/05/25 05:09
Physical Exam
HEENT: Moist Mucous Membranes; No Jaundice
Cardiology: Normal Sinus Rhythm
Pulmonary: Clear and Other (diminshed bases)
GI: Soft
Extremities: Pulses Present and Edema (+1 b/l LE)

Documented by User: Sagar Ceron MD 01/06/25 12:50
Plan
Plan
colitis improved after switching from oral prednisone to IV Solumederol and now transitioning back to oral steroids
appreciate GI input
will consider resumption of DOAC and removal of IVC outpatient once risk of recurrent bleeding with colitis resolves
OP follow up with Dr. Zaldivar after PET on 01/16 to determine next steps in treatment
[2025-01-06 09:05] LABS: Blood Urea Nitrogen 34 mg/dl (9-20); Calcium 7.6 mg/dl (8.4-10.2); Carbon Dioxide 18 mmol/L (22-30); Chloride 107 mmol/L (98-107); Estimated Creatinine Clearance 60 ml/min; Glucose 310 mg/dl (70-99); Potassium 4.5 mmol/L (3.5-5.1); Sodium 139 mmol/L (135-145); eGFR 59.84
--- NOTE | 2025-01-06 09:10 | W.PN.HOSP.TC ---
Today's Communication/Plan
-
steroid dosing per GI
Assessment / Plan
Assessment / Plan
HPI: 69 yo M Stage IV Lung ca on immunotherapy, COPD with chronic hypoxic resp failure (4L NC at home), chronic HFpEF, HTN, HX DVT 4months ago but due to GIB on last admission Eliquis was stopped, s/p IVC Filter placement; p/w SOB, BURCH with minimal
activity, fever/chills, diarrhea, dizziness, and weakness.
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
Of note, he was recently admitted (discharged 12/15) for immune mediated colitis (bloody diarrhea, weight loss), metabolic acidosis. He was discharged home with steroid taper. He is currently taking prednisone 30 mg daily.
He is currently on immunotherappy for lung CA.
A/P:
# sepsis POA likely 2/ R lung HAP
# Lung cancer stage 4, on immunotherapy
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
Cefepime -> to transition to oral cefdinir 300 mg twice daily through 01/09/2025 per ID at the time of DC
discontinued doxycycline
blood Cx negative, MRSA screen negative, COVID/Flu tests negative, sputum Cx was not acceptable
Appreciate ID input
# Recurrent rectal bleed with watery diarrhea
# Recent Immune mediated colitis
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
IV Solumedrol 40 BID -> PO prednisone 40 mg daily
steroid tapering per GI
C diff negative, Norovirus negative
advanced clears to low lactose diet and pt tolerated well
# GEORGINA on CKD stage 3
SCr 1.7 -> 1.3 today; baseline Scr 1.3
Cont to monitor SCr
# COPD
# Chronic hypoxic respiratory failure on 4L NC
Cont O2 at 4L NC
SERVICE DESK TECHNICIAN Trelegy Ellipta daily
SERVICE DESK TECHNICIAN DuoNeb q6h prn
# Recent DVT
Eliquis was stopped due to GIB due to colitis
s/p IVC Filter placement
# HLD, on statin
# Essential HTN
# Chronic HFpEF
Cont Coreg with holding parameter
# Migraine headaches
DVT Px: HSQ
DNR per patient in the presence of spouse at bed side
DW GI team
DW at bedside
Anticipated Discharge: Within 24 hours
Subjective/Interval History
-
Date of Service: January 06, 2025
Objective Data
-
Labs:
Laboratory Results
01/06/25
06:00
WBC 8.2
Hgb 8.8 L
Hct 26.4 L
Plt Count 182
Sodium 139
Potassium 4.5
Chloride 107
Carbon Dioxide 18 L
BUN 34 H
Creatinine 1.3
Glucose 310 H
Calcium 7.6 L
Vital Signs:
Vital Signs
Temp Pulse Resp BP Pulse Ox
36.5 C 83 16 146/77 94
01/06/25 07:00 01/06/25 07:51 01/06/25 08:00 01/06/25 07:51 01/06/25 08:00
I&O
01/05/25 01/06/25 01/07/25
06:59 06:59 06:59
Intake Total 1140 / 1140 960 / 960
Balance 1140 / 1140 960 / 960
Review of Systems
-
All other systems: Reviewed and negative
Respiratory: Denies Cough
Abdomen/GI: Denies Bloody Stools (resolved)
Physical Exam
-
General: Well Developed, Well Nourished, Comfortable, Respiratory Distress (chronic), Conversant and Appears Chronically Ill
HEENT: Normocephalic, Atraumatic, Nose Appears Normal, Ears Appear Normal and Oxygen (4L NC)
Respiratory: Non Labored Respirations; Negative Accessory Resp Muscle Use
Cardiac: Regular Rhythm and S1/S2
GI: Soft, Nontender, Nondistended and Normal Bowel Sounds
Skin: Warm and Dry
Neuro: Awake, Alert, Oriented and AO x 3
Psych: Calm and Intact Judgement/Insight
Data Reviewed
-
CT Scan: Report Reviewed by me
Labs: Labs Reviewed by me
[2025-01-06 10:21] LABS: Glycohemoglobin (HgbA1c) 7.8 % (4.0-5.6)
--- NOTE | 2025-01-06 10:31 | W.PN.GI.CBS2 ---
Today's Communication / Plan
-
2 mg of Imodium now and as needed
I did discuss that the insulin would be short-term and the hyperglycemia is caused by his steroids
We discussed dietary changes
Discussed with patient, his , oncology, primary hospitalist
Assessment / Plan
-
69-year-old male with past medical history of metastatic lung CA on prior Opdivo and Yervoy, left lower extremity DVT on prior Eliquis but has been on hold with GI issues and filter place 12/12 , COPD, hyperlipidemia, hypertension, migraines, chronic
heart failure, CKD, colon polyps (colonoscopy 2009) with recent admission 12/03- 12/15 with blood diarrhea and wt loss and neg stool studies with concern for immune mediated colitis with GEORGINA, metabolic acidosis. During that admission pt completed
colonoscopy 12/06/[address] Dubose with noted Decreased mucosa vascular pattern in the terminal ileum. Biopsied. Diffuse mild mucosal changes were found in the entire examined colon secondary to colitis. Biopsied. Diverticulosis in the
sigmoid colon. path noted neg CMV, active ileitis, colitis and proctitis with concern for infection vs drug induced vs early IBD. Pt was started on high dose steroids then given dose of 900mg of Remicade on 12/13 with taper of steroids after
discharge. He admits after Remicade stool function improved with form. He initially did not feel well with high dose steroids and drop with plan to go to 30mg daily. He was doing well then about 1 week ago developed cough with green mucous with
fever and weakness. He was placed on Augmentin course. He noted over the week increased stool frequency and on admission return of loose liquid stool with blood. He admits to some wt gain on discharge then loss last few days. he denies issues
with odynophagia, nausea, vomiting, abdominal pain, constipation or black stools. On admission noted with hbg 11.6 then drop to 9.7, platelets 116, Na 134, BUN 31, creat 1.7, glucose 129. Pt is due follow up 01/09 with oncology to discuss further
therapy.
--hx metastatic lung CA with recent immunotherapy
-PNA
-recent admission 12/03- 12/15 with concern pancolitis for immunotherapy related colitis s/p Remicade 12/13 and high dose steroids with taper
-recurrent blood diarrhea
-anemia
-fever
-recent shortness of breath and greenish mucous with Augmentin course
other med problems:
-Lower ext DVT on Eliquis
-COPD- chronic 4 liter O2
-hyperlipidemia
-HTN
-migraines
-chronic heart failure
-CKD
-colon polyps
PLAN:
lactose free diet
would convert back to prednisone. he felt he did best on 40mg daily
hold on infliximab
01/06/2025 -patient switched from 80 mg of Iv steroids to 40 mg of oral this morning and started having some loose stools this morning that were nonbloody
--Will continue the 40 mg of oral steroids and add Imodium since the stools are nonbloody. Will maintain at 40 mg and let oncology taper him down as tolerated
--C. difficile was negative as patient noticed loose stools increasing since starting the Augmentin but then the became bloody
--If doing well tomorrow okay for discharge on 40 mg of prednisone and as needed Imodium
--Patient will need close follow-up with oncology who would determine if he needs a repeat dose of Remicade
--Currently being treated for pneumonia but afebrile. On cefepime so ideally hold off on Remicade right now although steroids are immunosuppressive
--I did send a message to Dr. Zaldivar
--I spoke to the at bedside who canceled his appointment for Thursday but I told her to call them back and get an appointment for next week if possible so he can be closely watched as this is managed by his oncologist and patient has not seen
oncology since before last admission
Subjective
Subjective
Date of Service: January 06, 2025
Patient had formed stools on 80 mg of IV prednisone and was dropped to 40 mg of oral today. Had 1 stool overnight then 2-3 loose stools today without blood
Objective
Data Reviewed
Laboratory Data:
Laboratory Results
01/06/25 06:00
01/06/25 06:00
Laboratory Results
Magnesium 2.3 mg/dl (1.6-2.3) 01/05/25 05:09
Total Bilirubin 0.9 mg/dl (0.2-1.3) 01/02/25 06:17
AST 31 U/L (17-59) 01/02/25 06:17
ALT 31 U/L (0-50) 01/02/25 06:17
Alkaline Phosphatase 72 U/L (38-126) 01/02/25 06:17
Vital Signs and I&O:
Vital Signs
Temp Pulse Resp BP Pulse Ox
97.7 F 83 16 146/77 94
01/06/25 07:00 01/06/25 07:51 01/06/25 08:00 01/06/25 07:51 01/06/25 08:00
I&O
01/05/25 01/06/25 01/07/25
06:59 06:59 06:59
Intake Total 1140 / 1140 960 / 960
Balance 1140 / 1140 960 / 960
Physical Exam
Physical Exam
HEENT: Anicteric
Pulmonary: Clear
GI: Soft, Non Distended and Non Tender
Extremities: No Edema
Neuro: Non Focal
[2025-01-06] MEDS: IMODIUM 2 MG PO (10:56)
[2025-01-06 11:11] VITALS: BP 152/76
[2025-01-06 12:39] LABS: Glucose - Point of Care 325 mg/dl (70-99)
--- NOTE | 2025-01-06 12:47 | W.PN.UPDATE ---
Update Note
Progress Note Update
Pt refusing insulin coverage for hyperglycemia (despite extensive education).
Hyperglycemia likely due to steroid S/E.
Will change diet to carb control for now with elevated BG
--- NOTE | 2025-01-06 14:26 | CM ---
Addendum entered by Richy Welch 01/06/25 16:02:
CM met with the pt again. Pt's spouse at bedside.
IMM reviewed, placed on chart, pt has a copy.
Discharge plan remains unchanged - home with family, no after care VN needs.
Original Note:
CM following re: discharge planning.
Reviewed pt's chart, met with pt.
Pt has been treating for sepsis POA likely 2/2 R lung HAP, Lung cancer stage 4, on immunotherapy. Immunocompromised state due to immunotherapy for lung CA, continue supportive care.
Pt resides with his in a 1 story house with 5 steps at entrance. 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
PT and OT evaluations noted - pt has no skilled PT/OT needs.
D/C plan: home with no needs. Spouse to transport at discharge.
CM will follow with discharge plan updates as hospitalization progresses
[2025-01-06 15:56] LABS: Glucose - Point of Care 330 mg/dl (70-99)
[2025-01-06 15:59] VITALS: BP 151/68
--- NOTE | 2025-01-06 17:45 | W.PN.ID1 ---
Date of Service
Date of Service: January 06, 2025
Today's Communication
Continue antibiotics. See below�
Assessment / Plan
Fever
Pneumonia
Diarrhea
Fatigue
Lungs CA; on Opdivo and Yervoy
COPD
Dyslipidemia
HTN
Migraines
CHF
CKD 3A
Recommendations:
Continue cefepime while inpatient. At discharge, transition to oral cefdinir 300 mg twice daily, to continue through 01/09/2025
Follow white count and temperature curve. Patient afebrile.
Follow O2 requirements.
����������������������������������������������������������
Chief Complaint
-: Fever and Pneumonia
Subjective / Review of Systems
Patient seen and examined. Feeling extremely lethargic today. Chart reviewed, has been refusing insulin.
Vital Signs / Physical Exam
Vital Signs
Vital Signs
Temp Pulse Resp BP Pulse Ox
97.8 F 72 17 151/68 92
01/06/25 15:59 01/06/25 15:59 01/06/25 15:59 01/06/25 15:59 01/06/25 15:59
Physical Exam
Constitutional: Comfortable, Chronically Ill and Non-toxic
Pulmonary: Non Labored and Other (Nasal cannula in place; 4 L O2)
Gastrointestinal: Non Distended
Psychological: Calm
Objective Data
Lab Data
Lab Results
01/06/25 06:00
01/06/25 06:00
Estimated Creat Clear 60 ml/min 01/06/25 06:00
Lactic Acid Cancelled 01/01/25 18:45
Total Bilirubin 0.9 mg/dl (0.2-1.3) 01/02/25 06:17
AST 31 U/L (17-59) 01/02/25 06:17
ALT 31 U/L (0-50) 01/02/25 06:17
Alkaline Phosphatase 72 U/L (38-126) 01/02/25 06:17
Most recent labs reviewed.
Micro Results:
01/01/25 16:25 Blood Culture - Final
Blood/Venous No Growth - Final Report
01/01/25 15:39 Blood Culture - Final
Blood/Venous No Growth - Final Report
01/01/25 16:39 Salmonella/Shigella Culture - Final
Feces/Stool No Salmonella, Shigella, Aeromonas or Plesiomonas species
isolated.
Campylobacter Culture - Final
No Campylobacter species isolated.
Shiga Toxin Test - Final
No E. coli Shiga Toxin 1 or 2 detected.
01/04/25 17:29 Respiratory Culture - Final
Sputum Gram Stain - Final
01/02/25 13:20 MRSA Screen - Final
Nose No Methicillin Resistant Staphylococcus aureus isolated.
01/01/25 16:39 Cryptosporidium/Giardia - Final
Feces/Stool Negative for Cryptosporidium and/or Giardia Lamblia
antigens.
C. difficile GDH Antigen & Toxins - Final
Negative for toxigenic C.difficile
- Final
Negative for Norovirus GI and GII.
01/02/25 13:20 Influenza Types A & B (JACOB) - Final
Nasal Swab Negative for Influenza A & B, NAAT
Negative results must be combined with clinical observations
and patient history.
Nucleic Acid Amplification test (NAAT)performed on the
[employer] platform.
Imaging:
01/01/2025 CT Chest (PE study): Large airspace consolidations in the right upper and middle lobes with dense peripheral airspace consolidation surrounded by a large amount of groundglass opacity. Metastatic medial and right hilar lymphadenopathy
with mild interval enlargement from 08/12/2024. Small peripheral band of scarring in the lingula. Please see full dictation for additional detail.
[2025-01-06] MEDS: DESYREL 200 MG PO (22:02)
[2025-01-06] MEDS: PRAVACHOL 20 MG PO (22:03)
[2025-01-06 22:12] LABS: Glucose - Point of Care 227 mg/dl (70-99)
[2025-01-06 23:17] VITALS: BP 148/67
[2025-01-07] MEDS: STERILE WATER FOR INJECTION 10 ML IV (05:54)
[2025-01-07] MEDS: MAXIPIME 2000 MG IV (05:54)
[2025-01-07 06:00] VITALS: BMI 31.3
[2025-01-07 06:34] LABS: Hematocrit 26.2 % (39.0-52.0); Hemoglobin 8.7 g/dL (13.0-18.0); Mean Corp Hgb Conc. 33.2 g/dL (33.0-37.0); Mean Corpuscular Volume 96.3 fL (80.0-94.0); Mean Platelet Volume 8.8 fL (7.4-10.4); Platelet Count 185 10^3/uL (130-400); Red Blood Cell Count 2.72 10^6/uL (4.70-6.10); White Blood Cell Count 7.6 10^3/uL (4.8-10.8)
[2025-01-07 07:06] LABS: Blood Urea Nitrogen 28 mg/dl (9-20); Calcium 7.6 mg/dl (8.4-10.2); Carbon Dioxide 25 mmol/L (22-30); Chloride 107 mmol/L (98-107); Estimated Creatinine Clearance 64 ml/min; Glucose 141 mg/dl (70-99); Potassium 4.1 mmol/L (3.5-5.1); Sodium 140 mmol/L (135-145); eGFR > 60.00
[2025-01-07 07:10] VITALS: BP 148/74
[2025-01-07 07:14] LABS: Glucose - Point of Care 152 mg/dl (70-99)
[2025-01-07] MEDS: SYMBICORT 80/4.5 MCG INHALER 2 PUFF INH ×2 (07:59→18:06)
[2025-01-07] MEDS: SPIRIVA RESPIMAT 2.5 MCG 2 PUFF INH (07:59)
[2025-01-07] MEDS: ZYLOPRIM 200 MG PO (08:39)
[2025-01-07] MEDS: DELTASONE 40 MG PO (08:39)
[2025-01-07] MEDS: MUCINEX 600 MG PO ×2 (08:39→20:51)
[2025-01-07] MEDS: COREG 25 MG PO ×2 (08:39→20:51)
[2025-01-07] MEDS: TESSALON PERLES 100 MG PO (08:40)
[2025-01-07] MEDS: PEPCID 20 MG PO (08:40)
[2025-01-07] MEDS: NON-FORMULARY ITEM 2 GM PO ×2 (08:40→18:08)
[2025-01-07] MEDS: HEPARIN 5000 UNITS SC ×2 (08:40→20:51)
--- NOTE | 2025-01-07 09:16 | W.PN.ID1 ---
Date of Service
Date of Service: January 07, 2025
Today's Communication
Transition to oral cefdinir
Assessment / Plan
Fever
Pneumonia
Diarrhea
Fatigue
Lungs CA; on Opdivo and Yervoy
COPD
Dyslipidemia
HTN
Migraines
CHF
CKD 3A
Recommendations:
Transition to oral cefdinir 300 mg twice daily, to continue through 01/09/2025
Follow white count and temperature curve. Patient afebrile.
Follow O2 requirements.
����������������������������������������������������������
Chief Complaint
-: Fever and Pneumonia
Subjective / Review of Systems
Review of Systems: No Fever, No Chills and No Cough
Vital Signs / Physical Exam
Vital Signs
Vital Signs
Temp Pulse Resp BP Pulse Ox
97.8 F 84 16 148/74 97
01/07/25 07:10 01/07/25 08:39 01/07/25 08:06 01/07/25 08:39 01/07/25 08:06
Physical Exam
Constitutional: No Acute Distress, Comfortable and Non-toxic
Eyes: Sclera Anicteric
Pulmonary: Non Labored
Gastrointestinal: Non Distended
Extremities: Negative Cyanosis or Erythema
Neurological: Awake
Psychological: Calm
Objective Data
Lab Data
Lab Results
01/07/25 05:51
01/07/25 05:51
Estimated Creat Clear 64 ml/min 01/07/25 05:51
Lactic Acid Cancelled 01/01/25 18:45
Total Bilirubin 0.9 mg/dl (0.2-1.3) 01/02/25 06:17
AST 31 U/L (17-59) 01/02/25 06:17
ALT 31 U/L (0-50) 04/28/25 06:17
Alkaline Phosphatase 72 U/L (38-126) 01/02/25 06:17
Most recent labs reviewed.
Micro Results:
01/01/25 16:25 Blood Culture - Final
Blood/Venous No Growth - Final Report
01/01/25 15:39 Blood Culture - Final
Blood/Venous No Growth - Final Report
01/01/25 16:39 Salmonella/Shigella Culture - Final
Feces/Stool No Salmonella, Shigella, Aeromonas or Plesiomonas species
isolated.
Campylobacter Culture - Final
No Campylobacter species isolated.
Shiga Toxin Test - Final
No E. coli Shiga Toxin 1 or 2 detected.
01/04/25 17:29 Respiratory Culture - Final
Sputum Gram Stain - Final
01/02/25 13:20 MRSA Screen - Final
Nose No Methicillin Resistant Staphylococcus aureus isolated.
01/01/25 16:39 Cryptosporidium/Giardia - Final
Feces/Stool Negative for Cryptosporidium and/or Giardia Lamblia
antigens.
C. difficile GDH Antigen & Toxins - Final
Negative for toxigenic C.difficile
- Final
Negative for Norovirus GI and GII.
01/02/25 13:20 Influenza Types A & B (JACOB) - Final
Nasal Swab Negative for Influenza A & B, NAAT
Negative results must be combined with clinical observations
and patient history.
Nucleic Acid Amplification test (NAAT)performed on the
[employer] platform.
Imaging:
01/01/2025 CT Chest (PE study): Large airspace consolidations in the right upper and middle lobes with dense peripheral airspace consolidation surrounded by a large amount of groundglass opacity. Metastatic medial and right hilar lymphadenopathy
with mild interval enlargement from 08/12/2024. Small peripheral band of scarring in the lingula. Please see full dictation for additional detail.
[2025-01-07] MEDS: OMNICEF 300 MG PO ×2 (10:21→20:51)
--- NOTE | 2025-01-07 10:40 | W.PN.HOSP.TC ---
Today's Communication/Plan
-
Follow amounts of BM today.
Assessment / Plan
Assessment / Plan
69 yo M Stage IV Lung ca on immunotherapy, COPD with chronic hypoxic resp failure (4L NC at home), chronic HFpEF, HTN, HX DVT 4months ago but due to GIB on last admission Eliquis was stopped, s/p IVC Filter placement; p/w SOB, BURCH with minimal
activity, fever/chills, diarrhea, dizziness, and weakness. 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
Of note, he was recently admitted (discharged 12/15) for immune mediated colitis (bloody diarrhea, weight loss), metabolic acidosis. He was discharged home with steroid taper. He is currently taking prednisone 30 mg daily.
He is currently on immunotherapy for lung CA.
A/P:
1. sepsis POA likely 2/2 R lung HAP
Complicated by Lung cancer stage 4, on immunotherapy
Complicated by Immunocompromised state due to immunotherapy for lung CA
Improving
Cefepime -> to transition to oral cefdinir 300 mg twice daily through 01/09/2025 per ID at the time of DC
discontinued doxycycline
blood Cx negative, MRSA screen negative, COVID/Flu tests negative, sputum Cx was not acceptable
Appreciate ID input
2. Recurrent rectal bleed with watery diarrhea - had BM today
Recent Immune mediated colitis
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
IV Solumedrol 40 BID -> PO prednisone 40 mg
steroid tapering per GI
C diff negative, Norovirus negative
advanced clears to low lactose diet and pt tolerated well
Will observe one more day given bloody BM today
3. GEORGINA on CKD stage 3
SCr 1.7 -> 1.2 today; baseline Scr 1.3
Cont to monitor SCr
4. COPD - on Chronic hypoxic respiratory failure on 4L NC
Cont O2 at 4L NC
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
5. Recent DVT
Eliquis was stopped due to GIB due to colitis
s/p IVC Filter placement
6. HLD, on statin
7. Essential HTN
8. Chronic HFpEF
Cont Coreg with holding parameter
9. Migraine headaches
DVT Px: HSQ
DNR per patient in the presence of spouse at bed side
DW at bedside
Anticipated Discharge: 24 - 48 hours
Subjective/Interval History
-
Date of Service: January 07, 2025
Feels very tired and had bloody BM (new issue)
Objective Data
-
Labs:
Laboratory Results
01/07/25
05:51
WBC 7.6
Hgb 8.7 L
Hct 26.2 L
Plt Count 185
Sodium 140
Potassium 4.1
Chloride 107
Carbon Dioxide 25
BUN 28 H
Creatinine 1.2
Glucose 141 H
Calcium 7.6 L
Vital Signs:
Vital Signs
Temp Pulse Resp BP Pulse Ox
97.8 F 84 16 148/74 97
01/07/25 07:10 01/07/25 08:39 01/07/25 08:06 01/07/25 08:39 01/07/25 08:06
I&O
01/06/25 01/07/25 01/08/25
06:59 06:59 06:59
Intake Total 960 / 960 1140 / 1140
Balance 960 / 960 1140 / 1140
Review of Systems
-
History Source: Patient
All other systems: Reviewed and negative
Constitutional: Reports Weakness
Physical Exam
-
General: Well Developed, Well Nourished and Comfortable
HEENT: Nose Appears Normal and Ears Appear Normal
Respiratory: Clear to Auscultation
Cardiac: Regular Rhythm and S1/S2
GI: Soft, Nontender and Nondistended
Musculoskeletal: No Clubbing, No Cyanosis, Edema, Right Lower Extrem and Edema, Left Lower Extrem
Skin: Warm and Dry; Negative Rash
Neuro: Awake, Alert and Oriented
Psych: Calm
Data Reviewed
-
Labs: Labs Reviewed by me
--- NOTE | 2025-01-07 11:21 | CM ---
Patient for possible discharge today pending physician assessment from [address] [place] [address]. Patient for discharge home with no needs at this time, CM will continue to follow for discharge planning needs.
[2025-01-07 12:51] LABS: Glucose - Point of Care 232 mg/dl (70-99)
--- NOTE | 2025-01-07 14:34 | W.PN.GI.CBS2 ---
Addendum entered and electronically signed by Luz Felder DO 01/07/25 14:53:
Unable to get Remicade today therefore we will give him an extra dose of 20 mg of steroids right now then 60 mg in the morning. If he does okay then discharge tomorrow with likely outpatient Remicade with oncology
Original Note:
Today's Communication / Plan
-
-- Currently having a discussion with pharmacy and try to get Remicade 10 mg/kg approved for patient
Assessment / Plan
-
69-year-old male with past medical history of metastatic lung CA on prior Opdivo and Yervoy, left lower extremity DVT on prior Eliquis but has been on hold with GI issues and filter place 12/12 , COPD, hyperlipidemia, hypertension, migraines, chronic
heart failure, CKD, colon polyps (colonoscopy 2009) with recent admission 12/03- 12/15 with blood diarrhea and wt loss and neg stool studies with concern for immune mediated colitis with GEORGINA, metabolic acidosis. During that admission pt completed
colonoscopy 12/06/[address] Dubose with noted Decreased mucosa vascular pattern in the terminal ileum. Biopsied. Diffuse mild mucosal changes were found in the entire examined colon secondary to colitis. Biopsied. Diverticulosis in the
sigmoid colon. path noted neg CMV, active ileitis, colitis and proctitis with concern for infection vs drug induced vs early IBD. Pt was started on high dose steroids then given dose of 900mg of Remicade on 12/13 with taper of steroids after
discharge. He admits after Remicade stool function improved with form. He initially did not feel well with high dose steroids and drop with plan to go to 30mg daily. He was doing well then about 1 week ago developed cough with green mucous with
fever and weakness. He was placed on Augmentin course. He noted over the week increased stool frequency and on admission return of loose liquid stool with blood. He admits to some wt gain on discharge then loss last few days. he denies issues
with odynophagia, nausea, vomiting, abdominal pain, constipation or black stools. On admission noted with hbg 11.6 then drop to 9.7, platelets 116, Na 134, BUN 31, creat 1.7, glucose 129. Pt is due follow up 01/09 with oncology to discuss further
therapy.
--hx metastatic lung CA with recent immunotherapy
-PNA
-recent admission 12/03- 12/15 with concern pancolitis for immunotherapy related colitis s/p Remicade 12/13 and high dose steroids with taper
-recurrent blood diarrhea
-anemia
-fever
-recent shortness of breath and greenish mucous with Augmentin course
other med problems:
-Lower ext DVT on Eliquis
-COPD- chronic 4 liter O2
-hyperlipidemia
-HTN
-migraines
-chronic heart failure
-CKD
-colon polyps
PLAN:
lactose free diet
would convert back to prednisone. he felt he did best on 40mg daily
hold on infliximab
01/06/2025 -patient switched from 80 mg of Iv steroids to 40 mg of oral this morning and started having some loose stools this morning that were nonbloody
--Will continue the 40 mg of oral steroids and add Imodium since the stools are nonbloody. Will maintain at 40 mg and let oncology taper him down as tolerated
--C. difficile was negative as patient noticed loose stools increasing since starting the Augmentin but then the became bloody
--If doing well tomorrow okay for discharge on 40 mg of prednisone and as needed Imodium
--Patient will need close follow-up with oncology who would determine if he needs a repeat dose of Remicade
--Currently being treated for pneumonia but afebrile. On cefepime so ideally hold off on Remicade right now although steroids are immunosuppressive
--I did send a message to Dr. Zaldivar
--I spoke to the at bedside who canceled his appointment for Thursday but I told her to call them back and get an appointment for next week if possible so he can be closely watched as this is managed by his oncologist and patient has not seen
oncology since before last admission
01/07/2025 -patient had a large bloody loose bowel movement this morning x 1 and none since
He did get 2 mg of Imodium yesterday
His stool studies are negative, he is being treated for pneumonia and now switched to oral antibiotics
Options are to increase his steroid dose or give another Remicade dose
Ideally he would get 900 mg of Remicade. I did speak with infectious disease and they feel comfortable with proceeding especially since he is being treated for oral antibiotics
Patient and are aware of the risks of giving Remicade and would like to proceed. Will continue the 40 mg of prednisone.
The other option if Remicade is not an option would be to increase the steroid dose.
Subjective
Subjective
Date of Service: January 07, 2025
Patient is feeling very defeated. Had 1 big bloody watery stool this morning
Objective
Data Reviewed
Laboratory Data:
Laboratory Results
01/07/25 05:51
01/07/25 05:51
Laboratory Results
Magnesium 2.3 mg/dl (1.6-2.3) 01/05/25 05:09
Total Bilirubin 0.9 mg/dl (0.2-1.3) 01/02/25 06:17
AST 31 U/L (17-59) 01/02/25 06:17
ALT 31 U/L (0-50) 01/02/25 06:17
Alkaline Phosphatase 72 U/L (38-126) 01/02/25 06:17
Vital Signs and I&O:
Vital Signs
Temp Pulse Resp BP Pulse Ox
97.8 F 84 16 148/74 97
01/07/25 07:10 01/07/25 08:39 01/07/25 08:06 01/07/25 08:39 01/07/25 08:06
I&O
01/06/25 01/07/25 01/08/25
06:59 06:59 06:59
Intake Total 960 / 960 1140 / 1140
Balance 1139 / 114
Physical Exam
Physical Exam
HEENT: Anicteric
GI: Soft, Non Distended and Non Tender
Neuro: Other (Looks severely depressed)
[2025-01-07 15:20] VITALS: BP 138/61
[2025-01-07] MEDS: DELTASONE 20 MG PO (15:24)
[2025-01-07 17:10] LABS: Glucose - Point of Care 258 mg/dl (70-99)
[2025-01-07] MEDS: STERILE WATER FOR INJECTION IV (18:12)
[2025-01-07 21:58] LABS: Glucose - Point of Care 214 mg/dl (70-99)
[2025-01-07] MEDS: DESYREL 200 MG PO (22:09)
[2025-01-07] MEDS: PRAVACHOL 20 MG PO (22:09)
[2025-01-07 23:14] VITALS: BP 141/64
[2025-01-08 06:00] VITALS: BMI 30.6
[2025-01-08] MEDS: STERILE WATER FOR INJECTION IV (06:07)
[2025-01-08 06:37] LABS: Hematocrit 27.8 % (39.0-52.0); Hemoglobin 9.5 g/dL (13.0-18.0); Mean Corp Hgb Conc. 34.2 g/dL (33.0-37.0); Mean Corpuscular Hgb 32.5 pg (27.0-31.0); Mean Corpuscular Volume 95.2 fL (80.0-94.0); Mean Platelet Volume 8.8 fL (7.4-10.4); Platelet Count 194 10^3/uL (130-400); Red Blood Cell Count 2.92 10^6/uL (4.70-6.10); White Blood Cell Count 6.7 10^3/uL (4.8-10.8)
[2025-01-08 07:03] LABS: ALT (SGPT) 146 U/L (0-50); AST (SGOT) 47 U/L (17-59); Albumin 2.8 g/dl (3.5-5.0); Alkaline Phosphatase 68 U/L (38-126); Blood Urea Nitrogen 23 mg/dl (9-20); Calcium 7.7 mg/dl (8.4-10.2); Carbon Dioxide 26 mmol/L (22-30); Chloride 108 mmol/L (98-107); Estimated Creatinine Clearance 64 ml/min; Glucose 141 mg/dl (70-99); Potassium 4.2 mmol/L (3.5-5.1); Sodium 139 mmol/L (135-145); Total Bilirubin 0.7 mg/dl (0.2-1.3); Total Protein 5.2 g/dl (6.3-8.2); eGFR > 60.00
[2025-01-08 07:15] VITALS: BP 167/83
[2025-01-08] MEDS: SPIRIVA RESPIMAT 2.5 MCG 2 PUFF INH (07:16)
[2025-01-08] MEDS: SYMBICORT 80/4.5 MCG INHALER 2 PUFF INH (07:16)
[2025-01-08 07:37] LABS: Glucose - Point of Care 138 mg/dl (70-99)
[2025-01-08] MEDS: OMNICEF 300 MG PO (08:32)
[2025-01-08] MEDS: COREG 25 MG PO (08:33)
[2025-01-08] MEDS: ZYLOPRIM 200 MG PO (08:33)
[2025-01-08] MEDS: PEPCID 20 MG PO (08:35)
[2025-01-08] MEDS: MUCINEX 600 MG PO (08:35)
[2025-01-08] MEDS: NON-FORMULARY ITEM 1 GM PO (08:35)
[2025-01-08] MEDS: TESSALON PERLES 100 MG PO (08:35)
[2025-01-08] MEDS: HEPARIN 5000 UNITS SC (08:36)
[2025-01-08] MEDS: DELTASONE 60 MG PO (10:13)
--- NOTE | 2025-01-08 11:08 | W.PN.ID1 ---
Date of Service
Date of Service: January 08, 2025
Today's Communication
Continue current course of cefdinir.
Assessment / Plan
Fever
Pneumonia
Diarrhea
Fatigue
Lungs CA; on Opdivo and Yervoy
COPD
Dyslipidemia
HTN
Migraines
CHF
CKD 3A
Recommendations:
Continue cefdinir 300 mg twice daily, through 01/09/2025
Follow white count and temperature curve. Patient remains afebrile.
Follow O2 requirements.
For potential discharge today.
����������������������������������������������������������
Chief Complaint
-: Fever and Pneumonia
Subjective / Review of Systems
Review of Systems: No Fever
Vital Signs / Physical Exam
Vital Signs
Vital Signs
Temp Pulse Resp BP Pulse Ox
97.7 F 72 16 167/83 94
01/08/25 07:15 01/08/25 08:33 01/08/25 07:15 01/08/25 08:33 01/08/25 07:15
Physical Exam
Constitutional: Comfortable, Chronically Ill and Non-toxic
Eyes: Sclera Anicteric
Pulmonary: Non Labored
Gastrointestinal: Non Distended
Neurological: Awake and Alert
Psychological: Calm
Objective Data
Lab Data
Lab Results
01/08/25 06:05
01/08/25 06:05
Estimated Creat Clear 64 ml/min 01/08/25 06:05
Lactic Acid Cancelled 01/01/25 18:45
Total Bilirubin 0.7 mg/dl (0.2-1.3) 01/08/25 06:05
AST 47 U/L (17-59) 01/08/25 06:05
ALT 146 U/L (0-50) H 01/08/25 06:05
Alkaline Phosphatase 68 U/L (38-126) 01/08/25 06:05
Most recent labs reviewed.
Micro Results:
01/01/25 16:25 Blood Culture - Final
Blood/Venous No Growth - Final Report
01/01/25 15:39 Blood Culture - Final
Blood/Venous No Growth - Final Report
01/01/25 16:39 Salmonella/Shigella Culture - Final
Feces/Stool No Salmonella, Shigella, Aeromonas or Plesiomonas species
isolated.
Campylobacter Culture - Final
No Campylobacter species isolated.
Shiga Toxin Test - Final
No E. coli Shiga Toxin 1 or 2 detected.
01/04/25 17:29 Respiratory Culture - Final
Sputum Gram Stain - Final
01/02/25 13:20 MRSA Screen - Final
Nose No Methicillin Resistant Staphylococcus aureus isolated.
01/01/25 16:39 Cryptosporidium/Giardia - Final
Feces/Stool Negative for Cryptosporidium and/or Giardia Lamblia
antigens.
C. difficile GDH Antigen & Toxins - Final
Negative for toxigenic C.difficile
- Final
Negative for Norovirus GI and GII.
01/02/25 13:20 Influenza Types A & B (JACOB) - Final
Nasal Swab Negative for Influenza A & B, NAAT
Negative results must be combined with clinical observations
and patient history.
Nucleic Acid Amplification test (NAAT)performed on the
[employer] platform.
Imaging:
01/01/2025 CT Chest (PE study): Large airspace consolidations in the right upper and middle lobes with dense peripheral airspace consolidation surrounded by a large amount of groundglass opacity. Metastatic medial and right hilar lymphadenopathy
with mild interval enlargement from 08/12/2024. Small peripheral band of scarring in the lingula. Please see full dictation for additional detail.
--- NOTE | 2025-01-08 11:52 | W.PN.GI.CBS2 ---
Today's Communication / Plan
-
-- Discharge with steroid taper but hold 40 mg
-- I wrote instructions for the and communicated with hospitalist
Assessment / Plan
-
69-year-old male with past medical history of metastatic lung CA on prior Opdivo and Yervoy, left lower extremity DVT on prior Eliquis but has been on hold with GI issues and filter place 12/12 , COPD, hyperlipidemia, hypertension, migraines, chronic
heart failure, CKD, colon polyps (colonoscopy 2009) with recent admission 12/03- 12/15 with blood diarrhea and wt loss and neg stool studies with concern for immune mediated colitis with GEORGINA, metabolic acidosis. During that admission pt completed
colonoscopy 12/06/[address] Dubose with noted Decreased mucosa vascular pattern in the terminal ileum. Biopsied. Diffuse mild mucosal changes were found in the entire examined colon secondary to colitis. Biopsied. Diverticulosis in the
sigmoid colon. path noted neg CMV, active ileitis, colitis and proctitis with concern for infection vs drug induced vs early IBD. Pt was started on high dose steroids then given dose of 900mg of Remicade on 12/13 with taper of steroids after
discharge. He admits after Remicade stool function improved with form. He initially did not feel well with high dose steroids and drop with plan to go to 30mg daily. He was doing well then about 1 week ago developed cough with green mucous with
fever and weakness. He was placed on Augmentin course. He noted over the week increased stool frequency and on admission return of loose liquid stool with blood. He admits to some wt gain on discharge then loss last few days. he denies issues
with odynophagia, nausea, vomiting, abdominal pain, constipation or black stools. On admission noted with hbg 11.6 then drop to 9.7, platelets 116, Na 134, BUN 31, creat 1.7, glucose 129. Pt is due follow up 01/09 with oncology to discuss further
therapy.
--hx metastatic lung CA with recent immunotherapy
-PNA
-recent admission 12/03- 12/15 with concern pancolitis for immunotherapy related colitis s/p Remicade 12/13 and high dose steroids with taper
-recurrent blood diarrhea
-anemia
-fever
-recent shortness of breath and greenish mucous with Augmentin course
other med problems:
-Lower ext DVT on Eliquis
-COPD- chronic 4 liter O2
-hyperlipidemia
-HTN
-migraines
-chronic heart failure
-CKD
-colon polyps
PLAN:
lactose free diet
would convert back to prednisone. he felt he did best on 40mg daily
hold on infliximab
01/06/2025 -patient switched from 80 mg of Iv steroids to 40 mg of oral this morning and started having some loose stools this morning that were nonbloody
--Will continue the 40 mg of oral steroids and add Imodium since the stools are nonbloody. Will maintain at 40 mg and let oncology taper him down as tolerated
--C. difficile was negative as patient noticed loose stools increasing since starting the Augmentin but then the became bloody
--If doing well tomorrow okay for discharge on 40 mg of prednisone and as needed Imodium
--Patient will need close follow-up with oncology who would determine if he needs a repeat dose of Remicade
--Currently being treated for pneumonia but afebrile. On cefepime so ideally hold off on Remicade right now although steroids are immunosuppressive
--I did send a message to Dr. Zaldivar
--I spoke to the at bedside who canceled his appointment for Thursday but I told her to call them back and get an appointment for next week if possible so he can be closely watched as this is managed by his oncologist and patient has not seen
oncology since before last admission
01/07/2025 -patient had a large bloody loose bowel movement this morning x 1 and none since
He did get 2 mg of Imodium yesterday
His stool studies are negative, he is being treated for pneumonia and now switched to oral antibiotics
Options are to increase his steroid dose or give another Remicade dose
Ideally he would get 900 mg of Remicade. I did speak with infectious disease and they feel comfortable with proceeding especially since he is being treated for oral antibiotics
Patient and are aware of the risks of giving Remicade and would like to proceed. Will continue the 40 mg of prednisone.
The other option if Remicade is not an option would be to increase the steroid dose.
01/08/2025: Okay for discharge since having formed brown stool on 60 mg of prednisone
I gave his the prednisone taper to go down by 10 mg/week and would hold at 40 mg until you speak to Dr. Zaldivar
If bloody diarrhea returns, would need Remicade 10 mg/kg equal 900 mg which can be done outpatient with Dr. Zaldivar
Dr. Zaldivar says he is going to manage the immune mediated colitis with a steroid taper and the potential for Remicade
I did talk to infectious disease and they are comfortable with proceeding with Remicade if necessary
Has not required any more Imodium but I did tell him if he has loose brown stools it is okay to take 2 mg of Imodium every 8 hours
He has follow-up with Dr. Zaldivar on the after his PET scan and is going to have weekly phone call check-in's to help prevent readmission
Subjective
Subjective
Date of Service: January 08, 2025
No bowel movements yet today, yesterday had a brown formed stool
Objective
Data Reviewed
Laboratory Data:
Laboratory Results
01/08/25 06:05
01/08/25 06:05
Laboratory Results
Magnesium 2.3 mg/dl (1.6-2.3) 01/05/25 05:09
Total Bilirubin 0.7 mg/dl (0.2-1.3) 01/08/25 06:05
AST 47 U/L (17-59) 01/08/25 06:05
ALT 146 U/L (0-50) H 01/08/25 06:05
Alkaline Phosphatase 68 U/L (38-126) 01/08/25 06:05
Vital Signs and I&O:
Vital Signs
Temp Pulse Resp BP Pulse Ox
97.7 F 72 16 167/83 94
01/08/25 07:15 01/08/25 08:33 01/08/25 07:15 01/08/25 08:33 01/08/25 07:15
I&O
01/07/25 01/08/25 01/09/25
06:59 06:59 06:59
Intake Total 1140 / 1140 820 / 820
Balance 1140 / 1140 820 / 820
Physical Exam
Physical Exam
HEENT: Anicteric
GI: Soft
Extremities: No Edema
Neuro: Non Focal
--- NOTE | 2025-01-08 12:20 | W.PN.HOSP.TC ---
Today's Communication/Plan
-
Discharge
Assessment / Plan
Assessment / Plan
Hospital course:
69 yo Man with:
Stage IV Lung ca on immunotherapy,
COPD with chronic hypoxic resp failure (4L NC at home),
chronic HFpEF,
HTN,
HX DVT 4months ago but due to GIB on last admission Eliquis was stopped,
s/p IVC Filter placement;
p/w SOB, BURCH with minimal activity, fever/chills, diarrhea, dizziness, and weakness. He developed a cough with green sputum one week [employer]. 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 Of note, he was recently
admitted (discharged 12/15) for immune mediated colitis (bloody diarrhea, weight loss), metabolic acidosis. He was discharged home with steroid taper. He is currently taking prednisone 30 mg daily. He is currently on immunotherapy for lung CA.
A/P:
1. sepsis POA likely 2/2 R lung HAP
Complicated by Lung cancer stage 4, on immunotherapy
Complicated by Immunocompromised state due to immunotherapy for lung CA
Improving
Cefepime -> transitioned to oral cefdinir 300 mg twice daily through 01/09/2025 per ID at the time of DC
discontinued doxycycline
blood Cx negative, MRSA screen negative, COVID/Flu tests negative, sputum Cx was not acceptable
Appreciate ID input
2. Recurrent rectal bleed with watery diarrhea - had formed brown BM today
Recent Immune mediated colitis
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
IV Solumedrol 40 BID -> PO prednisone 60 mg
steroid tapering per GI
C diff negative, Norovirus negative
advanced clears to low lactose diet and pt tolerated well
Gi made following recommendations at the time of discharge:
'Okay for discharge since having formed brown stool on 60 mg of prednisone
I gave his the prednisone taper to go down by 10 mg/week and would hold at 40 mg until you speak to Dr. Zaldivar
If bloody diarrhea returns, would need Remicade 10 mg/kg equal 900 mg which can be done outpatient with Dr. Zaldivar
Dr. Zaldivar says he is going to manage the immune mediated colitis with a steroid taper and the potential for Remicade
I did talk to infectious disease and they are comfortable with proceeding with Remicade if necessary
Has not required any more Imodium but I did tell him if he has loose brown stools it is okay to take 2 mg of Imodium every 8 hours
He has follow-up with Dr. Zaldivar on the after his PET scan and is going to have weekly phone call check-in's to help prevent readmission'
3. GEORGINA on CKD stage 3
SCr 1.7 -> 1.2 today; baseline Scr 1.3
Cont to monitor as outpatient per usual care
4. COPD - on Chronic hypoxic respiratory failure on 4L NC
Cont O2 at 4L NC
[employer] Trelegy Ellipta daily
[employer] DuoNeb q6h prn
5. Recent DVT
Eliquis was stopped due to GIB due to colitis
s/p IVC Filter placement
6. HLD, on statin
7. Essential HTN - contiue [employer] care
8. Chronic HFpEF
Cont Coreg with holding parameter
9. Migraine headaches - continue [employer] care
DVT Px: HSQ
DNR per patient in the presence of spouse at bed side
DW at bedside
Anticipated Discharge: Today
Subjective/Interval History
-
Date of Service: January 08, 2025
Feels better and wants to go home.
Objective Data
-
Labs:
Laboratory Results
01/08/25
06:05
WBC 6.7
Hgb 9.5 L
Hct 27.8 L
Plt Count 194
Sodium 139
Potassium 4.2
Chloride 108 H
Carbon Dioxide 26
BUN 23 H
Creatinine 1.2
Glucose 141 H
Calcium 7.7 L
Total Bilirubin 0.7
AST 47
ALT 146 H
Alkaline Phosphatase 68
Vital Signs:
Vital Signs
Temp Pulse Resp BP Pulse Ox
97.7 F 72 16 167/83 94
01/08/25 07:15 01/08/25 08:33 01/08/25 07:15 01/08/25 08:33 01/08/25 07:15
I&O
01/07/25 01/08/25 01/09/25
06:59 06:59 06:59
Intake Total 1140 / 1140 820 / 820
Balance 1140 / 1140 820 / 820
Review of Systems
-
History Source: Patient
All other systems: Reviewed and negative
Physical Exam
-
General: Well Developed, Well Nourished, No Apparent Distress, Comfortable and Obese
HEENT: Nose Appears Normal and Ears Appear Normal
Respiratory: Clear to Auscultation
Cardiac: Regular Rhythm and S1/S2
GI: Soft, Nontender and Nondistended
Musculoskeletal: No Clubbing and No Cyanosis
Skin: Warm and Dry; Negative Rash
Neuro: Awake, Alert and Oriented
Psych: Calm
Data Reviewed
-
Labs: Labs Reviewed by me
--- NOTE | 2025-01-08 12:29 | W.DCSUMMARY ---
Discharge Summary
Discharge Data
Date of Admission: 01/01/25
Date of Discharge: 01/08/25
-
Pending Results: No
Hospital Course
Hospital course:
69 yo Man with:
Stage IV Lung ca on immunotherapy,
COPD with chronic hypoxic resp failure (4L NC at home),
chronic HFpEF,
HTN,
HX DVT 4months ago but due to GIB on last admission Eliquis was stopped,
s/p IVC Filter placement;
p/w SOB, BURCH with minimal activity, fever/chills, diarrhea, dizziness, and weakness. He developed a cough with green sputum one week [employer]LO[employer]. 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 Of note, he was recently
admitted (discharged 12/15) for immune mediated colitis (bloody diarrhea, weight loss), metabolic acidosis. He was discharged home with steroid taper. He is currently taking prednisone 30 mg daily. He is currently on immunotherapy for lung CA.
A/P:
1. sepsis POA likely 2/2 R lung HAP
Complicated by Lung cancer stage 4, on immunotherapy
Complicated by Immunocompromised state due to immunotherapy for lung CA
Improving
Cefepime -> transitioned to oral cefdinir 300 mg twice daily through 01/09/2025 per ID at the time of DC
discontinued doxycycline
blood Cx negative, MRSA screen negative, COVID/Flu tests negative, sputum Cx was not acceptable
Appreciate ID input
2. Recurrent rectal bleed with watery diarrhea - had formed brown BM today
Recent Immune mediated colitis
FLOORMAN on tapering PO Prednisone 30mg daily x 5 days, 20 mg x5 days then stop (per ).
IV Solumedrol 40 BID -> PO prednisone 60 mg
steroid tapering per GI
C diff negative, Norovirus negative
advanced clears to low lactose diet and pt tolerated well
Gi made following recommendations at the time of discharge:
'Okay for discharge since having formed brown stool on 60 mg of prednisone
I gave his the prednisone taper to go down by 10 mg/week and would hold at 40 mg until you speak to Dr. Zaldivar
If bloody diarrhea returns, would need Remicade 10 mg/kg equal 900 mg which can be done outpatient with Dr. Zaldivar
Dr. Zaldivar says he is going to manage the immune mediated colitis with a steroid taper and the potential for Remicade
I did talk to infectious disease and they are comfortable with proceeding with Remicade if necessary
Has not required any more Imodium but I did tell him if he has loose brown stools it is okay to take 2 mg of Imodium every 8 hours
He has follow-up with Dr. Zaldivar on the after his PET scan and is going to have weekly phone call check-in's to help prevent readmission'
3. GEORIGNA on CKD stage 3
SCr 1.7 -> 1.2 today; baseline Scr 1.3
Cont to monitor as outpatient per usual care
4. COPD - on Chronic hypoxic respiratory failure on 4L NC
Cont O2 at 4L NC
FLOORMAN Trelegy Ellipta daily
FLOORMAN DuoNeb q6h prn
5. Recent DVT
Eliquis was stopped due to GIB due to colitis
s/p IVC Filter placement
6. HLD, on statin
7. Essential HTN - contiue FLOORMAN care
8. Chronic HFpEF
Cont Coreg with holding parameter
9. Migraine headaches - continue FLOORMAN care
DVT Px: HSQ
DNR per patient in the presence of spouse at bed side
Discharge Plan
-
Patient Disposition: Home with Home Care
Discharge Diagnosis/Procedures: Right lung hospital acquired pneumonia;
Rectal bleed suspect due to recurrent immune mediated colitis;
Lung cancer stage 4 on immunotherapy
Condition: Fair
Diet: As tolerated
Activity: As tolerated
Driving Restrictions: As prior to admission
Referrals:
Darrius Carter MD [Family Provider] - in less than 1 week
Prescriptions:
New
prednisone 20 mg Tablet
60 mg PO DAILY Qty: 30 0RF
cefdinir 300 mg Capsule
300 mg PO Q12 Qty: 4 0RF
Continued
albuterol sulfate 1 PUFF HFA aerosol inhaler
2 puff inhalation R Q4HPRN PRN (Reason: sob)
carvedilol [Coreg] 25 MG tablet
25 mg PO BID
trazodone 100 MG tablet
200 mg PO HS
pravastatin 20 MG tablet
20 mg PO HS
icosapent ethyl [Vascepa] 1 GM capsule
2 gm PO BID
guaifenesin [Mucus Relief ER] 600 MG tablet extended release 12hr
600 mg PO BID
multivitamin Tablet
1 tab PO DAILY
Trelegy Ellipta 100-62.5-25 mcg Blister With Device
1 inh INHALATION R DAILY
Healthy Feet And Nerves
1 tab PO BID
allopurinol 100 mg Tablet
200 mg PO DAILY
calcium carbonate [Calcium 600] 600 mg calcium (1,500 mg) Tablet
600 mg PO DAILY
ipratropium-albuterol 0.5 mg-3 mg(2.5 mg base)/3 mL Solution For Nebulization
3 ml INHALATION R Q6HPRN PRN (Reason: sob)
benzonatate 100 mg Capsule
100 mg PO DAILY
famotidine 40 mg Tablet
40 mg PO DAILY Qty: 30 0RF
acetaminophen [Tylenol] 325 mg Tablet
650 mg PO Q6HPRN PRN (Reason: fever)
amoxicillin-pot clavulanate [Augmentin] 500-125 mg Tablet
1 tab PO BID
Rx Instructions:
for 7 days starting 12/26/24
Discontinued
prednisone 20 mg tablet
80 mg PO DIRECTED
Rx Instructions:
Taper: 80mg daily x 5 day, 60mg daily x 5 days, 40mg daily x 5 days, 20mg daily x 5 days
Discharge Orders:
Discharge Patient (As Directed); Ordered 01/08/25
Ordered By: Kaden Velasquez
Discharge Date and Time
Print Language: CROATIAN
[2025-01-08 12:35] LABS: Glucose - Point of Care 156 mg/dl (70-99)
--- NOTE | 2025-01-08 12:48 | W.PN.HOSP.TC ---
Today's Communication/Plan
-
On hospice care. Appears comfortable. Family at bedside.
Assessment / Plan
Assessment / Plan
On hospice care. Appears comfortable. Family at bedside.
Anticipated Discharge: 24 - 48 hours
Subjective/Interval History
-
Date of Service: January 08, 2025
comfortable
Objective Data
-
Labs:
Laboratory Results
01/08/25
06:05
WBC 6.7
Hgb 9.5 L
Hct 27.8 L
Plt Count 194
Sodium 139
Potassium 4.2
Chloride 108 H
Carbon Dioxide 26
BUN 23 H
Creatinine 1.2
Glucose 141 H
Calcium 7.7 L
Total Bilirubin 0.7
AST 47
ALT 146 H
Alkaline Phosphatase 68
Vital Signs:
Vital Signs
Temp Pulse Resp BP Pulse Ox
97.7 F 72 16 167/83 98
01/08/25 07:15 01/08/25 08:33 01/08/25 07:15 01/08/25 08:33 01/08/25 08:15
I&O
01/07/25 01/08/25 01/09/25
06:59 06:59 06:59
Intake Total 1140 / 1140 820 / 820
Balance 1140 / 1140 820 / 820
Review of Systems
-
Unable to obtain full review of systems at this time due to: Other (on hospice )
Physical Exam
-
General: Comfortable
[2025-01-08 12:55] VITALS: BP 162/80
== END 2025-01-08 13:27 | disposition home health service (06) | DRG 871 ==
LOC: 2 NORTH 19:39
PROVIDERS: Internal Medicine; Student in an Organized Health Care Education/Training Program; ADMITTING PHYSICIAN Internal Medicine; ATTENDING PHYSICIAN Internal Medicine; CONSULT PHYSICIAN Internal Medicine Gastroenterology; CONSULT PHYSICIAN Internal Medicine Hematology & Oncology; CONSULT PHYSICIAN Internal Medicine Infectious Disease; EMERGENCY PHYSICIAN Student in an Organized Health Care Education/Training Program; FAMILY PHYSICIAN Internal Medicine
DX: A41.9 Sepsis, unspecified organism (principal); J18.9 Pneumonia, unspecified organism; C34.90 Malignant neoplasm of unspecified part of unspecified bronchus or lung; I50.32 Chronic diastolic (congestive) heart failure; I13.0 Hypertensive heart and chronic kidney disease with heart failure and stage 1 through stage 4 chronic kidney disease, or unspecified chronic kidney disease; J44.0 Chronic obstructive pulmonary disease with (acute) lower respiratory infection; E87.20 Acidosis, unspecified; D84.821 Immunodeficiency due to drugs; N17.9 Acute kidney failure, unspecified; E87.1 Hypo-osmolality and hyponatremia; D62 Acute posthemorrhagic anemia; J96.11 Chronic respiratory failure with hypoxia; K92.2 Gastrointestinal hemorrhage, unspecified; K52.1 Toxic gastroenteritis and colitis; Z51.5 Encounter for palliative care; E87.6 Hypokalemia; E78.00 Pure hypercholesterolemia, unspecified; N18.31 Chronic kidney disease, stage 3a; R73.9 Hyperglycemia, unspecified; Y95 Nosocomial condition; T45.1X5A Adverse effect of antineoplastic and immunosuppressive drugs, initial encounter; Y92.9 Unspecified place or not applicable; Z66 Do not resuscitate; Z96.651 Presence of right artificial knee joint; Z86.718 Personal history of other venous thrombosis and embolism; Z95.828 Presence of other vascular implants and grafts; Z99.81 Dependence on supplemental oxygen; Z79.82 Long term (current) use of aspirin; Z79.51 Long term (current) use of inhaled steroids; Z79.52 Long term (current) use of systemic steroids; Z79.69 Long term (current) use of other immunomodulators and immunosuppressants; Z11.52 Encounter for screening for COVID-19; Z87.19 Personal history of other diseases of the digestive system; Z86.0100 Personal history of colon polyps, unspecified; Z80.8 Family history of malignant neoplasm of other organs or systems; Z80.0 Family history of malignant neoplasm of digestive organs; Z87.891 Personal history of nicotine dependence
CPT/HCPCS: 71045; 71275; 80048; 80053; 82962; 83036; 83605; 83735; 85025; 85027; 87040; 87045; 87046; 87070; 87205; 87324; 87328; 87329; 87427; 87449; 87502; 87798; 87811; 93005; 94640; 96361; 96374; 97162; 99285; Q9967

== ENCOUNTER → 2025-01-13 08:31 | Outpatient (REF) | payer MEDICARE, OTHER, SELFPAY | LOC: MRI 08:31 | PROVIDERS: ATTENDING PHYSICIAN Internal Medicine Hematology & Oncology; FAMILY PHYSICIAN Internal Medicine | DX: C34.31 Malignant neoplasm of lower lobe, right bronchus or lung (principal); I82.402 Acute embolism and thrombosis of unspecified deep veins of left lower extremity | CPT/HCPCS: 72157 ==

== ENCOUNTER 2025-01-18 09:09 | Outpatient (RCR) | payer MEDICARE, OTHER, SELFPAY ==
[2025-01-18 09:39] LABS: % Eosinophils 0.1 % (0-6); % Lymphocytes 13.1 % (20.5-51.1); % Monocytes 6.6 % (1.7-9.3); % Neutrophils 79.2 % (42.2-75.2); Absolute Immature Granulocytes 0.1 10^3/uL (0-0.05); Absolute Lymphocytes 1.2 10^3/uL (1.2-3.4); Absolute Monocytes 0.6 10^3/uL (0.1-0.6); Absolute Neutrophils 7.5 10^3/uL (1.4-6.5); Hematocrit 31.8 % (39.0-52.0); Hemoglobin 10.8 g/dL (13.0-18.0); Mean Corpuscular Hgb 32.6 pg (27.0-31.0); Mean Corpuscular Volume 96.1 fL (80.0-94.0); Mean Platelet Volume 8.4 fL (7.4-10.4); Platelet Count 98 10^3/uL (130-400); Red Blood Cell Count 3.31 10^6/uL (4.70-6.10); Red Cell Dist. Width 14.2 % (11.5-14.5); White Blood Cell Count 9.5 10^3/uL (4.8-10.8)
[2025-01-18] MEDS: NSS 1000 IV (09:42)
[2025-01-18 09:54] VITALS: BP 138/80
[2025-01-18 10:29] LABS: ALT (SGPT) 52 U/L (0-50); AST (SGOT) 21 U/L (17-59); Albumin 3.3 g/dl (3.5-5.0); Alkaline Phosphatase 79 U/L (38-126); Blood Urea Nitrogen 28 mg/dl (9-20); Calcium 9.3 mg/dl (8.4-10.2); Carbon Dioxide 25 mmol/L (22-30); Chloride 107 mmol/L (98-107); Glucose 120 mg/dl (70-99); Potassium 4.4 mmol/L (3.5-5.1); Sodium 138 mmol/L (135-145); Total Bilirubin 0.7 mg/dl (0.2-1.3); Total Protein 5.6 g/dl (6.3-8.2); eGFR 59.84
== END 2025-02-04 23:59 | disposition home or self-care (01) ==
LOC: OID 09:09
PROVIDERS: ATTENDING PHYSICIAN Internal Medicine Hematology & Oncology; FAMILY PHYSICIAN Internal Medicine
DX: C34.31 Malignant neoplasm of lower lobe, right bronchus or lung (principal); I82.402 Acute embolism and thrombosis of unspecified deep veins of left lower extremity; Z87.891 Personal history of nicotine dependence; Z51.11 Encounter for antineoplastic chemotherapy; C79.51 Secondary malignant neoplasm of bone; J44.9 Chronic obstructive pulmonary disease, unspecified; J45.909 Unspecified asthma, uncomplicated
CPT/HCPCS: 36591; 80053; 85025; 96360; 96361

== ENCOUNTER 2025-02-27 07:38 | Outpatient (RCR) | payer MEDICARE, OTHER, SELFPAY ==
[2025-02-16 11:06] LABS: % Basophils 0.1 % (0-2); % Eosinophils 0.3 % (0-6); % Immature Granulocytes 0.5 % (0-0.5); % Neutrophils 67.1 % (42.2-75.2); Absolute Lymphocytes 1.6 10^3/uL (1.2-3.4); Absolute Monocytes 0.8 10^3/uL (0.1-0.6); Hematocrit 29.4 % (39.0-52.0); Hemoglobin 10.3 g/dL (13.0-18.0); Mean Corpuscular Hgb 33.4 pg (27.0-31.0); Mean Corpuscular Volume 95.5 fL (80.0-94.0); Mean Platelet Volume 8.4 fL (7.4-10.4); Platelet Count 93 10^3/uL (130-400); Red Blood Cell Count 3.08 10^6/uL (4.70-6.10); Red Cell Dist. Width 15.1 % (11.5-14.5); White Blood Cell Count 7.5 10^3/uL (4.8-10.8)
[2025-02-16 12:49] LABS: ALT (SGPT) 54 U/L (0-50); AST (SGOT) 40 U/L (17-59); Albumin 3.8 g/dl (3.5-5.0); Alkaline Phosphatase 92 U/L (38-126); Blood Urea Nitrogen 20 mg/dl (9-20); Calcium 9.6 mg/dl (8.4-10.2); Carbon Dioxide 25 mmol/L (22-30); Chloride 104 mmol/L (98-107); Glucose 210 mg/dl (70-99); Iron 136 ug/dl (49-181); Potassium 4.4 mmol/L (3.5-5.1); Sodium 137 mmol/L (135-145); Total Bilirubin 0.7 mg/dl (0.2-1.3); eGFR 54.75
[2025-02-16 13:00] LABS: Percent Saturation 47 % (20-50); Total Iron Binding Capacity 285 ug/dl (261-462)
[2025-02-27 08:39] VITALS: BP 147/78
[2025-02-27 09:25] LABS: Blood Urea Nitrogen 20 mg/dl (9-20); Calcium 9.2 mg/dl (8.4-10.2); Carbon Dioxide 25 mmol/L (22-30); Chloride 105 mmol/L (98-107); Glucose 204 mg/dl (70-99); Potassium 4.2 mmol/L (3.5-5.1); Sodium 140 mmol/L (135-145); eGFR 59.84
[2025-02-27] MEDS: XGEVA 120 MG SC (09:47)
== END 2025-02-28 11:22 | disposition home or self-care (01) ==
LOC: OID 07:38
PROVIDERS: ATTENDING PHYSICIAN Internal Medicine Hematology & Oncology; FAMILY PHYSICIAN Internal Medicine; REFERRING PHYSICIAN Internal Medicine Cardiovascular Disease
DX: C34.31 Malignant neoplasm of lower lobe, right bronchus or lung (principal); C34.91 Malignant neoplasm of unspecified part of right bronchus or lung (principal); I82.402 Acute embolism and thrombosis of unspecified deep veins of left lower extremity; Z87.891 Personal history of nicotine dependence; Z51.11 Encounter for antineoplastic chemotherapy; C79.51 Secondary malignant neoplasm of bone; J44.9 Chronic obstructive pulmonary disease, unspecified; J45.909 Unspecified asthma, uncomplicated
CPT/HCPCS: 36415; 80048; 80053; 82728; 83540; 83550; 85025; 96372; J0897

== ENCOUNTER 2025-03-03 11:00 | Outpatient (RCR) | payer MEDICARE, OTHER, SELFPAY | END 2025-03-03 23:59 | disposition home or self-care (01) | LOC: RPT 11:00 | PROVIDERS: ATTENDING PHYSICIAN Internal Medicine Hematology & Oncology; FAMILY PHYSICIAN Internal Medicine | DX: C34.31 Malignant neoplasm of lower lobe, right bronchus or lung (principal); R53.0 Neoplastic (malignant) related fatigue; M62.81 Muscle weakness (generalized) | CPT/HCPCS: 97110; 97112; 97163; 97530 ==

== ENCOUNTER 2025-03-27 09:50 | Outpatient (RCR) | payer MEDICARE, OTHER, SELFPAY ==
[2025-03-27 10:44] LABS: Hematocrit 31.6 % (39.0-52.0); Hemoglobin 10.8 g/dL (13.0-18.0); Mean Corp Hgb Conc. 34.2 g/dL (33.0-37.0); Mean Corpuscular Volume 96.6 fL (80.0-94.0); Platelet Count 164 10^3/uL (130-400); Red Cell Dist. Width 13.9 % (11.5-14.5)
[2025-03-27 10:53] VITALS: BP 128/66
[2025-03-27 11:19] LABS: ALT (SGPT) 20 U/L (0-50); AST (SGOT) 28 U/L (17-59); Albumin 3.8 g/dl (3.5-5.0); Alkaline Phosphatase 67 U/L (38-126); Blood Urea Nitrogen 17 mg/dl (9-20); Calcium 8.9 mg/dl (8.4-10.2); Carbon Dioxide 24 mmol/L (22-30); Chloride 107 mmol/L (98-107); Glucose 154 mg/dl (70-99); Iron 85 ug/dl (49-181); Potassium 4.6 mmol/L (3.5-5.1); Sodium 138 mmol/L (135-145); Total Protein 6.3 g/dl (6.3-8.2); eGFR 43.37
[2025-03-27 11:31] LABS: Total Iron Binding Capacity 276 ug/dl (261-462)
[2025-03-27] MEDS: XGEVA 120 MG SC (11:39)
[2025-03-27 11:54] LABS: Ferritin 357.0 ng/ml (17.9-464.0)
== END 2025-03-28 09:16 | disposition home or self-care (01) ==
LOC: OID 09:50
PROVIDERS: ATTENDING PHYSICIAN Internal Medicine Hematology & Oncology; FAMILY PHYSICIAN Internal Medicine; REFERRING PHYSICIAN Internal Medicine Cardiovascular Disease
DX: C34.91 Malignant neoplasm of unspecified part of right bronchus or lung (principal); C79.51 Secondary malignant neoplasm of bone; Z87.891 Personal history of nicotine dependence; C34.31 Malignant neoplasm of lower lobe, right bronchus or lung; I82.402 Acute embolism and thrombosis of unspecified deep veins of left lower extremity; Z51.11 Encounter for antineoplastic chemotherapy; J44.9 Chronic obstructive pulmonary disease, unspecified; J45.909 Unspecified asthma, uncomplicated
CPT/HCPCS: 36415; 80048; 80053; 82728; 83540; 83550; 85025; 96372; J0897

== ENCOUNTER 2025-04-05 11:43 | Outpatient (RCR) | payer MEDICARE, OTHER, SELFPAY | END 2025-04-05 23:59 | disposition home or self-care (01) | LOC: RPT 11:43 | PROVIDERS: ATTENDING PHYSICIAN Internal Medicine Hematology & Oncology; FAMILY PHYSICIAN Internal Medicine | DX: C34.31 Malignant neoplasm of lower lobe, right bronchus or lung (principal); R53.0 Neoplastic (malignant) related fatigue; I82.401 Acute embolism and thrombosis of unspecified deep veins of right lower extremity; M62.81 Muscle weakness (generalized); R26.81 Unsteadiness on feet | CPT/HCPCS: 97110; 97112; 97530 ==

== ENCOUNTER → 2025-04-10 13:27 | Outpatient (REF) | payer MEDICARE, OTHER, SELFPAY | LOC: RAD 13:27 | PROVIDERS: ATTENDING PHYSICIAN Nurse Practitioner Adult Health; FAMILY PHYSICIAN Internal Medicine | DX: C34.31 Malignant neoplasm of lower lobe, right bronchus or lung (principal); I82.402 Acute embolism and thrombosis of unspecified deep veins of left lower extremity; C79.51 Secondary malignant neoplasm of bone | CPT/HCPCS: 72110 ==

== ENCOUNTER 2025-04-24 09:52 | Outpatient (RCR) | payer MEDICARE, OTHER, SELFPAY ==
[2025-04-24 10:17] VITALS: BP 144/74
[2025-04-24 10:40] LABS: Hematocrit 35.5 % (39.0-52.0); Hemoglobin 11.7 g/dL (13.0-18.0); Mean Corp Hgb Conc. 33.0 g/dL (33.0-37.0); Mean Corpuscular Volume 96.2 fL (80.0-94.0); Nucleated Red Blood Cells % 0 % (-); Platelet Count 181 10^3/uL (130-400); Red Cell Dist. Width 12.7 % (11.5-14.5)
[2025-04-24 11:04] LABS: Blood Urea Nitrogen 13 mg/dl (9-20); Calcium 9.8 mg/dl (8.4-10.2); Carbon Dioxide 26 mmol/L (22-30); Chloride 105 mmol/L (98-107); Glucose 162 mg/dl (70-99); Potassium 3.9 mmol/L (3.5-5.1); Sodium 139 mmol/L (135-145); eGFR 54.75
[2025-04-24] MEDS: XGEVA 120 MG SC (11:34)
== END 2025-04-25 09:27 | disposition home or self-care (01) ==
LOC: OID 09:52
PROVIDERS: ATTENDING PHYSICIAN Internal Medicine Hematology & Oncology; FAMILY PHYSICIAN Internal Medicine; REFERRING PHYSICIAN Internal Medicine Cardiovascular Disease
DX: C34.91 Malignant neoplasm of unspecified part of right bronchus or lung (principal); C79.51 Secondary malignant neoplasm of bone; Z87.891 Personal history of nicotine dependence; C34.31 Malignant neoplasm of lower lobe, right bronchus or lung; I82.402 Acute embolism and thrombosis of unspecified deep veins of left lower extremity; Z51.11 Encounter for antineoplastic chemotherapy; J44.9 Chronic obstructive pulmonary disease, unspecified; J45.909 Unspecified asthma, uncomplicated
CPT/HCPCS: 80048; 85025; 96372; J0897

== ENCOUNTER 2025-05-22 09:52 | Outpatient (RCR) | payer MEDICARE, OTHER, SELFPAY ==
[2025-05-22 10:41] LABS: Hematocrit 37.5 % (39.0-52.0); Hemoglobin 12.9 g/dL (13.0-18.0); Mean Corp Hgb Conc. 34.4 g/dL (33.0-37.0); Mean Corpuscular Volume 90.8 fL (80.0-94.0); Platelet Count 148 10^3/uL (130-400); Red Cell Dist. Width 12.3 % (11.5-14.5)
[2025-05-22 10:43] VITALS: BP 152/72
[2025-05-22 11:14] LABS: Iron 88 ug/dl (49-181); Magnesium 1.6 mg/dl (1.6-2.3)
[2025-05-22 11:18] LABS: ALT (SGPT) 39 U/L (0-50); AST (SGOT) 43 U/L (17-59); Albumin 4.0 g/dl (3.5-5.0); Alkaline Phosphatase 69 U/L (38-126); Blood Urea Nitrogen 18 mg/dl (9-20); Calcium 9.9 mg/dl (8.4-10.2); Carbon Dioxide 26 mmol/L (22-30); Chloride 103 mmol/L (98-107); Glucose 239 mg/dl (70-99); Potassium 4.4 mmol/L (3.5-5.1); Sodium 136 mmol/L (135-145); Total Protein 6.7 g/dl (6.3-8.2); eGFR 54.75
[2025-05-22 11:23] LABS: Total Iron Binding Capacity 344 ug/dl (261-462)
[2025-05-22] MEDS: XGEVA 120 MG SC (11:44)
[2025-05-22 11:50] LABS: Ferritin 137.0 ng/ml (17.9-464.0)
--- NOTE | 2025-05-22 12:45 | PTCARENOTE ---
1000 Pt here today for Xgeva. Pt c/o left ankle pain over the past 2-3 days. Pt had recently finished a course of IV antibiotics to treat cellulitis of the right lower extremity. Pt and spouse unsure of the name of antibiotic. Pt continues to have
swelling and redness of RLE. Pt is afebrile. [employer] A[employer] in to see patient, determined from E-Clinical the antibiotic was Clindamycin. Advised patient to Follow up Dr. Carter. Pt ans spouse agreed and will call today for visit. Xgeva given
as directed. Lab work within parameters.
== END 2025-06-06 23:59 | disposition home or self-care (01) ==
LOC: OID 09:52
PROVIDERS: ATTENDING PHYSICIAN Internal Medicine Hematology & Oncology; FAMILY PHYSICIAN Internal Medicine; REFERRING PHYSICIAN Internal Medicine Cardiovascular Disease
DX: C34.91 Malignant neoplasm of unspecified part of right bronchus or lung (principal); C79.51 Secondary malignant neoplasm of bone; Z87.891 Personal history of nicotine dependence; C34.31 Malignant neoplasm of lower lobe, right bronchus or lung; I82.402 Acute embolism and thrombosis of unspecified deep veins of left lower extremity; Z51.11 Encounter for antineoplastic chemotherapy; J44.9 Chronic obstructive pulmonary disease, unspecified; J45.909 Unspecified asthma, uncomplicated
CPT/HCPCS: 80053; 82728; 83540; 83550; 83735; 85025; 96372; J0897

== ENCOUNTER → 2025-05-24 11:11 | Outpatient (REF) | payer MEDICARE, OTHER, SELFPAY | LOC: RAD 11:11 | PROVIDERS: ATTENDING PHYSICIAN Internal Medicine | DX: I80.9 Phlebitis and thrombophlebitis of unspecified site (principal); R60.0 Localized edema | CPT/HCPCS: 93970 ==

== ENCOUNTER 2025-06-19 09:49 | Outpatient (RCR) | payer MEDICARE, OTHER, SELFPAY ==
[2025-06-19 10:26] LABS: Hematocrit 38.6 % (39.0-52.0); Hemoglobin 13.4 g/dL (13.0-18.0); Mean Corp Hgb Conc. 34.7 g/dL (33.0-37.0); Mean Corpuscular Volume 88.5 fL (80.0-94.0); Platelet Count 127 10^3/uL (130-400); Red Cell Dist. Width 12.6 % (11.5-14.5)
[2025-06-19 10:30] VITALS: BP 143/80
[2025-06-19 11:14] LABS: Blood Urea Nitrogen 15 mg/dl (9-20); Calcium 9.2 mg/dl (8.4-10.2); Carbon Dioxide 26 mmol/L (22-30); Chloride 104 mmol/L (98-107); Glucose 208 mg/dl (70-99); Potassium 4.3 mmol/L (3.5-5.1); Sodium 137 mmol/L (135-145); eGFR 59.84
[2025-06-19] MEDS: XGEVA 120 MG SC (11:48)
== END 2025-06-20 08:24 | disposition home or self-care (01) ==
LOC: OID 09:49
PROVIDERS: ATTENDING PHYSICIAN Internal Medicine Hematology & Oncology; FAMILY PHYSICIAN Internal Medicine; REFERRING PHYSICIAN Internal Medicine Cardiovascular Disease
DX: C34.91 Malignant neoplasm of unspecified part of right bronchus or lung (principal); C79.51 Secondary malignant neoplasm of bone; Z87.891 Personal history of nicotine dependence; C34.31 Malignant neoplasm of lower lobe, right bronchus or lung; I82.402 Acute embolism and thrombosis of unspecified deep veins of left lower extremity; Z51.11 Encounter for antineoplastic chemotherapy; J44.9 Chronic obstructive pulmonary disease, unspecified; J45.909 Unspecified asthma, uncomplicated
CPT/HCPCS: 80048; 85025; 96372; J0897

== ENCOUNTER 2025-07-17 08:21 | Outpatient (RCR) | payer MEDICARE, OTHER, SELFPAY ==
[2025-07-17 09:21] LABS: Blood Urea Nitrogen 17 mg/dl (9-20); Calcium 10.0 mg/dl (8.4-10.2); Carbon Dioxide 29 mmol/L (22-30); Chloride 103 mmol/L (98-107); Glucose 160 mg/dl (70-99); Potassium 5.1 mmol/L (3.5-5.1); Sodium 140 mmol/L (135-145); eGFR 54.75
== END 2025-08-04 13:57 | disposition home or self-care (01) ==
LOC: OID 08:21
PROVIDERS: Nurse Practitioner Adult Health; ATTENDING PHYSICIAN Internal Medicine Hematology & Oncology; FAMILY PHYSICIAN Internal Medicine; REFERRING PHYSICIAN Internal Medicine Cardiovascular Disease
DX: C34.91 Malignant neoplasm of unspecified part of right bronchus or lung (principal); C79.51 Secondary malignant neoplasm of bone; Z87.891 Personal history of nicotine dependence; C34.31 Malignant neoplasm of lower lobe, right bronchus or lung; I82.402 Acute embolism and thrombosis of unspecified deep veins of left lower extremity; Z51.11 Encounter for antineoplastic chemotherapy; J44.9 Chronic obstructive pulmonary disease, unspecified; J45.909 Unspecified asthma, uncomplicated
CPT/HCPCS: 36415; 80048

== ENCOUNTER → 2025-07-31 09:53 | Outpatient (REF) | payer MEDICARE, OTHER, SELFPAY | LOC: RAD 09:53 | PROVIDERS: ATTENDING PHYSICIAN Internal Medicine Hematology & Oncology; FAMILY PHYSICIAN Internal Medicine | DX: I80.9 Phlebitis and thrombophlebitis of unspecified site (principal); C34.31 Malignant neoplasm of lower lobe, right bronchus or lung; I82.402 Acute embolism and thrombosis of unspecified deep veins of left lower extremity; C79.51 Secondary malignant neoplasm of bone; M79.605 Pain in left leg | CPT/HCPCS: 93971 ==

== ENCOUNTER 2025-09-01 09:53 | Outpatient (RCR) | payer MEDICARE, OTHER, SELFPAY ==
[2025-08-07 11:37] LABS: Hematocrit 40.0 % (39.0-52.0); Hemoglobin 14.2 g/dL (13.0-18.0); Mean Corp Hgb Conc. 35.5 g/dL (33.0-37.0); Mean Corpuscular Volume 89.5 fL (80.0-94.0); Platelet Count 150 10^3/uL (130-400); Red Cell Dist. Width 13.5 % (11.5-14.5)
[2025-08-07 12:07] LABS: ALT (SGPT) 50 U/L (0-50); AST (SGOT) 55 U/L (17-59); Albumin 4.6 g/dl (3.5-5.0); Alkaline Phosphatase 49 U/L (38-126); Blood Urea Nitrogen 23 mg/dl (9-20); Calcium 9.9 mg/dl (8.4-10.2); Carbon Dioxide 26 mmol/L (22-30); Chloride 104 mmol/L (98-107); Glucose 112 mg/dl (70-99); Potassium 5.1 mmol/L (3.5-5.1); Sodium 137 mmol/L (135-145); Total Protein 7.6 g/dl (6.3-8.2); eGFR 50.08
[2025-08-09 10:00] VITALS: BP 151/91
[2025-08-09] MEDS: EMEND 150 MG IV (10:41)
[2025-08-09 11:18] VITALS: BMI 32.9
[2025-08-09 11:20] VITALS: BP 148/82
[2025-08-09] MEDS: ALOXI 5 MG IV (11:25)
[2025-08-09] MEDS: DECADRON 51 MG IV (11:26)
[2025-08-09] MEDS: CYANOCOBALAMIN 1000 MCG IM (11:38)
[2025-08-09] MEDS: ALIMTA/PEMETREXED 100 MG IV (12:02)
[2025-08-09] MEDS: PARAPLATIN 294.6 MG IV (12:18)
[2025-08-09 14:10] VITALS: BP 141/88
[2025-08-10 14:53] VITALS: BP 143/64
[2025-08-10] MEDS: FULPHILA 0.6 MG SC (15:03)
[2025-08-16 08:53] LABS: Hematocrit 36.8 % (39.0-52.0); Hemoglobin 12.8 g/dL (13.0-18.0); Mean Corp Hgb Conc. 34.8 g/dL (33.0-37.0); Mean Corpuscular Volume 92.0 fL (80.0-94.0); Platelet Count 59 10^3/uL (130-400); Red Cell Dist. Width 13.0 % (11.5-14.5)
[2025-08-28 11:06] LABS: Hematocrit 35.8 % (39.0-52.0); Hemoglobin 12.1 g/dL (13.0-18.0); Mean Corp Hgb Conc. 33.8 g/dL (33.0-37.0); Mean Corpuscular Volume 94.5 fL (80.0-94.0); Platelet Count 271 10^3/uL (130-400); Red Cell Dist. Width 13.6 % (11.5-14.5)
[2025-08-28 12:06] LABS: ALT (SGPT) 67 U/L (0-50); AST (SGOT) 76 U/L (17-59); Albumin 4.4 g/dl (3.5-5.0); Alkaline Phosphatase 72 U/L (38-126); Blood Urea Nitrogen 21 mg/dl (9-20); Calcium 9.9 mg/dl (8.4-10.2); Carbon Dioxide 27 mmol/L (22-30); Chloride 103 mmol/L (98-107); Estimated Creatinine Clearance 47 ml/min; Glucose 141 mg/dl (70-99); Potassium 5.1 mmol/L (3.5-5.1); Sodium 137 mmol/L (135-145); Total Protein 7.2 g/dl (6.3-8.2); eGFR 43.10
[2025-08-30] MEDS: EMEND 150 MG IV (09:10)
[2025-08-30 09:25] VITALS: BP 144/77; BMI 32.9
[2025-08-30] MEDS: ALOXI 5 MG IV (09:50)
[2025-08-30] MEDS: DECADRON 51 MG IV (09:51)
[2025-08-30] MEDS: ALIMTA/PEMETREXED 100 MG IV (10:26)
[2025-08-30] MEDS: PARAPLATIN 284.9 MG IV (10:43)
[2025-09-01 10:25] VITALS: BMI 33.3
[2025-09-01 10:27] VITALS: BP 155/72
[2025-09-01] MEDS: FULPHILA 0.6 MG SC (10:30)
[2025-09-06 11:27] LABS: Hematocrit 33.1 % (39.0-52.0); Hemoglobin 11.3 g/dL (13.0-18.0); Mean Corp Hgb Conc. 34.1 g/dL (33.0-37.0); Mean Corpuscular Volume 94.0 fL (80.0-94.0); Platelet Count 126 10^3/uL (130-400); Red Cell Dist. Width 14.0 % (11.5-14.5)
[2025-09-06 12:25] LABS: ALT (SGPT) 82 U/L (0-50); AST (SGOT) 65 U/L (17-59); Albumin 4.4 g/dl (3.5-5.0); Alkaline Phosphatase 86 U/L (38-126); Blood Urea Nitrogen 38 mg/dl (9-20); Calcium 9.5 mg/dl (8.4-10.2); Carbon Dioxide 26 mmol/L (22-30); Chloride 102 mmol/L (98-107); Estimated Creatinine Clearance 50 ml/min; Glucose 136 mg/dl (70-99); Potassium 5.0 mmol/L (3.5-5.1); Sodium 138 mmol/L (135-145); Total Protein 6.9 g/dl (6.3-8.2); eGFR 46.35
[2025-09-06 12:49] LABS: TSH 2.79 uIU/ml (0.47-4.68)
[2025-09-06 14:10] LABS: Uric Acid 7.3 mg/dl (3.5-8.5)
== END 2025-09-06 23:59 | disposition home or self-care (01) ==
LOC: OID 09:53
PROVIDERS: ATTENDING PHYSICIAN Internal Medicine Hematology & Oncology; FAMILY PHYSICIAN Internal Medicine; REFERRING PHYSICIAN Internal Medicine Cardiovascular Disease
DX: C34.91 Malignant neoplasm of unspecified part of right bronchus or lung (principal); Z51.11 Encounter for antineoplastic chemotherapy (principal); C34.31 Malignant neoplasm of lower lobe, right bronchus or lung (principal); C79.51 Secondary malignant neoplasm of bone; I82.402 Acute embolism and thrombosis of unspecified deep veins of left lower extremity; Z87.891 Personal history of nicotine dependence; J44.9 Chronic obstructive pulmonary disease, unspecified; J45.909 Unspecified asthma, uncomplicated
CPT/HCPCS: 36415; 80053; 84439; 84443; 84550; 85025; 96367; 96372; 96375; 96411; 96413; J1453; J2469; J9045; J9305; Q5108